=== PATIENT | female | born 1935 | race Caucasian/White ===

== ENCOUNTER 2019-05-24 12:54 | Inpatient (IN) ==
[2019-05-24] MEDS ORDERED: SODIUM CHLORIDE 0.9% 1000ML 1,000 ML IV SCH (13:15)
[2019-05-24 13:50] LABS: Basophils # (auto) 0.02 K/uL (0-0.2); Basophils % (auto) 0.2 %; Eosinophils # (auto) 0.18 K/uL (0-0.5); Eosinophils % (auto) 1.8 %; Hematocrit (blood only) 38.9 % (37-47); Hemoglobin 12.9 g/dL (12.0-16.0); Immature Granulocytes # (auto) 0.01 K/uL (0.00-0.02); Immature Granulocytes % (auto) 0.1 %; Lymphocytes # (auto) 2.97 K/uL (1.2-3.4); Lymphocytes % (auto) 29.6 %; Mean Corpuscular Hemoglobin 30.1 pg (25-34); Mean Corpuscular Hgb Conc 33.2 g/dL (32-36); Mean Corpuscular Volume 90.9 fL (80-100); Mean Platelet Volume 9.7 fL (7.4-10.4); Monocytes # (auto) 1.04 K/uL (0.11-0.59); Monocytes % (auto) 10.4 %; Neutrophils % (auto) 57.9 %; Platelet Count 182 K/uL (130-400); RDW Coefficient of Variation 15.5 % (11.5-14.5); RDW Standard Deviation 51.6 fL (36.4-46.3); Red Blood Count 4.28 M/uL (4.2-5.4); White Blood Count 10.02 K/uL (4.8-10.8)
[2019-05-24 14:07] LABS: Albumin Level 3.4 gm/dl (3.4-5.0); BUN Creatinine Ratio 13.9 (10-20); Calcium 9.9 mg/dl (8.5-10.1); Creatinine Clr Calc Pharmacy 21.5 ml/min; Est GFR (African American) 34.9; Est GFR (Non-African American) 30.2; Magnesium 1.9 mg/dl (1.8-2.4); Potassium 3.9 mmol/L (3.5-5.1)
[2019-05-24] MEDS ORDERED: DEXTROSE 50% 50 ML SYRINGE IV ONE ×2 (14:09→15:48)
[2019-05-24 14:13] LABS: Prothrombin Time 10.4 Seconds (9.0-12.0)
[2019-05-24 14:18] LABS: Albumin Globulin Ratio 0.7 (0.9-2); Bilirubin,Total 0.6 mg/dl (0.2-1); Globulin 4.8 gm/dl (2.5-4.0); Thyroid Stimulating Hormone 1.95 uIu/ml (0.300-4.500); Total Protein 8.2 gm/dl (6.4-8.2)
--- NOTE | 2019-05-24 14:41 | XRay Report ---
XR chest 1V portable HISTORY: weakness COMPARISON: None. FINDINGS: The lungs are clear. Cardiac silhouette is normal in size. No pleural effusions. No pneumot horax. IMPRESSION: No acute process. Electronically signed by: Vasu Carrasco M.D. 05/24/2019 2:39 PM
[2019-05-24 14:47] LABS: Lyme Ab IgG w/WB Rflx Negative (Negative)
[2019-05-24 14:50] LABS: Lyme Ab IgM w/WB Rflx Negative (Negative)
[2019-05-24] MEDS ORDERED: OPTIRAY 320 125ml IV PRN (14:56)
--- NOTE | 2019-05-24 15:25 | CT Scan Report ---
HEAD & NECK CTA HISTORY: LE weakness, ambulatory dysfunction, feels off TECHNIQUE: Multiaxial CT images of the head were performed both before and after the intravenous admi nistration of contrast to evaluate the major cerebral vessels. Multiaxial CT images of the neck were also performed following the intravenous administration of contrast to evaluate the major cervical ve ssels. Maximum intensity projection images were also obtained. A dose lowering technique was utilized adhering to the principles of ALARA. COMPARISON: None. FINDINGS: There is no mass, hematoma, midline shift, or acute infarct. Mild atrophy and microvascular ischemic changes are noted. Punctate calcification within the right frontal periventricular white matter. This is likely chronic. Visualized intracranial internal carotid arteries, distal vertebral arteries, and basilar artery are widely patent. There is no significant stenosis, occlusion, or aneurysm seen with in the bilateral ACAs, MCAs, or household chores. Persistent posterior circulation on the right. This is co nsidered to be a normal variant. Mild calcified plaque within the bilateral carotid siphons. Severely hypoplastic right A1 segment. This is also developmental. The major dural venous sinuses are widely patent. The aortic arch and proximal great vessels are widely patent. There is no significant stenosis, occ lusion, or dissection identified within the bilateral common carotid or vertebral arteries. Moderate calcified plaque within the bilateral carotid bifurcations. This results in 30% stenosis within the l eft carotid bulb and 20% stenosis within the right carotid bulb. IMPRESSION: 1. No significant stenosis, occlusion, or aneurysm within the [place]. 2. No significant stenosis, occlusion, or dissection identified within the common carotid or vertebra l arteries. 3. Mild bilateral carotid bulb stenosis due to the calcified plaque measuring approximately 30% on th e left and 20% on the right. Electronically signed by: Vasu Carrasco M.D. 05/24/2019 3:24 PM
--- NOTE | 2019-05-24 15:25 | CT Scan Report ---
HEAD & NECK CTA HISTORY: LE weakness, ambulatory dysfunction, feels off TECHNIQUE: Multiaxial CT images of the head were performed both before and after the intravenous admi nistration of contrast to evaluate the major cerebral vessels. Multiaxial CT images of the neck were also performed following the intravenous administration of contrast to evaluate the major cervical ve ssels. Maximum intensity projection images were also obtained. A dose lowering technique was utilized adhering to the principles of ALARA. COMPARISON: None. FINDINGS: There is no mass, hematoma, midline shift, or acute infarct. Mild atrophy and microvascular ischemic changes are noted. Punctate calcification within the right frontal periventricular white matter. This is likely chronic. Visualized intracranial internal carotid arteries, distal vertebral arteries, and basilar artery are widely patent. There is no significant stenosis, occlusion, or aneurysm seen with in the bilateral ACAs, MCAs, or property claims manager. Persistent posterior circulation on the right. This is co nsidered to be a normal variant. Mild calcified plaque within the bilateral carotid siphons. Severely hypoplastic right A1 segment. This is also developmental. The major dural venous sinuses are widely patent. The aortic arch and proximal great vessels are widely patent. There is no significant stenosis, occ lusion, or dissection identified within the bilateral common carotid or vertebral arteries. Moderate calcified plaque within the bilateral carotid bifurcations. This results in 30% stenosis within the l eft carotid bulb and 20% stenosis within the right carotid bulb. IMPRESSION: 1. No significant stenosis, occlusion, or aneurysm within the [place]. 2. No significant stenosis, occlusion, or dissection identified within the common carotid or vertebra l arteries. 3. Mild bilateral carotid bulb stenosis due to the calcified plaque measuring approximately 30% on th e left and 20% on the right. Electronically signed by: Vasu Carrasco M.D. 05/24/2019 3:24 PM
--- NOTE | 2019-05-24 15:25 | CT Scan Report ---
HEAD & NECK CTA HISTORY: LE weakness, ambulatory dysfunction, feels off TECHNIQUE: Multiaxial CT images of the head were performed both before and after the intravenous admi nistration of contrast to evaluate the major cerebral vessels. Multiaxial CT images of the neck were also performed following the intravenous administration of contrast to evaluate the major cervical ve ssels. Maximum intensity projection images were also obtained. A dose lowering technique was utilized adhering to the principles of ALARA. COMPARISON: None. FINDINGS: There is no mass, hematoma, midline shift, or acute infarct. Mild atrophy and microvascular ischemic changes are noted. Punctate calcification within the right frontal periventricular white matter. This is likely chronic. Visualized intracranial internal carotid arteries, distal vertebral arteries, and basilar artery are widely patent. There is no significant stenosis, occlusion, or aneurysm seen with in the bilateral ACAs, MCAs, or cathode builder. Persistent posterior circulation on the right. This is co nsidered to be a normal variant. Mild calcified plaque within the bilateral carotid siphons. Severely hypoplastic right A1 segment. This is also developmental. The major dural venous sinuses are widely patent. The aortic arch and proximal great vessels are widely patent. There is no significant stenosis, occ lusion, or dissection identified within the bilateral common carotid or vertebral arteries. Moderate calcified plaque within the bilateral carotid bifurcations. This results in 30% stenosis within the l eft carotid bulb and 20% stenosis within the right carotid bulb. IMPRESSION: 1. No significant stenosis, occlusion, or aneurysm within the [place]. 2. No significant stenosis, occlusion, or dissection identified within the common carotid or vertebra l arteries. 3. Mild bilateral carotid bulb stenosis due to the calcified plaque measuring approximately 30% on th e left and 20% on the right. Electronically signed by: Vasu Carracso M.D. 05/24/2019 3:24 PM
[2019-05-24 15:37] LABS: Appearance Urine Turbid (Clear); Bacteria Urine Automated Negative (Negative); Bilirubin Urine Negative (Negative); Blood Urine 1+ (Negative); Color Urine Yellow; Epithelial Cell Urine Auto >30 /lpf (0-5); Glucose Urine UA 2+ (Negative); Ketones Urine Negative (Negative); Leukocyte Esterase Urine 3+ (Negative); Nitrite Urine Negative (Negative); Protein Urine Negative (Negative); Specific Gravity Urine 1.019 (1.000-1.030); Urobilinogen Urine Negative (Negative); WBC Urine Automated >30 /hpf (0-5)
[2019-05-24] MEDS ORDERED: ASPIRIN CHEW 324 MG PO STA (17:36)
--- NOTE | 2019-05-24 18:22 | History & Physical Report ---
Date of Service May 24, 2019 Assessment & Plan (1) Generalized weakness: (2) Third nerve palsy: This is an 84-year-old female who has significant past medical history of T2DM, HTN, HLD, GERD, chronic low back pain, history of left breast CA, diabetic neuropathy who presents to [facility] ED secondary to increased weakness, confusion x5 days; right lazy eye x1 day. In ED patient was noted to have right eye ptosis, dilated and minimally reactive pupil. She underwent CT scan of head along with CTA of head and neck which revealed no significant stenosis, occlusion or aneurysm within the [place], common carotid artery or vertebral arteries. Mild bilateral carotid bulb stenosis due to calcified plaque measuring 30% on left and 1% on right. CBC was relatively unremarkable, BMP significant for elevated BUN 22, creatinine 1.58, glucose 67, TSH WNL, Lyme screen negative. Initial urinalysis 2+ glucose, +1 blood, +3 leukoesterase, many epithelial cells, greater than 30 WBC. Chest x-ray no significant abnormality. ED provider did speak with neurology who recommended ASA 325 along with MRI of head with and without contrast. Ddx: ischemic CVA, TIA, Malignancy (hx breast ca), infectious, inflammatory Admit to PCU consult neurology MRI Head w and w/o contrast neuro checks obtain visual acuity fasting lipid panel, a1c in a.m. PT/OT/ST obtain echo tx with IV antibiotic Rocephin (3) ASHLYN (acute kidney injury): Baseline creatinine 0.9 BUN/creatinine 22 and 1.58 today Hold metformin, benazepril/HCTZ, naproxen (she takes daily) She did receive CT with contrast Avoid further nephrotoxic agents Placed on gentle IV hydration 60 cc/h Repeat BMP in a.m. obtain urine, NA studies (4) Abnormal urinalysis: Urinalysis concerning for UTI, but could also be contaminant She is afebrile, WBC 10 K Approximately 1 month ago she had Klebsiella greater than 100 K UTI She currently is symptomatic with dysuria Placed on empiric ceftriaxone, dosed per pharmacy until culture returns (5) Diabetes mellitus type 2 in nonobese: Last A1c 10.4 on 06/06/2018 Obtain A1c in a.m. Patient on multidrug regimen and outpatient Hold metformin, glipizide, Tradjenta, Jardiance Lantus/NovoLog per protocol -likely will need to adjust regimen, patient significantly hypoglycemic while in ED with BSG [address] place on a liberal control initially, but likely will have to tighten NovoLog and Lantus scales in a.m. (6) Hypertension: Blood pressure on lower side Hold amlodipine, benazepril/HCTZ Continue atenolol but with strict parameters Monitor BP (7) Hypercholesterolemia: Continue statin Fasting lipid panel in a.m. (8) Neuropathy: Continue gabapentin Neuropathy precautions (9) DVT prophylaxis: Heparin SQ Disposition: Admit to PCU Follow: PCP Dr. Castano upon discharge Patient was seen and examined in collaboration with Dr. Baez, please see addendum History of Present Illness Chief Complaint: Weakness, increased confusion x5 days; lazy right eye x1 day. Primary Care Provider: Maged Castano MD This is an 84-year-old female who has significant past medical history of T2DM, HTN, HLD, GERD, chronic low back pain, history of left breast CA, diabetic neuropathy who presents to [facility] ED secondary to increased weakness, confusion x5 days; right lazy eye x1 day. Daughter and [id number] are at bedside. They have noted over the past 5 days she has been increasingly becoming more weak, difficulty walking and has been having intermittent increased confusion. She woke up today and was having difficulty opening her right eye. Because of symptoms they opted to seek ED treatment. She denies any recent illness, fever, chills, sweats, lightheadedness, dizziness, syncope, visual change, hearing change, fall, chest pain, shortness of breath, cough, hemoptysis, nausea, vomiting, abdominal pain. She does admit to having burning with urination and increased frequency with urination. She denies any cee hematuria, increased urgency with urination, diarrhea, melena, hematochezia. Per dewgyyii-fr-tqf she has been having intermittent constipation requiring srxk-qze-zhqkkxw MiraLAX. She does live alone at home and is mostly independent at baseline. She does ambulate with a cane. Approximately 1 month ago she was treated with a UTI and symptoms felt similar. "We thought maybe she was having a urinary tract infection which is why she was more confused." In ED patient was noted to have right eye ptosis, dilated and minimally reactive pupil. She underwent CT scan of head along with CTA of head and neck which revealed no significant stenosis, occlusion or aneurysm within the [place], common carotid artery or vertebral arteries. Mild bilateral carotid bulb stenosis due to calcified plaque measuring 30% on left and 1% on right. CBC was relatively unremarkable, BMP significant for elevated BUN 22, creatinine 1.58, glucose 67, TSH WNL, Lyme screen negative. Initial urinalysis 2+ glucose, +1 blood, +3 leukoesterase, many epithelial cells, greater than 30 WBC. Chest x-ray no significant abnormality. ED provider did speak with neurology who recommended ASA 325 along with MRI of head with and without contrast. Allergies Allergy/AdvReac Type Severity Reaction Status Date / Time No Known Allergies Allergy Unverified 05/24/19 14:19 Home Medications Home Medications Medication Instructions Recorded Confirmed Type Ca carb-D3-mag vd-zue-yrfs-Zn 1 tab PO QAM 05/24/19 05/24/19 History [Caltrate + D3 Plus Minerals] amlodipine 10 mg PO QAM 05/24/19 05/24/19 History aspirin 81 mg PO QAM 05/24/19 05/24/19 History atenolol 50 mg PO HS 05/24/19 05/24/19 History atorvastatin 40 mg PO HS 05/24/19 05/24/19 History benazepril-hydrochlorothiazide 1 tab PO QAM 05/24/19 05/24/19 History cholecalciferol (vitamin D3) 1,000 unit PO DAILY@1200 05/24/19 05/24/19 History [Vitamin D3] empagliflozin [Jardiance] 25 mg PO QAM 05/24/19 05/24/19 History gabapentin 100 mg PO HS 05/24/19 05/24/19 History glipizide 10 mg PO BID 05/24/19 05/24/19 History linagliptin [Tradjenta] 5 mg PO QAM 05/24/19 05/24/19 History lorazepam 0.5 mg PO BID 05/24/19 05/24/19 History metformin 1,000 mg PO BIDM 05/24/19 05/24/19 History multivitamin 1 tab PO DAILY@1200 05/24/19 05/24/19 History naproxen sodium [Aleve] 220 mg PO HS 05/24/19 05/24/19 History omega-3 fatty acids-fish oil [Fish 1 cap PO DAILY@1200 05/24/19 05/24/19 History Oil] omeprazole 20 mg PO QAM 05/24/19 05/24/19 History Past Med/Surg History Medical History (Updated 05/24/19 @ 18:28 by Trish Nino PA-C) Breast cancer, stage 2 (Acute 11/14/13) Diabetes mellitus type 2 in nonobese (Acute) Hx: UTI (urinary tract infection) Hypercholesterolemia (Acute) Hypertension (Acute) Neuropathy Surgical History (Updated 05/24/19 @ 18:20 by Trish Nino PA-C) History of History of carpal tunnel surgery History of colonoscopy S/P lumpectomy, left breast (Acute 12/26/13) Family History Father , 83 Myocardial infarction, Onset Age: 46 Hypertension Heart disease Diabetes Mother Diabetes Hypertension Social History (Updated 05/24/19 @ 18:22 by Trish Nino PA-C) Preferred Language: Polish Communication Ability: Effective marital status: Current Living Situation: Alone current occupational status: retired Feels Safe at Home: Yes Smoking Status: Never smoker Hx Alcohol Use: No Hx Substance Use: No Review of Systems Review of Systems: All systems reviewed & are unremarkable except as noted in HPI & below Physical Exam Physical Exam: Constitutional: WD/WN, elderly, female, vitals as above, NAD, sitting up in bed, pleasant, conversing easily Head: Normocephalic, Atraumatic Eyes: Right eye ptosis, right pupil dilated, fixed, minimally reactive, no conjunctival injection, third eye palsy noted as right eye does not follow medially, left eye pupil reactive to light and accommodation with normal conjunctiva, anicteric sclerae ENMT: external ear and nose normal, oropharynx normal Neck: trachea midline, no thyromegaly normal visual inspection Respiratory: normal respiratory effort, lungs clear to auscultation, no wheeze, rales, rhonchi. Normal insp/exp effort, no accessory muscle use Cardiovascular: RRR, no murmur, no edema Vessels: no JVD or carotid bruit Chest: normal inspection of chest Abdomen: normal bowel sounds, soft, nontender, no hepatosplenomegaly Musculoskeletal: no cyanosis or clubbing, extremities motor strength 5/5 Skin: no rashes, warm and dry normal turgor Neurologic: Eye exam as above, no face palsy, no dysarthria CN's II-XI intact, except III, bilaterally and moves all extremities Psychiatric: A+Ox3, euthymic affect Lymphatic: no cervical or axillary lymphadenopathy : deferred Results & Data Vital Signs (Past 12 Hours) Vital Signs Temp Pulse Pulse Resp BP BP Pulse Ox 05/24/19 17:17 78 18 117/58 L 95 05/24/19 16:07 76 18 105/63 95 05/24/19 15:40 81 18 130/53 L 91 05/24/19 14:30 72 20 107/47 L 97 05/24/19 14:00 67 17 118/43 L 05/24/19 13:39 70 19 126/56 L 05/24/19 13:30 70 19 05/24/19 13:23 70 17 05/24/19 12:57 36.4 C L 73 20 101/64 98 Laboratory Results Short CBC 05/24/19 05/24/19 05/24/19 Range/Units 13:40 13:40 15:27 WBC 10.02 (4.8-10.8) K/uL Hgb 12.9 (12.0-16.0) g/dL Hct 38.9 (37-47) % Plt Count 182 (130-400) K/uL Creatinine 1.58 H (0.6-1.2) mg/dl Glucose 67 L (70-99) mg/dl POC Glucose 57 L* (70-99) 05/24/19 05/24/19 Range/Units 15:28 16:06 WBC (4.8-10.8) K/uL Hgb (12.0-16.0) g/dL Hct (37-47) % Plt Count (130-400) K/uL Creatinine (0.6-1.2) mg/dl Glucose (70-99) mg/dl POC Glucose 52 L* 140 H (70-99) BMP 05/24/19 13:40 Sodium 132 L Potassium 3.9 Chloride 99 Carbon Dioxide 23 BUN 22 H Creatinine 1.58 H Glucose 67 L Calcium 9.9 Liver Function 05/24/19 Range/Units 13:40 Total Bilirubin 0.6 (0.2-1) mg/dl AST 23 (15-37) U/L ALT 33 (12-78) U/L Alkaline Phosphatase 104 (45-117) U/L Albumin 3.4 (3.4-5.0) gm/dl Urine 05/24/19 Range/Units 15:15 Urine Color Yellow Urine Appearance Turbid A (Clear) Urine pH 5.0 (4.5-7.5) Ur Specific [place] 1.019 (1.000-1.030) Urine Protein Negative (Negative) Urine Glucose (UA) 2+ H (Negative) Diagnostic Findings CXR: IMPRESSION: No acute process. Head CT, CTA of head/neck: IMPRESSION: 1. No significant stenosis, occlusion, or aneurysm within the [place]. 2. No significant stenosis, occlusion, or dissection identified within the common carotid or vertebral arteries. 3. Mild bilateral carotid bulb stenosis due to the calcified plaque measuring a pproximately 30% on the left and 20% on the right. Medications Administered Discontinued Medications Aspirin (Aspirin) 324 mg PO NOW STA Stop: 05/24/19 17:37 Last Admin: 05/24/19 18:00 Dose: 324 mg Documented by: [id number] Dextrose (Dextrose 50%) 25 ml IV NOW ONE Stop: 05/24/19 14:10 Last Admin: 05/24/19 14:13 Dose: 25 ml Documented by: [id number] Dextrose (Dextrose 50%) 50 ml IV NOW ONE Stop: 05/24/19 15:49 Last Admin: 05/24/19 15:45 Dose: 50 ml Documented by: [id number] Sodium Chloride (Nss 1000ml) 1,000 mls @ 999 mls/hr IV .Q1H1M MIGDALIA Stop: 05/24/19 14:15 Last Infusion: 05/24/19 14:45 Dose: 0 mls/hr Documented by: [id number] Admin: 05/24/19 13:55 Dose: 999 mls/hr Documented by: [id number] ECG Rate (beats per minute): 69 Rhythm: normal sinus Findings: + RBBB Code Status & VTE Plan Code Status Full Code VTE Prophylaxis Plan VTE Prophylaxis will be ordered: Yes Supervising Physician Co-Signing Physician Notes Attending addendum: The patient was seen and examined in emergency room in presence of the daughters She has significant past medical history including diabetes and history of breast cancer stage II Has been complaining of increasing weakness and tiredness and noted to have closed and lazy eye on the right side Surprisingly she denies any double vision She has noted to have right 3rd nerve palsy on examination Denies any other symptoms except weakness On examination No apparent distress at rest Noted to have partially open right eye which is fully dilated Afebrile and hemodynamically stable Chest-clear Heart-S1-S2, regular Abdomen-benign, nontender, no organomegaly, bowel some present Extremities-trace edema bilaterally 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
[2019-05-24] MEDS ORDERED: CONSULT PHARMACY PRN (18:25)
--- NOTE | 2019-05-24 18:39 | Emergency Department Note ---
Entered by Romina Carroll acting as a scribe for History of Present Illness General Chief complaint: TIA Symptoms Stated complaint: LATHARGIC, POSSIBLE STROKE Time Seen by Provider: 05/24/19 13:00 Source: patient History of Present Illness Onset (ago): day(s) (yesterday) Location: head Pain Consistency: + other (persistent) Maximum Pain Intensity: 5 Quality: + other (TIA symptoms) Associated symptoms: + denies other symptoms (abdominal pain, difficulty moving her bowels, difficulty urinating, increased urinary frequency), + confusion, + weakness and + other (foggy, lethargic, feeling slow, difficulty walking, inability to open right eye, burning with urination); no fever/chills, no loss of appetite and no shortness of breath The patient is an 84 year old female w/ PMHx neuropathy, UTI, diabete s, hypercholesterolemia, HTN, and breast cancer who presents to the ED w/ CC of persistent TIA symptoms starting yesterday. The patient states that she just is not feeling herself. She states that her head feels off. She notes that it is hard to describe. The patients daughter states that she has been confused, slow, lethargic, and foggy. She states that she seemed off like this all weekend and they really noticed it Wednesday, 2 days ago. She reports that she slept most of the day yesterday. She states that yesterday they started to notice she was weak as well. She reports that she has not been able to get up and walk on her own without assistance. She notes that she got like this in the past when she had a UTI. The patient states that she is concerned she may have a UTI because she had some burning with urination this morning. The patient complains of difficulty opening her right eye. The patients daughter notes that the patients mother had the same issues when she had a stroke. The patient denies fever, chills, chest pain, shortness of breath, abdominal pain, difficulty moving her bowels, difficulty urinating, loss of appetite, increased urinary frequency, use of alcohol, and use of tobacco. Home Medications Home Medications Medication Instructions Recorded Confirmed Type Ca carb-D3-mag [id number] 1 tab PO QAM 05/24/19 05/24/19 History [Caltrate + D3 Plus Minerals] amlodipine 10 mg PO QAM 05/24/19 05/24/19 History aspirin 81 mg PO QAM 05/24/19 05/24/19 History atenolol 50 mg PO HS 05/24/19 05/24/19 History atorvastatin 40 mg PO HS 05/24/19 05/24/19 History benazepril-hydrochlorothiazide 1 tab PO QAM 05/24/19 05/24/19 History cholecalciferol (vitamin D3) 1,000 unit PO DAILY@1200 05/24/19 05/24/19 History [Vitamin D3] empagliflozin [Jardiance] 25 mg PO QAM 05/24/19 05/24/19 History gabapentin 100 mg PO HS 05/24/19 05/24/19 History glipizide 10 mg PO BID 05/24/19 05/24/19 History linagliptin [Tradjenta] 5 mg PO QAM 05/24/19 05/24/19 History lorazepam 0.5 mg PO BID 05/24/19 05/24/19 History metformin 1,000 mg PO BIDM 05/24/19 05/24/19 History multivitamin 1 tab PO DAILY@1200 05/24/19 05/24/19 History naproxen sodium [Aleve] 220 mg PO HS 05/24/19 05/24/19 History omega-3 fatty acids-fish oil [Fish 1 cap PO DAILY@1200 05/24/19 05/24/19 History Oil] omeprazole 20 mg PO QAM 05/24/19 05/24/19 History Allergies Allergy/AdvReac Type Severity Reaction Status Date / Time No Known Allergies Allergy Unverified 05/24/19 14:19 Past Med/Surg History Medical History (Updated 05/24/19 @ 18:28 by Trish Nino PA-C) Breast cancer, stage 2 (Acute 11/14/13) Diabetes mellitus type 2 in nonobese (Acute) Hx: UTI (urinary tract infection) Hypercholesterolemia (Acute) Hypertension (Acute) Neuropathy Surgical History (Updated 05/24/19 @ 18:20 by Trish Nino PA-C) History of History of carpal tunnel surgery History of colonoscopy S/P lumpectomy, left breast (Acute 12/26/13) Family History Father , 83 Myocardial infarction, Onset Age: 46 Hypertension Heart disease Diabetes Mother Diabetes Hypertension Social History (Updated 05/24/19 @ 18:22 by Trish Nino PA-C) Preferred Language: [place] Communication Ability: Effective marital status: Current Living Situation: Alone current occupational status: retired Feels Safe at Home: Yes Smoking Status: Never smoker Hx Alcohol Use: No Hx Substance Use: No Review of Systems See HPI for pertinent positives & negatives. and A total of 10 systems reviewed and were otherwise negative Physical Exam Vital Signs Vital Signs - 24 hr 05/24/19 12:57 05/24/19 13:23 05/24/19 13:30 Temperature 36.4 C L Temperature Source Oral Pulse Rate 73 70 70 Pulse Rate [Apical] Pulse Rate from SpO2 Sensor Respiratory Rate 20 17 19 Respiratory Effort / Characteristics Non-Labored Spontaneous Respiratory Depth Normal Blood Pressure 101/64 Blood Pressure [Left Arm] Blood Pressure Mean 76 Blood Pressure Mean [Left Arm] Pulse Oximetry 98 Oxygen Delivery Method Room Air Sepsis Recent Fever Within 48 Hours No Sepsis New/Unexplained Change in Mental Status No Sepsis Action Taken by Nursing No Action Required 05/24/19 13:39 05/24/19 14:00 05/24/19 14:30 Temperature Temperature Source Pulse Rate 70 67 72 Pulse Rate [Apical] Pulse Rate from SpO2 Sensor 73 Respiratory Rate 19 17 20 Respiratory Effort / Characteristics Respiratory Depth Blood Pressure 126/56 L 118/43 L 107/47 L Blood Pressure [Left Arm] Blood Pressure Mean 88 74 81 Blood Pressure Mean [Left Arm] Pulse Oximetry 97 Oxygen Delivery Method Sepsis Recent Fever Within 48 Hours Sepsis New/Unexplained Change in Mental Status Sepsis Action Taken by Nursing 05/24/19 15:40 05/24/19 16:07 05/24/19 17:17 Temperature Temperature Source Pulse Rate Pulse Rate [Apical] 81 76 78 Pulse Rate from SpO2 Sensor Respiratory Rate 18 18 18 Respiratory Effort / Characteristics Non-Labored Non-Labored Respiratory Depth Normal Normal Blood Pressure Blood Pressure [Left Arm] 130/53 L 105/63 117/58 L Blood Pressure Mean Blood Pressure Mean [Left Arm] 78 77 77 Pulse Oximetry 91 95 95 Oxygen Delivery Method Room Air Room Air Room Air Sepsis Recent Fever Within 48 Hours Sepsis New/Unexplained Change in Mental Status Sepsis Action Taken by Nursing 05/24/19 18:19 Temperature Temperature Source Pulse Rate Pulse Rate [Apical] 79 Pulse Rate from SpO2 Sensor Respiratory Rate 18 Respiratory Effort / Characteristics Respiratory Depth Blood Pressure Blood Pressure [Left Arm] 127/77 Blood Pressure Mean Blood Pressure Mean [Left Arm] 93 Pulse Oximetry 97 Oxygen Delivery Method Room Air Sepsis Recent Fever Within 48 Hours Sepsis New/Unexplained Change in Mental Status Sepsis Action Taken by Nursing GENERAL: Well appearing, well nourished, NAD, non-toxic. EYE EXAM: Normal conjunctiva. PERRL, no anisocoria. Inability to move right eye to the left. Pupil is dilated. Sluggish to react. OROPHARYNX: Moist mucous membranes. Grossly normal dentition. NECK: Supple, no nuchal rigidity, no adenopathy, non-tender. No signs of meningismus. LUNGS: Clear to auscultation. Normal chest wall mechanics. HEART: NSR, no MRG. ABDOMEN: Abdomen soft, non-tender, normo-active bowel sounds, no masses, no rebound or guarding. BACK: No CVA TTP. SKIN: No rashes and no bruising. UPPER EXTREMITIES: Upper extremities are grossly normal. LOWER EXTREMITIES: No pitting edema. No calf pain. NEURO EXAM: A&O x3, cranial nerves II-XII grossly intact with the exception of inability to move right eye to the left. Pupil is dilated. Sluggish to react. Normal speech, 5/5 strength throughout, no sensory deficits,good finger to nose, no pronator drift, moves all 4 extremities on command w/o issue. Course Course 1303: The patient was evaluated in room C9. A complete history and physical exam was performed. 1305: Orders were placed and the patient was placed on the secured entrance monitor. 1617: I reevaluated the patient at this time and updated her on her test results thus far. I discussed that we are going to talk to neurology. 1625: I discussed the patient's case with Dr. Beck- Neurology. He recommends bringing the patient in. 1701: I reevaluated the patient and updated her and her family on her test results. I discussed the treatment plan with them. They verbally agree and understand. 1735: I discussed the patient's case with Trish Nino PA-C -[facility] Hospitalist. She will evaluate the patient for further management under Dr. Baez's service. Administered Medications Discontinued Medications Aspirin (Aspirin) 324 mg PO NOW STA Stop: 05/24/19 17:37 Last Admin: 05/24/19 18:00 Dose: 324 mg Documented by: [id number] Dextrose (Dextrose 50%) 25 ml IV NOW ONE Stop: 05/24/19 14:10 Last Admin: 05/24/19 14:13 Dose: 25 ml Documented by: [id number] Dextrose (Dextrose 50%) 50 ml IV NOW ONE Stop: 05/24/19 15:49 Last Admin: 05/24/19 15:45 Dose: 50 ml Documented by: [id number] Sodium Chloride (Nss 1000ml) 1,000 mls @ 999 mls/hr IV .Q1H1M MIGDALIA Stop: 05/24/19 14:15 Last Infusion: 05/24/19 14:45 Dose: 0 mls/hr Documented by: [id number] Admin: 05/24/19 13:55 Dose: 999 mls/hr Documented by: [id number] Critical Care Time Critical Care Time: Yes Total Critical Care Time: 37 I have personally spent 37 minutes of critical care time in direct management of this patient. This includes bedside care, interpretation of diagnostic studies, and testing, discussion with consultants, patient, and family members, and other require inpatient management activities. This 37 minutes is in excess of all separately billable procedures. Medical Decision Making Differential Diagnosis Differential Diagnosis includes but is not limited to dehydration, stroke, anemia, hypoglycemia, hyponatremia, hypernatremia, urinary tract infection, pneumonia, bronchitis, sepsis, gastroenteritis, additional abdominal pathology, metabolic abnormalities and infections. Medical Records Attestation: I reviewed the patient's medical records. Home Medications Current Medication List: was personally reviewed by nc Laboratory Data Attestation: I reviewed the patient's lab results. Result diagrams: 05/24/19 13:40 05/24/19 13:40 Lab Results 05/24/19 05/24/19 05/24/19 Range/Units 13:40 13:40 13:40 WBC 10.02 (4.8-10.8) K/uL RBC 4.28 (4.2-5.4) M/uL Hgb 12.9 (12.0-16.0) g/dL Hct 38.9 (37-47) % MCV 90.9 (80-100) fL MCH 30.1 (25-34) pg MCHC 33.2 (32-36) g/dL RDW Std Deviation 51.6 H (36.4-46.3) fL RDW Coeff of Judy 15.5 H (11.5-14.5) % Plt Count 182 (130-400) K/uL MPV 9.7 (7.4-10.4) fL Immature Gran % (Auto) 0.1 % Neut % (Auto) 57.9 % Lymph % (Auto) 29.6 % [place] % (Auto) 10.4 % Eos % (Auto) 1.8 % Baso % (Auto) 0.2 % Immature Gran # (Auto) 0.01 (0.00-0.02) K/uL Neut # (Auto) 5.80 (1.4-6.5) K/uL Lymph # (Auto) 2.97 (1.2-3.4) K/uL [place] # (Auto) 1.04 H (0.11-0.59) K/uL Eos # (Auto) 0.18 (0-0.5) K/uL Baso # (Auto) 0.02 (0-0.2) K/uL PT 10.4 (9.0-12.0) Seconds INR 1.0 (0.9-1.1) Sodium 132 L (136-145) mmol/L Potassium 3.9 (3.5-5.1) mmol/L Chloride 99 (98-107) mmol/L Carbon Dioxide 23 (21-32) mmol/L Anion Gap 10.0 (3-11) BUN 22 H (7-18) mg/dl Creatinine 1.58 H (0.6-1.2) mg/dl Est Cr Clr Drug Dosing 21.5 ml/min Est GFR ( Amer) 34.9 Est GFR (Non-Af Amer) 30.2 BUN/Creatinine Ratio 13.9 (10-20) Glucose 67 L (70-99) mg/dl POC Glucose (70-99) Calcium 9.9 (8.5-10.1) mg/dl Magnesium 1.9 (1.8-2.4) mg/dl Total Bilirubin 0.6 (0.2-1) mg/dl AST 23 (15-37) U/L ALT 33 (12-78) U/L Alkaline Phosphatase 104 (45-117) U/L Total Protein 8.2 (6.4-8.2) gm/dl Albumin 3.4 (3.4-5.0) gm/dl Globulin 4.8 H (2.5-4.0) gm/dl Albumin/Globulin Ratio 0.7 L (0.9-2) TSH 1.950 (0.300-4.500) uIu/ml Urine Color Urine Appearance (Clear) Urine pH (4.5-7.5) Ur Specific [place] (1.000-1.030) Urine Protein (Negative) Urine Glucose (UA) (Negative) Urine Ketones (Negative) Urine Blood (Negative) Urine Nitrite (Negative) Urine Bilirubin (Negative) Urine Urobilinogen (Negative) Ur Leukocyte Esterase (Negative) Urine WBC (Auto) (0-5) /hpf Urine RBC (Auto) (0-4) /hpf U Hyaline Cast (Auto) (0-5) /lpf U Epithel Cells (Auto) (0-5) /lpf Urine Bacteria (Auto) (Negative) Urine Yeast (None Prsent) Lyme Disease IgG Ab (Negative) Lyme Disease IgM Ab (Negative) 05/24/19 05/24/19 05/24/19 Range/Units 13:40 15:15 15:27 WBC (4.8-10.8) K/uL RBC (4.2-5.4) M/uL Hgb (12.0-16.0) g/dL Hct (37-47) % MCV (80-100) fL MCH (25-34) pg MCHC (32-36) g/dL RDW Std Deviation (36.4-46.3) fL RDW Coeff of Judy (11.5-14.5) % Plt Count (130-400) K/uL MPV (7.4-10.4) fL Immature Gran % (Auto) % Neut % (Auto) % Lymph % (Auto) % [place] % (Auto) % Eos % (Auto) % Baso % (Auto) % Immature Gran # (Auto) (0.00-0.02) K/uL Neut # (Auto) (1.4-6.5) K/uL Lymph # (Auto) (1.2-3.4) K/uL [place] # (Auto) (0.11-0.59) K/uL Eos # (Auto) (0-0.5) K/uL Baso # (Auto) (0-0.2) K/uL PT (9.0-12.0) Seconds INR (0.9-1.1) Sodium (136-145) mmol/L Potassium (3.5-5.1) mmol/L Chloride (98-107) mmol/L Carbon Dioxide (21-32) mmol/L Anion Gap (3-11) BUN (7-18) mg/dl Creatinine (0.6-1.2) mg/dl Est Cr Clr Drug Dosing ml/min Est GFR ( Amer) Est GFR (Non-Af Amer) BUN/Creatinine Ratio (10-20) Glucose (70-99) mg/dl POC Glucose 57 L* (70-99) Calcium (8.5-10.1) mg/dl Magnesium (1.8-2.4) mg/dl Total Bilirubin (0.2-1) mg/dl AST (15-37) U/L ALT (12-78) U/L Alkaline Phosphatase (45-117) U/L Total Protein (6.4-8.2) gm/dl Albumin (3.4-5.0) gm/dl Globulin (2.5-4.0) gm/dl Albumin/Globulin Ratio (0.9-2) TSH (0.300-4.500) uIu/ml Urine Color Yellow Urine Appearance Turbid A (Clear) Urine pH 5.0 (4.5-7.5) Ur Specific [place] 1.019 (1.000-1.030) Urine Protein Negative (Negative) Urine Glucose (UA) 2+ H (Negative) Urine Ketones Negative (Negative) Urine Blood 1+ H (Negative) Urine Nitrite Negative (Negative) Urine Bilirubin Negative (Negative) Urine Urobilinogen Negative (Negative) Ur Leukocyte Esterase 3+ H (Negative) Urine WBC (Auto) >30 H (0-5) /hpf Urine RBC (Auto) 5-10 H (0-4) /hpf U Hyaline Cast (Auto) 1-5 (0-5) /lpf U Epithel Cells (Auto) >30 H (0-5) /lpf Urine Bacteria (Auto) Negative (Negative) Urine Yeast Present A (None Prsent) Lyme Disease IgG Ab Negative (Negative) Lyme Disease IgM Ab Negative (Negative) 05/24/19 05/24/19 Range/Units 15:28 16:06 WBC (4.8-10.8) K/uL RBC (4.2-5.4) M/uL Hgb (12.0-16.0) g/dL Hct (37-47) % MCV (80-100) fL MCH (25-34) pg MCHC (32-36) g/dL RDW Std Deviation (36.4-46.3) fL RDW Coeff of Judy (11.5-14.5) % Plt Count (130-400) K/uL MPV (7.4-10.4) fL Immature Gran % (Auto) % Neut % (Auto) % Lymph % (Auto) % [place] % (Auto) % Eos % (Auto) % Baso % (Auto) % Immature Gran # (Auto) (0.00-0.02) K/uL Neut # (Auto) (1.4-6.5) K/uL Lymph # (Auto) (1.2-3.4) K/uL [place] # (Auto) (0.11-0.59) K/uL Eos # (Auto) (0-0.5) K/uL Baso # (Auto) (0-0.2) K/uL PT (9.0-12.0) Seconds INR (0.9-1.1) Sodium (136-145) mmol/L Potassium (3.5-5.1) mmol/L Chloride (98-107) mmol/L Carbon Dioxide (21-32) mmol/L Anion Gap (3-11) BUN (7-18) mg/dl Creatinine (0.6-1.2) mg/dl Est Cr Clr Drug Dosing ml/min Est GFR ( Amer) Est GFR (Non-Af Amer) BUN/Creatinine Ratio (10-20) Glucose (70-99) mg/dl POC Glucose 52 L* 140 H (70-99) Calcium (8.5-10.1) mg/dl Magnesium (1.8-2.4) mg/dl Total Bilirubin (0.2-1) mg/dl AST (15-37) U/L ALT (12-78) U/L Alkaline Phosphatase (45-117) U/L Total Protein (6.4-8.2) gm/dl Albumin (3.4-5.0) gm/dl Globulin (2.5-4.0) gm/dl Albumin/Globulin Ratio (0.9-2) TSH (0.300-4.500) uIu/ml Urine Color Urine Appearance (Clear) Urine pH (4.5-7.5) Ur Specific [place] (1.000-1.030) Urine Protein (Negative) Urine Glucose (UA) (Negative) Urine Ketones (Negative) Urine Blood (Negative) Urine Nitrite (Negative) Urine Bilirubin (Negative) Urine Urobilinogen (Negative) Ur Leukocyte Esterase (Negative) Urine WBC (Auto) (0-5) /hpf Urine RBC (Auto) (0-4) /hpf U Hyaline Cast (Auto) (0-5) /lpf U Epithel Cells (Auto) (0-5) /lpf Urine Bacteria (Auto) (Negative) Urine Yeast (None Prsent) Lyme Disease IgG Ab (Negative) Lyme Disease IgM Ab (Negative) Imaging Data Radiologist's Impression: Radiology results as stated below per my review and the radiologist's interpretation: XR chest 1V portable HISTORY: weakness COMPARISON: None. FINDINGS: The lungs are clear. Cardiac silhouette is normal in size. No pleural effusions. No pneumothorax. IMPRESSION: No acute process. Electronically signed by: Vasu Carrasco M.D. 05/24/2019 2:39 PM HEAD & NECK CTA HISTORY: LE weakness, ambulatory dysfunction, feels off TECHNIQUE: Multiaxial CT images of the head were performed both before and after the intravenous administration of contrast to evaluate the major cerebral vessels. Multiaxial CT images of the neck were also performed following the intravenous administration of contrast to evaluate the major cervical vessels. Maximum intensity projection images were also obtained. A dose lowering technique was utilized adhering to the principles of ALARA. COMPARISON: None. FINDINGS: There is no mass, hematoma, midline shift, or acute infarct. Mild atrophy and microvascular ischemic changes are noted. Punctate calcification within the right frontal periventricular white matter. This is likely chronic. Visualized intracranial internal carotid arteries, distal vertebral arteries, and basilar artery are widely patent. There is no significant stenosis, occlusion, or aneurysm seen within the bilateral ACAs, MCAs, or machine set up. Persistent posterior circulation on the right. This is considered to be a normal variant. Mild calcified plaque within the bilateral carotid siphons. Severely hypoplastic right A1 segment. This is also developmental. The major dural venous sinuses are widely patent. The aortic arch and proximal great vessels are widely patent. There is no significant stenosis, occlusion, or dissection identified within the bilateral common carotid or vertebral arteries. Moderate calcified plaque within the bilateral carotid bifurcations. This results in 30% stenosis within the left carotid bulb and 20% stenosis within the right carotid bulb. IMPRESSION: 1. No significant stenosis, occlusion, or aneurysm within the [place]. 2. No significant stenosis, occlusion, or dissection identified within the common carotid or vertebral arteries. 3. Mild bilateral carotid bulb stenosis due to the calcified plaque measuring ap proximately 30% on the left and 20% on the right. Electronically signed by: Vasu Carrasco M.D. 05/24/2019 3:24 PM ECG Data Attestation: I personally reviewed and interpreted this ECG as follows: Indication: + weakness Rate (beats per minute): 69 Rhythm: + normal sinus ECG Intervals/blocks: + Right Bundle branch block ECG ST segments: + T-wave inversions (Inferior) ECG Findings: + Other (Wide QRS complex) Blood Pressure Blood Pressure Findings: Normal blood pressure Blood Pressure Disposition: did not require urgent referral MDM Narrative The patient is an 84 year old female w/ PMHx neuropathy, UTI, diabetes, hypercholesterolemia, HTN, and breast cancer who presents to the ED w/ CC of persistent TIA symptoms starting yesterday. Patient was seen in eval at the bedside. The patient does admit to feeling off and symptoms began over the weekend. The patient does not have any headache but she is noticed some issues with the right eye. On exam the patient's right eye is dilated and sluggish to react. She has an obvious 3rd nerve palsy and cannot move medial to the midline. No issues with looking down and out or up and out. Patient's visual acuity is grossly intact. Patient did have blood work completed along with a CT had CT Ditpi of head and neck and blood work along with a Lyme's. Patient's blood work does show some hyperglycemia. The patient was repleted given IV fluids. The patient's CT and CT angios were negative. Given the concern for 3rd nerve palsy I did speak with the on-call neurologist who recommended MR brain with and without as well as admission. Patient was ordered a full dose aspirin. Patient was subsequently admitted to the medicine service. Impression & Plan Third nerve palsy, Hypoglycemia, CKD (chronic kidney disease), stage III Discharge Plan Visit Data Chief Complaint: TIA Symptoms Stated Complaint: LATHARGIC, POSSIBLE STROKE ED Provider: Hernandez Pulido Discharge Problem: Third nerve palsy, Hypoglycemia, CKD (chronic kidney disease), stage III Patient Disposition: Being Evaluated by Hospitalist Forms Stand Alone Forms: My [facility] Prescriptions Prescriptions: No Action multivitamin Tablet 1 tab PO DAILY@1200 RF: 0 atorvastatin 40 mg tablet 40 mg PO HS RF: 0 metformin 500 mg tablet 1,000 mg PO BIDM RF: 0 glipizide 10 mg tablet 10 mg PO BID RF: 0 benazepril-hydrochlorothiazide 20-25 mg tablet 1 tab PO QAM RF: 0 aspirin 81 mg Tablet,Delayed Release (Dr/Ec) 81 mg PO QAM RF: 0 lorazepam 0.5 mg tablet 0.5 mg PO BID RF: 0 amlodipine 10 mg tablet 10 mg PO QAM RF: 0 naproxen sodium [Aleve] 220 mg Tablet 220 mg PO HS RF: 0 omeprazole 20 mg capsule,delayed release(DR/EC) 20 mg PO QAM RF: 0 gabapentin 100 mg capsule 100 mg PO HS RF: 0 atenolol 50 mg tablet 50 mg PO HS RF: 0 cholecalciferol (vitamin D3) [Vitamin D3] 1,000 unit Capsule 1,000 unit PO DAILY@1200 RF: 0 omega-3 fatty acids-fish oil [Fish Oil] 360-1,200 mg Capsule 1 cap PO DAILY@1200 RF: 0 Tradjenta 5 mg tablet 5 mg PO QAM RF: 0 Jardiance 25 mg tablet 25 mg PO QAM RF: 0 Caltrate + D3 Plus Minerals 300 mg-800 unit -25 mg-0.5 mg Tablet 1 tab PO QAM RF: 0 Referrals Referrals: Maged Castano MD [Primary Care Provider] - Discharge Problem: Third nerve palsy Qualifiers: Laterality: unspecified laterality Qualified Code(s): H49.00 - Third [oculomotor] nerve palsy, unspecified eye The scribe's documentation has been prepared under my direction and personally reviewed by me in its entirety. I confirm that the note above accurately reflects all work, treatment, procedures, and medical decision making performed by me.
[2019-05-24] MEDS ORDERED: GADOBUTROL 65ML VIAL IV PRN (19:21)
--- NOTE | 2019-05-24 19:44 | Magnetic Resonance Report ---
MR brain wo/w con CLINICAL HISTORY: L 3rd nerve palsy mental status change COMPARISON STUDY: No previous studies for comparison. TECHNIQUE: Utilizing a 1.5 Gina magnet and dedicated coil, multiplanar, multiecho imaging of the br ain was performed pre and postcontrast administration. IV administration of 5.5 mL of Gadavist contr ast was uneventful. FINDINGS: Diffusion-weighted images show no evidence for an acute ischemic process. Findings of consi derable cerebral as well as cerebellar atrophy. Considerable chronic small vessel change. 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 Scattered areas of atrophy and/or encephalomalacia throughout both cerebral hemispheres. No abnormal postcontrast enhancement. IMPRESSION: Considerable atrophy and chronic small vessel change. No acute process. No abnormal post contrast enhancement. The above report was generated using voice recognition software. It may contain grammatical, syntax or spelling errors. Electronically signed by: Maged Chavez M.D. 05/24/2019 7:43 PM
[2019-05-24] MEDS ORDERED: PHARMACIST DISCHARGE MED REC CONSULT PRN (21:38)
[2019-05-24] MEDS ORDERED: CARBOHYDRATES FOR HYPOGLYCEMIA PO PRN (21:38)
[2019-05-24] MEDS ORDERED: ACETAMINOPHEN 325 MG TAB PO PRN (21:38)
[2019-05-24] MEDS ORDERED: DEXTROSE 50% 50 ML SYRINGE IV PRN (21:38)
[2019-05-24] MEDS ORDERED: GLUCOSE 10 TABS/TUBE PO PRN (21:38)
[2019-05-24] MEDS ORDERED: GLUCOSE 40% GEL 15 GM TUBE PO PRN (21:38)
[2019-05-24] MEDS ORDERED: GLUCAGON FOR INJ 1 MG VIAL SQ PRN (21:38)
[2019-05-24] MEDS ORDERED: ONDANSETRON INJ 2 MG/ML 2 ML VIAL IV PRN (21:38)
[2019-05-24] MEDS: SODIUM CHLORIDE 0.9% 1000ML 1,000 ML IV SCH (22:05)
[2019-05-24] MEDS: cefTRIAXone SODIUM 1,000 MG in DEXTROSE 5% 50 ML IV SCH (22:05)
[2019-05-24] MEDS: INSULIN GLARGINE SOLOSTAR 100 UNITS/ML 3 ML PEN SC SCH (23:40)
[2019-05-24] MEDS: INSULIN ASPART 100 UNITS/ML 3 ML PEN SC SCH (23:40)
[2019-05-24] MEDS: HEPARIN SOD 5,000 UNIT/0.5 ML VIAL SQ SCH (23:41)
[2019-05-24] MEDS: GABAPENTIN 100 MG CAP PO SCH (23:42)
[2019-05-24] MEDS: ATORVASTATIN 40 MG TAB PO SCH (23:42)
[2019-05-24] MEDS: ATENOLOL 50 MG TABLET PO SCH (23:48)
[2019-05-24] MEDS: LORazepam 0.5 MG TAB PO SCH (23:49)
[2019-05-25 00:22] LABS: Creatinine Urine Random 23.8 mg/dl
[2019-05-25] MEDS: HEPARIN SOD 5,000 UNIT/0.5 ML VIAL SQ SCH ×3 (06:16→20:28)
[2019-05-25 06:41] LABS: Basophils # (auto) 0.02 K/uL (0-0.2); Basophils % (auto) 0.3 %; Eosinophils # (auto) 0.19 K/uL (0-0.5); Eosinophils % (auto) 2.7 %; Hematocrit (blood only) 36.6 % (37-47); Hemoglobin 12.5 g/dL (12.0-16.0); Immature Granulocytes # (auto) 0.01 K/uL (0.00-0.02); Immature Granulocytes % (auto) 0.1 %; Lymphocytes # (auto) 1.65 K/uL (1.2-3.4); Lymphocytes % (auto) 23.4 %; Mean Corpuscular Hemoglobin 30.5 pg (25-34); Mean Corpuscular Hgb Conc 34.2 g/dL (32-36); Mean Corpuscular Volume 89.3 fL (80-100); Mean Platelet Volume 9.5 fL (7.4-10.4); Monocytes # (auto) 0.68 K/uL (0.11-0.59); Monocytes % (auto) 9.6 %; Neutrophils % (auto) 63.9 %; Platelet Count 178 K/uL (130-400); RDW Coefficient of Variation 15.1 % (11.5-14.5); RDW Standard Deviation 49.2 fL (36.4-46.3); White Blood Count 7.05 K/uL (4.8-10.8)
[2019-05-25 07:15] LABS: BUN Creatinine Ratio 15.3 (10-20); Calcium 9.6 mg/dl (8.5-10.1); Creatinine Clr Calc Pharmacy 31.9 ml/min; Est GFR (African American) 56.6; Est GFR (Non-African American) 48.9; Potassium 3.7 mmol/L (3.5-5.1)
[2019-05-25 08:23] LABS: Estimated Average Glucose 148 mg/dl; Hemoglobin A1C 6.8 % (4.5-5.6)
[2019-05-25] MEDS: PANTOprazole 40 MG TAB PO SCH (08:57)
[2019-05-25] MEDS: ASPIRIN 81 MG ECTAB PO SCH (08:58)
[2019-05-25] MEDS: INSULIN ASPART 100 UNITS/ML 3 ML PEN SC SCH ×4 (08:58→20:26)
[2019-05-25] MEDS: INSULIN GLARGINE SOLOSTAR 100 UNITS/ML 3 ML PEN SC SCH ×2 (08:58→20:27)
[2019-05-25] MEDS: LORazepam 0.5 MG TAB PO SCH ×2 (09:00→20:15)
[2019-05-25] MEDS: OMEGA-3 (PURIFIED FISH OIL) 1 GM CAP PO SCH (12:03)
[2019-05-25] MEDS: MULTIVITAMIN TAB PO SCH (12:03)
--- NOTE | 2019-05-25 15:22 | Neurology Consultation ---
Date of Consultation May 25, 2019 Assessment & Plan (1) Third nerve palsy: 1. MRI brain -no compression of 3rd nerve 2. CTA head and neck - no vascular stenosis 3. third nerve palsy -diabetic mediated vasculitis- will be time for resolve 4. optimize DM control but consider patients age 5. PT/OT for discharge needs 6. home assessment prior to return home ok to discharge when medically stable Supervising Physician Co-Signing Physician Notes I have seen and discussed above patient with Dr King Beck, neurology I have seen Mrs. Salmon today in the company of her daughter, reviewed the above history, her imaging studies and discussed her case last evening with the emergency room physicians recommended admission for evaluation of her confusional state and for assessment of the 3rd nerve palsy specifically to be certain there was not a brainstem infarction or other process that might have caused signs of diabetes Currently she is awake alert oriented 3 spheres no other clear-cut fairly complete 3rd nerve palsy with some sparing of the pupil a little bit is dilated relative to its counterpart on the left and has a sluggish to poorly reactive state indicating the pupillary motor fibers have been involved in some degree. This is a little atypical for diabetes but has been reported and we certainly eliminated any type of compression of the nerve with appropriate angiographic studies and an MRI of the brain which actually at her age is not that abnormal She does have a urinary tract infection, medications have been not managed well and she is going to need perhaps treating of urinary tract infection, rehabilitation stay and will be happy to take a look at her third going to begin to resolve as it should then about 3 months but woman her age with underlying diabetes is caused it may be delayed and have an incomplete We will sign off the case at this point will be happy to look at her as needed King Beck MD History of Present Illness Reason for Consultation: 3rd nerve palsy Requesting Physician: Kunal Humphreys MD Attending Physician: Kunal Humphreys MD History of Present Illness Ruthann is an 84 year old female with PMH-DM 2, HTN, HLD, GERD, chronic LBP, history of left breast CA, diabetic neuropathy who presents to [facility] secondary to increased weakness, confusion x5 days and right eye ptosis. According to her daughter she lives alone and they found her in feces and urine. she state the eye droop has been present for a while. Her daughter thinks she had not taken her medications for about 2 weeks. Her blood sugar was low when she came to the hospital. denies CP, SOB, abdominal pain, one sided weakness, numbness tingling, N, V, swallowing issues, chewing issues, new bowel or bladder issues. Allergies Allergy/AdvReac Type Severity Reaction Status Date / Time No Known Allergies Allergy Unverified 05/24/19 14:19 Home Medications Home Medications Medication Instructions Recorded Confirmed Type Ca carb-D3-mag [id number] 1 tab PO QAM 05/24/19 05/24/19 History [Caltrate + D3 Plus Minerals] amlodipine 10 mg PO QAM 05/24/19 05/24/19 History aspirin 81 mg PO QAM 05/24/19 05/24/19 History atenolol 50 mg PO HS 05/24/19 05/24/19 History atorvastatin 40 mg PO HS 05/24/19 05/24/19 History benazepril-hydrochlorothiazide 1 tab PO QAM 05/24/19 05/24/19 History cholecalciferol (vitamin D3) 1,000 unit PO DAILY@1200 05/24/19 05/24/19 History [Vitamin D3] empagliflozin [Jardiance] 25 mg PO QAM 05/24/19 05/24/19 History gabapentin 100 mg PO HS 05/24/19 05/24/19 History glipizide 10 mg PO BID 05/24/19 05/24/19 History linagliptin [Tradjenta] 5 mg PO QAM 05/24/19 05/24/19 History lorazepam 0.5 mg PO BID 05/24/19 05/24/19 History metformin 1,000 mg PO BIDM 05/24/19 05/24/19 History multivitamin 1 tab PO DAILY@1200 05/24/19 05/24/19 History naproxen sodium [Aleve] 220 mg PO HS 05/24/19 05/24/19 History omega-3 fatty acids-fish oil [Fish 1 cap PO DAILY@1200 05/24/19 05/24/19 History Oil] omeprazole 20 mg PO QAM 05/24/19 05/24/19 History Patient History Medical History (Updated 05/24/19 @ 18:28 by Trish Nino PA-C) Breast cancer, stage 2 (Acute 11/14/13) Diabetes mellitus type 2 in nonobese (Acute) Hx: UTI (urinary tract infection) Hypercholesterolemia (Acute) Hypertension (Acute) Neuropathy Surgical History (Updated 05/24/19 @ 18:20 by Trish Nino PA-C) History of History of carpal tunnel surgery History of colonoscopy S/P lumpectomy, left breast (Acute 12/26/13) Family History Father , 83 Myocardial infarction, Onset Age: 46 Hypertension Heart disease Diabetes Mother Diabetes Hypertension Social History (Updated 05/24/19 @ 18:22 by Trish Nino PA-C) Preferred Language: Libyan Communication Ability: Effective Crew Person Required: No Beliefs That Will Affect Care: None marital status: / Current Living Situation: Alone current occupational status: retired Other Information That Helps Us Care for You: No Feels Safe at Home: Yes Safety Concerns: Feels Safe At This Time Smoking Status: Never smoker Hx Alcohol Use: No Hx Substance Use: No Physical Exam Physical Exam: Physical Exam: Constitutional: appearance nourished, thin frail Ears, Nose, Mouth and Throat: mucous membranes moist, no injection and skin normal Cardiovascular: RRR Respiratory: clear to auscultation (CTA) and no rales Musculoskeletal: no peripheral edema and good distal pulse Skin: no stigmata of neurocutaneous disease noted and normal and intact Eyes: right ptosis, right pupil slightly R>L NEUROLOGIC EXAMINATION: Mental status: Alert and interactive Oriented to person Speech fluent with no evidence of aphasia, knows she lives alone but not certain which hospital Cranial Nerves smile and eye brows symmetric Reflexes: Deep tendon reflexes were symmetrical and graded 2/5. 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 5/5 bilaterally, hip flex plantar flex ext 5/5 bilaterally Results & Data Vital Signs (Past 12 Hours) Vital Signs Temp Pulse Pulse Resp BP Pulse Ox 05/25/19 11:23 36.6 C 74 19 114/67 95 05/25/19 08:55 36.8 C 74 18 101/65 94 05/25/19 08:00 72 Laboratory Results Abnormal lab results 05/24/19 05/24/19 05/24/19 Range/Units 15:15 16:06 23:12 RBC (4.2-5.4) M/uL Hct (37-47) % RDW Std Deviation (36.4-46.3) fL RDW Coeff of [place] (11.5-14.5) % [place] # (Auto) (0.11-0.59) K/uL Glucose (70-99) mg/dl POC Glucose 140 H 62 L* (70-99) Hemoglobin A1c (4.5-5.6) % Triglycerides (0-150) mg/dl Urine WBC (Auto) >30 H (0-5) /hpf Urine RBC (Auto) 5-10 H (0-4) /hpf U Epithel Cells (Auto) >30 H (0-5) /lpf Urine Yeast Present A (None Prsent) Urine Osmolality (500-800) mOsm/kg 05/24/19 05/24/19 05/25/19 Range/Units 23:14 23:53 06:10 RBC 4.10 L (4.2-5.4) M/uL Hct 36.6 L (37-47) % RDW Std Deviation 49.2 H (36.4-46.3) fL RDW Coeff of [place] 15.1 H (11.5-14.5) % [place] # (Auto) 0.68 H (0.11-0.59) K/uL Glucose (70-99) mg/dl POC Glucose 65 L* (70-99) Hemoglobin A1c (4.5-5.6) % Triglycerides (0-150) mg/dl Urine WBC (Auto) (0-5) /hpf Urine RBC (Auto) (0-4) /hpf U Epithel Cells (Auto) (0-5) /lpf Urine Yeast (None Prsent) Urine Osmolality 397 L (500-800) mOsm/kg 05/25/19 05/25/19 05/25/19 Range/Units 06:10 06:10 07:38 RBC (4.2-5.4) M/uL Hct (37-47) % RDW Std Deviation (36.4-46.3) fL RDW Coeff of [place] (11.5-14.5) % [place] # (Auto) (0.11-0.59) K/uL Glucose 100 H (70-99) mg/dl POC Glucose 134 H (70-99) Hemoglobin A1c 6.8 H (4.5-5.6) % Triglycerides 211 H (0-150) mg/dl Urine WBC (Auto) (0-5) /hpf Urine RBC (Auto) (0-4) /hpf U Epithel Cells (Auto) (0-5) /lpf Urine Yeast (None Prsent) Urine Osmolality (500-800) mOsm/kg 05/25/19 Range/Units 11:17 RBC (4.2-5.4) M/uL Hct (37-47) % RDW Std Deviation (36.4-46.3) fL RDW Coeff of Judy (11.5-14.5) % [place] # (Auto) (0.11-0.59) K/uL Glucose (70-99) mg/dl POC Glucose 156 H (70-99) Hemoglobin A1c (4.5-5.6) % Triglycerides (0-150) mg/dl Urine WBC (Auto) (0-5) /hpf Urine RBC (Auto) (0-4) /hpf U Epithel Cells (Auto) (0-5) /lpf Urine Yeast (None Prsent) Urine Osmolality (500-800) mOsm/kg Diagnostic Findings MRI brain -Considerable atrophy and chronic small vessel change. No acute process. No abnormal postcontrast enhancement. CTA head/ neck-No significant stenosis, occlusion, or aneurysm within the [place]. No significant stenosis, occlusion, or dissection identified within the common carotid or vertebral arteries. Mild bilateral carotid bulb stenosis due to the calcified plaque measuring approximately 30% on the left and 20% on the right. (1) Third nerve palsy Laterality: unspecified laterality Qualified Code(s): H49.00 - Third [oculomotor] nerve palsy, unspecified eye
[2019-05-25] MEDS: SODIUM CHLORIDE 0.9% 1000ML 1,000 ML IV SCH (15:36)
--- NOTE | 2019-05-25 17:00 | Hospitalist Progress Note ---
Date of Service May 25, 2019 Assessment & Plan (1) Generalized weakness: (2) Third nerve palsy: Patient is an 84 yr female with H/O DM II, HTN, HLD, GERD, chronic low back pain, history of left breast CA, diabetic neuropathy who presents to [facility] ED secondary to increased weakness, confusion x5 days; right lazy eye x1 day. Right Third Nerve Palsy --MRI Brain:Considerable atrophy and chronic small vessel change. No acute process. No abnormal postcontrast enhancement. --Head CTA:No significant stenosis, occlusion, or aneurysm within the [place]. No significant stenosis, occlusion, or dissection identified within the common carotid or vertebral arteries. Mild bilateral carotid bulb stenosis due to the calcified plaque measuring approximately 30% on the left and 20% on the right. 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 Optimize risk factors Appreciate neurology input Needs follow-up with neurology upon discharge PT/OT prior to discharge (3) ASHLYN (acute kidney injury): Baseline creatinine 0.9 Cr:1.58>>1.06 Hold metformin, benazepril/HCTZ, naproxen for now Avoid nephrotoxic agents as able Received gentle IV fluids Monitor renal function (4) Abnormal urinalysis: R/O UTI Urine culture: Pending On IV Rocephin empirically (5) Diabetes mellitus type 2 in nonobese: Last A1C:6.8 Hold Metformin, glipizide, Tradjenta, Jardiance while hospitalized Continue Lantus/NovoLog per protocol (6) Hypertension: Blood pressure relatively low Hold amlodipine, benazepril/HCTZ for now Continue atenolol Monitor BP May need to decrease antihypertensive med doses upon discharge if BP continues to be low (7) Hypercholesterolemia: Continue statin (8) Neuropathy: Continue gabapentin Neuropathy precautions (9) DVT prophylaxis: Heparin SQ Disposition: PT/OT prior to discharge Follow: PCP Dr. Castano upon discharge Subjective Patient is seen and examined at bedside Complaints of right eye ptosis Denies any other focal weakness Also denies any blurry vision, double vision, photosensitivity, excess tearing Admits to having intermittent dysuria Denies any chest pain, shortness of breath, dizziness, headache neck, nausea, abdominal pain Office no other complaints Review of Systems Review of Systems: All systems reviewed & are unremarkable except as noted in HPI & below Physical Exam Physical Exam: Physical Exam: Vitals signs as noted above General Appearance:Moderately built and nourished, no apparent distress Head: normocephalic, Atraumatic Eyes: normal inspection, R eye Ptosis, dilated pupil, Sluggishly reactive to light Neck: supple, Trachea midline Respiratory/Chest: Normal breath sounds, CTA Cardiovascular: S1, S2, No murmur Abdomen/GI:Soft, Non tender, Bowel sounds present Extremities/Musculoskelatal:normal inspection, no edema Neurologic/Psych:AAOX3, grossly no focal neurological deficits Skin: normal color, warm Results & Data Vital Signs (Past 12 Hours) Vital Signs Temp Pulse Pulse Resp BP Pulse Ox 05/25/19 15:36 36.8 C 68 18 99/63 L 97 05/25/19 11:23 36.6 C 74 19 114/67 95 05/25/19 08:55 36.8 C 74 18 101/65 94 05/25/19 08:00 72 Laboratory Results Short CBC 05/25/19 Range/Units 06:10 WBC 7.05 (4.8-10.8) K/uL Hgb 12.5 (12.0-16.0) g/dL Hct 36.6 L (37-47) % Plt Count 178 (130-400) K/uL BMP 05/25/19 06:10 Sodium 136 Potassium 3.7 Chloride 101 Carbon Dioxide 25 BUN 16 Creatinine 1.06 Glucose 100 H Calcium 9.6 (1) Third nerve palsy Laterality: unspecified laterality Qualified Code(s): H49.00 - Third [oculomotor] nerve palsy, unspecified eye
[2019-05-25] MEDS: POLYETHYLENE (MIRALAX) 17 GM PACK PO PRN (17:33)
[2019-05-25] MEDS: cefTRIAXone SODIUM 1,000 MG in DEXTROSE 5% 50 ML IV SCH (20:14)
[2019-05-25] MEDS: ATORVASTATIN 40 MG TAB PO SCH (20:15)
[2019-05-25] MEDS: GABAPENTIN 100 MG CAP PO SCH (20:15)
[2019-05-25] MEDS: ATENOLOL 50 MG TABLET PO SCH (20:16)
[2019-05-26] MEDS: HEPARIN SOD 5,000 UNIT/0.5 ML VIAL SQ SCH ×3 (06:32→20:23)
[2019-05-26 07:25] LABS: Basophils # (auto) 0.03 K/uL (0-0.2); Basophils % (auto) 0.5 %; Eosinophils # (auto) 0.21 K/uL (0-0.5); Eosinophils % (auto) 3.5 %; Hematocrit (blood only) 34.5 % (37-47); Hemoglobin 11.6 g/dL (12.0-16.0); Immature Granulocytes # (auto) 0.01 K/uL (0.00-0.02); Immature Granulocytes % (auto) 0.2 %; Lymphocytes # (auto) 2.49 K/uL (1.2-3.4); Lymphocytes % (auto) 41.2 %; Mean Corpuscular Hemoglobin 29.9 pg (25-34); Mean Corpuscular Hgb Conc 33.6 g/dL (32-36); Mean Corpuscular Volume 88.9 fL (80-100); Mean Platelet Volume 9.2 fL (7.4-10.4); Monocytes # (auto) 0.51 K/uL (0.11-0.59); Monocytes % (auto) 8.4 %; Neutrophils # (auto) 2.79 K/uL (1.4-6.5); Neutrophils % (auto) 46.2 %; Platelet Count 188 K/uL (130-400); RDW Standard Deviation 48.3 fL (36.4-46.3); Red Blood Count 3.88 M/uL (4.2-5.4); White Blood Count 6.04 K/uL (4.8-10.8)
[2019-05-26 07:54] LABS: Calcium 9.4 mg/dl (8.5-10.1); Creatinine Clr Calc Pharmacy 36.8 ml/min; Est GFR (African American) 67.2; Potassium 3.7 mmol/L (3.5-5.1)
[2019-05-26] MEDS: INSULIN GLARGINE SOLOSTAR 100 UNITS/ML 3 ML PEN SC SCH ×2 (08:14→20:23)
[2019-05-26] MEDS: PANTOprazole 40 MG TAB PO SCH (08:15)
[2019-05-26] MEDS: INSULIN ASPART 100 UNITS/ML 3 ML PEN SC SCH ×4 (08:15→20:23)
[2019-05-26] MEDS: LORazepam 0.5 MG TAB PO SCH ×2 (08:15→20:22)
[2019-05-26] MEDS: ASPIRIN 81 MG ECTAB PO SCH (08:16)
[2019-05-26] MEDS: OMEGA-3 (PURIFIED FISH OIL) 1 GM CAP PO SCH (12:51)
[2019-05-26] MEDS: MULTIVITAMIN TAB PO SCH (12:51)
--- NOTE | 2019-05-26 14:21 | Hospitalist Progress Note ---
Date of Service May 26, 2019 Assessment & Plan (1) Generalized weakness: (2) Third nerve palsy: Patient is an 84 yr female with H/O DM II, HTN, HLD, GERD, chronic low back pain, history of left breast CA, diabetic neuropathy who presents to [facility] ED secondary to increased weakness, confusion x5 days; right lazy eye x1 day. Right Third Nerve Palsy --MRI Brain:Considerable atrophy and chronic small vessel change. No acute process. No abnormal postcontrast enhancement. --Head CTA:No significant stenosis, occlusion, or aneurysm within the [place]. No significant stenosis, occlusion, or dissection identified within the common carotid or vertebral arteries. Mild bilateral carotid bulb stenosis due to the calcified plaque measuring approximately 30% on the left and 20% on the right. 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 Optimize risk factors Appreciate neurology input Needs follow-up with neurology upon discharge Needs Rehab Placement (3) ASHLYN (acute kidney injury): Baseline creatinine 0.9 Cr:1.58>>1.06>>0.92 Hold metformin, benazepril/HCTZ for now Plan to discontinue Aleve upon discharge Avoid nephrotoxic agents as able Received gentle IV fluids Monitor renal function (4) Abnormal urinalysis: UTI ruled Out Urine culture: Negative IV Rocephin discontinued (5) Diabetes mellitus type 2 in nonobese: Last A1C:6.8 Hold Metformin, glipizide, Tradjenta, Jardiance while hospitalized Continue Lantus/NovoLog per protocol (6) Hypertension: Blood pressure relatively low on presentation Plan to resume amlodipine, benazepril/HCTZ as able Continue atenolol Monitor BP (7) Hypercholesterolemia: Continue statin (8) Neuropathy: Continue gabapentin Neuropathy precautions (9) DVT prophylaxis: Heparin SQ Disposition: Needs Rehab Placement Follow: PCP Dr. Castano upon discharge Subjective Patient is seen and examined at bedside States feeling better today Subjectively feels right eye ptosis is better No new complaints Denies any blurry vision, double vision, photosensitivity, excess tearing Offers no other complaints Had a fall earlier today but denies any pain. No head trauma as per RN Needs Rehab placement Waiting for Insurance Auth Review of Systems Review of Systems: All systems reviewed & are unremarkable except as noted in HPI & below Physical Exam Physical Exam: Physical Exam: Vitals signs as noted above General Appearance:Moderately built and nourished, no apparent distress Head: normocephalic, Atraumatic Eyes: normal inspection, R eye Ptosis, dilated pupil, Sluggishly reactive to light Neck: supple, Trachea midline Respiratory/Chest: Normal breath sounds, CTA Cardiovascular: S1, S2, No murmur Abdomen/GI:Soft, Non tender, Bowel sounds present Extremities/Musculoskelatal:normal inspection, no edema Neurologic/Psych:AAOX3, grossly no focal neurological deficits Skin: normal color, warm Results & Data Vital Signs (Past 12 Hours) Vital Signs Temp Pulse Resp BP Pulse Ox 05/26/19 11:29 36.9 C 67 20 148/84 H 96 05/26/19 07:37 36.7 C 64 18 133/77 96 05/26/19 04:49 36.6 C 80 20 174/67 H 96 Laboratory Results Short CBC 05/26/19 Range/Units 06:59 WBC 6.04 (4.8-10.8) K/uL Hgb 11.6 L (12.0-16.0) g/dL Hct 34.5 L (37-47) % Plt Count 188 (130-400) K/uL BMP 05/26/19 06:59 Sodium 135 L Potassium 3.7 Chloride 104 Carbon Dioxide 25 BUN 17 Creatinine 0.92 Glucose 121 H Calcium 9.4 (1) Third nerve palsy Laterality: unspecified laterality Qualified Code(s): H49.00 - Third [oculomotor] nerve palsy, unspecified eye
[2019-05-26] MEDS: ATENOLOL 50 MG TABLET PO SCH (20:22)
[2019-05-26] MEDS: ATORVASTATIN 40 MG TAB PO SCH (20:23)
[2019-05-26] MEDS: GABAPENTIN 100 MG CAP PO SCH (20:23)
[2019-05-27] MEDS: HEPARIN SOD 5,000 UNIT/0.5 ML VIAL SQ SCH ×3 (05:04→21:01)
[2019-05-27 06:25] LABS: Basophils # (auto) 0.03 K/uL (0-0.2); Basophils % (auto) 0.5 %; Eosinophils # (auto) 0.21 K/uL (0-0.5); Eosinophils % (auto) 3.3 %; Hemoglobin 12.8 g/dL (12.0-16.0); Immature Granulocytes # (auto) 0.01 K/uL (0.00-0.02); Immature Granulocytes % (auto) 0.2 %; Lymphocytes # (auto) 2.87 K/uL (1.2-3.4); Lymphocytes % (auto) 44.6 %; Mean Corpuscular Hemoglobin 30.4 pg (25-34); Mean Corpuscular Hgb Conc 34.6 g/dL (32-36); Mean Corpuscular Volume 87.9 fL (80-100); Mean Platelet Volume 9.4 fL (7.4-10.4); Monocytes % (auto) 7.8 %; Neutrophils # (auto) 2.81 K/uL (1.4-6.5); Neutrophils % (auto) 43.6 %; Platelet Count 213 K/uL (130-400); RDW Coefficient of Variation 14.9 % (11.5-14.5); Red Blood Count 4.21 M/uL (4.2-5.4); White Blood Count 6.43 K/uL (4.8-10.8)
[2019-05-27 07:00] LABS: BUN Creatinine Ratio 21.4 (10-20); Calcium 9.5 mg/dl (8.5-10.1); Creatinine Clr Calc Pharmacy 33.8 ml/min; Est GFR (African American) 60.8; Est GFR (Non-African American) 52.4; Potassium 3.7 mmol/L (3.5-5.1)
[2019-05-27] MEDS: PANTOprazole 40 MG TAB PO SCH (08:07)
[2019-05-27] MEDS: ASPIRIN 81 MG ECTAB PO SCH (08:07)
[2019-05-27] MEDS: INSULIN GLARGINE SOLOSTAR 100 UNITS/ML 3 ML PEN SC SCH ×2 (08:09→20:55)
[2019-05-27] MEDS: INSULIN ASPART 100 UNITS/ML 3 ML PEN SC SCH ×4 (08:11→20:54)
[2019-05-27] MEDS: POLYETHYLENE (MIRALAX) 17 GM PACK PO PRN (08:14)
[2019-05-27] MEDS: LORazepam 0.5 MG TAB PO SCH ×2 (08:14→20:57)
[2019-05-27] MEDS: MULTIVITAMIN TAB PO SCH (11:40)
[2019-05-27] MEDS: OMEGA-3 (PURIFIED FISH OIL) 1 GM CAP PO SCH (11:40)
--- NOTE | 2019-05-27 16:14 | Hospitalist Progress Note ---
Date of Service May 27, 2019 Assessment & Plan (1) Generalized weakness: (2) Third nerve palsy: Patient is an 84 yr female with H/O DM II, HTN, HLD, GERD, chronic low back pain, history of left breast CA, diabetic neuropathy who presents to [facility] ED secondary to increased weakness, confusion x5 days; right lazy eye x1 day. Right Third Nerve Palsy --MRI Brain:Considerable atrophy and chronic small vessel change. No acute process. No abnormal postcontrast enhancement. --Head CTA:No significant stenosis, occlusion, or aneurysm within the [place] of [place]. No significant stenosis, occlusion, or dissection identified within the common carotid or vertebral arteries. Mild bilateral carotid bulb stenosis due to the calcified plaque measuring approximately 30% on the left and 20% on the right. 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 Optimize risk factors Appreciate neurology input Needs follow-up with neurology upon discharge Plan to discharge to SNF when accepted (3) ASHLYN (acute kidney injury): Baseline creatinine 0.9 Cr:1.58>>1.06>>0.92 Hold metformin, benazepril/HCTZ for now Plan to discontinue Aleve upon discharge Avoid nephrotoxic agents as able Received gentle IV fluids Monitor renal function (4) Abnormal urinalysis: UTI ruled Out Urine culture: Negative IV Rocephin discontinued (5) Diabetes mellitus type 2 in nonobese: Last A1C:6.8 Hold Metformin, glipizide, Tradjenta, Jardiance while hospitalized Continue Lantus/NovoLog per protocol (6) Hypertension: Blood pressure relatively low on presentation Plan to resume benazepril/HCTZ as able Continue atenolol, amlodipine (decreased to 5 mg ) with holding parameters Monitor BP (7) Hypercholesterolemia: Continue statin (8) Neuropathy: Continue gabapentin Neuropathy precautions (9) DVT prophylaxis: Heparin SQ Disposition: Needs SNF Placement Follow: PCP Dr. Castano upon discharge Subjective Patient is seen and examined at bedside Elderly no significant change from yesterday Patient feels right eye ptosis is gradually improving Denies any pain, weakness, headache from fall yesterday Needs SNF placement Review of Systems Review of Systems: All systems reviewed & are unremarkable except as noted in HPI & below Physical Exam Physical Exam: Physical Exam: Vitals signs as noted above General Appearance:Moderately built and nourished, no apparent distress Head: normocephalic, Atraumatic Eyes: normal inspection, R eye Ptosis, dilated pupil, Sluggishly reactive to light Neck: supple, Trachea midline Respiratory/Chest: Normal breath sounds, CTA Cardiovascular: S1, S2, No murmur Abdomen/GI:Soft, Non tender, Bowel sounds present Extremities/Musculoskelatal:normal inspection, no edema Neurologic/Psych:AAOX3, grossly no focal neurological deficits Skin: normal color, warm Results & Data Vital Signs (Past 12 Hours) Vital Signs Temp Pulse Pulse Resp BP Pulse Ox 05/27/19 11:40 36.5 C 83 18 126/69 96 05/27/19 10:40 63 05/27/19 08:00 36.5 C 74 16 139/65 97 Laboratory Results Short CBC 05/27/19 Range/Units 05:46 WBC 6.43 (4.8-10.8) K/uL Hgb 12.8 (12.0-16.0) g/dL Hct 37.0 (37-47) % Plt Count 213 (130-400) K/uL BMP 05/27/19 05:46 Sodium 136 Potassium 3.7 Chloride 101 Carbon Dioxide 26 BUN 21 H Creatinine 1.00 Glucose 112 H Calcium 9.5 (1) Third nerve palsy Laterality: unspecified laterality Qualified Code(s): H49.00 - Third [oculomotor] nerve palsy, unspecified eye
[2019-05-27] MEDS: GABAPENTIN 100 MG CAP PO SCH (20:57)
[2019-05-27] MEDS: ATORVASTATIN 40 MG TAB PO SCH (20:57)
[2019-05-27] MEDS: ATENOLOL 50 MG TABLET PO SCH (20:58)
[2019-05-27] MEDS ORDERED: DOCUSATE SODIUM/SENNA 50/8.6MG TAB PO SCH (21:00)
[2019-05-28] MEDS: HEPARIN SOD 5,000 UNIT/0.5 ML VIAL SQ SCH ×3 (05:21→20:27)
[2019-05-28] MEDS: LORazepam 0.5 MG TAB PO SCH ×2 (08:46→20:22)
[2019-05-28] MEDS: ASPIRIN 81 MG ECTAB PO SCH (08:46)
[2019-05-28] MEDS: PANTOprazole 40 MG TAB PO SCH (08:47)
[2019-05-28] MEDS: INSULIN GLARGINE SOLOSTAR 100 UNITS/ML 3 ML PEN SC SCH ×2 (08:51→20:40)
[2019-05-28] MEDS: INSULIN ASPART 100 UNITS/ML 3 ML PEN SC SCH ×4 (08:51→20:41)
[2019-05-28] MEDS: AMLODIPINE BESYLATE 5 MG TAB PO SCH (10:23)
[2019-05-28] MEDS: MULTIVITAMIN TAB PO SCH (12:57)
[2019-05-28] MEDS: OMEGA-3 (PURIFIED FISH OIL) 1 GM CAP PO SCH (12:57)
--- NOTE | 2019-05-28 18:25 | Hospitalist Progress Note ---
Date of Service May 28, 2019 Assessment & Plan (1) Generalized weakness: (2) Third nerve palsy: Patient is an 84 yr female with H/O DM II, HTN, HLD, GERD, chronic low back pain, history of left breast CA, diabetic neuropathy who presents to [facility] ED secondary to increased weakness, confusion x5 days; right lazy eye x1 day. Right Third Nerve Palsy --MRI Brain:Considerable atrophy and chronic small vessel change. No acute process. No abnormal postcontrast enhancement. --Head CTA:No significant stenosis, occlusion, or aneurysm within the [place]. No significant stenosis, occlusion, or dissection identified within the common carotid or vertebral arteries. Mild bilateral carotid bulb stenosis due to the calcified plaque measuring approximately 30% on the left and 20% on the right. 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 Optimize risk factors Appreciate neurology input Needs follow-up with neurology upon discharge Plan to discharge to SNF when accepted Clinically no significant change from yesterday (3) ASHLNY (acute kidney injury): Baseline creatinine 0.9 Cr:1.58>>1.06>>0.92 Hold metformin, benazepril/HCTZ for now Plan to discontinue Aleve upon discharge Avoid nephrotoxic agents as able Received gentle IV fluids Monitor renal function Constipation Resolved Continue bowel regimen PRN (4) Abnormal urinalysis: UTI ruled Out Urine culture: Negative IV Rocephin discontinued (5) Diabetes mellitus type 2 in nonobese: Last A1C:6.8 Hold Metformin, glipizide, Tradjenta, Jardiance while hospitalized Continue Lantus/NovoLog per protocol (6) Hypertension: Blood pressure relatively low on presentation Plan to resume benazepril/HCTZ as able Continue atenolol, amlodipine (decreased to 5 mg ) with holding parameters Monitor BP (7) Hypercholesterolemia: Continue statin (8) Neuropathy: Continue gabapentin Neuropathy precautions (9) DVT prophylaxis: Heparin SQ Disposition: Waiting for SNF Placement Follow: PCP Dr. Castano upon discharge Subjective Patient is seen and examined at bedside Doing well today Constipation resolved No new complaints Right eye ptosis is about the same as yesterday Denies any pain, weakness, headache, focal weakness Waiting for SNF placement Review of Systems Review of Systems: All systems reviewed & are unremarkable except as noted in HPI & below Physical Exam Physical Exam: Physical Exam: Vitals signs as noted above General Appearance:Moderately built and nourished, no apparent distress Head: normocephalic, Atraumatic Eyes: normal inspection, R eye Ptosis, dilated pupil, Sluggishly reactive to light Neck: supple, Trachea midline Respiratory/Chest: Normal breath sounds, CTA Cardiovascular: S1, S2, No murmur Abdomen/GI:Soft, Non tender, Bowel sounds present Extremities/Musculoskelatal:normal inspection, no edema Neurologic/Psych:AAOX3, grossly no focal neurological deficits Skin: normal color, warm Results & Data Vital Signs (Past 12 Hours) Vital Signs Temp Pulse Resp BP Pulse Ox 05/28/19 15:29 36.8 C 73 17 131/75 97 05/28/19 07:43 36.9 C 59 L 18 136/76 96 (1) Third nerve palsy Laterality: unspecified laterality Qualified Code(s): H49.00 - Third [oculomotor] nerve palsy, unspecified eye
[2019-05-28] MEDS: GABAPENTIN 100 MG CAP PO SCH (20:22)
[2019-05-28] MEDS: ATORVASTATIN 40 MG TAB PO SCH (20:22)
[2019-05-28] MEDS: ATENOLOL 50 MG TABLET PO SCH (20:24)
[2019-05-29] MEDS: HEPARIN SOD 5,000 UNIT/0.5 ML VIAL SQ SCH (05:02)
[2019-05-29 07:06] VITALS: TEMP 98.4; O2SAT 98
[2019-05-29] MEDS: ASPIRIN 81 MG ECTAB PO SCH (08:44)
[2019-05-29] MEDS: AMLODIPINE BESYLATE 5 MG TAB PO SCH (08:44)
[2019-05-29] MEDS: LORazepam 0.5 MG TAB PO SCH (08:44)
[2019-05-29] MEDS: PANTOprazole 40 MG TAB PO SCH (08:45)
[2019-05-29] MEDS: INSULIN ASPART 100 UNITS/ML 3 ML PEN SC SCH ×2 (08:49→12:47)
[2019-05-29] MEDS: INSULIN GLARGINE SOLOSTAR 100 UNITS/ML 3 ML PEN SC SCH (08:50)
[2019-05-29] MEDS ORDERED: DOCUSATE SODIUM/SENNA 50/8.6MG TAB PO SCH (09:00)
--- NOTE | 2019-05-29 12:26 | Hospitalist Progress Note ---
Date of Service May 29, 2019 Assessment & Plan (1) Generalized weakness: (2) Third nerve palsy: Patient is an 84 yr female with H/O DM II, HTN, HLD, GERD, chronic low back pain, history of left breast CA, diabetic neuropathy who presents to [facility] ED secondary to increased weakness, confusion x5 days; right lazy eye x1 day. Right Third Nerve Palsy --MRI Brain:Considerable atrophy and chronic small vessel change. No acute process. No abnormal postcontrast enhancement. --Head CTA:No significant stenosis, occlusion, or aneurysm within the [place]. No significant stenosis, occlusion, or dissection identified within the common carotid or vertebral arteries. Mild bilateral carotid bulb stenosis due to the calcified plaque measuring approximately 30% on the left and 20% on the right. 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 Optimize risk factors Appreciate neurology input Ptosis slightly better Needs follow-up with neurology upon discharge Plan to discharge to SNF today (3) ASHLYN (acute kidney injury): Baseline creatinine 0.9 Cr:1.58>>1.06>>0.92 Hold metformin, benazepril/HCTZ for now Plan to discontinue Aleve upon discharge Avoid nephrotoxic agents as able Received gentle IV fluids Monitor renal function Constipation Resolved Continue bowel regimen PRN (4) Abnormal urinalysis: UTI ruled Out Urine culture: Negative IV Rocephin discontinued (5) Diabetes mellitus type 2 in nonobese: Last A1C:6.8 Hold Metformin, glipizide, Tradjenta, Jardiance while hospitalized Continue Lantus/NovoLog per protocol (6) Hypertension: Blood pressure relatively low on presentation Plan to resume benazepril/HCTZ as able Continue atenolol, amlodipine (decreased to 5 mg ) with holding parameters Monitor BP (7) Hypercholesterolemia: Continue statin (8) Neuropathy: Continue gabapentin Neuropathy precautions (9) DVT prophylaxis: Heparin SQ Disposition: Discharge to SNF today Follow: PCP Dr. Castano upon discharge Subjective Patient is seen and examined at bedside No significant change from yesterday Feels well. Offers no complaints Has right eye ptosis slightly better Denies any pain, weakness, headache, focal weakness Planned to be discharged to SNF today Review of Systems Review of Systems: All systems reviewed & are unremarkable except as noted in HPI & below Physical Exam Physical Exam: Physical Exam: Vitals signs as noted above General Appearance:Moderately built and nourished, no apparent distress Head: normocephalic, Atraumatic Eyes: normal inspection, R eye Ptosis, dilated pupil, Sluggishly reactive to light Neck: supple, Trachea midline Respiratory/Chest: Normal breath sounds, CTA Cardiovascular: S1, S2, No murmur Abdomen/GI:Soft, Non tender, Bowel sounds present Extremities/Musculoskelatal:normal inspection, no edema Neurologic/Psych:AAOX3, grossly no focal neurological deficits Skin: normal color, warm Results & Data Vital Signs (Past 12 Hours) Vital Signs Temp Pulse Resp BP Pulse Ox 05/29/19 07:04 36.9 C 62 16 129/82 98 (1) Third nerve palsy Laterality: unspecified laterality Qualified Code(s): H49.00 - Third [oculomotor] nerve palsy, unspecified eye
[2019-05-29 12:31] VITALS: BP 137/77; PULSE 70
--- NOTE | 2019-05-29 12:42 | Discharge Summary ---
Date of Service May 29, 2019 Admission HPI Per Admitting Provider This is an 84-year-old female who has significant past medical history of T2DM, HTN, HLD, GERD, chronic low back pain, history of left breast CA, diabetic neuropathy who presents to [facility] ED secondary to increased weakness, confusion x5 days; right lazy eye x1 day. Daughter and [id number] are at bedside. They have noted over the past 5 days she has been increasingly becoming more weak, difficulty walking and has been having intermittent increased confusion. She woke up today and was having difficulty opening her right eye. Because of symptoms they opted to seek ED treatment. S he denies any recent illness, fever, chills, sweats, lightheadedness, dizziness, syncope, visual change, hearing change, fall, chest pain, shortness of breath, cough, hemoptysis, nausea, vomiting, abdominal pain. She does admit to having burning with urination and increased frequency with urination. She denies any cee hematuria, increased urgency with urination, diarrhea, melena, hematochezia. Per [id number] she has been having intermittent constipation requiring [id number] MiraLAX. She does live alone at home and is mostly independent at baseline. She does ambulate with a cane. Approximately 1 month ago she was treated with a UTI and symptoms felt similar. "We thought maybe she was having a urinary tract infection which is why she was more confused." In ED patient was noted to have right eye ptosis, dilated and minimally reactive pupil. She underwent CT scan of head along with CTA of head and neck which revealed no significant stenosis, occlusion or aneurysm within the [place], common carotid artery or vertebral arteries. Mild bilateral carotid bulb stenosis due to calcified plaque measuring 30% on left and 1% on right. CBC was relatively unremarkable, BMP significant for elevated BUN 22, creatinine 1.58, glucose 67, TSH WNL, Lyme screen negative. Initial urinalysis 2+ glucose, +1 blood, +3 leukoesterase, many epithelial cells, greater than 30 WBC. Chest x-ray no significant abnormality. ED provider did speak with neurology who recommended ASA 325 along with MRI of head with and without contrast. Admission Exam Per Admitting Provider Constitutional: WD/WN, elderly, female, vitals as above, NAD, sitting up in bed, pleasant, conversing easily Head: Normocephalic, Atraumatic Eyes: Right eye ptosis, right pupil dilated, fixed, minimally reactive, no conjunctival injection, third eye palsy noted as right eye does not follow medially, left eye pupil reactive to light and accommodation with normal conjunctiva, anicteric sclerae ENMT: external ear and nose normal, oropharynx normal Neck: trachea midline, no thyromegaly normal visual inspection Respiratory: normal respiratory effort, lungs clear to auscultation, no wheeze, rales, rhonchi. Normal insp/exp effort, no accessory muscle use Cardiovascular: RRR, no murmur, no edema Vessels: no JVD or carotid bruit Chest: normal inspection of chest Abdomen: normal bowel sounds, soft, nontender, no hepatosplenomegaly Musculoskeletal: no cyanosis or clubbing, extremities motor strength 5/5 Skin: no rashes, warm and dry normal turgor Neurologic: Eye exam as above, no face palsy, no dysarthria CN's II-XI intact, except III, bilaterally and moves all extremities Psychiatric: A+Ox3, euthymic affect Lymphatic: no cervical or axillary lymphadenopathy : deferred Principal Diagnosis Third cranial nerve palsy, right eye Acute kidney injury Discharge Data Allergies Allergy/AdvReac Type Severity Reaction Status Date / Time No Known Allergies Allergy Unverified 05/24/19 14:19 Consultations 05/24/19 18:07 Consult Neurology Routine 05/24/19 18:11 ED Decision to Admit Stat 05/24/19 21:38 Consult Case Management - Discharge Planning Routine Consult Case Management - Discharge Planning Routine Procedures Performed --MRI Brain:Considerable atrophy and chronic small vessel change. No acute process. No abnormal postcontrast enhancement. --Head CTA:No significant stenosis, occlusion, or aneurysm within the [place]. No significant stenosis, occlusion, or dissection identified within the common carotid or vertebral arteries. Mild bilateral carotid bulb stenosis due to the calcified plaque measuring approximately 30% on the left and 20% on the right. --Neck CTA: 1. No significant stenosis, occlusion, or aneurysm within the [place]. 2. No significant stenosis, occlusion, or dissection identified within the common carotid or vertebral arteries. 3. Mild bilateral carotid bulb stenosis due to the calcified plaque measuring approximately 30% on the left and 20% on the right. Ordered Studies 05/24/19 13:02 CT head/brain wo con Stat 05/24/19 13:11 CT angio head w con Stat CT angio neck with con Stat 05/24/19 16:28 MR brain wo/w con Stat Hospital Course (1) Generalized weakness: (2) Third nerve palsy: Patient is an 84 yr female with H/O DM II, HTN, HLD, GERD, chronic low back pain, history of left breast CA, diabetic neuropathy who presents to [facility] ED secondary to increased weakness, confusion x5 days; right lazy eye x1 day. Right Third Nerve Palsy --MRI Brain:Considerable atrophy and chronic small vessel change. No acute process. No abnormal postcontrast enhancement. --Head CTA:No significant stenosis, occlusion, or aneurysm within the [place]. No significant stenosis, occlusion, or dissection identified within the common carotid or vertebral arteries. Mild bilateral carotid bulb stenosis due to the calcified plaque measuring approximately 30% on the left and 20% on the right. 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 Optimize risk factors Appreciate neurology input Ptosis slightly better Needs follow-up with neurology upon discharge Plan to discharge to SNF today (3) ASHLYN (acute kidney injury): Baseline creatinine 0.9 Cr:1.58>>1.06>>0.92 Hold metformin, benazepril/HCTZ for now Plan to discontinue Aleve upon discharge Avoid nephrotoxic agents as able Received gentle IV fluids Monitor renal function Constipation Resolved Continue bowel regimen PRN (4) Abnormal urinalysis: UTI ruled Out Urine culture: Negative IV Rocephin discontinued (5) Diabetes mellitus type 2 in nonobese: Last A1C:6.8 Hold Metformin, glipizide, Tradjenta, Jardiance while hospitalized Continue Lantus/NovoLog per protocol (6) Hypertension: Blood pressure relatively low on presentation Plan to resume benazepril/HCTZ as able Continue atenolol, amlodipine (decreased to 5 mg ) with holding parameters Monitor BP (7) Hypercholesterolemia: Continue statin (8) Neuropathy: Continue gabapentin Neuropathy precautions (9) DVT prophylaxis: Heparin SQ Disposition: Discharge to SNF today Follow: PCP Dr. Castano upon discharge Total Time Total Time Spent Total Time Spent (In Minutes): 38 minutes Total Time Includes: Examination of the Patient, Discharge Planning, Medication Reconciliation, Communication With Other Providers and Other Discharge Plan Discharge Items Patient Disposition: Transfer Longterm Fac Reason For Visit: 3RD NERVE PALSY Discharge Diagnosis: Third cranial nerve palsy, right eye Acute kidney injury Activity: Resume your previous activity Exercise/Sports: Gradually increase as tolerated Non-emergency contact: Primary Care Provider and Neurologist Call non-emergency contact if: you have any medication questions, your symptoms worsen, your pain is not controlled, your pain is worsening, your pain is unusual for you, your pain is concerning for you and you have a fever Follow-up/Referrals: Maged Castano MD [Primary Care Provider] - Diet: Carb Consistent or DM2 and Heart Healthy Addtl Attending Provider Instructions: Follow-up with your primary care physician Dr. Castano in 1 week upon discharge from rehab facility Follow-up with your neurologist Dr. King Beck in 6 to 8 weeks Seek immediate medical attention if your symptoms reoccur or worsen Your blood pressure medications may need to be adjusted based on your blood pressure. Check your blood pressure regularly as advised. Follow-up with your physician for further adjustment of your medications. Avoid using NSAIDs Eg:Aleve as it can affect your kidney Monitor your Blood glucose levels regularly. If you have low blood sugar levels, then your diabetic medications may need to be adjusted. Follow up with your Physician for recommendations. Pending Studies at Discharge: No Stand-Alone Forms: My [facility] Skilled Items Patient informed of condition?: Yes DNR: No Discharge Level of Care: Skilled Communicable Disease: No Discharge Prognosis: Improving Lines: None Urinary Catheter: No Medications and DC Order Prescriptions: New polyethylene glycol 3350 [Miralax] 17 gram Powder In Packet 17 g PO DAILY PRN (Reason: constipation) Qty: 30 RF: 0 Continued multivitamin Tablet 1 tab PO DAILY@1200 RF: 0 atorvastatin 40 mg tablet 40 mg PO HS RF: 0 metformin 500 mg tablet 1,000 mg PO BIDM RF: 0 glipizide 10 mg tablet 10 mg PO BID RF: 0 benazepril-hydrochlorothiazide 20-25 mg tablet 1 tab PO QAM RF: 0 aspirin 81 mg Tablet,Delayed Release (Dr/Ec) 81 mg PO QAM RF: 0 omeprazole 20 mg capsule,delayed release(DR/EC) 20 mg PO QAM RF: 0 gabapentin 100 mg capsule 100 mg PO HS RF: 0 atenolol 50 mg tablet 50 mg PO HS RF: 0 cholecalciferol (vitamin D3) [Vitamin D3] 1,000 unit Capsule 1,000 unit PO DAILY@1200 RF: 0 omega-3 fatty acids-fish oil [Fish Oil] 360-1,200 mg Capsule 1 cap PO DAILY@1200 RF: 0 Tradjenta 5 mg tablet 5 mg PO QAM RF: 0 Jardiance 25 mg tablet 25 mg PO QAM RF: 0 Caltrate + D3 Plus Minerals 300 mg-800 unit -25 mg-0.5 mg Tablet 1 tab PO QAM RF: 0 lorazepam 0.5 mg tablet 0.5 mg PO BID Qty: 6 RF: 0 Changed amlodipine 10 mg tablet 5 mg PO QAM Qty: 0 RF: 0 Discontinued naproxen sodium [Aleve] 220 mg Tablet 220 mg PO HS RF: 0 Discharge Orders: Discharge Order (Routine); Ordered 05/29/19 Ordered By: Kunal Humphreys Admission Data Admit Date/Time: 05/25/19 12:46 Attending Provider: Kunal Humphreys Admit Provider: Sarah Baez Primary Care Provider: Maged Castano Other Providers: [facility] ; Debbie Crook at [place] ; King Beck Manabendra Other Interventions: Discharge Summary Assessment (RN) Last Done: 05/29/19 12:29 DC Date/Time DO NOT enter until pt leaves facility: 05/29/19 13:38
[2019-05-29] MEDS ORDERED: INSULIN ASPART 100 UNITS/ML 3 ML PEN SC ONE (12:45)
[2019-05-29] MEDS: MULTIVITAMIN TAB PO SCH (12:48)
[2019-05-29] MEDS: OMEGA-3 (PURIFIED FISH OIL) 1 GM CAP PO SCH (12:49)
[2019-05-29] MEDS ORDERED: INSULIN GLARGINE SOLOSTAR 100 UNITS/ML 3 ML PEN SC SCH (13:00)
== END 2019-05-29 13:38 | DRG 123 ==
LOC: 2S 12:54 → ED 12:54 → SUATTDRO 18:07 → 2S 20:21 → 2N 05-27 13:05 → 3E 05-28 01:49

== ENCOUNTER 2021-04-10 14:51 | Inpatient (IN) ==
[2021-04-10] MEDS ORDERED: SODIUM CHLORIDE 0.9% 1000ML 1,000 ML IV ONE (16:19)
[2021-04-10] MEDS ORDERED: cefTRIAXone SODIUM 1,000 MG/50 ML BAG IV STA ×2 (16:19→18:08)
--- NOTE | 2021-04-10 16:22 | Emergency Department Note ---
Impression & Plan AMS (altered mental status), Acute UTI, Hyponatremia ED Provider Note NAME: SANTOS LOCK AGE: 86 SEX: F : 1935 ARRIVES VIA: Walk-In INFORMANT: Patient ED PROVIDER(S): Antione Masters DO CHIEF COMPLAINT: Weakness HPI: Patient is an 86-year-old female who presents the ER for weakness. She notes that she has been having urinary symptoms associated with this. Her urinary symptoms started about 2 to 3 days ago with dysuria and frequency. She denies any recorded fevers. No headache or change in vision. No chest pain or shortness of breath. No nausea or vomiting. No belly pain. She notes she feels very weak and she cannot stay awake. [id number] notes that she is slightly confused and is having trouble staying awake. ROS: See above HPI for pertinent positives & negatives. A total of 10 systems reviewed and were otherwise negative. PAST MEDICAL HISTORY:See Below PAST SURGICAL HISTORY:See Below FAMILY HISTORY:See Below SOCIAL HISTORY:See Below HOME MEDICATIONS:See Below ALLERGIES:See Below VITALS:See Below PHYSICAL EXAMINATION: GENERAL: Sitting up in bed, alert, falls asleep, awakens to voice EYE EXAM: normal conjunctiva. PERRL and EOM's grossly intact. OROPHARYNX: no exudate, no erythema, lips, buccal mucosa, and tongue normal and mucous membranes are moist NECK: supple, no nuchal rigidity, no adenopathy, non-tender LUNGS: Clear to auscultation. Normal chest wall mechanics HEART: no murmurs, S1 normal and S2 normal ABDOMEN: abdomen soft, non-tender, normo-active bowel sounds, no masses, no rebound or guarding. UPPER EXTREMITIES: upper extremities are grossly normal. LOWER EXTREMITIES: No pitting edema. NEURO EXAM: Normal sensorium, cranial nerves II-XII grossly intact, normal speech, no gross weakness of arms, no gross weakness of legs. MEDICAL DECISION MAKING: Patient is an 86-year-old female who presents the ER for the above-stated complaint. On exam she is very sleepy and tired but does awaken. IV was established blood work was obtained. Labs show mild leukocytosis of 1.7 thou sand. No significant anemia. BMP with a hyponatremia 125. Creatinine was slightly elevated at 1.6. LFTs were and bilirubin was unremarkable. Lipase was normal. UA does show a clear UTI with nitrates leuks +4 bacteria. She was given IV Rocephin. She given IV fluids. She was updated bedside. Covid was negative. Discussed with hospitalist admitted for further work-up. Triage Nursing notes reviewed. Limited review of prior medical records performed Vital Signs: reviewed and remarkable for hypertension Differential diagnosis: Infection, dehydration, metabolic abnormality, hypo/hyperglycemia, electrolyte disturbance, anemia, hypoxia, cardiac sources, intracerebral event, toxicologic, neurologic, as well as other pathologies. ER treatment provided: See below Diagnostics interpreted by me: Cardiac Monitoring: An order was placed for continuous cardiac monitoring. The monitor shows a rate of 80 with sinus rhythm. Laboratory studies: As stated above and show below. Imaging studies: Portable AP upright one view of the chest shows no focal infiltrate or pneumothorax Consultation(s): none Critical Care: None Past Med/Surg History Medical History Breast cancer, stage 2 (11/14/13) Diabetes mellitus type 2 in nonobese Hx: UTI (urinary tract infection) Hypercholesterolemia Hypertension Neuropathy Surgical History History of History of carpal tunnel surgery History of colonoscopy S/P lumpectomy, left breast (12/26/13) Family History Father , 83 Myocardial infarction, Onset Age: 46 Hypertension Heart disease Diabetes Mother Diabetes Hypertension Social History Smoking Status: Never smoker Hx Alcohol Use: No Hx Substance Use: No Preferred Language: American Communication Ability: Effective Visual Impairment: Diminished Cma Or Lpn Required: No Beliefs That Will Affect Care: None marital status: / Current Living Situation: Alone current occupational status: retired Feels Safe at Home: Yes Assistive Devices: Wheelchair Allergies Allergies Allergy/AdvReac Type Severity Reaction Status Date / Time No Known Allergies Allergy Unverified 04/10/21 18:30 Home Meds Home Medications Medication Instructions Recorded Confirmed aspirin 81 mg tablet,delayed 81 mg PO QAM 05/24/19 04/10/21 release atenolol 50 mg tablet 50 mg PO HS 05/24/19 04/10/21 atorvastatin 40 mg tablet 40 mg PO HS 05/24/19 04/10/21 benazepril 20 1 tab PO QAM 05/24/19 04/10/21 mg-hydrochlorothiazide 25 mg tablet cholecalciferol (vitamin D3) 25 1,000 unit PO DAILY@1200 05/24/19 04/10/21 mcg (1,000 unit) capsule (Vitamin D3) empagliflozin 25 mg tablet 25 mg PO QAM 05/24/19 04/10/21 (Jardiance) gabapentin 100 mg capsule 200 mg PO BID 05/24/19 04/10/21 glipizide 10 mg tablet 10 mg PO BID 05/24/19 04/10/21 metformin 500 mg tablet 500 mg PO BIDM 05/24/19 04/10/21 omeprazole 20 mg capsule,delayed 20 mg PO QA 05/24/19 04/10/21 release amlodipine 5 mg tablet 5 mg PO DAILY 04/10/21 04/10/21 calcium carbonate 600 mg (1,500 1 tab PO BID 04/10/21 04/10/21 mg)-vitamin D3 200 unit tablet (Calcium 600 + D(3)) cyanocobalamin (vitamin B-12) 1,000 mcg PO DAILY 04/10/21 04/10/21 1,000 mcg tablet lorazepam 0.5 mg tablet 0.5 mg PO HS 04/10/21 04/10/21 zczhqoicimyd-qckwffcy-pprkgg tablet 1 tab PO DAILY 04/10/21 04/10/21 polyethylene glycol 3350 17 gram 17 g PO DAILY 04/10/21 04/10/21 oral powder packet (Miralax) sulfamethoxazole 800 1 tab PO BID 04/10/21 04/10/21 mg-trimethoprim 160 mg tablet Results & Data (ED) Vital Signs Vital Signs - 24 hr 04/10/21 15:27 04/10/21 15:50 04/10/21 16:56 Temperature 37.7 C H Temperature Source Oral Oral Pulse Rate 81 80 Pulse Rate [Apical] 76 Pulse Rhythm [Apical] Regular Pulse Strength [Apical] Normal Respiratory Rate 20 16 16 Respiratory Effort / Characteristics Non-Labored Spontaneous Non-Labored Respiratory Depth Normal Normal Respiratory Pattern Regular Blood Pressure 93/55 L Blood Pressure [Left Arm] 119/63 Blood Pressure Mean 67 Blood Pressure Mean [Left Arm] 81 Blood Pressure Position Sitting Blood Pressure Position [Left Arm] Lying Pulse Oximetry 84 L 95 95 Oxygen Delivery Method Room Air Room Air Room Air Oxygen Flow Rate Sepsis Recent Fever Within 48 Hours No Sepsis New/Unexplained Change in Mental Status N/A Sepsis Action Taken by Nursing No Action Required 04/10/21 17:34 04/10/21 19:37 Temperature Temperature Source Pulse Rate Pulse Rate [Apical] 77 99 H Pulse Rhythm [Apical] Regular Pulse Strength [Apical] Normal Respiratory Rate 17 18 Respiratory Effort / Characteristics Non-Labored Respiratory Depth Normal Respiratory Pattern Regular Blood Pressure Blood Pressure [Left Arm] 119/63 119/63 Blood Pressure Mean Blood Pressure Mean [Left Arm] 81 81 Blood Pressure Position Blood Pressure Position [Left Arm] Pulse Oximetry 98 97 Oxygen Delivery Method Nasal Cannula Oxygen Flow Rate 2 Sepsis Recent Fever Within 48 Hours Sepsis New/Unexplained Change in Mental Status Sepsis Action Taken by Nursing Laboratory Data Result diagrams: 04/10/21 16:41 04/10/21 19:58 Lab Results 04/10/21 04/10/21 04/10/21 Range/Units 16:41 16:41 16:55 WBC 11.74 H (4.8-10.8) K/uL RBC 3.71 L (4.2-5.4) M/uL Hgb 11.4 L (12.0-16.0) g/dL Hct 32.9 L (37-47) % MCV 88.7 (80-100) fL MCH 30.7 (25-34) pg MCHC 34.7 (32-36) g/dL RDW Std Deviation 49.7 H (36.4-46.3) fL RDW Coeff of Judy 15.5 H (11.5-14.5) % Plt Count 190 (130-400) K/uL MPV 9.1 (7.4-10.4) fL Immature Gran % (Auto) 0.4 % Neut % (Auto) 70.7 % Lymph % (Auto) 17.0 % Blount % (Auto) 11.6 % Eos % (Auto) 0.2 % Baso % (Auto) 0.1 % Neut # (Auto) 8.30 H (1.4-6.5) K/uL Lymph # (Auto) 2.00 (1.2-3.4) K/uL Blount # (Auto) 1.36 H (0.11-0.59) K/uL Eos # (Auto) 0.02 (0-0.5) K/uL Baso # (Auto) 0.01 (0-0.2) K/uL Immature Gran # (Auto) 0.05 H (0.00-0.02) K/uL Sodium 125 L (136-145) mmol/L Potassium 3.7 (3.5-5.1) mmol/L Chloride 92 L (98-107) mmol/L Carbon Dioxide 23 (21-32) mmol/L Anion Gap 10.0 (3-11) BUN 30 H (7-18) mg/dl Creatinine 1.61 H (0.6-1.2) mg/dl Est Cr Clr Drug Dosing 21.8 ml/min Est GFR ( Amer) 33.7 ml/min Est GFR (Non-Af Amer) 29.1 ml/min BUN/Creatinine Ratio 18.5 (10-20) Glucose 137 H (70-99) mg/dl Osmolality (280-300) mOsm/kg Calcium 9.2 (8.5-10.1) mg/dl Total Bilirubin 0.6 (0.2-1) mg/dl AST 30 (15-37) U/L ALT 29 (12-78) U/L Alkaline Phosphatase 81 (45-117) U/L Total Protein 7.6 (6.4-8.2) gm/dl Albumin 2.9 L (3.4-5.0) gm/dl Globulin 4.7 H (2.5-4.0) gm/dl Albumin/Globulin Ratio 0.6 L (0.9-2) Lipase 142 (73-393) U/L Specimen Hemolysis Urine Color Yellow Urine Appearance Turbid A (Clear) Urine pH 5.5 (4.5-7.5) Ur Specific [place] 1.021 (1.000-1.030) Urine Protein 2+ H (Negative) Urine Glucose (UA) 3+ H (Negative) Urine Ketones Negative (Negative) Urine Blood 2+ H (Negative) Urine Nitrite Positive A (Negative) Urine Bilirubin Negative (Negative) Urine Urobilinogen Negative (Negative) Ur Leukocyte Esterase 2+ H (Negative) Urine WBC (Auto) >30 H (0-5) /hpf Urine RBC (Auto) 10-30 H (0-4) /hpf U Hyaline Cast (Auto) 1-5 (0-5) /lpf U Epithel Cells (Auto) 0-5 (0-5) /lpf Urine Bacteria (Auto) 4+ H (Negative) Urine Osmolality (500-800) mOsm/kg Ur Random Sodium mmol/L COVID-19 Eval Order SARS-CoV-2 (PCR) (Negative) 04/10/21 04/10/21 04/10/21 Range/Units 16:55 16:55 17:00 WBC (4.8-10.8) K/uL RBC (4.2-5.4) M/uL Hgb (12.0-16.0) g/dL Hct (37-47) % MCV (80-100) fL MCH (25-34) pg MCHC (32-36) g/dL RDW Std Deviation (36.4-46.3) fL RDW Coeff of Judy (11.5-14.5) % Plt Count (130-400) K/uL MPV (7.4-10.4) fL Immature Gran % (Auto) % Neut % (Auto) % Lymph % (Auto) % Blount % (Auto) % Eos % (Auto) % Baso % (Auto) % Neut # (Auto) (1.4-6.5) K/uL Lymph # (Auto) (1.2-3.4) K/uL Blount # (Auto) (0.11-0.59) K/uL Eos # (Auto) (0-0.5) K/uL Baso # (Auto) (0-0.2) K/uL Immature Gran # (Auto) (0.00-0.02) K/uL Sodium (136-145) mmol/L Potassium (3.5-5.1) mmol/L Chloride (98-107) mmol/L Carbon Dioxide (21-32) mmol/L Anion Gap (3-11) BUN (7-18) mg/dl Creatinine (0.6-1.2) mg/dl Est Cr Clr Drug Dosing ml/min Est GFR ( Amer) ml/min Est GFR (Non-Af Amer) ml/min BUN/Creatinine Ratio (10-20) Glucose (70-99) mg/dl Osmolality (280-300) mOsm/kg Calcium (8.5-10.1) mg/dl Total Bilirubin (0.2-1) mg/dl AST (15-37) U/L ALT (12-78) U/L Alkaline Phosphatase (45-117) U/L Total Protein (6.4-8.2) gm/dl Albumin (3.4-5.0) gm/dl Globulin (2.5-4.0) gm/dl Albumin/Globulin Ratio (0.9-2) Lipase (73-393) U/L Specimen Hemolysis Urine Color Urine Appearance (Clear) Urine pH (4.5-7.5) Ur Specific [place] (1.000-1.030) Urine Protein (Negative) Urine Glucose (UA) (Negative) Urine Ketones (Negative) Urine Blood (Negative) Urine Nitrite (Negative) Urine Bilirubin (Negative) Urine Urobilinogen (Negative) Ur Leukocyte Esterase (Negative) Urine WBC (Auto) (0-5) /hpf Urine RBC (Auto) (0-4) /hpf U Hyaline Cast (Auto) (0-5) /lpf U Epithel Cells (Auto) (0-5) /lpf Urine Bacteria (Auto) (Negative) Urine Osmolality 452 L (500-800) mOsm/kg Ur Random Sodium 36 mmol/L COVID-19 Eval Order Covid19 at [facility] SARS-CoV-2 (PCR) (Negative) 04/10/21 04/10/21 04/10/21 Range/Units 17:00 19:58 Unknown WBC (4.8-10.8) K/uL RBC (4.2-5.4) M/uL Hgb (12.0-16.0) g/dL Hct (37-47) % MCV (80-100) fL MCH (25-34) pg MCHC (32-36) g/dL RDW Std Deviation (36.4-46.3) fL RDW Coeff of Judy (11.5-14.5) % Plt Count (130-400) K/uL MPV (7.4-10.4) fL Immature Gran % (Auto) % Neut % (Auto) % Lymph % (Auto) % Blount % (Auto) % Eos % (Auto) % Baso % (Auto) % Neut # (Auto) (1.4-6.5) K/uL Lymph # (Auto) (1.2-3.4) K/uL Blount # (Auto) (0.11-0.59) K/uL Eos # (Auto) (0-0.5) K/uL Baso # (Auto) (0-0.2) K/uL Immature Gran # (Auto) (0.00-0.02) K/uL Sodium 127 L (136-145) mmol/L Potassium 3.5 (3.5-5.1) mmol/L Chloride 97 L (98-107) mmol/L Carbon Dioxide 21 (21-32) mmol/L Anion Gap 9.0 (3-11) BUN 27 H (7-18) mg/dl Creatinine 1.35 H (0.6-1.2) mg/dl Est Cr Clr Drug Dosing 26.0 ml/min Est GFR ( Amer) 41.7 ml/min Est GFR (Non-Af Amer) 36.0 ml/min BUN/Creatinine Ratio 20.1 H (10-20) Glucose 163 H (70-99) mg/dl Osmolality 268 L (280-300) mOsm/kg Calcium 8.5 (8.5-10.1) mg/dl Total Bilirubin (0.2-1) mg/dl AST (15-37) U/L ALT (12-78) U/L Alkaline Phosphatase (45-117) U/L Total Protein (6.4-8.2) gm/dl Albumin (3.4-5.0) gm/dl Globulin (2.5-4.0) gm/dl Albumin/Globulin Ratio (0.9-2) Lipase (73-393) U/L Specimen Hemolysis Urine Color Urine Appearance (Clear) Urine pH (4.5-7.5) Ur Specific [place] (1.000-1.030) Urine Protein (Negative) Urine Glucose (UA) (Negative) Urine Ketones (Negative) Urine Blood (Negative) Urine Nitrite (Negative) Urine Bilirubin (Negative) Urine Urobilinogen (Negative) Ur Leukocyte Esterase (Negative) Urine WBC (Auto) (0-5) /hpf Urine RBC (Auto) (0-4) /hpf U Hyaline Cast (Auto) (0-5) /lpf U Epithel Cells (Auto) (0-5) /lpf Urine Bacteria (Auto) (Negative) Urine Osmolality (500-800) mOsm/kg Ur Random Sodium mmol/L COVID-19 Eval Order SARS-CoV-2 (PCR) NEGATIVE (Negative) Administered Medications Discontinued Medications Sodium Chloride (Nss 1000ml) 1,000 mls @ 999 mls/hr IV .[id number] ONE Stop: 04/10/21 17:19 Last Infusion: 04/10/21 19:24 Dose: 0 mls/hr Documented by: [id number] Admin: 04/10/21 17:45 Dose: 999 mls/hr Documented by: [id number] Ceftriaxone Sodium (Rocephin) 1,000 mg in 50 mls @ 100 mls/hr IV NOW STA Stop: 04/10/21 16:48 Last Infusion: 04/10/21 17:36 Dose: 0 mls/hr Documented by: [id number] Admin: 04/10/21 17:04 Dose: 100 mls/hr Documented by: [id number] Ceftriaxone Sodium (Rocephin) 1,000 mg in 50 mls @ 100 mls/hr IV NOW STA Stop: 04/10/21 18:37 Last Infusion: 04/10/21 20:20 Dose: 0 mls/hr Documented by: [id number] Admin: 04/10/21 19:39 Dose: 100 mls/hr Documented by: [id number] Imaging Data Radiologist's Impression: Chest X-Ray 04/10/21 16:35 XR chest 1V portable HISTORY: 86 years-old Female ams . Acutely altered mental status COMPARISON: Chest radiograph 05/24/2019 TECHNIQUE: Portable AP view of the chest FINDINGS: Cardiac silhouette is mildly enlarged, unchanged. Calcified plaque of the thoracic aorta. No pneumothorax, pleural effusion, airspace consolidation or ov ert pulmonary edema. Degenerative changes of the shoulders and spine. IMPRESSION: No acute process. ACT 112: Negative or not required by law. The above report was generated using voice recognition software. It may contain grammatical, syntax or spelling errors. Electronically signed by: Moises Thompson M.D. 04/10/2021 6:01 PM Discharge Plan Visit Data Chief Complaint: Urinary Symptoms Stated Complaint: URINARY SYMPTOMS,WEAKNESS ED Provider: Antione Masters Discharge Problem: AMS (altered mental status), Acute UTI, Hyponatremia Forms Stand Alone Forms: My [facility] Prescriptions Prescriptions: No Action atorvastatin 40 mg tablet 40 mg PO HS RF: 0 metformin 500 mg tablet 500 mg PO BIDM RF: 0 glipizide 10 mg tablet 10 mg PO BID RF: 0 benazepril-hydrochlorothiazide 20-25 mg tablet 1 tab PO QAM RF: 0 aspirin 81 mg Tablet,Delayed Release (Dr/Ec) 81 mg PO QAM RF: 0 omeprazole 20 mg capsule,delayed release(DR/EC) 20 mg PO QAM RF: 0 gabapentin 100 mg capsule 200 mg PO BID RF: 0 atenolol 50 mg tablet 50 mg PO HS RF: 0 cholecalciferol (vitamin D3) [Vitamin D3] 1,000 unit Capsule 1,000 unit PO DAILY@1200 RF: 0 Jardiance 25 mg tablet 25 mg PO QAM RF: 0 cyanocobalamin (vitamin B-12) 1,000 mcg tablet 1,000 mcg PO DAILY RF: 0 amlodipine 5 mg tablet 5 mg PO DAILY RF: 0 sulfamethoxazole-trimethoprim 800-160 mg tablet 1 tab PO BID RF: 0 lorazepam 0.5 mg tablet 0.5 mg PO HS RF: 0 calcium carbonate-vitamin D3 [Calcium 600 + D(3)] 600 mg(1,500mg) -200 unit Tablet 1 tab PO BID RF: 0 Centrum Silver Tablet 1 tab PO DAILY RF: 0 polyethylene glycol 3350 [Miralax] 17 gram powder in packet 17 g PO DAILY RF: 0 Referrals Referrals: Maged Castano MD [Primary Care Provider] -
[2021-04-10 17:01] LABS: Basophils # (auto) 0.01 K/uL (0-0.2); Basophils % (auto) 0.1 %; Eosinophils # (auto) 0.02 K/uL (0-0.5); Eosinophils % (auto) 0.2 %; Hematocrit (blood only) 32.9 % (37-47); Hemoglobin 11.4 g/dL (12.0-16.0); Immature Granulocytes # (auto) 0.05 K/uL (0.00-0.02); Immature Granulocytes % (auto) 0.4 %; Mean Corpuscular Hemoglobin 30.7 pg (25-34); Mean Corpuscular Hgb Conc 34.7 g/dL (32-36); Mean Corpuscular Volume 88.7 fL (80-100); Mean Platelet Volume 9.1 fL (7.4-10.4); Monocytes # (auto) 1.36 K/uL (0.11-0.59); Monocytes % (auto) 11.6 %; Neutrophils % (auto) 70.7 %; Platelet Count 190 K/uL (130-400); RDW Coefficient of Variation 15.5 % (11.5-14.5); RDW Standard Deviation 49.7 fL (36.4-46.3); Red Blood Count 3.71 M/uL (4.2-5.4); White Blood Count 11.74 K/uL (4.8-10.8)
[2021-04-10 17:17] LABS: Appearance Urine Turbid (Clear); Bacteria Urine Automated 4+ (Negative); Bilirubin Urine Negative (Negative); Blood Urine 2+ (Negative); Color Urine Yellow; Epithelial Cell Urine Auto 0-5 /lpf (0-5); Glucose Urine UA 3+ (Negative); Ketones Urine Negative (Negative); Leukocyte Esterase Urine 2+ (Negative); Nitrite Urine Positive (Negative); Protein Urine 2+ (Negative); Specific Gravity Urine 1.021 (1.000-1.030); Urobilinogen Urine Negative (Negative); WBC Urine Automated >30 /hpf (0-5); pH Urine 5.5 (4.5-7.5)
[2021-04-10 17:22] LABS: Albumin Level 2.9 gm/dl (3.4-5.0); BUN Creatinine Ratio 18.5 (10-20); Calcium 9.2 mg/dl (8.5-10.1); Creatinine Clr Calc Pharmacy 21.8 ml/min; Est GFR (African American) 33.7 ml/min; Est GFR (Non-African American) 29.1 ml/min; Potassium 3.7 mmol/L (3.5-5.1)
[2021-04-10 17:25] LABS: Albumin Globulin Ratio 0.6 (0.9-2); Bilirubin,Total 0.6 mg/dl (0.2-1); Globulin 4.7 gm/dl (2.5-4.0); Total Protein 7.6 gm/dl (6.4-8.2)
--- NOTE | 2021-04-10 18:03 | XRay Report ---
XR chest 1V portable HISTORY: 86 years-old Female ams . Acutely altered mental status COMPARISON: Chest radiograph 05/24/2019 TECHNIQUE: Portable AP view of the chest FINDINGS: Cardiac silhouette is mildly enlarged, unchanged. Calcified plaque of the thoracic aorta. No pneumoth orax, pleural effusion, airspace consolidation or overt pulmonary edema. Degenerative changes of the shoulders and spine. IMPRESSION: No acute process. ACT 112: Negative or not required by law. The above report was generated using voice recognition software. It may contain grammatical, syntax o r spelling errors. Electronically signed by: Moises Thompson M.D. 04/10/2021 6:01 PM
[2021-04-10 20:24] LABS: BUN Creatinine Ratio 20.1 (10-20); Calcium 8.5 mg/dl (8.5-10.1); Est GFR (African American) 41.7 ml/min; Potassium 3.5 mmol/L (3.5-5.1)
--- NOTE | 2021-04-10 20:49 | History & Physical Report ---
Date of Service April 10, 2021 Assessment & Plan (1) Toxic metabolic encephalopathy: (2) Acute UTI: Plan: This is an 86-year-old female who has significant past medical history of T2DM, HTN, HLD, CKD stage III, diabetic polyneuropathy, GERD, osteoarthrosis, chronic low back pain, anxiety, history of breast CA who presents ED secondary to UTI symptoms x2 days. Pt does not meet SIRS/SEPSIS criteria on admission; however criteria is borderline and not ruled out, HR 99, WBC 11.74k, one time episode of BP 93/55 Urine and blood cultures obtained Received 2g IV rocephin in ED Initial UA concerning for infection Acute toxic metabolic encephalopathy - likely 2/2 to UTI and hyponatremia Possible UTI await urine and blood cultures (blood cultures obtained after 1g rocephin administered in ED), no other urine culture to compare Continue 2g IV rocephin daily IVF 75cc/hr + 20meq kcl prn bladder scans (3) Hyponatremia: Plan: Acute, Likely hypovolemic hyponatremia Serum osm 268, urine osm 452, urine sodium 36 gentle IVF NS + 20meq KCL 75cc/hr x 2 L repeat bmp in a.m. (4) ASHLYN (acute kidney injury): Plan: baseline cr 0.9-1.0 bun/cr 30/1.6 on arrival repeat after 1L of IVF 27 and 1.35 likely in setting of dehydration and possible 2/2 to bactrim use (although one used for 1 day) (5) Generalized weakness: Plan: will need PT/OT evals when more stable (6) Diabetes mellitus type 2 in nonobese: Plan: Last A1c 7.8 on 10/23/2020 Hold Metformin, Jardiance and glipizide Lantus/NovoLog per protocol consider discontinuation of Jardiance if pt experiencing freq UTI 2/2 to ADR (7) Hypertension: Plan: BP in 90s systolic on arrival, now 119/63 hold amlodipine, benazpril/hctz combo for now continue atenolol monitor closely (8) Hypercholesterolemia: Plan: continue statin (9) Neuropathy: Plan: continue gabapentin (10) DVT prophylaxis: Plan: SQ Heparin Dispo: PCU PCP: Dr. Castano Full Code Pt was seen and examined in collaboration with Dr. Mccauley, please see addendum History of Present Illness Chief Complaint: UTI symptoms x2 days. Primary Care Provider: Maged Castano MD This is an 86-year-old female who has significant past medical history of T2DM, HTN, HLD, CKD stage III, diabetic polyneuropathy, GERD, osteoarthrosis, chronic low back pain, anxiety, history of breast CA who presents ED secondary to UTI symptoms x2 days. Patient had a urinalysis collected as outpatient and was started on oral Bactrim x1 day. She presented to ED due to concerns for patient becoming increasingly more weak, confused and decreased appetite in setting of concerning UTI. Patient's history is slightly unreliable given to underlying cognition. She does complain of suprapubic discomfort and dysuria but denies hematuria, increased urgency or frequency with urination, fever, chills, sweats, lightheadedness, dizziness, chest pain, shortness breath, cough, URI symptoms, nausea or vomiting. She states she does have history of UTI in the past. In ED patient remained hemodynamically stable. There was concern for possible underlying sepsis. Urine and blood cultures were obtained. She received 2 g of IV Rocephin. Lab work notable for WBC 11.74k H&H 11.4 and 32.9, sodium 125, BUN and creatinine 30 and 1.61 and urinalysis consistent with UTI. Allergies Allergy/AdvReac Type Severity Reaction Status Date / Time No Known Allergies Allergy Unverified 04/10/21 18:30 Home Medications Medication Instructions Recorded Confirmed Type aspirin 81 mg tablet,delayed 81 mg PO QAM 05/24/19 04/10/21 History release atenolol 50 mg tablet 50 mg PO HS 05/24/19 04/10/21 History atorvastatin 40 mg tablet 40 mg PO HS 05/24/19 04/10/21 History cholecalciferol (vitamin D3) 25 1,000 unit PO DAILY@1200 05/24/19 04/10/21 History mcg (1,000 unit) capsule (Vitamin D3) empagliflozin 25 mg tablet 25 mg PO QAM 05/24/19 04/10/21 History (Jardiance) gabapentin 100 mg capsule 200 mg PO BID 05/24/19 04/10/21 History glipizide 10 mg tablet 10 mg PO BID 05/24/19 04/10/21 History metformin 500 mg tablet 500 mg PO BIDM 05/24/19 04/10/21 History omeprazole 20 mg capsule,delayed 20 mg PO QAM 05/24/19 04/10/21 History release amlodipine 5 mg tablet 5 mg PO DAILY 04/10/21 04/10/21 History calcium carbonate 600 mg (1,500 1 tab PO BID 04/10/21 04/10/21 History mg)-vitamin D3 200 unit tablet (Calcium 600 + D(3)) cyanocobalamin (vitamin B-12) 1,000 mcg PO DAILY 04/10/21 04/10/21 History 1,000 mcg tablet lorazepam 0.5 mg tablet 0.5 mg PO HS 04/10/21 04/10/21 History oefsvuambazv-yqznwtas-uvxupo tablet 1 tab PO DAILY 04/10/21 04/10/21 History polyethylene glycol 3350 17 gram 17 g PO DAILY 04/10/21 04/10/21 History oral powder packet (Miralax) Past Med/Surg History Medical History Breast cancer, stage 2 (11/14/13) Diabetes mellitus type 2 in nonobese Hx: UTI (urinary tract infection) Hypercholesterolemia Hypertension Neuropathy Surgical History History of History of carpal tunnel surgery History of colonoscopy S/P lumpectomy, left breast (12/26/13) Family History Father , 83 Myocardial infarction, Onset Age: 46 Hypertension Heart disease Diabetes Mother Diabetes Hypertension Social History Smoking Status: Never smoker Hx Alcohol Use: No Hx Substance Use: No Preferred Language: Thai Communication Ability: Effective Visual Impairment: Diminished Automobile Designer Required: No Beliefs That Will Affect Care: None marital status: / Current Living Situation: Alone current occupational status: retired Other Information That Helps Us Care for You: No Feels Safe at Home: Yes Safety Concerns: Feels Safe At This Time Assistive Devices: Walker Review of Systems Review of Systems: All systems reviewed & are unremarkable except as noted in HPI & below Physical Exam Physical Exam: Constitutional: WD/WN, elderly, petite, female vitals as above, NAD, sitting up in bed, pleasant, conversing easily Head: Normocephalic, Atraumatic Eyes: PERRL, conjunctivae normal, anicteric sclerae ENMT: external ear and nose normal, oropharynx normal Neck: trachea midline, no thyromegaly normal visual inspection Respiratory: normal respiratory effort, lungs clear to auscultation, no wheeze, rales, rhonchi. Normal insp/exp effort, no accessory muscle use Cardiovascular: Tachycardic rate, regular rhythm, no murmur, no edema Vessels: no JVD or carotid bruit Chest: normal inspection of chest Abdomen: normal bowel sounds, soft, mildly tender to palpation suprapubic region, no rebound, no guarding, no rigidity, no hepatosplenomegaly Musculoskeletal: no cyanosis or clubbing, extremities motor strength 5/5 Skin: no rashes, warm and dry normal turgor Neurologic: PERRL, EOMI, accommodation nl, no face palsy, no dysarthria CN's II-XI intact bilaterally and moves all extremities Psychiatric: A+O to self and location only, euthymic affect Lymphatic: no cervical or axillary lymphadenopathy : deferred Results & Data Results & Data ([facility]) Vital Signs (Past 12 Hours) Vital Signs Temp Pulse Pulse Resp BP BP Pulse Ox 04/10/21 19:37 99 H 18 119/63 97 04/10/21 17:34 77 17 119/63 98 04/10/21 16:56 80 16 95 04/10/21 15:50 76 16 119/63 95 04/10/21 15:27 37.7 C H 81 20 93/55 L 84 L Diagnostic Findings Chest X-Ray 04/10/21 16:35 XR chest 1V portable HISTORY: 86 years-old Female ams . Acutely altered mental status COMPARISON: Chest radiograph 05/24/2019 TECHNIQUE: Portable AP view of the chest FINDINGS: Cardiac silhouette is mildly enlarged, unchanged. Calcified plaque of the thoracic aorta. No pneumothorax, pleural effusion, airspace consolidation or overt pulmonary edema. Degenerative changes of the shoulders and spine. IMPRESSION: No acute process. ACT 112: Negative or not required by law. The above report was generated using voice recognition software. It may contain grammatical, syntax or spelling errors. Electronically signed by: Moises Thompson M.D. 04/10/2021 6:01 PM Medications Administered Medication List Discontinued Medications Sodium Chloride (Nss 1000ml) 1,000 mls @ 999 mls/hr IV .Q1H1M ONE Stop: 04/10/21 17:19 Last Infusion: 04/10/21 19:24 Dose: 0 mls/hr Documented by: [id number] Admin: 04/10/21 17:45 Dose: 999 mls/hr Documented by: [id number] Ceftriaxone Sodium (Rocephin) 1,000 mg in 50 mls @ 100 mls/hr IV NOW STA Stop: 04/10/21 16:48 Last Infusion: 04/10/21 17:36 Dose: 0 mls/hr Documented by: [id number] Admin: 04/10/21 17:04 Dose: 100 mls/hr Documented by: [id number] Ceftriaxone Sodium (Rocephin) 1,000 mg in 50 mls @ 100 mls/hr IV NOW STA Stop: 04/10/21 18:37 Last Infusion: 04/10/21 20:20 Dose: 0 mls/hr Documented by: [id number] Admin: 04/10/21 19:39 Dose: 100 mls/hr Documented by: [id number] COVID-19 Results Results COVID-19 Adm Lab Results: RBC 3.59 M/uL (4.2-5.4) L 04/14/21 WBC 8.86 K/uL (4.8-10.8) 04/14/21 Hgb 11.0 g/dL (12.0-16.0) L 04/14/21 Hct 31.2 % (37-47) L 04/14/21 Plt Count 241 K/uL (130-400) 04/14/21 Neutrophils (%) (Auto) 53.5 % 04/14/21 Lymphocytes (%) (Auto) 33.7 % 04/14/21 Monocytes # (Auto) 0.90 K/uL (0.11-0.59) H 04/14/21 Eosinophils # (Auto) 0.19 K/uL (0-0.5) 04/14/21 Immature Granulocyte % (Auto) 0.3 % 04/14/21 Neutrophils # (Auto) 4.73 K/uL (1.4-6.5) 04/14/21 Lymphocytes # (Auto) 2.99 K/uL (1.2-3.4) 04/14/21 Monocytes # (Auto) 0.90 K/uL (0.11-0.59) H 04/14/21 Eosinophils # (Auto) 0.19 K/uL (0-0.5) 04/14/21 Basophils # (Auto) 0.02 K/uL (0-0.2) 04/14/21 Immature Granulocyte # (Auto) 0.03 K/uL (0.00-0.02) H 04/14/21 Na 133 mmol/L (136-145) L 04/14/21 K 3.9 mmol/L (3.5-5.1) 04/14/21 Cl 101 mmol/L (98-107) 04/14/21 CO2 25 mmol/L (21-32) 04/14/21 Anion Gap 7.0 (3-11) 04/14/21 BUN 13 mg/dl (7-18) 04/14/21 Creatinine 0.89 mg/dl (0.6-1.2) 04/14/21 BUN/Creatinine Ratio 14.6 (10-20) 04/14/21 Glucose Level 185 mg/dl (70-99) H 04/14/21 Ca 8.9 mg/dl (8.5-10.1) 04/14/21 Phosphorus Level 1.7 mg/dl (2.5-4.9) L 04/12/21 Total Bilirubin 0.6 mg/dl (0.2-1) 04/10/21 AST/SGOT 30 U/L (15-37) 04/10/21 ALT/SGPT 29 U/L (12-78) 04/10/21 Alkaline Phosphatase 81 U/L (45-117) 04/10/21 Total Protein 7.6 gm/dl (6.4-8.2) 04/10/21 Albumin 2.9 gm/dl (3.4-5.0) L 04/10/21 Globulin 4.7 gm/dl (2.5-4.0) H 04/10/21 Albumin/Globulin Ratio 0.6 (0.9-2) L 04/10/21 COVID-19 PCR NEGATIVE (Negative) 04/10/21 Chest X-Ray 04/10/21 Code Status & VTE Plan Code Status Full Code VTE Prophylaxis Plan VTE Prophylaxis will be ordered: Yes Supervising Physician Co-Signing Physician Notes Pt was seen and examined. Agreed with Trish GANDHI exam, assessment and plan. 86-year-old female who has significant past medical history of T2DM, HTN, HLD, CKD stage III, diabetic polyneuropathy, GERD, osteoarthrosis, chronic low back pain, anxiety, history of breast CA who presents ED secondary to UTI symptoms such as dysuria. She said that she has been feeling weak and poor appetite. She was starting on Bactrim DS after UA was collected. Lab done in the ER showed notable for WBC 11.74k H&H 11.4 and 32.9, sodium 125, BUN and creatinine 30 and 1.61 and urinalysis consistent with UTI. Urine and blood cultures collected in the ER. Received IV rocephin in the ER, Will continue Rocephin. Fall precaution. Continue monitor closely. MD Garrick
[2021-04-11] MEDS ORDERED: MAGNESIUM HYDROXIDE SUSP 30 ML UDC PO PRN (00:37)
[2021-04-11] MEDS ORDERED: ONDANSETRON INJ 2 MG/ML 2 ML VIAL IV PRN (00:37)
[2021-04-11] MEDS ORDERED: GLUCOSE 40% GEL 15 GM TUBE PO PRN (00:37)
[2021-04-11] MEDS ORDERED: LORazepam 0.5 MG TAB PO SCH (00:37)
[2021-04-11] MEDS ORDERED: GABAPENTIN 100 MG CAP PO SCH (00:37)
[2021-04-11] MEDS ORDERED: ALUMINUM/MAGNESIUM SUSP 30 ML UDC PO PRN (00:37)
[2021-04-11] MEDS ORDERED: DEXTROSE 50% 50 ML SYRINGE IV PRN (00:37)
[2021-04-11] MEDS ORDERED: POLYETHYLENE (MIRALAX) 17 GM PACK PO PRN (00:37)
[2021-04-11] MEDS ORDERED: GLUCAGON FOR INJ 1 MG VIAL SQ PRN (00:37)
[2021-04-11] MEDS ORDERED: CARBOHYDRATES FOR HYPOGLYCEMIA PO PRN (00:37)
[2021-04-11] MEDS ORDERED: ATENOLOL 50 MG TABLET PO SCH (00:37)
[2021-04-11] MEDS ORDERED: GLUCOSE 10 TABS/TUBE PO PRN (00:37)
[2021-04-11] MEDS ORDERED: ACETAMINOPHEN 325 MG TAB PO PRN (00:37)
[2021-04-11] MEDS ORDERED: ATORVASTATIN 40 MG TAB PO SCH (00:37)
[2021-04-11] MEDS: INSULIN ASPART 100 UNITS/ML 3 ML PEN SC SCH ×5 (01:23→20:10)
[2021-04-11] MEDS: HEPARIN SOD 5,000 UNIT/0.5 ML VIAL SQ SCH ×4 (01:23→20:09)
[2021-04-11] MEDS: INSULIN GLARGINE SOLOSTAR 100 UNITS/ML 3 ML PEN SC SCH ×3 (01:24→20:10)
[2021-04-11] MEDS: NSS + 20MEQ KCL 20 MEQ/1,000 ML BAG IV SCH ×2 (01:24→16:20)
[2021-04-11] MEDS ORDERED: SODIUM CHLORIDE 0.9% 500 ML IV ONE (02:05)
[2021-04-11] MEDS ORDERED: CEFEPIME CONSULT ACTIVE PRN (02:08)
[2021-04-11] MEDS ORDERED: CEFEPIME 2,000 MG/20 ML VIAL IV STA (02:08)
[2021-04-11 02:49] LABS: Basophils # (auto) 0.01 K/uL (0-0.2); Basophils % (auto) 0.1 %; Eosinophils # (auto) 0.05 K/uL (0-0.5); Eosinophils % (auto) 0.5 %; Hematocrit (blood only) 32.1 % (37-47); Immature Granulocytes # (auto) 0.04 K/uL (0.00-0.02); Immature Granulocytes % (auto) 0.4 %; Lymphocytes # (auto) 2.12 K/uL (1.2-3.4); Lymphocytes % (auto) 19.6 %; Mean Corpuscular Hemoglobin 30.6 pg (25-34); Mean Corpuscular Hgb Conc 34.3 g/dL (32-36); Mean Corpuscular Volume 89.4 fL (80-100); Mean Platelet Volume 8.8 fL (7.4-10.4); Neutrophils # (auto) 7.28 K/uL (1.4-6.5); Neutrophils % (auto) 67.4 %; Platelet Count 175 K/uL (130-400); RDW Coefficient of Variation 15.1 % (11.5-14.5); RDW Standard Deviation 49.5 fL (36.4-46.3); Red Blood Count 3.59 M/uL (4.2-5.4)
[2021-04-11] MEDS: ALBUMIN 25% 12.5 GM/50 ML VIAL IV SCH ×4 (02:50→05:42)
[2021-04-11 03:08] LABS: BUN Creatinine Ratio 16.8 (10-20); Calcium 8.3 mg/dl (8.5-10.1); Creatinine Clr Calc Pharmacy 23.6 ml/min; Est GFR (African American) 42.1 ml/min; Est GFR (Non-African American) 36.3 ml/min; Magnesium 1.8 mg/dl (1.8-2.4); Potassium 3.7 mmol/L (3.5-5.1)
[2021-04-11] MEDS ORDERED: DEXAMETHASONE SOD INJ 4 MG/ML VIAL IV ONE ×2 (03:18→05:00)
[2021-04-11 03:19] LABS: Thyroid Stimulating Hormone 1.27 uIu/ml (0.300-4.500)
--- NOTE | 2021-04-11 03:22 | Communication Note ---
Date of Service: April 11, 2021 2 AM Notified by RN of hypotension, SBP 60s to 70s. Patient lethargic as per RN. AP Hypotension ? Septic shock secondary to complicated UTI NSS 500 cc bolus now (careful correction given hyponatremia) Change Ceftriaxone to Cefepime for broader gram-negative coverage Check lactic acid Appropriate to hold patient gabapentin and Ativan given lethargy. Hold patient home beta-kris Lactic acid noted to be 1.4 SBP initially 80s later 60s after NSS bolus. IV albumin Decadron for possible adrenal insufficiency. TTE in a.m. Re: Hypotension rule out obstructive cardiac pathology Add Daptomycin to antibiotic regimen if BP still unimproved after above intervention. ICU consult if with persistent hypotension. Will relay to AM provider.
[2021-04-11] MEDS ORDERED: dexAMETHasone 4 MG in SYRINGE 0 ML IV ONE (04:25)
[2021-04-11] MEDS ORDERED: DAPTOmycin 250 MG in SYRINGE 0 ML IV SCH (06:00)
[2021-04-11 07:20] LABS: Estimated Average Glucose 177 mg/dl; Hemoglobin A1C 7.8 % (4.5-5.6)
[2021-04-11] MEDS ORDERED: Influenza Vaccine-High Dose (Fluzone-HD) PF 65+ 0.7 ML SYR IM ONE (08:00)
[2021-04-11] MEDS ORDERED: SODIUM CHLORIDE 0.9% 1000ML 500 ML IV ONE (09:25)
[2021-04-11] MEDS: PANTOprazole 40 MG TAB PO SCH (09:36)
[2021-04-11] MEDS: CEROVITE ADV FORMULA TAB PO SCH (09:36)
[2021-04-11] MEDS: POLYETHYLENE (MIRALAX) 17 GM PACK PO SCH (09:37)
[2021-04-11] MEDS: ASPIRIN 81 MG ECTAB PO SCH (09:37)
[2021-04-11] MEDS: CYANOCOBALAMIN 500 MCG TABLET (VITAMIN B-12) PO SCH (09:38)
[2021-04-11] MEDS: CHOLECALCIFEROL 1,000 UNITS 25 MCG TAB PO SCH (12:52)
--- NOTE | 2021-04-11 17:12 | Hospitalist Progress Note ---
Date of Service April 11, 2021 Assessment & Plan (1) Toxic metabolic encephalopathy: Plan: Acute toxic metabolic encephalopathy - likely 2/2 to UTI and hyponatremia (2) Acute UTI: Plan: This is an 86-year-old female who has significant past medical history of T2DM, HTN, HLD, CKD stage III, diabetic polyneuropathy, GERD, osteoarthrosis, chronic low back pain, anxiety, history of breast CA who presents ED secondary to UTI symptoms x2 days. Pt does not meet SIRS/SEPSIS criteria on admission; however criteria is borderline and not ruled out, HR 99, WBC 11.74k, one time episode of BP 93/55 Urine and blood cultures obtained Received 2g IV rocephin in ED Initial UA concerning for infection Continue 2g IV rocephin daily Hypotension Started with IVF 75cc/hr + 20meq kcl and increased to 125 cc an hour for 3 L Blood pressure has been upper 90s (3) Hyponatremia: Plan: Acute, Likely hypovolemic hyponatremia Serum osm 268, urine osm 452, urine sodium 36 gentle IVF NS + 20meq KCL 75cc/hr x 2 L repeat bmp in a.m. (4) ASHLYN (acute kidney injury): Plan: Baseline cr 0.9-1.0 Bun/cr 30/1.6 on arrival repeat after 1L of IVF 27 and 1.35 likely in setting of dehydration and possible 2/2 to bactrim use (although one used for 1 day) We will monitor PRP (5) Generalized weakness: Plan: will need PT/OT evals when more stable (6) Diabetes mellitus type 2 in nonobese: Plan: Last A1c 7.8 on 10/23/2020 Hold Metformin, Jardiance and glipizide Lantus/NovoLog per protocol consider discontinuation of Jardiance if pt experiencing freq UTI 2/2 to ADR (7) Hypertension: Plan: BP in 90s systolic on arrival, now 119/63 hold amlodipine, benazpril/hctz combo for now continue atenolol we will hold parameters monitor closely (8) Hypercholesterolemia: Plan: continue statin (9) Neuropathy: Plan: continue gabapentin (10) DVT prophylaxis: Plan: SQ Heparin Dispo: PCU PCP: Dr. Castano Full Code Admission and Anticipated Discharge Date Admission Date: April 10, 2021 Subjective 04/11/2021 The patient was seen and examined in telemetry unit She has been feeling much better since admission She does not exactly know what happened to her Denies any symptoms during my examination Review of Systems Review of Systems: All systems reviewed and are unremarkable except as noted below Physical Exam Physical Exam: Lying in bed comfortably. Looking pale Constitutional: + ill appearing and average body habitus Eyes: PERRL, conjunctivae normal, anicteric sclerae ENMT: external ear and nose normal, oropharynx normal Neck: trachea midline, no thyromegaly Respiratory: no respiratory distress and no cough Auscultation: lungs clear to auscultation bilaterally Cardiovascular: Rate/Rhythm: regular rate and regular rhythm; not tachycardic Heart Sounds: normal S1 and normal S2; no murmur Extremities: no edema Gastrointestinal (Abdomen): Inspection/Auscultation: abdomen not distended Percussion/Palpation: abdomen soft; abdomen nontender Musculoskeletal: No acute arthritis in any joint Neurologic: Alert, awake and oriented x3 Results & Data Results & Data ([facility]) Vital Signs (Past 12 Hours) Vital Signs Temp Pulse Pulse Resp BP BP Pulse Ox 04/11/21 15:56 36.6 C 72 14 97/54 L 99 04/11/21 14:00 74 17 97 04/11/21 13:30 69 14 102/50 L 98 04/11/21 13:00 74 16 97/54 L 98 04/11/21 12:30 67 14 98/46 L 95 04/11/21 12:00 66 17 101/44 L 89 L 04/11/21 10:30 66 18 96/48 L 98 04/11/21 10:00 75 21 90/63 L 98 04/11/21 09:30 70 19 96/49 L 98 04/11/21 09:00 68 16 87/43 L 94 04/11/21 08:30 71 23 82/44 L 97 04/11/21 08:00 71 19 107/51 L 98 04/11/21 07:30 73 17 95 04/11/21 07:00 71 23 94 04/11/21 06:57 89/51 L 04/11/21 06:31 80/44 L 04/11/21 06:30 77 17 95 04/11/21 06:15 90/48 L 04/11/21 06:05 71/35 L 04/11/21 06:00 69 17 71/35 L 93 04/11/21 05:45 73/33 L 04/11/21 05:30 70 19 72/35 L 91 04/11/21 05:14 69/37 L Laboratory Results Short CBC 04/11/21 Range/Units 02:36 WBC 10.80 (4.8-10.8) K/uL Hgb 11.0 L (12.0-16.0) g/dL Hct 32.1 L (37-47) % Plt Count 175 (130-400) K/uL BMP 04/10/21 04/10/21 04/11/21 16:41 19:58 02:36 Sodium 125 L 127 L 130 L Potassium 3.7 3.5 3.7 Chloride 92 L 97 L 98 Carbon Dioxide 23 21 24 BUN 30 H 27 H 22 H Creatinine 1.61 H 1.35 H 1.34 H Glucose 137 H 163 H 151 H Calcium 9.2 8.5 8.3 L 04/11/21 04/11/21 07:59 14:10 Sodium 131 L 132 L Potassium Chloride Carbon Dioxide BUN Creatinine Glucose Calcium Liver Function 04/10/21 Range/Units 16:41 Total Bilirubin 0.6 (0.2-1) mg/dl AST 30 (15-37) U/L ALT 29 (12-78) U/L Alkaline Phosphatase 81 (45-117) U/L Albumin 2.9 L (3.4-5.0) gm/dl Urine 04/10/21 Range/Units 16:55 Urine Color Yellow Urine Appearance Turbid A (Clear) Urine pH 5.5 (4.5-7.5) Ur Specific [place] 1.021 (1.000-1.030) Urine Protein 2+ H (Negative) Urine Glucose (UA) 3+ H (Negative) Medications Administered Current Inpatient Medications Acetaminophen (Acetaminophen 325 Mg Tab) 650 mg PO Q4H PRN PRN Reason: Pain or Fever Stop: 05/11/21 00:36 Al Hydrox/Mg Hydrox/Simethicone (Aluminum/Magnesium Susp 30 Ml Udc) 15 ml PO Q4H PRN PRN Reason: Dyspepsia Stop: 05/11/21 00:36 Aspirin (Aspirin 81 Mg Ectab) [facility] Stop: 05/11/21 08:59 Last Admin: 04/11/21 09:37 Dose: 81 mg Documented by: Atenolol (Atenolol 50 Mg Tablet) 50 mg PO HS MIGDALIA Stop: 05/11/21 00:36 Last Admin: 04/11/21 01:07 Dose: Not Given Documented by: Atorvastatin Calcium (Atorvastatin 40 Mg Tab) 40 mg PO HS MIGDALIA Stop: 05/11/21 00:36 Last Admin: 04/11/21 01:23 Dose: 40 mg Documented by: Cyanocobalamin (Cyanocobalamin 500 Mcg Tablet (Vitamin B-12)) 1,000 mcg PO DAILY MIGDALIA Stop: 05/11/21 08:59 Last Admin: 04/11/21 09:38 Dose: 1,000 mcg Documented by: Dextrose (Dextrose 50% 50 Ml Syringe) 25 - 50 ml IV UD PRN; Protocol PRN Reason: Hypoglycemia Protocol Stop: 05/11/21 00:36 Gabapentin (Gabapentin 100 Mg Cap) 200 mg PO BID MIGDALIA Stop: 05/11/21 00:36 Last Admin: 04/11/21 01:23 Dose: 200 mg Documented by: Glucagon (Glucagon For Inj 1 Mg Vial) 1 mg SQ UD PRN; Protocol PRN Reason: Hypoglycemia Protocol Stop: 05/11/21 00:36 Glucose (Glucose 10 Tabs/Tube) 4 - 8 tabs PO UD PRN; Protocol PRN Reason: Hypoglycemia Protocol Stop: 05/11/21 00:36 Glucose (Glucose 40% Gel 15 Gm Tube) 15 - 30 gm PO UD PRN; Protocol PRN Reason: Hypoglycemia Protocol Stop: 05/11/21 00:36 Heparin Sodium (Porcine) (Heparin Sod 5,000 Unit/0.5 Ml Vial) 5,000 units SQ Q8 MIGDALIA Stop: 05/11/21 00:36 Last Admin: 04/11/21 14:25 Dose: 5,000 units Documented by: Potassium Chloride/Sodium Chloride (Normal Saline W/20 Meq Kcl) 20 meq in 1,000 mls @ 125 mls/hr IV .Q8H MIGDALIA Stop: 04/12/21 04:13 Last Admin: 04/11/21 16:20 Dose: 75 mls/hr Documented by: Daptomycin 250 mg/ Syringe 5 mls @ 2.5 mls/min IV Q48H MIGDALIA; Protocol Stop: 04/21/21 05:59 Last Admin: 04/11/21 06:05 Dose: 2.5 mls/min Documented by: Cefepime HCl 1,000 mg/ Syringe 11.3 mls @ 5.5 mls/min IV Q24H [facility]; Protocol Stop: 04/22/21 01:59 Insulin Aspart (Insulin Aspart 100 Units/Ml 3 Ml Pen) 0 units SC ACHS MIGDALIA Stop: 05/11/21 00:36 Last Admin: 04/11/21 13:24 Dose: 6 units Documented by: Insulin Glargine (Insulin Glargine Solostar 100 Units/Ml 3 Ml Pen) 0 units SC BID MIGDALIA Stop: 05/11/21 00:36 Last Admin: 04/11/21 09:33 Dose: 5 units Documented by: Lorazepam (Lorazepam 0.5 Mg Tab) 0.5 mg PO HS [facility] Stop: 05/11/21 00:36 Last Admin: 04/11/21 01:30 Dose: 0.5 mg Documented by: Magnesium Hydroxide (Magnesium Hydroxide Susp 30 Ml Udc) 30 ml PO Q12H PRN PRN Reason: Constipation Stop: 05/11/21 00:36 Miscellaneous (Carbohydrates For Hypoglycemia ) 15 - 30 gm PO UD PRN PRN Reason: Hypoglycemia Protocol Stop: 05/11/21 00:36 Miscellaneous Information (Cefepime Consult Active) 0 ea N/A UD PRN PRN Reason: Consult Stop: 05/11/21 02:07 Miscellaneous Information (Daptomycin Consult Active) 1 ea N/A UD PRN PRN Reason: Consult Stop: 05/11/21 04:29 Multivitamins/Minerals (Cerovite Adv Formula Tab) 1 tab PO DAILY MIGDALIA Stop: 05/11/21 08:59 Last Admin: 04/11/21 09:36 Dose: 1 tab Documented by: Ondansetron HCl (Ondansetron Inj 2 Mg/Ml 2 Ml Vial) 4 mg IV Q6H PRN PRN Reason: Nausea Stop: 05/11/21 00:36 Pantoprazole Sodium (Pantoprazole 40 Mg Tab) 40 mg PO QAM [facility] Stop: 05/11/21 08:59 Last Admin: 04/11/21 09:36 Dose: 40 mg Documented by: Polyethylene Glycol (Polyethylene (Miralax) 17 Gm Pack) 17 gm PO DAILY PRN PRN Reason: Constipation Stop: 05/11/21 00:36 Polyethylene Glycol (Polyethylene (Miralax) 17 Gm Pack) 17 gm PO DAILY MIGDALIA Stop: 05/11/21 08:59 Last Admin: 04/11/21 09:37 Dose: 17 gm Documented by: Vitamin D (Cholecalciferol 1,000 Units 25 Mcg Tab) 1,000 units PO DAILY@1200 MIGDALIA Stop: 05/11/21 11:59 Last Admin: 04/11/21 12:52 Dose: 1,000 units Documented by:
[2021-04-11] MEDS ORDERED: cefTRIAXone SODIUM 2,000 MG in DEXTROSE 5% 50 ML IV SCH (20:00)
[2021-04-12] MEDS ORDERED: CEFEPIME 2,000 MG in SYRINGE 0 ML IV SCH (02:00)
[2021-04-12] MEDS ORDERED: CEFEPIME 1,000 MG in SYRINGE 0 ML IV SCH (02:00)
[2021-04-12] MEDS: NSS + 20MEQ KCL 20 MEQ/1,000 ML BAG IV SCH (02:35)
[2021-04-12] MEDS: HEPARIN SOD 5,000 UNIT/0.5 ML VIAL SQ SCH ×3 (06:05→21:29)
[2021-04-12 06:46] LABS: Basophils # (auto) 0.01 K/uL (0-0.2); Basophils % (auto) 0.1 %; Immature Granulocytes # (auto) 0.04 K/uL (0.00-0.02); Immature Granulocytes % (auto) 0.4 %; Lymphocytes # (auto) 1.72 K/uL (1.2-3.4); Lymphocytes % (auto) 16.1 %; Mean Corpuscular Hemoglobin 30.5 pg (25-34); Mean Corpuscular Hgb Conc 34.5 g/dL (32-36); Mean Corpuscular Volume 88.4 fL (80-100); Mean Platelet Volume 9.3 fL (7.4-10.4); Monocytes # (auto) 0.92 K/uL (0.11-0.59); Monocytes % (auto) 8.6 %; Neutrophils % (auto) 74.8 %; Nucleated RBC # (auto) 0.03 K/uL (0-0); Nucleated RBC % (auto) 0.3 %; Platelet Count 192 K/uL (130-400); RDW Coefficient of Variation 14.9 % (11.5-14.5); RDW Standard Deviation 48.3 fL (36.4-46.3); Red Blood Count 3.28 M/uL (4.2-5.4); White Blood Count 10.69 K/uL (4.8-10.8)
[2021-04-12 07:16] LABS: BUN Creatinine Ratio 27.4 (10-20); Calcium 8.8 mg/dl (8.5-10.1); Est GFR (Non-African American) 46.6 ml/min; Phosphorus 1.7 mg/dl (2.5-4.9)
[2021-04-12 07:27] LABS: Potassium 4.4 mmol/L (3.5-5.1)
[2021-04-12] MEDS: ASPIRIN 81 MG ECTAB PO SCH (08:33)
[2021-04-12] MEDS: CEROVITE ADV FORMULA TAB PO SCH (08:34)
[2021-04-12] MEDS: PANTOprazole 40 MG TAB PO SCH (08:34)
[2021-04-12] MEDS: CYANOCOBALAMIN 500 MCG TABLET (VITAMIN B-12) PO SCH (08:34)
[2021-04-12] MEDS: POLYETHYLENE (MIRALAX) 17 GM PACK PO SCH (08:35)
[2021-04-12] MEDS: INSULIN ASPART 100 UNITS/ML 3 ML PEN SC SCH ×4 (08:44→21:27)
[2021-04-12] MEDS: INSULIN GLARGINE SOLOSTAR 100 UNITS/ML 3 ML PEN SC SCH ×2 (08:46→21:28)
[2021-04-12] MEDS ORDERED: haloperidoL 5 MG TAB PO STA (11:01)
[2021-04-12] MEDS ORDERED: HALOPERIDOL 2 MG/1 ML UDP PO STA (11:03)
[2021-04-12] MEDS ORDERED: PROMETHAZINE HCL 6.25 MG in SODIUM CHLORIDE 0.9% 50 ML IV PRN (11:03)
[2021-04-12] MEDS: CHOLECALCIFEROL 1,000 UNITS 25 MCG TAB PO SCH (12:18)
[2021-04-12] MEDS ORDERED: HALOPERIDOL LACTATE 5 MG/ML 1 ML VIAL IM STA (13:45)
--- NOTE | 2021-04-12 16:56 | Hospitalist Progress Note ---
Date of Service April 12, 2021 Assessment & Plan (1) Toxic metabolic encephalopathy: Plan: Acute toxic metabolic encephalopathy - likely 2/2 to UTI and hyponatremia Has had episode of agitation and difficult to control situation this afternoon She required to oral dose of Haldol followed by IM dose of Haldol Likely secondary to infection and expected to improve (2) Acute UTI: Plan: This is an 86-year-old female who has significant past medical history of T2DM, HTN, HLD, CKD stage III, diabetic polyneuropathy, GERD, osteoarthrosis, chronic low back pain, anxiety, history of breast CA who presents ED secondary to UTI symptoms x2 days. Pt does not meet SIRS/SEPSIS criteria on admission; however criteria is borderline and not ruled out, HR 99, WBC 11.74k, one time episode of BP 93/55 Urine and blood cultures obtained-urine culture is growing Klebsiella pneumoniae and is pansensitive Received 2g IV rocephin in ED Initial UA concerning for infection Continue 2g IV rocephin daily Hypotension Started with IVF 75cc/hr + 20meq kcl and increased to 125 cc an hour for 3 L Blood pressure has been upper 90s Blood pressure has been better on 04/12/2021 (3) Hyponatremia: Plan: Acute, Likely hypovolemic hyponatremia Serum osm 268, urine osm 452, urine sodium 36 gentle IVF NS + 20meq KCL 75cc/hr x 2 L repeat bmp in a.m.-133 as of 04/12/2021 (4) ASHLYN (acute kidney injury): Plan: Baseline cr 0.9-1.0 Bun/cr 30/1.6 on arrival repeat after 1L of IVF 27 and 1.35 likely in setting of dehydration and possible 2/2 to bactrim use (although one used for 1 day) We will monitor PRP-creatinine normalized at 1.09 Advised to drink more fluid (5) Generalized weakness: Plan: will need PT/OT evals when more stable (6) Diabetes mellitus type 2 in nonobese: Plan: Last A1c 7.8 on 10/23/2020 Hold Metformin, Jardiance and glipizide Lantus/NovoLog per protocol consider discontinuation of Jardiance if pt experiencing freq UTI 2/2 to ADR (7) Hypertension: Plan: BP in 90s systolic on arrival, now 119/63 hold amlodipine, benazpril/hctz combo for now continue atenolol we will hold parameters monitor closely (8) Hypercholesterolemia: Plan: continue statin (9) Neuropathy: Plan: continue gabapentin (10) DVT prophylaxis: Plan: SQ Heparin Dispo: PCU PCP: Dr. Castano Full Code Admission and Anticipated Discharge Date Admission Date: April 10, 2021 Subjective 04/11/2021 The patient was seen and examined in telemetry unit She has been feeling much better since admission She does not exactly know what happened to her Denies any symptoms during my examination 04/12/2021 The patient was seen and examined in telemetry unit She was fine during examination but later on got agitated and required Haldol oral and later on IM Denies any chest pain and/or palpitation No fever and no chills Review of Systems Review of Systems: All systems reviewed and are unremarkable except as noted below Physical Exam Physical Exam: Lying in bed comfortably. Looking pale Constitutional: + ill appearing and average body habitus Eyes: PERRL, conjunctivae normal, anicteric sclerae ENMT: external ear and nose normal, oropharynx normal Neck: trachea midline, no thyromegaly Respiratory: no respiratory distress and no cough Auscultation: lungs clear to auscultation bilaterally Cardiovascular: Rate/Rhythm: regular rate and regular rhythm; not tachycardic Heart Sounds: normal S1 and normal S2; no murmur Extremities: no edema Gastrointestinal (Abdomen): Inspection/Auscultation: abdomen not distended Percussion/Palpation: abdomen soft; abdomen nontender Musculoskeletal: No acute arthritis in any joint Neurologic: She was alert and awake but pleasantly confused during exa mination. Moving all limbs equally Lymphatic: no cervical or axillary lymphadenopathy Results & Data Results & Data ([facility]) Vital Signs (Past 12 Hours) Vital Signs Temp Pulse Pulse Resp BP Pulse Ox 04/12/21 15:28 36.7 C 90 18 137/67 95 04/12/21 14:59 81 04/12/21 11:26 36.5 C 85 19 129/70 98 04/12/21 09:12 61 04/12/21 07:23 36.6 C 74 18 112/53 L 98 Laboratory Results Short CBC 04/12/21 Range/Units 06:22 WBC 10.69 (4.8-10.8) K/uL Hgb 10.0 L (12.0-16.0) g/dL Hct 29.0 L (37-47) % Plt Count 192 (130-400) K/uL BMP 04/12/21 06:22 Sodium 133 L Potassium 4.4 D Chloride 107 Carbon Dioxide 20 L BUN 30 H Creatinine 1.09 Glucose 179 H Calcium 8.8 Medications Administered Current Inpatient Medications Acetaminophen (Acetaminophen 325 Mg Tab) 650 mg PO Q4H PRN PRN Reason: Pain or Fever Stop: 05/11/21 00:36 Al Hydrox/Mg Hydrox/Simethicone (Aluminum/Magnesium Susp 30 Ml Udc) 15 ml PO Q4H PRN PRN Reason: Dyspepsia Stop: 05/11/21 00:36 Aspirin (Aspirin 81 Mg Ectab) 81 mg PO [facility] Stop: 05/11/21 08:59 Last Admin: 04/12/21 08:33 Dose: 81 mg Documented by: Atenolol (Atenolol 50 Mg Tablet) 50 mg PO [facility] Stop: 05/11/21 00:36 Last Admin: 04/11/21 01:07 Dose: Not Given Documented by: Atorvastatin Calcium (Atorvastatin 40 Mg Tab) 40 mg PO [facility] Stop: 05/11/21 00:36 Last Admin: 04/11/21 01:23 Dose: 40 mg Documented by: Cyanocobalamin (Cyanocobalamin 500 Mcg Tablet (Vitamin B-12)) 1,000 mcg PO DAILY [facility] Stop: 05/11/21 08:59 Last Admin: 04/12/21 08:34 Dose: 1,000 mcg Documented by: Dextrose (Dextrose 50% 50 Ml Syringe) 25 - 50 ml IV UD PRN; Protocol PRN Reason: Hypoglycemia Protocol Stop: 05/11/21 00:36 Gabapentin (Gabapentin 100 Mg Cap) 200 mg PO BID [facility] Stop: 05/11/21 00:36 Last Admin: 04/11/21 01:23 Dose: 200 mg Documented by: Glucagon (Glucagon For Inj 1 Mg Vial) 1 mg SQ UD PRN; Protocol PRN Reason: Hypoglycemia Protocol Stop: 05/11/21 00:36 Glucose (Glucose 10 Tabs/Tube) 4 - 8 tabs PO UD PRN; Protocol PRN Reason: Hypoglycemia Protocol Stop: 05/11/21 00:36 Glucose (Glucose 40% Gel 15 Gm Tube) 15 - 30 gm PO UD PRN; Protocol PRN Reason: Hypoglycemia Protocol Stop: 05/11/21 00:36 Heparin Sodium (Porcine) (Heparin Sod 5,000 Unit/0.5 Ml Vial) 5,000 units SQ Q8 [facility] Stop: 05/11/21 00:36 Last Admin: 04/12/21 14:17 Dose: 5,000 units Documented by: Promethazine HCl 6.25 mg/ (Sodium Chloride) 50.25 mls @ 201 mls/hr IV Q6H PRN PRN Reason: Nausea And Vomiting Stop: 05/12/21 11:02 Ceftriaxone Sodium 1,000 mg/ (Dextrose) 50 mls @ 100 mls/hr IV Q24H [facility]; Protocol Stop: 04/21/21 01:59 Insulin Aspart (Insulin Aspart 100 Units/Ml 3 Ml Pen) 0 units SC ACHS [facility] Stop: 05/11/21 00:36 Last Admin: 04/12/21 12:18 Dose: 3 units Documented by: Insulin Glargine (Insulin Glargine Solostar 100 Units/Ml 3 Ml Pen) 0 units SC BID [facility] Stop: 05/11/21 00:36 Last Admin: 04/12/21 08:46 Dose: 5 units Documented by: Lorazepam (Lorazepam 0.5 Mg Tab) 0.5 mg PO HS [facility] Stop: 05/11/21 00:36 Last Admin: 04/11/21 01:30 Dose: 0.5 mg Documented by: Magnesium Hydroxide (Magnesium Hydroxide Susp 30 Ml Udc) 30 ml PO Q12H PRN PRN Reason: Constipation Stop: 05/11/21 00:36 Miscellaneous (Carbohydrates For Hypoglycemia ) 15 - 30 gm PO UD PRN PRN Reason: Hypoglycemia Protocol Stop: 05/11/21 00:36 Multivitamins/Minerals (Cerovite Adv Formula Tab) 1 tab PO DAILY [facility] Stop: 05/11/21 08:59 Last Admin: 04/12/21 08:34 Dose: 1 tab Documented by: Pantoprazole Sodium (Pantoprazole 40 Mg Tab) 40 mg PO QAM [facility] Stop: 05/11/21 08:59 Last Admin: 04/12/21 08:34 Dose: 40 mg Documented by: Polyethylene Glycol (Polyethylene (Miralax) 17 Gm Pack) 17 gm PO DAILY PRN PRN Reason: Constipation Stop: 05/11/21 00:36 Polyethylene Glycol (Polyethylene (Miralax) 17 Gm Pack) 17 gm PO DAILY [facility] Stop: 05/11/21 08:59 Last Admin: 04/12/21 08:35 Dose: 17 gm Documented by: Vitamin D (Cholecalciferol 1,000 Units 25 Mcg Tab) 1,000 units PO DAILY@1200 [facility] Stop: 05/11/21 11:59 Last Admin: 04/12/21 12:18 Dose: 1,000 units Documented by:
[2021-04-13] MEDS: cefTRIAXone SODIUM 1,000 MG in DEXTROSE 5% 50 ML IV SCH (02:54)
[2021-04-13] MEDS: HEPARIN SOD 5,000 UNIT/0.5 ML VIAL SQ SCH ×3 (06:18→20:10)
[2021-04-13] MEDS: CEROVITE ADV FORMULA TAB PO SCH (08:29)
[2021-04-13] MEDS: CYANOCOBALAMIN 500 MCG TABLET (VITAMIN B-12) PO SCH (08:29)
[2021-04-13] MEDS: PANTOprazole 40 MG TAB PO SCH (08:30)
[2021-04-13] MEDS: ASPIRIN 81 MG ECTAB PO SCH (08:30)
[2021-04-13] MEDS: INSULIN ASPART 100 UNITS/ML 3 ML PEN SC SCH ×4 (08:32→20:11)
[2021-04-13] MEDS: INSULIN GLARGINE SOLOSTAR 100 UNITS/ML 3 ML PEN SC SCH ×2 (08:33→20:11)
[2021-04-13] MEDS: POLYETHYLENE (MIRALAX) 17 GM PACK PO SCH (08:41)
[2021-04-13] MEDS ORDERED: SODIUM PHOSPHATE 3 MMOL/1 ML 5 ML VIAL IV ONE (08:52)
[2021-04-13] MEDS ORDERED: SODIUM PHOSPHATE 24 MMOL in SODIUM CHLORIDE 0.9% 500 ML IV ONE (09:15)
[2021-04-13] MEDS: CHOLECALCIFEROL 1,000 UNITS 25 MCG TAB PO SCH (12:54)
--- NOTE | 2021-04-13 17:21 | Hospitalist Progress Note ---
Date of Service April 13, 2021 Assessment & Plan (1) Toxic metabolic encephalopathy: Plan: Acute toxic metabolic encephalopathy - likely 2/2 to UTI and hyponatremia Has had episode of agitation and difficult to control situation this afternoon She required to oral dose of Haldol followed by IM dose of Haldol Likely secondary to infection and expected to improve Clinically much better today (2) Acute UTI: Plan: This is an 86-year-old female who has significant past medical history of T2DM, HTN, HLD, CKD stage III, diabetic polyneuropathy, GERD, osteoarthrosis, chronic low back pain, anxiety, history of breast CA who presents ED secondary to UTI symptoms x2 days. Pt does not meet SIRS/SEPSIS criteria on admission; however criteria is borderline and not ruled out, HR 99, WBC 11.74k, one time episode of BP 93/55 Urine and blood cultures obtained-urine culture is growing Klebsiella pneumoniae and is pansensitive Received 2g IV rocephin in ED Initial UA concerning for infection Continue 2g IV rocephin daily We will give oral Keflex on discharge to finish the course of antibiotic Hypotension Started with IVF 75cc/hr + 20meq kcl and increased to 125 cc an hour for 3 L Blood pressure has been upper 90s Blood pressure has been better on 04/12/2021 (3) Hyponatremia: Plan: Acute, Likely hypovolemic hyponatremia Serum osm 268, urine osm 452, urine sodium 36 gentle IVF NS + 20meq KCL 75cc/hr x 2 L repeat bmp in a.m.-133 as of 04/12/2021 We will check PRP again tomorrow (4) ASHLYN (acute kidney injury): Plan: Baseline cr 0.9-1.0 Bun/cr 30/1.6 on arrival repeat after 1L of IVF 27 and 1.35 likely in setting of dehydration and possible 2/2 to bactrim use (although one used for 1 day) We will monitor PRP-creatinine normalized at 1.09 Advised to drink more fluid (5) Generalized weakness: Plan: will need PT/OT evals when more stable (6) Diabetes mellitus type 2 in nonobese: Plan: Last A1c 7.8 on 10/23/2020 Hold Metformin, Jardiance and glipizide Lantus/NovoLog per protocol consider discontinuation of Jardiance if pt experiencing freq UTI 2/2 to ADR (7) Hypertension: Plan: BP in 90s systolic on arrival, now 119/63 hold amlodipine, benazpril/hctz combo for now continue atenolol we will hold parameters monitor closely Blood pressure remains stable (8) Hypercholesterolemia: Plan: continue statin (9) Neuropathy: Plan: continue gabapentin (10) DVT prophylaxis: Plan: SQ Heparin Dispo: PCU PCP: Dr. Castano Full Code Admission and Anticipated Discharge Date Admission Date: April 10, 2021 Subjective 04/11/2021 The patient was seen and examined in telemetry unit She has been feeling much better since admission She does not exactly know what happened to her Denies any symptoms during my examination 04/12/2021 The patient was seen and examined in telemetry unit She was fine during examination but later on got agitated and required Haldol oral and later on IM Denies any chest pain and/or palpitation No fever and no chills 04/13/2021 The patient was seen and examined in telemetry unit She was noted to be pleasantly confused this morning but did not have any issues during my examination Remains generally weak Review of Systems Review of Systems: All systems reviewed and are unremarkable except as noted below Physical Exam Physical Exam: Lying in bed comfortably. Looking pale Constitutional: + ill appearing and average body habitus Eyes: PERRL, conjunctivae normal, anicteric sclerae ENMT: external ear and nose normal, oropharynx normal Neck: trachea midline, no thyromegaly Respiratory: no respiratory distress and no cough Auscultation: lungs clear to auscultation bilaterally Cardiovascular: Rate/Rhythm: regular rate and regular rhythm; not tachycardic Heart Sounds: normal S1 and normal S2; no murmur Extremities: no edema Gastrointestinal (Abdomen): Inspection/Auscultation: abdomen not distended Percussion/Palpation: abdomen soft; abdomen nontender Musculoskeletal: No acute arthritis involving any joint Neurologic: Alert, awake and oriented x3, generally weak Lymphatic: no cervical or axillary lymphadenopathy Results & Data Results & Data ([facility]) Vital Signs (Past 12 Hours) Vital Signs Temp Pulse Pulse Resp BP Pulse Ox 04/13/21 14:58 36.9 C 89 17 127/64 96 04/13/21 10:24 36.7 C 88 17 138/68 98 04/13/21 08:00 77 04/13/21 07:22 36.7 C 82 17 159/76 H 98 Medications Administered Current Inpatient Medications Acetaminophen (Acetaminophen 325 Mg Tab) 650 mg PO Q4H PRN PRN Reason: Pain or Fever Stop: 05/11/21 00:36 Al Hydrox/Mg Hydrox/Simethicone (Aluminum/Magnesium Susp 30 Ml Udc) 15 ml PO Q4H PRN PRN Reason: Dyspepsia Stop: 05/11/21 00:36 Aspirin (Aspirin 81 Mg Ectab) 81 mg PO QAM [facility] Stop: 05/11/21 08:59 Last Admin: 04/13/21 08:30 Dose: 81 mg Documented by: Atenolol (Atenolol 50 Mg Tablet) 50 mg PO HS [facility] Stop: 05/11/21 00:36 Last Admin: 04/11/21 01:07 Dose: Not Given Documented by: Atorvastatin Calcium (Atorvastatin 40 Mg Tab) 40 mg PO HS [facility] Stop: 05/11/21 00:36 Last Admin: 04/11/21 01:23 Dose: 40 mg Documented by: Cyanocobalamin (Cyanocobalamin 500 Mcg Tablet (Vitamin B-12)) 1,000 mcg PO DAILY [facility] Stop: 05/11/21 08:59 Last Admin: 04/13/21 08:29 Dose: 1,000 mcg Documented by: Dextrose (Dextrose 50% 50 Ml Syringe) 25 - 50 ml IV UD PRN; Protocol PRN Reason: Hypoglycemia Protocol Stop: 05/11/21 00:36 Gabapentin (Gabapentin 100 Mg Cap) 200 mg PO BID [facility] Stop: 05/11/21 00:36 Last Admin: 04/11/21 01:23 Dose: 200 mg Documented by: Glucagon (Glucagon For Inj 1 Mg Vial) 1 mg SQ UD PRN; Protocol PRN Reason: Hypoglycemia Protocol Stop: 05/11/21 00:36 Glucose (Glucose 10 Tabs/Tube) 4 - 8 tabs PO UD PRN; Protocol PRN Reason: Hypoglycemia Protocol Stop: 05/11/21 00:36 Glucose (Glucose 40% Gel 15 Gm Tube) 15 - 30 gm PO UD PRN; Protocol PRN Reason: Hypoglycemia Protocol Stop: 05/11/21 00:36 Heparin Sodium (Porcine) (Heparin Sod 5,000 Unit/0.5 Ml Vial) 5,000 units SQ Q8 [facility] Stop: 05/11/21 00:36 Last Admin: 04/13/21 16:22 Dose: 5,000 units Documented by: Promethazine HCl 6.25 mg/ (Sodium Chloride) 50.25 mls @ 201 mls/hr IV Q6H PRN PRN Reason: Nausea And Vomiting Stop: 05/12/21 11:02 Ceftriaxone Sodium 1,000 mg/ (Dextrose) 50 mls @ 100 mls/hr IV Q24H [facility]; Protocol Stop: 04/21/21 01:59 Last Infusion: 04/13/21 03:24 Dose: Infused Documented by: Insulin Aspart (Insulin Aspart 100 Units/Ml 3 Ml Pen) 0 units SC ACHS [facility] Stop: 05/11/21 00:36 Last Admin: 04/13/21 12:54 Dose: 7 units Documented by: Insulin Glargine (Insulin Glargine Solostar 100 Units/Ml 3 Ml Pen) 0 units SC BID [facility] Stop: 05/11/21 00:36 Last Admin: 04/13/21 08:33 Dose: 5 units Documented by: Lorazepam (Lorazepam 0.5 Mg Tab) 0.5 mg PO HS [facility] Stop: 05/11/21 00:36 Last Admin: 04/11/21 01:30 Dose: 0.5 mg Documented by: Magnesium Hydroxide (Magnesium Hydroxide Susp 30 Ml Udc) 30 ml PO Q12H PRN PRN Reason: Constipation Stop: 05/11/21 00:36 Miscellaneous (Carbohydrates For Hypoglycemia ) 15 - 30 gm PO UD PRN PRN Reason: Hypoglycemia Protocol Stop: 05/11/21 00:36 Multivitamins/Minerals (Cerovite Adv Formula Tab) 1 tab PO DAILY [facility] Stop: 05/11/21 08:59 Last Admin: 04/13/21 08:29 Dose: 1 tab Documented by: Pantoprazole Sodium (Pantoprazole 40 Mg Tab) 40 mg PO QAM [facility] Stop: 05/11/21 08:59 Last Admin: 04/13/21 08:30 Dose: 40 mg Documented by: Polyethylene Glycol (Polyethylene (Miralax) 17 Gm Pack) 17 gm PO DAILY PRN PRN Reason: Constipation Stop: 05/11/21 00:36 Polyethylene Glycol (Polyethylene (Miralax) 17 Gm Pack) 17 gm PO DAILY [facility] Stop: 05/11/21 08:59 Last Admin: 04/13/21 08:41 Dose: 17 gm Documented by: Vitamin D (Cholecalciferol 1,000 Units 25 Mcg Tab) 1,000 units PO DAILY@1200 [facility] Stop: 05/11/21 11:59 Last Admin: 04/13/21 12:54 Dose: 1,000 units Documented by:
[2021-04-14] MEDS: cefTRIAXone SODIUM 1,000 MG in DEXTROSE 5% 50 ML IV SCH (03:10)
[2021-04-14] MEDS: HEPARIN SOD 5,000 UNIT/0.5 ML VIAL SQ SCH ×3 (05:48→20:40)
[2021-04-14 06:01] LABS: Basophils # (auto) 0.02 K/uL (0-0.2); Basophils % (auto) 0.2 %; Eosinophils # (auto) 0.19 K/uL (0-0.5); Eosinophils % (auto) 2.1 %; Hematocrit (blood only) 31.2 % (37-47); Immature Granulocytes # (auto) 0.03 K/uL (0.00-0.02); Immature Granulocytes % (auto) 0.3 %; Lymphocytes # (auto) 2.99 K/uL (1.2-3.4); Lymphocytes % (auto) 33.7 %; Mean Corpuscular Hemoglobin 30.6 pg (25-34); Mean Corpuscular Hgb Conc 35.3 g/dL (32-36); Mean Corpuscular Volume 86.9 fL (80-100); Mean Platelet Volume 8.5 fL (7.4-10.4); Monocytes % (auto) 10.2 %; Neutrophils # (auto) 4.73 K/uL (1.4-6.5); Neutrophils % (auto) 53.5 %; Platelet Count 241 K/uL (130-400); RDW Standard Deviation 48.3 fL (36.4-46.3); Red Blood Count 3.59 M/uL (4.2-5.4); White Blood Count 8.86 K/uL (4.8-10.8)
[2021-04-14 06:22] LABS: BUN Creatinine Ratio 14.6 (10-20); Calcium 8.9 mg/dl (8.5-10.1); Creatinine Clr Calc Pharmacy 35.5 ml/min; Est GFR (Non-African American) 59.5 ml/min; Magnesium 1.8 mg/dl (1.8-2.4); Potassium 3.9 mmol/L (3.5-5.1)
[2021-04-14] MEDS: ASPIRIN 81 MG ECTAB PO SCH (07:40)
[2021-04-14] MEDS: CYANOCOBALAMIN 500 MCG TABLET (VITAMIN B-12) PO SCH (07:40)
[2021-04-14] MEDS: PANTOprazole 40 MG TAB PO SCH (07:41)
[2021-04-14] MEDS: CHOLECALCIFEROL 1,000 UNITS 25 MCG TAB PO SCH (07:41)
[2021-04-14] MEDS: CEROVITE ADV FORMULA TAB PO SCH (07:42)
[2021-04-14] MEDS: INSULIN GLARGINE SOLOSTAR 100 UNITS/ML 3 ML PEN SC SCH ×2 (07:42→20:39)
[2021-04-14] MEDS: POLYETHYLENE (MIRALAX) 17 GM PACK PO SCH (07:55)
[2021-04-14] MEDS: INSULIN ASPART 100 UNITS/ML 3 ML PEN SC SCH ×4 (07:57→20:39)
--- NOTE | 2021-04-14 16:13 | Hospitalist Progress Note ---
Date of Service April 14, 2021 Assessment & Plan (1) Toxic metabolic encephalopathy: Plan: Acute toxic metabolic encephalopathy - likely 2/2 to UTI and hyponatremia Has had episode of agitation and difficult to control situation on 04/13 She required to oral dose of Haldol followed by IM dose of Haldol Likely secondary to infection This morning she was awake, alert and oriented x3. Continue to work with PT/OT. (2) Acute UTI: Plan: This is an 86-year-old female who has significant past medical history of T2DM, HTN, HLD, CKD stage III, diabetic polyneuropathy, GERD, osteoarthrosis, chronic low back pain, anxiety, history of breast CA who presents ED secondary to UTI symptoms x2 days. Pt does not meet SIRS/SEPSIS criteria on admission; however criteria is borderline and not ruled out, HR 99, WBC 11.74k, one time episode of BP 93/55 Urine and blood cultures obtained-urine culture is growing Klebsiella pneumoniae and is pansensitive Received 2g IV rocephin in ED Initial UA concerning for infection Continue 2g IV rocephin daily Will transition to oral at discharge. Hypotension -resolved (3) Hyponatremia: Plan: Acute, Likely hypovolemic hyponatremia Serum osm 268, urine osm 452, urine sodium 36 Improving. Sodium at 133. Monitor daily BMP. (4) ASHLYN (acute kidney injury): Plan: Resolved (5) Generalized weakness: Plan: Work with PT/OT (6) Diabetes mellitus type 2 in nonobese: Plan: Last A1c 7.8 on 10/23/2020 Hold Metformin, Jardiance and glipizide Lantus/NovoLog per protocol consider discontinuation of Jardiance if pt experiencing freq UTI 2/2 to ADR (7) Hypertension: Plan: BP in 90s systolic on arrival, now 119/63 hold amlodipine, benazpril/hctz combo for now continue atenolol we will hold parameters monitor closely Blood pressure remains stable (8) Hypercholesterolemia: Plan: continue statin (9) Neuropathy: Plan: continue gabapentin (10) DVT prophylaxis: Plan: SQ Heparin Dispo: PCU PCP: Dr. Castano Full Code Admission and Anticipated Discharge Date Admission Date: April 10, 2021 Subjective Doing okay this morning. Awake, alert and oriented. Denies any complaints at the moment. Review of system is negative. Awaiting to be seen by PT/OT. Review of Systems Review of Systems: All systems reviewed & are unremarkable except as noted in HPI & below Physical Exam Physical Exam: General: A&Ox3 HENT: NCAT, MMM, EOMI Eyes: PERRLA Neck: Supple, normal range of motion CVS: normal rate and rhythm Resp: b/l good breath sounds Abdomen: Soft, ND/NT Extremities: Absence of any edema Neuro: face symmetric, sno focal deficit Skin: warm and dry MSK: no joint swelling/erythema Results & Data Results & Data ([facility]) Vital Signs (Past 12 Hours) Vital Signs Temp Pulse Pulse Resp BP Pulse Ox Pulse Ox 04/14/21 15:16 36.8 C 87 20 149/82 H 96 04/14/21 10:18 37.0 C 83 17 130/76 95 04/14/21 08:00 75 95 04/14/21 07:15 36.8 C 90 17 139/73 96 04/14/21 07:00 95
[2021-04-15] MEDS: cefTRIAXone SODIUM 1,000 MG in DEXTROSE 5% 50 ML IV SCH (02:53)
[2021-04-15] MEDS: HEPARIN SOD 5,000 UNIT/0.5 ML VIAL SQ SCH ×3 (05:55→21:12)
[2021-04-15] MEDS: POLYETHYLENE (MIRALAX) 17 GM PACK PO SCH (08:11)
[2021-04-15] MEDS: ASPIRIN 81 MG ECTAB PO SCH (08:11)
[2021-04-15] MEDS: CYANOCOBALAMIN 500 MCG TABLET (VITAMIN B-12) PO SCH (08:12)
[2021-04-15] MEDS: CEROVITE ADV FORMULA TAB PO SCH (08:12)
[2021-04-15] MEDS: INSULIN GLARGINE SOLOSTAR 100 UNITS/ML 3 ML PEN SC SCH ×2 (08:12→21:12)
[2021-04-15] MEDS: INSULIN ASPART 100 UNITS/ML 3 ML PEN SC SCH ×4 (08:12→21:12)
[2021-04-15] MEDS: PANTOprazole 40 MG TAB PO SCH (08:13)
[2021-04-15] MEDS: CHOLECALCIFEROL 1,000 UNITS 25 MCG TAB PO SCH (12:06)
--- NOTE | 2021-04-15 15:53 | Hospitalist Progress Note ---
Date of Service April 15, 2021 Assessment & Plan (1) Toxic metabolic encephalopathy: Plan: Acute toxic metabolic encephalopathy - likely 2/2 to UTI and hyponatremia Has had episode of agitation and difficult to control situation on 04/13 She required to oral dose of Haldol followed by IM dose of Haldol Likely secondary to infection This morning she was awake, alert and oriented x3. Continue to work with PT/OT. Her insurance did not qualify her for half-way facility for home health agencies. Patient is medically ready for discharge. However, daughter cannot take her today. She is trying to arrange for private pay caregivers. Care management will be providing the list. (2) Acute UTI: Plan: This is an 86-year-old female who has significant past medical history of T2DM, HTN, HLD, CKD stage III, diabetic polyneuropathy, GERD, osteoarthrosis, chronic low back pain, anxiety, history of breast CA who presents ED secondary to UTI symptoms x2 days. Pt does not meet SIRS/SEPSIS criteria on admission; however criteria is borderline and not ruled out, HR 99, WBC 11.74k, one time episode of BP 93/55 Urine and blood cultures obtained-urine culture is growing Klebsiella pneumoniae and is pansensitive Received 2g IV rocephin in ED Initial UA concerning for infection. Urine cultures positive for Klebsiella however less than 40,000. Not sure if cultures were obtained after starting antibiotics. Continue 2g IV rocephin daily Will transition to oral at discharge. Hypotension -resolved (3) Hyponatremia: Plan: Acute, Likely hypovolemic hyponatremia Serum osm 268, urine osm 452, urine sodium 36 Improving. Sodium at 133. Monitor daily BMP. (4) ASHLYN (acute kidney injury): Plan: Resolved (5) Generalized weakness: Plan: Work with PT/OT (6) Diabetes mellitus type 2 in nonobese: Plan: Last A1c 7.8 on 10/23/2020 Hold Metformin, Jardiance and glipizide Lantus/NovoLog per protocol consider discontinuation of Jardiance if pt experiencing freq UTI 2/2 to ADR (7) Hypertension: Plan: BP in 90s systolic on arrival, now 119/63 hold amlodipine, benazpril/hctz combo for now continue atenolol we will hold parameters monitor closely Blood pressure remains stable (8) Hypercholesterolemia: Plan: continue statin (9) Neuropathy: Plan: continue gabapentin (10) DVT prophylaxis: Plan: SQ Heparin Dispo: PCU PCP: Dr. Castano Full Code Admission and Anticipated Discharge Date Admission Date: April 10, 2021 Subjective This morning patient is awake, alert and oriented x3. Denies any complaints. Patient did work with PT/OT today. Dynamically she is doing fine. Denies any chest pain, shortness of breath, abdominal pain or dysuria. Review of Systems Review of Systems: All systems reviewed & are unremarkable except as noted in HPI & below Physical Exam Physical Exam: General: A&Ox3 HENT: NCAT, MMM, EOMI Eyes: PERRLA Neck: Supple, normal range of motion CVS: normal rate and rhythm Resp: b/l good breath sounds Abdomen: Soft, ND/NT Extremities: Absence of any edema Neuro: face symmetric, sno focal deficit Skin: warm and dry MSK: no joint swelling/erythema Results & Data Results & Data ([place]) Vital Signs (Past 12 Hours) Vital Signs Temp Pulse Resp BP Pulse Ox 04/15/21 11:42 36.9 C 79 16 129/77 97 04/15/21 07:09 36.7 C 88 16 153/77 H 95
[2021-04-16] MEDS: cefTRIAXone SODIUM 1,000 MG in DEXTROSE 5% 50 ML IV SCH (02:50)
[2021-04-16] MEDS: HEPARIN SOD 5,000 UNIT/0.5 ML VIAL SQ SCH ×2 (05:18→12:18)
[2021-04-16] MEDS: INSULIN ASPART 100 UNITS/ML 3 ML PEN SC SCH ×3 (08:27→16:47)
[2021-04-16] MEDS: INSULIN GLARGINE SOLOSTAR 100 UNITS/ML 3 ML PEN SC SCH (08:29)
[2021-04-16] MEDS: ASPIRIN 81 MG ECTAB PO SCH (08:29)
[2021-04-16] MEDS: PANTOprazole 40 MG TAB PO SCH (08:29)
[2021-04-16] MEDS: CYANOCOBALAMIN 500 MCG TABLET (VITAMIN B-12) PO SCH (08:29)
[2021-04-16] MEDS: CEROVITE ADV FORMULA TAB PO SCH (08:30)
[2021-04-16] MEDS: POLYETHYLENE (MIRALAX) 17 GM PACK PO SCH (08:33)
[2021-04-16] MEDS: CHOLECALCIFEROL 1,000 UNITS 25 MCG TAB PO SCH (12:18)
--- NOTE | 2021-04-16 13:18 | Hospitalist Progress Note ---
Date of Service April 16, 2021 Assessment & Plan (1) Toxic metabolic encephalopathy: Plan: Acute toxic metabolic encephalopathy - likely 2/2 to UTI and hyponatremia Has had episode of agitation and difficult to control situation on 04/13 She required to oral dose of Haldol followed by IM dose of Haldol Likely secondary to infection This morning she was awake, alert and oriented x3. Continue to work with PT/OT. Her [facility] did [facility] agencies. Patient is medically ready for discharge. However, daughter cannot take her today. She is trying to arrange for private pay caregivers. Care management will be providing the list. Remains stable and discussed with the daughter who will be taking her home this afternoon (2) Acute UTI: Plan: This is an 86-year-old female who has significant past medical history of T2DM, HTN, HLD, CKD stage III, diabetic polyneuropathy, GERD, osteoarthrosis, chronic low back pain, anxiety, history of breast CA who presents ED secondary to UTI symptoms x2 days. Pt does not meet SIRS/SEPSIS criteria on admission; however criteria is borderline and not ruled out, HR 99, WBC 11.74k, one time episode of BP 93/55 Urine and blood cultures obtained-urine culture is growing Klebsiella pneumoniae and is pansensitive Received 2g IV rocephin in ED Initial UA concerning for infection. Urine cultures positive for Klebsiella however less than 40,000. Not sure if cultures were obtained after starting antibiotics. Continue 2g IV rocephin daily Will transition to oral at discharge. Will not give any more antibiotic on discharge. Has had 7 days of intravenous antibiotic which is quite adequate Hypotension -resolved (3) Hyponatremia: Plan: Acute, Likely hypovolemic hyponatremia Serum osm 268, urine osm 452, urine sodium 36 Improving. Sodium at 133. (4) ASHLYN (acute kidney injury): Plan: Resolved (5) Generalized weakness: Plan: Work with PT/OT Continue PT and OT as an outpatient (6) Diabetes mellitus type 2 in nonobese: Plan: Last A1c 7.8 on 10/23/2020 Hold Metformin, Jardiance and glipizide Lantus/NovoLog per protocol consider discontinuation of Jardiance if pt experiencing freq UTI 2/2 to ADR (7) Hypertension: Plan: BP in 90s systolic on arrival, now 119/63 hold amlodipine, benazpril/hctz combo for now continue atenolol we will hold parameters monitor closely Blood pressure remains stable (8) Hypercholesterolemia: Plan: continue statin (9) Neuropathy: Plan: continue gabapentin (10) DVT prophylaxis: Plan: SQ Heparin Dispo: PCU PCP: Dr. Castano Full Code Plan: Discussed with the daughter in detail She will be discharged home this afternoon Admission and Anticipated Discharge Date Admission Date: April 10, 2021 Subjective 04/11/2021 The patient was seen and examined in telemetry unit She has been feeling much better since admission She does not exactly know what happened to her Denies any symptoms during my examination 04/12/2021 The patient was seen and examined in telemetry unit She was fine during examination but later on got agitated and required Haldol oral and later on IM Denies any chest pain and/or palpitation No fever and no chills 04/13/2021 The patient was seen and examined in telemetry unit She was noted to be pleasantly confused this morning but did not have any issues during my examination Remains generally weak 04/16/2021 The patient was seen and examined in telemetry unit She remains weak but denies any other symptoms She is excited to go home this afternoon Review of Systems Review of Systems: All systems reviewed and are unremarkable except as noted below Physical Exam Physical Exam: Lying in bed comfortably. Constitutional: + ill appearing and average body habitus Eyes: PERRL, conjunctivae normal, anicteric sclerae ENMT: external ear and nose normal, oropharynx normal Neck: trachea midline, no thyromegaly Respiratory: no respiratory distress and no cough Auscultation: lungs clear to auscultation bilaterally Cardiovascular: Rate/Rhythm: regular rate and regular rhythm; not tachycardic Heart Sounds: normal S1 and normal S2; no murmur Extremities: no edema Gastrointestinal (Abdomen): Inspection/Auscultation: abdomen not distended Percussion/Palpation: abdomen soft; abdomen nontender Musculoskeletal: No acute arthritis involving any joint Skin: She has stage I sacral decubiti, please look at the picture to get detailed information Neurologic: Alert, awake and oriented x3. Generally weak but no focal sensory or motor deficit appreciated Lymphatic: no cervical or axillary lymphadenopathy Results & Data Results & Data ([facility]) Vital Signs (Past 12 Hours) Vital Signs Temp Pulse Resp BP BP Pulse Ox 04/16/21 11:58 37.0 C 89 20 131/53 L 94 04/16/21 07:23 36.9 C 79 18 149/77 H 98 04/16/21 04:42 36.5 C 83 18 138/72 97 Medications Administered Current Inpatient Medications Acetaminophen (Acetaminophen 325 Mg Tab) 650 mg PO Q4H PRN PRN Reason: Pain or Fever Stop: 05/11/21 00:36 Al Hydrox/Mg Hydrox/Simethicone (Aluminum/Magnesium Susp 30 Ml Udc) 15 ml PO Q4H PRN PRN Reason: Dyspepsia Stop: 05/11/21 00:36 Aspirin (Aspirin 81 Mg Ectab) [facility] [place]: 05/11/21 08:59 Last Admin: 04/16/21 08:29 Dose: 81 mg Documented by: Atenolol (Atenolol 50 Mg Tablet) 50 mg PO [facility] Stop: 05/11/21 00:36 Last Admin: 04/11/21 01:07 Dose: Not Given Documented by: Atorvastatin Calcium (Atorvastatin 40 Mg Tab) 40 mg PO [facility] Stop: 05/11/21 00:36 Last Admin: 04/11/21 01:23 Dose: 40 mg Documented by: Cyanocobalamin (Cyanocobalamin 500 Mcg Tablet (Vitamin B-12)) 1,000 mcg PO DAILY [facility] Stop: 05/11/21 08:59 Last Admin: 04/16/21 08:29 Dose: 1,000 mcg Documented by: Dextrose (Dextrose 50% 50 Ml Syringe) 25 - 50 ml IV UD PRN; Protocol PRN Reason: Hypoglycemia Protocol Stop: 05/11/21 00:36 Gabapentin (Gabapentin 100 Mg Cap) 200 mg PO BID [facility] Stop: 05/11/21 00:36 Last Admin: 04/11/21 01:23 Dose: 200 mg Documented by: Glucagon (Glucagon For Inj 1 Mg Vial) 1 mg SQ UD PRN; Protocol PRN Reason: Hypoglycemia Protocol Stop: 05/11/21 00:36 Glucose (Glucose 10 Tabs/Tube) 4 - 8 tabs PO UD PRN; Protocol PRN Reason: Hypoglycemia Protocol Stop: 05/11/21 00:36 Glucose (Glucose 40% Gel 15 Gm Tube) 15 - 30 gm PO UD PRN; Protocol PRN Reason: Hypoglycemia Protocol Stop: 05/11/21 00:36 Heparin Sodium (Porcine) (Heparin Sod 5,000 Unit/0.5 Ml Vial) 5,000 units SQ Q8 [facility] Stop: 05/11/21 00:36 Last Admin: 04/16/21 12:18 Dose: 5,000 units Documented by: Promethazine HCl 6.25 mg/ (Sodium Chloride) 50.25 mls @ 201 mls/hr IV Q6H PRN PRN Reason: Nausea And Vomiting Stop: 05/12/21 11:02 Ceftriaxone Sodium 1,000 mg/ (Dextrose) 50 mls @ 100 mls/hr IV Q24H [facility]; Protocol Stop: 04/21/21 01:59 Last Infusion: 04/16/21 03:52 Dose: Infused Documented by: Insulin Aspart (Insulin Aspart 100 Units/Ml 3 Ml Pen) 0 units SC ACHS [facility] Stop: 05/11/21 00:36 Last Admin: 04/16/21 12:19 Dose: 5 units Documented by: Insulin Glargine (Insulin Glargine Solostar 100 Units/Ml 3 Ml Pen) 0 units SC BID [facility] Stop: 05/11/21 00:36 Last Admin: 04/16/21 08:29 Dose: 5 units Documented by: Lorazepam (Lorazepam 0.5 Mg Tab) 0.5 mg PO HS [facility] Stop: 05/11/21 00:36 Last Admin: 04/11/21 01:30 Dose: 0.5 mg Documented by: Magnesium Hydroxide (Magnesium Hydroxide Susp 30 Ml Udc) 30 ml PO Q12H PRN PRN Reason: Constipation Stop: 05/11/21 00:36 Last Admin: 04/14/21 13:53 Dose: 30 ml Documented by: Miscellaneous (Carbohydrates For Hypoglycemia ) 15 - 30 gm PO UD PRN PRN Reason: Hypoglycemia Protocol Stop: 05/11/21 00:36 Multivitamins/Minerals (Cerovite Adv Formula Tab) 1 tab PO DAILY [facility] Stop: 05/11/21 08:59 Last Admin: 04/16/21 08:30 Dose: 1 tab Documented by: Pantoprazole Sodium (Pantoprazole 40 Mg Tab) 40 mg PO QAM [facility] Stop: 05/11/21 08:59 Last Admin: 04/16/21 08:29 Dose: 40 mg Documented by: Polyethylene Glycol (Polyethylene (Miralax) 17 Gm Pack) 17 gm PO DAILY PRN PRN Reason: Constipation Stop: 05/11/21 00:36 Polyethylene Glycol (Polyethylene (Miralax) 17 Gm Pack) 17 gm PO DAILY [facility] Stop: 05/11/21 08:59 Last Admin: 04/16/21 08:33 Dose: 17 gm Documented by: Vitamin D (Cholecalciferol 1,000 Units 25 Mcg Tab) 1,000 units PO DAILY@1200 [facility] Stop: 05/11/21 11:59 Last Admin: 04/16/21 12:18 Dose: 1,000 units Documented by:
--- NOTE | 2021-04-17 07:21 | Discharge Summary ---
Date of Service April 17, 2021 Admission HPI Per Admitting Provider This is an 86-year-old female who has significant past medical history of T2DM, HTN, HLD, CKD stage III, diabetic polyneuropathy, GERD, osteoarthrosis, chronic low back pain, anxiety, history of breast CA who presents ED secondary to UTI symptoms x2 days. Patient had a urinalysis collected as outpatient and was started on oral Bactrim x1 day. She presented to ED due to concerns for patient becoming increasingly more weak, confused and decreased appetite in setting of concerning UTI. Patient's history is slightly unreliable given to underlying cognition. She does complain of suprapubic discomfort and dysuria but denies hematuria, increased urgency or frequency with urination, fever, chills, sweats, lightheadedness, dizziness, chest pain, shortness breath, cough, URI symptoms, nausea or vomiting. She states she does have history of UTI in the past. In ED patient remained hemodynamically stable. There was concern for possible underlying sepsis. Urine and blood cultures were obtained. She received 2 g of IV Rocephin. Lab work notable for WBC 11.74k H&H 11.4 and 32.9, sodium 125, BUN and creatinine 30 and 1.61 and urinalysis consistent with UTI. Admission Exam Per Admitting Provider Physical Exam: Constitutional: WD/WN, elderly, petite, female vitals as above, NAD, sitting up in bed, pleasant, conversing easily Head: Normocephalic, Atraumatic Eyes: PERRL, conjunctivae normal, anicteric sclerae ENMT: external ear and nose normal, oropharynx normal Neck: trachea midline, no thyromegaly normal visual inspection Respiratory: normal respiratory effort, lungs clear to auscultation, no wheeze, rales, rhonchi. Normal insp/exp effort, no accessory muscle use Cardiovascular: Tachycardic rate, regular rhythm, no murmur, no edema Vessels: no JVD or carotid bruit Chest: normal inspection of chest Abdomen: normal bowel sounds, soft, mildly tender to palpation suprapubic region, no rebound, no guarding, no rigidity, no hepatosplenomegaly Musculoskeletal: no cyanosis or clubbing, extremities motor strength 5/5 Skin: no rashes, warm and dry normal turgor Neurologic: PERRL, EOMI, accommodation nl, no face palsy, no dysarthria CN's II-XI intact bilaterally and moves all extremities Psychiatric: A+O to self and location only, euthymic affect Lymphatic: no cervical or axillary lymphadenopathy : deferred Principal Diagnosis UTI,toxic metabolic encephalopathy,hypertension,Diabetes type 2 Discharge Exam Constitutional + ill appearing and average body habitus Eyes PERRL, conjunctivae normal, anicteric sclerae ENMT external ear and nose normal, oropharynx normal Neck trachea midline, no thyromegaly Respiratory no respiratory distress and no cough Auscultation: lungs clear to auscultation bilaterally Cardiovascular Rate/Rhythm: regular rate and regular rhythm; not tachycardic Heart Sounds: normal S1 and normal S2; no murmur Extremities: no edema Gastrointestinal (Abdomen) Inspection/Auscultation: abdomen not distended Percussion/Palpation: abdomen soft; abdomen nontender Lymphatic no cervical or axillary lymphadenopathy Discharge Data Allergies Allergy/AdvReac Type Severity Reaction Status Date / Time No Known Allergies Allergy Unverified 04/10/21 18:30 Consultations 04/10/21 18:00 ED Decision to Admit Stat Hospital Course (1) Toxic metabolic encephalopathy: Acute toxic metabolic encephalopathy - likely 2/2 to UTI and hyponatremia Has had episode of agitation and difficult to control situation on 04/13 She required to oral dose of Haldol followed by IM dose of Haldol Likely secondary to infection This morning she was awake, alert and oriented x3. Continue to work with PT/OT. Her insurance did not qualify her for longterm facility for home health agencies. Patient is medically ready for discharge. However, daughter cannot take her today. She is trying to arrange for private pay caregivers. Care management will be providing the list. Remains stable and discussed with the daughter who will be taking her home this afternoon (2) Acute UTI: This is an 86-year-old female who has significant past medical history of T2DM, HTN, HLD, CKD stage III, diabetic polyneuropathy, GERD, osteoarthrosis, chronic low back pain, anxiety, history of breast CA who presents ED secondary to UTI symptoms x2 days. Pt does not meet SIRS/SEPSIS criteria on admission; however criteria is borderline and not ruled out, HR 99, WBC 11.74k, one time episode of BP 93/55 Urine and blood cultures obtained-urine culture is growing Klebsiella pneumoniae and is pansensitive Received 2g IV rocephin in ED Initial UA concerning for infection. Urine cultures positive for Klebsiella however less than 40,000. Not sure if cultures were obtained after starting antibiotics. Continue 2g IV rocephin daily Will transition to oral at discharge. Will not give any more antibiotic on discharge. Has had 7 days of intravenous antibiotic which is quite adequate Hypotension -resolved (3) Hyponatremia: Acute, Likely hypovolemic hyponatremia Serum osm 268, urine osm 452, urine sodium 36 Improving. Sodium at 133. (4) ASHLYN (acute kidney injury): Resolved (5) Generalized weakness: Work with PT/OT Continue PT and OT as an outpatient (6) Diabetes mellitus type 2 in nonobese: Last A1c 7.8 on 10/23/2020 Hold Metformin, Jardiance and glipizide Lantus/NovoLog per protocol consider discontinuation of Jardiance if pt experiencing freq UTI 2/2 to ADR (7) Hypertension: BP in 90s systolic on arrival, now 119/63 hold amlodipine, benazpril/hctz combo for now continue atenolol we will hold parameters monitor closely Blood pressure remains stable (8) Hypercholesterolemia: continue statin (9) Neuropathy: continue gabapentin (10) DVT prophylaxis: SQ Heparin Dispo: PCU PCP: Dr. Castano Full Code Discussed with the daughter in detail She will be discharged home this afternoon Total Time Total Time Spent Total Time Spent (In Minutes): 35 minutes Discharge Plan Discharge Items Patient Disposition: Home - Self-Care Reason For Visit: TOXIC AND METABOLIC ENCEPHALOPATHY, UTI, HYPONATRE Discharge Diagnosis: UTI Activity: Resume your previous activity Non-emergency contact: Primary Care Provider Call non-emergency contact if: your symptoms worsen Follow-up/Referrals: Maged Castano MD [Primary Care Provider] - (Date & Time 04/23/2021 11:00 AM Provider Maged Castano MD [facility] ) Diet: Heart Healthy Addtl Attending Provider Instructions: Please take extra precautions to avoid fall Please Use walking devices whenever ambulant as advised to avoid fall Please keep appointments with your providers Continue to have physical therapy as recommended Pending Studies at Discharge: No Stand-Alone Forms: My [employer], Smoking Cessation Medications and DC Order Prescriptions: Continued atorvastatin 40 mg tablet 40 mg PO HS RF: 0 metformin 500 mg tablet 500 mg PO BIDM RF: 0 glipizide 10 mg tablet 10 mg PO BID RF: 0 aspirin 81 mg Tablet,Delayed Release (Dr/Ec) 81 mg PO QAM RF: 0 omeprazole 20 mg capsule,delayed release(DR/EC) 20 mg PO QAM RF: 0 gabapentin 100 mg capsule 200 mg PO BID RF: 0 atenolol 50 mg tablet 50 mg PO HS RF: 0 cholecalciferol (vitamin D3) [Vitamin D3] 1,000 unit Capsule 1,000 unit PO DAILY@1200 RF: 0 Jardiance 25 mg tablet 25 mg PO QAM RF: 0 cyanocobalamin (vitamin B-12) 1,000 mcg tablet 1,000 mcg PO DAILY RF: 0 amlodipine 5 mg tablet 5 mg PO DAILY RF: 0 lorazepam 0.5 mg tablet 0.5 mg PO HS RF: 0 calcium carbonate-vitamin D3 [Calcium 600 + D(3)] 600 mg(1,500mg) -200 unit Tablet 1 tab PO BID RF: 0 [id number] Tablet 1 tab PO DAILY RF: 0 polyethylene glycol 3350 [Miralax] 17 gram powder in packet 17 g PO DAILY RF: 0 Discontinued benazepril-hydrochlorothiazide 20-25 mg tablet 1 tab PO QAM RF: 0 sulfamethoxazole-trimethoprim 800-160 mg tablet 1 tab PO BID RF: 0 Discharge Orders: Discharge Order (Routine); Ordered 04/16/21 Ordered By: Sarah Gar/Other Patient Handouts: A1C, High Blood Sugar (Hyperglycemia), Hypoglycemia (Low Blood Sugar), Managing Type 2 Diabetes Admission Data Admit Date/Time: 04/10/21 18:06 Attending Provider: Sarah Baez Admit Provider: Karolyn Mccauley Primary Care Provider: Maged Castano Other Providers: Karolyn Mccauley ; Tre Fountain Other Interventions: Discharge Summary Assessment (RN) Last Done: 04/16/21 14:34
== END 2021-04-16 17:14 | disposition home or self-care (01) | DRG 689 ==
LOC: ED 14:51 → EDINP 18:06 → SUATTDRO 18:06 → EDINP 22:14 → 2S 04-11 17:08

== ENCOUNTER 2022-03-27 16:52 | Observation (INO) ==
--- NOTE | 2022-03-27 17:40 | Emergency Department Note ---
Impression & Plan Weakness, Hypomagnesemia, COVID-19, Acute UTI ED Provider Note NAME: SANTOS WAGGONER AGE: 87 SEX: F : 1935 ARRIVES VIA: Ambulance INFORMANT: [Patient] ED PROVIDER(S): [Kb Mao MD] CHIEF COMPLAINT: Weakness HISTORY OF PRESENT ILLNESS: The patient is an 87-year-old female whose had a few days of increasing weakness. She states that she is at the point now where she cannot walk. The weakness is diffuse and mostly in her legs. Weakness is not one-sided. She states fell once yesterday but did not injure herself. The patient denies fever, headache, chest pain or cough. No urinary complaints, no diarrhea, no nausea or vomiting. REVIEW OF SYSTEMS: See HPI for pertinent positives and negatives. A total of ten systems were reviewed and were otherwise negative. PMHx/PSHx: See Below SOCIAL HISTORY: See Below. PHYSICAL EXAM: GENERAL: Patient is in no acute distress. HEENT: No acute trauma, normocephalic atraumatic, mucous membranes moist, no nasal congestion, no scleral icterus. NECK: No stridor, no adenopathy, no meningismus, trachea is midline. LUNGS: Crackles on the left, no wheezing, no respiratory distress. HEART: Regular rhythm with an occasional extra beat, subtle systolic murmur, normal rate. ABDOMEN: Soft, nontender, bowel sounds positive, no peritonitis. EXTREMITIES: No cyanosis or edema, full range of motion of all the joints without pain or difficulty, no signs for acute trauma. NEUROLOGIC: Oriented x 3, no acute motor or sensory deficits, no focal weakness. SKIN: No rash, no jaundice, no diaphoresis. Pale. DIFFERENTIAL DIAGNOSIS: Infection, dehydration, UTI, COVID-19, metabolic abnormality, hypo/hyperglycemia, electrolyte disturbance, anemia, hypoxia, cardiac sources, intracerebral event, toxicologic issues, stroke, TIA, as well as other pathologies. EMERGENCY DEPARTMENT COURSE/PROCEDURES: ECG: Indication was weakness. The ECG shows a normal sinus rhythm with a rate of 69. There is some ST depression and T wave inversion seen primarily in the anterior lateral leads. There is no ST elevation. The QTc is 441. No old ECGs available for comparison. Continuous Cardiac Monitoring: An order was placed for continuous cardiac monitoring. The monitor shows a rate of 74 with normal sinus rhythm. MEDICAL DECISION MAKING: There is no leukocytosis or worrisome anemia. There is a normal platelet count. No coagulopathy. No renal failure. Magnesium was low at 1.5. Lactic acid level was not elevated making sepsis less likely. No concerning liver enzyme elevation. Ammonia level was not elevated. The patient appeared to be in a euthyroid state. ECG showed a normal sinus rhythm, no acute ST elevation. Cardiac enzyme testing x1 is not consistent with acute cardiac injury. Urinalysis does suggest infection. COVID test was positive. Influenza and RSV test were negative. Chest x-ray did not show pneumonia or CHF. Brain CT showed no acute bleed or mass-effect. On exam, the patient was diffusely weak, there was no one-sided weakness to suggest acute CVA. The patient received IV saline, 1 L, she was given IV magnesium and IV ceftriaxone. Patient is too weak to walk. She is elderly with COVID-19 and a UTI. I do think the weakness is from both diagnoses. The patient is in need of a hospital stay, I did speak with case management, I spoke with the patient and her family, the on-call hospitalist was consulted. Past Med/Surg History Medical History UTI (urinary tract infection) Social History Smoking Status: Never smoker Feels Safe at Home: Yes Results & Data (ED) Vital Signs Vital Signs - 24 hr 03/27/22 17:02 03/27/22 17:36 03/27/22 17:40 Temperature 37 C Temperature Source Oral Pulse Rate 74 72 68 Pulse Rate [Finger] Pulse Rate from SpO2 Sensor 67 68 Pulse Rhythm [Finger] Pulse Strength [Finger] Respiratory Rate 20 11 L 13 Respiratory Effort / Characteristics Respiratory Depth Respiratory Pattern Blood Pressure 165/68 H Blood Pressure [Left Arm] Blood Pressure Mean 100 Blood Pressure Mean [Left Arm] Pulse Oximetry 93 94 93 Oxygen Delivery Method Nasal Cannula Room Air Room Air Sepsis Recent Fever Within 48 Hours No Sepsis New/Unexplained Change in Mental Status No Sepsis Action Taken by Nursing No Action Required 03/27/22 17:50 03/27/22 18:00 03/27/22 18:00 Temperature Temperature Source Pulse Rate 71 68 Pulse Rate [Finger] Pulse Rate from SpO2 Sensor 61 71 Pulse Rhythm [Finger] Pulse Strength [Finger] Respiratory Rate 14 24 Respiratory Effort / Characteristics Respiratory Depth Respiratory Pattern Blood Pressure 125/57 L Blood Pressure [Left Arm] Blood Pressure Mean 79 Blood Pressure Mean [Left Arm] Pulse Oximetry 94 92 Oxygen Delivery Method Room Air Room Air Room Air Sepsis Recent Fever Within 48 Hours Sepsis New/Unexplained Change in Mental Status Sepsis Action Taken by Nursing 03/27/22 18:10 03/27/22 18:20 03/27/22 18:30 Temperature Temperature Source Pulse Rate 70 72 Pulse Rate [Finger] Pulse Rate from SpO2 Sensor 66 64 Pulse Rhythm [Finger] Pulse Strength [Finger] Respiratory Rate 15 17 Respiratory Effort / Characteristics Respiratory Depth Respiratory Pattern Blood Pressure 126/51 L Blood Pressure [Left Arm] Blood Pressure Mean 76 Blood Pressure Mean [Left Arm] Pulse Oximetry 94 96 Oxygen Delivery Method Room Air Room Air Room Air Sepsis Recent Fever Within 48 Hours Sepsis New/Unexplained Change in Mental Status Sepsis Action Taken by Nursing 03/27/22 18:30 03/27/22 19:26 Temperature Temperature Source Pulse Rate 74 Pulse Rate [Finger] 74 Pulse Rate from SpO2 Sensor 70 Pulse Rhythm [Finger] Regular Pulse Strength [Finger] Normal Respiratory Rate 13 17 Respiratory Effort / Characteristics Non-Labored Spontaneous Respiratory Depth Normal Respiratory Pattern Regular Blood Pressure Blood Pressure [Left Arm] 141/54 H Blood Pressure Mean Blood Pressure Mean [Left Arm] 83 Pulse Oximetry 99 93 Oxygen Delivery Method Room Air Room Air Sepsis Recent Fever Within 48 Hours Sepsis New/Unexplained Change in Mental Status Sepsis Action Taken by [facility] Medications Current Medication List: was personally reviewed by me Laboratory Data Attestation: I reviewed the patient's lab results. Result diagrams: 03/27/22 19:05 03/27/22 19:05 Lab Results 03/27/22 03/27/22 03/27/22 Range/Units 18:42 19:05 19:05 WBC 6.59 (4.8-10.8) K/ul RBC 3.95 (3.93-5.22) M/uL Hgb 11.9 L (12.0-16.0) g/dl Hct 34.7 (34.1-44.9) % MCV 87.8 (80.0-100.0) fL MCH 30.1 (25.0-34.0) pg MCHC 34.3 (32.0-36.0) g/dL RDW Std Deviation 48.2 H (36.4-46.3) fL RDW Coeff of Judy 15.1 H (11.5-14.5) % Plt Count 184 (130-400) K/uL MPV 9.7 (9.4-12.3) fL Immature Gran % (Auto) 0.2 % Neut % (Auto) 59.5 % Lymph % (Auto) 26.7 % [place] % (Auto) 12.1 % Eos % (Auto) 0.9 % Baso % (Auto) 0.6 % Neut # (Auto) 3.92 (1.4-6.5) K/uL Lymph # (Auto) 1.76 (1.2-3.4) K/uL [place] # (Auto) 0.80 (0.24-0.82) K/uL Eos # (Auto) 0.06 (0-0.50) K/uL Baso # (Auto) 0.04 (0-0.2) K/uL Immature Gran # (Auto) 0.01 (0.00-0.02) K/uL PT 11.2 (9.0-12.0) Seconds INR 1.1 (0.9-1.1) APTT 27.5 (21.0-31.0) Seconds PTT Ratio 1.0 Sodium (136-145) mmol/L Potassium (3.5-5.1) mmol/L Chloride (98-107) mmol/L Carbon Dioxide (21-32) mmol/L Anion Gap (3-11) BUN (6-23) mg/dl Creatinine (0.6-1.2) mg/dl Est Cr Clr Drug Dosing ml/min Est GFR ( Amer) ml/min Est GFR (Non-Af Amer) ml/min BUN/Creatinine Ratio (10-20) Glucose (70-99(Fasting)) mg/dl Lactate (0.4-2.0) mmol/L Calcium (8.5-10.1) mg/dl Magnesium (1.7-2.4) mg/dl Total Bilirubin (0.2-1.0) mg/dl AST (13-39) U/L ALT (7-52) U/L Alkaline Phosphatase (34-104) U/L Ammonia (18-72) umol/L Total Creatine Kinase (26-192) U/L Troponin I High Sens (0-14) pg/ml Total Protein (6.0-8.3) gm/dl Albumin (3.4-5.0) gm/dl Globulin (2.5-4.0) gm/dl Albumin/Globulin Ratio (0.9-2) TSH (0.300-4.500) uIu/ml Urine Color Urine Appearance (Clear) Urine pH (4.5-7.5) Ur Specific Leslie (1.000-1.030) Urine Protein (Negative) Urine Glucose (UA) (Negative) Urine Ketones (Negative) Urine Blood (Negative) Urine Nitrite (Negative) Urine Bilirubin (Negative) Urine Urobilinogen (Negative) Ur Leukocyte Esterase (Negative) Urine WBC (Auto) (0-5) /hpf Urine RBC (Auto) (0-4) /hpf U Hyaline Cast (Auto) (0-5) /lpf U Epithel Cells (Auto) (0-5) /lpf Urine Bacteria (Auto) (Negative) SARS-CoV-2 (PCR) POSITIVE A* (Negative) Influenza Type A (PCR) Negative (Neg) Influenza Type B (PCR) Negative (Neg) RSV (RT-PCR) Negative (Neg) 03/27/22 03/27/22 03/27/22 Range/Units 19:05 19:05 19:05 WBC (4.8-10.8) K/ul RBC (3.93-5.22) M/uL Hgb (12.0-16.0) g/dl Hct (34.1-44.9) % MCV (80.0-100.0) fL MCH (25.0-34.0) pg MCHC (32.0-36.0) g/dL RDW Std Deviation (36.4-46.3) fL RDW Coeff of Judy (11.5-14.5) % Plt Count (130-400) K/uL MPV (9.4-12.3) fL Immature Gran % (Auto) % Neut % (Auto) % Lymph % (Auto) % [place] % (Auto) % Eos % (Auto) % Baso % (Auto) % Neut # (Auto) (1.4-6.5) K/uL Lymph # (Auto) (1.2-3.4) K/uL [place] # (Auto) (0.24-0.82) K/uL Eos # (Auto) (0-0.50) K/uL Baso # (Auto) (0-0.2) K/uL Immature Gran # (Auto) (0.00-0.02) K/uL PT (9.0-12.0) Seconds INR (0.9-1.1) APTT (21.0-31.0) Seconds PTT Ratio Sodium 135 L (136-145) mmol/L Potassium 3.6 (3.5-5.1) mmol/L Chloride 100 (98-107) mmol/L Carbon Dioxide 22 (21-32) mmol/L Anion Gap 13 H (3-11) BUN 11 (6-23) mg/dl Creatinine 0.78 (0.6-1.2) mg/dl Est Cr Clr Drug Dosing 43.7 ml/min Est GFR ( Amer) 80.3 ml/min Est GFR (Non-Af Amer) 69.3 ml/min BUN/Creatinine Ratio 14.1 (10-20) Glucose 93 (70-99(Fasting)) mg/dl Lactate 1.5 (0.4-2.0) mmol/L Calcium 9.1 (8.5-10.1) mg/dl Magnesium 1.5 L (1.7-2.4) mg/dl Total Bilirubin 0.4 (0.2-1.0) mg/dl AST 60 H (13-39) U/L ALT 32 (7-52) U/L Alkaline Phosphatase 67 (34-104) U/L Ammonia 22.0 (18-72) umol/L Total Creatine Kinase 38 (26-192) U/L Troponin I High Sens 6.0 (0-14) pg/ml Total Protein 7.5 (6.0-8.3) gm/dl Albumin 3.9 (3.4-5.0) gm/dl Globulin 3.6 (2.5-4.0) gm/dl Albumin/Globulin Ratio 1.1 (0.9-2) TSH (0.300-4.500) uIu/ml Urine Color Urine Appearance (Clear) Urine pH (4.5-7.5) Ur Specific Leslie (1.000-1.030) Urine Protein (Negative) Urine Glucose (UA) (Negative) Urine Ketones (Negative) Urine Blood (Negative) Urine Nitrite (Negative) Urine Bilirubin (Negative) Urine Urobilinogen (Negative) Ur Leukocyte Esterase (Negative) Urine WBC (Auto) (0-5) /hpf Urine RBC (Auto) (0-4) /hpf U Hyaline Cast (Auto) (0-5) /lpf U Epithel Cells (Auto) (0-5) /lpf Urine Bacteria (Auto) (Negative) SARS-CoV-2 (PCR) (Negative) Influenza Type A (PCR) (Neg) Influenza Type B (PCR) (Neg) RSV (RT-PCR) (Neg) 03/27/22 03/27/22 Range/Units 19:05 19:43 WBC (4.8-10.8) K/ul RBC (3.93-5.22) M/uL Hgb (12.0-16.0) g/dl Hct (34.1-44.9) % MCV (80.0-100.0) fL MCH (25.0-34.0) pg MCHC (32.0-36.0) g/dL RDW Std Deviation (36.4-46.3) fL RDW Coeff of Judy (11.5-14.5) % Plt Count (130-400) K/uL MPV (9.4-12.3) fL Immature Gran % (Auto) % Neut % (Auto) % Lymph % (Auto) % [place] % (Auto) % Eos % (Auto) % Baso % (Auto) % Neut # (Auto) (1.4-6.5) K/uL Lymph # (Auto) (1.2-3.4) K/uL [place] # (Auto) (0.24-0.82) K/uL Eos # (Auto) (0-0.50) K/uL Baso # (Auto) (0-0.2) K/uL Immature Gran # (Auto) (0.00-0.02) K/uL PT (9.0-12.0) Seconds INR (0.9-1.1) APTT (21.0-31.0) Seconds PTT Ratio Sodium (136-145) mmol/L Potassium (3.5-5.1) mmol/L Chloride (98-107) mmol/L Carbon Dioxide (21-32) mmol/L Anion Gap (3-11) BUN (6-23) mg/dl Creatinine (0.6-1.2) mg/dl Est Cr Clr Drug Dosing ml/min Est GFR ( Amer) ml/min Est GFR (Non-Af Amer) ml/min BUN/Creatinine Ratio (10-20) Glucose (70-99(Fasting)) mg/dl Lactate (0.4-2.0) mmol/L Calcium (8.5-10.1) mg/dl Magnesium (1.7-2.4) mg/dl Total Bilirubin (0.2-1.0) mg/dl AST (13-39) U/L ALT (7-52) U/L Alkaline Phosphatase (34-104) U/L Ammonia (18-72) umol/L Total Creatine Kinase (26-192) U/L Troponin I High Sens (0-14) pg/ml Total Protein (6.0-8.3) gm/dl Albumin (3.4-5.0) gm/dl Globulin (2.5-4.0) gm/dl Albumin/Globulin Ratio (0.9-2) TSH 1.019 (0.300-4.500) uIu/ml Urine Color Yellow Urine Appearance Cloudy A (Clear) Urine pH 5.5 (4.5-7.5) Ur Specific Leslie 1.014 (1.000-1.030) Urine Protein Trace H (Negative) Urine Glucose (UA) Trace H (Negative) Urine Ketones Negative (Negative) Urine Blood Trace H (Negative) Urine Nitrite Positive A (Negative) Urine Bilirubin Negative (Negative) Urine Urobilinogen Negative (Negative) Ur Leukocyte Esterase 3+ H (Negative) Urine WBC (Auto) >30 H (0-5) /hpf Urine RBC (Auto) 0-4 (0-4) /hpf U Hyaline Cast (Auto) 1-5 (0-5) /lpf U Epithel Cells (Auto) 5-10 H (0-5) /lpf Urine Bacteria (Auto) 4+ H (Negative) SARS-CoV-2 (PCR) (Negative) Influenza Type A (PCR) (Neg) Influenza Type B (PCR) (Neg) RSV (RT-PCR) (Neg) Administered Medications Discontinued Medications Sodium Chloride (Nss) 500 mls @ 999 mls/hr IV .Q31M MIGDALIA Stop: 03/27/22 18:15 Last Admin: 03/27/22 18:56 Dose: 999 mls/hr Documented By: AFTAB Ceftriaxone Sodium (Rocephin) 2,000 mg in 70 mls @ 140 mls/hr IV NOW STA Stop: 03/27/22 20:38 Last Admin: 03/27/22 20:28 Dose: 140 mls/hr Documented By: ELIZA Imaging Data Radiologist's Impression: Chest X-Ray 03/27/22 17:33 SINGLE VIEW CHEST CLINICAL HISTORY: Generalized weakness. Change in mental status. FINDINGS: 2 AP, portable, upright chest radiographs are obtained. No prior studies are available for comparison at the time of dictation. The cardiomediastinal silhouette is top normal for projection noting atherosclerotic calcification of the thoracic aorta. Nonspecific interstitial thickening is likely chronic. There is bibasilar scarring/atelectasis. The lungs and pleural spaces are otherwise clear. No pneumothorax is seen. The skeletal structures are osteopenic. The bony thorax is grossly intact. IMPRESSION: No active disease in the chest. ACT 112: Negative or not required by law. Electronically signed by: Kb Harper M.D. 03/27/2022 5:[address] 03/27/22 17:33 CT SCAN OF THE BRAIN WITHOUT IV CONTRAST CLINICAL HISTORY: Generalized weakness. Change in mental status. COMPARISON STUDY: No priors. TECHNIQUE: Unenhanced axial CT scan of the brain is performed from the vertex to the skull base. A dose lowering technique was utilized adhering to the principles of ALARA. 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 There is no hemorrhage, mass effect, or evidence of acute territorial ischemia by CT criteria. Boyd-white matter differentiation is preserved. No extra-axial fluid collection is seen. Calcification is noted in the anterior limb of the right internal capsule. Ventricles, sulci, cisterns: Prominent secondary to involutional change. Intracranial vasculature: There is atherosclerotic calcification of the cavernous carotid and vertebral arteries. Calvarium: Unremarkable. Sinuses and mastoids: The visualized paranasal sinuses are clear. The mastoid air cells are well pneumatized. Orbits: The bony orbits are grossly intact. IMPRESSION: There is no hemorrhage, mass effect, or evidence of acute territorial ischemia by CT criteria. ACT 112: Negative or not required by law. Electronically signed by: Kb Harper M.D. 03/27/2022 7:26 PM Discharge Plan Visit Data Chief Complaint: Leg Weakness, Bilateral Stated Complaint: LEG WEAKNESS, ED Provider: Kb Mao Discharge Problem: Weakness, Hypomagnesemia, COVID-19, Acute UTI Patient Disposition: Admitted As Inpatient Condition: Fair Forms Stand Alone Forms: [facility] Referrals Referrals: PCP,NO [Primary Care Provider] -
[2022-03-27] MEDS ORDERED: SODIUM CHLORIDE 0.9% 500 ML IV SCH (17:45)
--- NOTE | 2022-03-27 17:51 | XRay Report ---
SINGLE VIEW CHEST CLINICAL HISTORY: Generalized weakness. Change in mental status. FINDINGS: 2 AP, portable, upright chest radiographs are obtained. No prior studies are available for comparison at the time of dictation. The cardiomediastinal silhouette is top normal for projection no ting atherosclerotic calcification of the thoracic aorta. Nonspecific interstitial thickening is like ly chronic. There is bibasilar scarring/atelectasis. The lungs and pleural spaces are otherwise clear . No pneumothorax is seen. The skeletal structures are osteopenic. The bony thorax is grossly intact. IMPRESSION: No active disease in the chest. ACT 112: Negative or not required by law. Electronically signed by: Kb Harper M.D. 03/27/2022 5:50 PM
[2022-03-27 19:26] LABS: Basophils # (auto) 0.04 K/uL (0-0.2); Basophils % (auto) 0.6 %; Eosinophils # (auto) 0.06 K/uL (0-0.50); Eosinophils % (auto) 0.9 %; Hematocrit (blood only) 34.7 % (34.1-44.9); Hemoglobin 11.9 g/dl (12.0-16.0); Immature Granulocytes # (auto) 0.01 K/uL (0.00-0.02); Immature Granulocytes % (auto) 0.2 %; Lymphocytes # (auto) 1.76 K/uL (1.2-3.4); Lymphocytes % (auto) 26.7 %; Mean Corpuscular Hemoglobin 30.1 pg (25.0-34.0); Mean Corpuscular Hgb Conc 34.3 g/dL (32.0-36.0); Mean Corpuscular Volume 87.8 fL (80.0-100.0); Mean Platelet Volume 9.7 fL (9.4-12.3); Monocytes % (auto) 12.1 %; Neutrophils # (auto) 3.92 K/uL (1.4-6.5); Neutrophils % (auto) 59.5 %; Platelet Count 184 K/uL (130-400); RDW Coefficient of Variation 15.1 % (11.5-14.5); RDW Standard Deviation 48.2 fL (36.4-46.3); Red Blood Count 3.95 M/uL (3.93-5.22); White Blood Count 6.59 K/ul (4.8-10.8)
--- NOTE | 2022-03-27 19:28 | CT Scan Report ---
CT SCAN OF THE BRAIN WITHOUT IV CONTRAST CLINICAL HISTORY: Generalized weakness. Change in mental status. COMPARISON STUDY: No priors. TECHNIQUE: Unenhanced axial CT scan of the brain is performed from the vertex to the skull base. A do se lowering technique was utilized adhering to the principles of ALARA. CT DOSE: 537.48 mGy.cm FINDINGS: Brain parenchyma: There is age-related involutional change noting moderate to advanced subcortical an d periventricular microangiopathic disease. There is no hemorrhage, mass effect, or evidence of acute territorial ischemia by CT criteria. Boyd-white matter differentiation is preserved. No extra-axial fluid collection is seen. Calcification is noted in the anterior limb of the right internal capsule. Ventricles, sulci, cisterns: Prominent secondary to involutional change. Intracranial vasculature: There is atherosclerotic calcification of the cavernous carotid and vertebr al arteries. Calvarium: Unremarkable. Sinuses and mastoids: The visualized paranasal sinuses are clear. The mastoid air cells are well pneu matized. Orbits: The bony orbits are grossly intact. IMPRESSION: There is no hemorrhage, mass effect, or evidence of acute territorial ischemia by CT biju almanzar. ACT 112: Negative or not required by law. Electronically signed by: Kb Harper M.D. 03/27/2022 7:26 PM
[2022-03-27 19:38] LABS: INR 1.1 (0.9-1.1); Partial Thromboplastin Time 27.5 Seconds (21.0-31.0); Prothrombin Time 11.2 Seconds (9.0-12.0)
[2022-03-27 19:48] LABS: Influenza A virus by PCR Negative (Neg); Influenza B virus by PCR Negative (Neg); RSV by PCR Negative (Neg)
[2022-03-27 19:51] LABS: SARS CoV2 RNA(COVID-19)Cepheid POSITIVE (Negative)
[2022-03-27 20:03] LABS: Appearance Urine Cloudy (Clear); Bacteria Urine Automated 4+ (Negative); Bilirubin Urine Negative (Negative); Blood Urine Trace (Negative); Color Urine Yellow; Glucose Urine UA Trace (Negative); Ketones Urine Negative (Negative); Leukocyte Esterase Urine 3+ (Negative); Nitrite Urine Positive (Negative); Protein Urine Trace (Negative); RBC Urine Automated 0-4 /hpf (0-4); Specific Gravity Urine 1.014 (1.000-1.030); Urobilinogen Urine Negative (Negative); WBC Urine Automated >30 /hpf (0-5); pH Urine 5.5 (4.5-7.5)
[2022-03-27 20:06] LABS: Albumin Globulin Ratio 1.1 (0.9-2); Albumin Level 3.9 gm/dl (3.4-5.0); BUN Creatinine Ratio 14.1 (10-20); Bilirubin,Total 0.4 mg/dl (0.2-1.0); Calcium 9.1 mg/dl (8.5-10.1); Creatinine Clr Calc Pharmacy 43.7 ml/min; Est GFR (African American) 80.3 ml/min; Est GFR (Non-African American) 69.3 ml/min; Globulin 3.6 gm/dl (2.5-4.0); Magnesium 1.5 mg/dl (1.7-2.4); Potassium 3.6 mmol/L (3.5-5.1); Total Protein 7.5 gm/dl (6.0-8.3)
[2022-03-27] MEDS ORDERED: SODIUM CHLORIDE 0.9% 1000ML 500 ML IV ONE (20:06)
[2022-03-27] MEDS ORDERED: MAGNESIUM SULFATE / D5W 1 GM/100 ML BAG IV STA (20:06)
[2022-03-27] MEDS ORDERED: cefTRIAXone SODIUM 2,000 MG/70 ML BAG IV STA (20:09)
--- NOTE | 2022-03-27 22:09 | History & Physical Report ---
Date of Service March 27, 2022 Assessment & Plan (1) Weakness: Plan: Multifactorial : Complicated UTI, no sepsis for now COVID-19 illness without respiratory symptoms New onset anemia, FOBT done at the ER was positive hypertension, stable hyperlipidemia, on statin Rx left breast cancer status post surgery status post tamoxifen Rx, patient refused chemo, currently in remission DM2 on oral medications, suboptimal control as of recent hemoglobin A1c of 9.3 l ast January 2022 dementia GMF Urine CS, Ceftriaxone Supportive management for patient's COVID-19 illness Anemia work-up, transfuse PRBC if hemoglobin less than 7 and or for symptomatic anemia Hold aspirin for now Patient daughter would like to hold off on GI evaluation until patient is seen on follow-up by her PCP, Dr. Castano. Basal bolus insulin, ISS BG goal 1 10-1 40, carb count coverage PT OT eval DVT prophylaxis. SCDs Re: GI bleed Full code as per daughter/POA, Ms. Jayna Lane. She requests updates from providers through [phone]. Text document was generated using [employer] voice recognition software. It may contain grammatical or spelling errors. Kindly contact undersigned for clarification of any documentation item in question. History of Present Illness Chief Complaint: Weakness as per records Primary Care Provider: Dr. Castano Patient has prior MR#:[id number]. History obtained from patient, family, and records. History somewhat limited from patient secondary to dementia. Medical history significant for hypertension, hyperlipidemia, left breast cancer status post surgery status post tamoxifen Rx, DM2 on oral medications, GERD, recurrent UTIs, dementia. Last confinement April 2021 for UTI. Patient seen at the ER last month for falls and UTI symptoms. Patient prescribed cefdinir for E. coli UTI. Few days history of increasing weakness, poor appetite. Generalized weakness. Patient claims she fell down which is disputed by her caregiver. No cough symptoms. Sick COVID-19 contacts at home. Patient completed COVID-19 vaccination No chest pain, no SOB, no headache, no abdominal pain, no dysuria complaints. No black or bloody stools. Patient not any more confused than usual as per caregiver. Patient brought to the ER for evaluation. IV ceftriaxone administered at the ER for UTI. 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 Allergies Allergy/AdvReac Type Severity Reaction Status Date / Time No Known Allergies Allergy Unverified 03/27/22 21:30 Home Medications Medication Instructions Recorded Confirmed Type amlodipine 5 mg tablet 5 mg PO DAILY 03/27/22 03/27/22 History aspirin 81 mg tablet,delayed 81 mg PO DAILY 03/27/22 03/27/22 History release atenolol 50 mg tablet 50 mg PO HS 03/27/22 03/27/22 History atorvastatin 40 mg tablet 40 mg PO HS 03/27/22 03/27/22 History calcium carbonate 600 mg-vitamin 1 tab PO BID 03/27/22 03/27/22 History D3 5 mcg (200 unit) tablet cefdinir 300 mg capsule 300 mg PO AMHS 03/27/22 03/27/22 History cholecalciferol (vitamin D3) 25 25 mcg PO DAILY 03/27/22 03/27/22 History mcg (1,000 unit) tablet (Vitamin D3) cyanocobalamin (vitamin B-12) 1,000 mcg PO QPM 03/27/22 03/27/22 History 1,000 mcg tablet (Vitamin B-12) diphenhydramine 25 1 tab PO HS PRN Sleep 03/27/22 03/27/22 History mg-acetaminophen 500 mg tablet (Tylenol PM Extra Strength) docusate sodium 100 mg capsule 100 mg PO AMHS 03/27/22 03/27/22 History gabapentin 100 mg capsule 200 mg PO BID 03/27/22 03/27/22 History glipizide 10 mg tablet 20 mg PO BID 03/27/22 03/27/22 History insulin glargine 100 unit/mL (3 8 unit subcut .DAILY OR UD 03/27/22 03/27/22 History mL) subcutaneous pen (Lantus Solostar U-100 Insulin) lorazepam 0.5 mg tablet (Ativan) 0.5 mg PO HS 03/27/22 03/27/22 History metformin 500 mg tablet 500 mg PO BID 03/27/22 03/27/22 History hgkmdrmqcqux-wntzucou-tlqafm tablet 1 tab PO DAILY 03/27/22 03/27/22 History omeprazole 20 mg tablet,delayed 20 mg PO DAILY 03/27/22 03/27/22 History release polyethylene glycol 3350 17 gram 17 g PO DAILY 03/27/22 03/27/22 History oral powder packet (Miralax) Past Med/Surg History Medical History UTI (urinary tract infection) Social History Smoking Status: Never smoker Feels Safe at Home: Yes Review of Systems Review of Systems: Could not be reliably obtained secondary to dementia Physical Exam Physical Exam: GENERAL: Comfortable, pleasantly demented, no respiratory distress SKIN: Normal color, warm HEENT: [place] palpebral conjunctivae, no ptosis, dry buccal mucosa NECK : Supple, no tenderness CHEST : CTA, no tenderness HEART : RRR, no obvious murmurs ABDOMEN: Some distention, nontender RECTAL : Intact sphincter, brown stool (FOBT positive) EXTREMITIES : Minimal LE swelling, no LE tenderness, no other conspicuous deformities noted NEUROLOGIC : Demented, no facial asymmetry, gait and stance not assessed Results & Data Results & Data ([facility]) Vital Signs (Past 12 Hours) Vital Signs Temp Pulse Pulse Resp BP BP Pulse Ox 03/27/22 19:26 74 17 141/54 H 93 03/27/22 18:30 74 13 99 03/27/22 18:30 126/51 L 03/27/22 18:20 72 17 96 03/27/22 18:10 70 15 94 03/27/22 18:00 68 24 92 03/27/22 18:00 125/57 L 03/27/22 17:50 71 14 94 03/27/22 17:40 68 13 93 03/27/22 17:36 72 11 L 94 03/27/22 17:02 37 C 74 20 165/68 H 93 O2 Del Method 03/27/22 19:26 Room Air 03/27/22 18:30 Room Air 03/27/22 18:30 Room Air 03/27/22 18:20 Room Air 03/27/22 18:10 Room Air 03/27/22 18:00 Room Air 03/27/22 18:00 Room Air 03/27/22 17:50 Room Air 03/27/22 17:40 Room Air 03/27/22 17:36 Room Air 03/27/22 17:02 Nasal Cannula Laboratory Results Laboratory Results WBC 6.59 K/ul (4.8-10.8) 03/27/22 19:05 RBC 3.95 M/uL (3.93-5.22) 03/27/22 19:05 Hgb 11.9 g/dl (12.0-16.0) L 03/27/22 19:05 Hct 34.7 % (34.1-44.9) 03/27/22 19:05 MCV 87.8 fL (80.0-100.0) 03/27/22 19:05 MCH 30.1 pg (25.0-34.0) 03/27/22 19:05 MCHC 34.3 g/dL (32.0-36.0) 03/27/22 19:05 RDW Std Deviation 48.2 fL (36.4-46.3) H 03/27/22 19:05 RDW Coeff of Judy 15.1 % (11.5-14.5) H 03/27/22 19:05 Plt Count 184 K/uL (130-400) 03/27/22 19:05 MPV 9.7 fL (9.4-12.3) 03/27/22 19:05 Immature Gran % (Auto) 0.2 % 03/27/22 19:05 Neut % (Auto) 59.5 % 03/27/22 19:05 Lymph % (Auto) 26.7 % 03/27/22 19:05 [place] % (Auto) 12.1 % 03/27/22 19:05 Eos % (Auto) 0.9 % 03/27/22 19:05 Baso % (Auto) 0.6 % 03/27/22 19:05 Neut # (Auto) 3.92 K/uL (1.4-6.5) 03/27/22 19:05 Lymph # (Auto) 1.76 K/uL (1.2-3.4) 03/27/22 19:05 [place] # (Auto) 0.80 K/uL (0.24-0.82) 03/27/22 19:05 Eos # (Auto) 0.06 K/uL (0-0.50) 03/27/22 19:05 Baso # (Auto) 0.04 K/uL (0-0.2) 03/27/22 19:05 Immature Gran # (Auto) 0.01 K/uL (0.00-0.02) 03/27/22 19:05 PT 11.2 Seconds (9.0-12.0) 03/27/22 19:05 INR 1.1 (0.9-1.1) 03/27/22 19:05 APTT 27.5 Seconds (21.0-31.0) 03/27/22 19:05 PTT Ratio 1.0 03/27/22 19:05 Sodium 135 mmol/L (136-145) L 03/27/22 19:05 Potassium 3.6 mmol/L (3.5-5.1) 03/27/22 19:05 Chloride 100 mmol/L (98-107) 03/27/22 19:05 Carbon Dioxide 22 mmol/L (21-32) 03/27/22 19:05 Anion Gap 13 (3-11) H 03/27/22 19:05 BUN 11 mg/dl (6-23) 03/27/22 19:05 Creatinine 0.78 mg/dl (0.6-1.2) 03/27/22 19:05 Est Cr Clr Drug Dosing 43.7 ml/min 03/27/22 19:05 Est GFR ( Amer) 80.3 ml/min 03/27/22 19:05 Est GFR (Non-Af Amer) 69.3 ml/min 03/27/22 19:05 BUN/Creatinine Ratio 14.1 (10-20) 03/27/22 19:05 Glucose 93 mg/dl (70-99(Fasting)) 03/27/22 19:05 Lactate 1.5 mmol/L (0.4-2.0) 03/27/22 19:05 Calcium 9.1 mg/dl (8.5-10.1) 03/27/22 19:05 Magnesium 1.5 mg/dl (1.7-2.4) L 03/27/22 19:05 Total Bilirubin 0.4 mg/dl (0.2-1.0) 03/27/22 19:05 AST 60 U/L (13-39) H 03/27/22 19:05 ALT 32 U/L (7-52) 03/27/22 19:05 Alkaline Phosphatase 67 U/L (34-104) 03/27/22 19:05 Ammonia 22.0 umol/L (18-72) 03/27/22 19:05 Total Creatine Kinase 38 U/L (26-192) 03/27/22 19:05 Troponin I High Sens 6.0 pg/ml (0-14) 03/27/22 19:05 Total Protein 7.5 gm/dl (6.0-8.3) 03/27/22 19:05 Albumin 3.9 gm/dl (3.4-5.0) 03/27/22 19:05 Globulin 3.6 gm/dl (2.5-4.0) 03/27/22 19:05 Albumin/Globulin Ratio 1.1 (0.9-2) 03/27/22 19:05 TSH 1.019 uIu/ml (0.300-4.500) 03/27/22 19:05 Urine Color Yellow 03/27/22 19:43 Urine Appearance Cloudy (Clear) A 03/27/22 19:43 Urine pH 5.5 (4.5-7.5) 03/27/22 19:43 Ur Specific [place] 1.014 (1.000-1.030) 03/27/22 19:43 Urine Protein Trace (Negative) H 03/27/22 19:43 Urine Glucose (UA) Trace (Negative) H 03/27/22 19:43 Urine Ketones Negative (Negative) 03/27/22 19:43 Urine Blood Trace (Negative) H 03/27/22 19:43 Urine Nitrite Positive (Negative) A 03/27/22 19:43 Urine Bilirubin Negative (Negative) 03/27/22 19:43 Urine Urobilinogen Negative (Negative) 03/27/22 19:43 Ur Leukocyte Esterase 3+ (Negative) H 03/27/22 19:43 Urine WBC (Auto) >30 /hpf (0-5) H 03/27/22 19:43 Urine RBC (Auto) 0-4 /hpf (0-4) 03/27/22 19:43 U Hyaline Cast (Auto) 1-5 /lpf (0-5) 03/27/22 19:43 U Epithel Cells (Auto) 5-10 /lpf (0-5) H 03/27/22 19:43 Urine Bacteria (Auto) 4+ (Negative) H 03/27/22 19:43 SARS-CoV-2 (PCR) POSITIVE (Negative) A* 03/27/22 18:42 Influenza Type A (PCR) Negative (Neg) 03/27/22 18:42 Influenza Type B (PCR) Negative (Neg) 03/27/22 18:42 RSV (RT-PCR) Negative (Neg) 03/27/22 18:42 Impressions Chest X-Ray 03/27/22 17:33 SINGLE VIEW CHEST CLINICAL HISTORY: Generalized weakness. Change in mental status. FINDINGS: 2 AP, portable, upright chest radiographs are obtained. No prior studies are available for comparison at the time of dictation. The cardiomediastinal silhouette is top normal for projection noting atherosclerotic calcification of the thoracic aorta. Nonspecific interstitial thickening is likely chronic. There is bibasilar scarring/atelectasis. The lungs and pleural spaces are otherwise clear. No pneumothorax is seen. The skeletal structures are osteopenic. The bony thorax is grossly intact. IMPRESSION: No active disease in the chest. ACT 112: Negative or not required by law. Electronically signed by: Kb Harper M.D. 03/27/2022 5:[address] 03/27/22 17:33 CT SCAN OF THE BRAIN WITHOUT IV CONTRAST CLINICAL HISTORY: Generalized weakness. Change in mental status. COMPARISON STUDY: No priors. TECHNIQUE: Unenhanced axial CT scan of the brain is performed from the vertex to the skull base. A dose lowering technique was utilized adhering to the principles of ALARA. 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 There is no hemorrhage, mass effect, or evidence of acute territorial ischemia by CT criteria. Boyd-white matter differentiation is preserved. No extra-axial fluid collection is seen. Calcification is noted in the anterior limb of the right internal capsule. Ventricles, sulci, cisterns: Prominent secondary to involutional change. Intracranial vasculature: There is atherosclerotic calcification of the cavernous carotid and vertebral arteries. Calvarium: Unremarkable. Sinuses and mastoids: The visualized paranasal sinuses are clear. The mastoid air cells are well pneumatized. Orbits: The bony orbits are grossly intact. IMPRESSION: There is no hemorrhage, mass effect, or evidence of acute territorial ischemia by CT criteria. ACT 112: Negative or not required by law. Electronically signed by: Kb Harper M.D. 03/27/2022 7:26 PM Diagnostic Findings EKG as per my interpretation : Rate 70, NSR, RAD, RVH, incomplete RBBB, T wave abnormalities inferior leads
[2022-03-27] MEDS ORDERED: PROMETHAZINE HCL 12.5 MG in SODIUM CHLORIDE 0.9% 50 ML IV PRN (22:22)
[2022-03-27] MEDS ORDERED: SODIUM CHLORIDE 0.9% 1000ML 1,000 ML IV STA (22:31)
[2022-03-28] MEDS ORDERED: GLUCOSE 10 TAB/TUBE PO PRN (01:14)
[2022-03-28] MEDS ORDERED: GLUCOSE 40% GEL 15 GM TUBE PO PRN (01:14)
[2022-03-28] MEDS ORDERED: MAGNESIUM SULFATE / D5W 1 GM/100 ML BAG IV ONE (01:14)
[2022-03-28] MEDS ORDERED: DEXTROSE 50% 50 ML SYRINGE IV PRN (01:14)
[2022-03-28] MEDS ORDERED: GLUCAGON FOR INJ 1 MG VIAL SQ PRN (01:14)
[2022-03-28] MEDS ORDERED: CARBOHYDRATES FOR HYPOGLYCEMIA PO PRN (01:14)
[2022-03-28] MEDS: INSULIN ASPART PER UNIT SC SCH ×5 (01:24→21:56)
[2022-03-28 06:59] LABS: Basophils # (auto) 0.03 K/uL (0-0.2); Basophils % (auto) 0.4 %; Eosinophils # (auto) 0.03 K/uL (0-0.50); Eosinophils % (auto) 0.4 %; Hematocrit (blood only) 38.9 % (34.1-44.9); Hemoglobin 13.6 g/dl (12.0-16.0); Immature Granulocytes # (auto) 0.03 K/uL (0.00-0.02); Immature Granulocytes % (auto) 0.4 %; Lymphocytes # (auto) 1.48 K/uL (1.2-3.4); Lymphocytes % (auto) 19.9 %; Mean Corpuscular Hemoglobin 30.4 pg (25.0-34.0); Mean Platelet Volume 11.2 fL (9.4-12.3); Monocytes # (auto) 0.89 K/uL (0.24-0.82); Monocytes % (auto) 11.9 %; Neutrophils # (auto) 4.99 K/uL (1.4-6.5); Platelet Count 148 K/uL (130-400); RDW Standard Deviation 47.6 fL (36.4-46.3); Red Blood Count 4.47 M/uL (3.93-5.22); Reticulocyte % 1.6 % (0.5-2.0); Reticulocytes # 0.07 10^6/uL (0.02-0.10); White Blood Count 7.45 K/ul (4.8-10.8)
[2022-03-28 08:36] LABS: Calcium 8.6 mg/dl (8.5-10.1); Est GFR (Non-African American) 77.7 ml/min; Magnesium 1.9 mg/dl (1.7-2.4); Potassium 3.4 mmol/L (3.5-5.1)
[2022-03-28 08:58] LABS: Vitamin B12 1033 pg/ml (180-914)
[2022-03-28] MEDS: LANTUS PER UNIT CHARGE SQ SCH (08:58)
[2022-03-28] MEDS: POLYETHYLENE (MIRALAX) 17 GM PACK PO SCH (09:08)
[2022-03-28] MEDS: PANTOprazole 40 MG TAB PO SCH (09:08)
[2022-03-28] MEDS: DOCUSATE SODIUM 100 MG CAP PO SCH ×2 (09:08→20:25)
[2022-03-28] MEDS: CEROVITE ADV FORMULA TAB PO SCH (09:08)
[2022-03-28] MEDS: GABAPENTIN 100 MG CAP PO SCH ×2 (09:08→20:25)
[2022-03-28] MEDS: amLODIPine BESYLATE 5 MG TAB PO SCH (09:08)
[2022-03-28 09:32] LABS: Ferritin 110.7 ng/ml (8-388)
[2022-03-28] MEDS ORDERED: POTASSIUM CHLORIDE CRTAB 20 MEQ TABCR PO ONE (11:44)
--- NOTE | 2022-03-28 17:19 | Hospitalist Progress Note ---
Date of Service March 28, 2022 Assessment & Plan (1) Acute UTI: Plan: Urinary tract infection Generalized weakness Urine culture growing gram-negative bacilli Blood cultures pending Continue ceftriaxone COVID-19 Infection CXR:No active disease in the chest. Check CRP Saturating well on room air Conservative management Positive FOBT Hemoglobin at baseline No obvious bleeding issues Aspirin on hold Follow-up as outpatient Monitor for any bleeding issues Hypertension On amlodipine, atenolol Hyperlipidemia on statin H/O left breast cancer S/P surgery, Tamoxifen Rx Patient refused chemo currently in remission DM II Hold oral medications HbA1C; 9.04 January 2022 Dementia No agitation Monitor DVT Px: SCDs Re: + FOBT Code Status Full code Admission and Anticipated Discharge Date Admission Date: March 27, 2022 Subjective Patient is seen and examined at bedside Poor historian secondary to dementia Denies any chest pain, shortness of breath, dizziness, nausea, abdominal pain No agitation during my encounter Saturating well on room air Review of Systems Review of Systems: All systems reviewed & are unremarkable except as noted in Subjective Physical Exam Physical Exam: Physical Exam: Vitals signs as noted above General Appearance:Moderately built and nourished, no apparent distress, Elderly, Head: normocephalic, Atraumatic Eyes: normal inspection, EOMI Neck: supple, Trachea midline Respiratory/Chest: Normal breath sounds, CTA, No accessory muscle use Cardiovascular: S1, S2, No murmur Abdomen/GI:Soft, Non tender, Bowel sounds present Extremities/Musculoskeletal:normal inspection, Trace edema Neurologic/Psych:AAO X1, grossly no focal neurological deficits, +Dementia Skin: normal color, warm Results & Data Results & Data ([facility]) Vital Signs (Past 12 Hours) Vital Signs Temp Pulse Resp BP Pulse Ox O2 Del Method 03/28/22 15:04 36.6 C 74 15 121/68 94 Room Air 03/28/22 08:20 37.5 C 82 16 136/67 94 Room Air 03/28/22 06:12 37.6 C H 73 18 155/78 H 93 Room Air Laboratory Results Short CBC 03/27/22 03/28/22 03/28/22 Range/Units 19:05 05:24 06:03 WBC 6.59 Cancelled 7.45 (4.8-10.8) K/ul Hgb 11.9 L Cancelled 13.6 (12.0-16.0) g/dl Hct 34.7 Cancelled 38.9 (34.1-44.9) % Plt Count 184 Cancelled 148 (130-400) K/uL BMP 03/27/22 03/28/22 03/28/22 19:05 05:24 07:47 Sodium 135 L Cancelled 128 L Potassium 3.6 Cancelled 3.4 L Chloride 100 Cancelled 94 L Carbon Dioxide 22 Cancelled 23 BUN 11 Cancelled 8 Creatinine 0.78 Cancelled 0.71 Glucose 93 Cancelled Calcium 9.1 Cancelled 8.6 Cardiac Enzymes 03/27/22 Range/Units 19:05 Total Creatine Kinase 38 (26-192) U/L Liver Function 03/27/22 Range/Units 19:05 Total Bilirubin 0.4 (0.2-1.0) mg/dl AST 60 H (13-39) U/L ALT 32 (7-52) U/L Alkaline Phosphatase 67 (34-104) U/L Albumin 3.9 (3.4-5.0) gm/dl Urine 03/27/22 Range/Units 19:43 Urine Color Yellow Urine Appearance Cloudy A (Clear) Urine pH 5.5 (4.5-7.5) Ur Specific [place] 1.014 (1.000-1.030) Urine Protein Trace H (Negative) Urine Glucose (UA) Trace H (Negative)
[2022-03-28] MEDS ORDERED: cefTRIAXone SODIUM 2,000 MG in DEXTROSE 5% 50 ML IV SCH (20:00)
[2022-03-28] MEDS: CYANOCOBALAMIN (B-12) 500 MCG TABLET PO SCH (20:25)
[2022-03-28] MEDS: LORazepam 0.5 MG TAB PO PRN (20:25)
[2022-03-28] MEDS: ATORVASTATIN 40 MG TAB PO SCH (20:25)
[2022-03-28] MEDS: ATENOLOL 50 MG TABLET PO SCH (20:25)
--- NOTE | 2022-03-28 22:26 | Electrocardiogram Report ---
Test Reason : Blood Pressure : / mmHG Vent. Rate : 069 BPM Atrial Rate : 069 BPM P-R Int : 150 ms QRS Dur : 140 ms QT Int : 412 ms P-R-T Axes : -12 106 030 degrees QTc Int : 441 ms Normal sinus rhythm Right bundle branch block When compared with ECG of 09-FEB-2022 18:20, Premature supraventricular complexes are no longer Present T wave inversion less evident in Inferior leads Confirmed by Miguel Rivera ([id number]) on 03/28/2022 10:26:05 PM Referred By: REFERRED SELF Confirmed By:Miguel Rivera
[2022-03-29 07:10] LABS: BUN Creatinine Ratio 13.3 (10-20); C Reactive Protein 2.04 mg/dl (0-0.5); Calcium 8.6 mg/dl (8.5-10.1); Creatinine Clr Calc Pharmacy 37.9 ml/min; Est GFR (African American) 67.6 ml/min; Est GFR (Non-African American) 58.3 ml/min; Potassium 3.9 mmol/L (3.5-5.1)
[2022-03-29] MEDS: CEROVITE ADV FORMULA TAB PO SCH (08:45)
[2022-03-29] MEDS: DOCUSATE SODIUM 100 MG CAP PO SCH ×2 (08:45→20:22)
[2022-03-29] MEDS: PANTOprazole 40 MG TAB PO SCH (08:45)
[2022-03-29] MEDS: amLODIPine BESYLATE 5 MG TAB PO SCH (08:46)
[2022-03-29] MEDS: POLYETHYLENE (MIRALAX) 17 GM PACK PO SCH (08:46)
[2022-03-29] MEDS: GABAPENTIN 100 MG CAP PO SCH ×2 (08:46→20:22)
[2022-03-29] MEDS: INSULIN ASPART PER UNIT SC SCH ×4 (08:55→21:39)
[2022-03-29] MEDS: LANTUS PER UNIT CHARGE SQ SCH ×2 (08:56→21:39)
[2022-03-29] MEDS: cefTRIAXone SODIUM 2,000 MG in DEXTROSE 5% 50 ML IV SCH (11:35)
--- NOTE | 2022-03-29 12:28 | Communication Note ---
Date of Service: March 29, 2022 Family Contact Info: from [facility] Contact Information [phone](Home Phone) Alternate Senior [employer] Jayna Lane(Child) [phone](Home Phone)
--- NOTE | 2022-03-29 16:29 | Hospitalist Progress Note ---
Date of Service March 29, 2022 Assessment & Plan (1) Acute UTI: Plan: Urinary tract infection Generalized weakness Urine culture growing E coli Blood cultures: Negative to date Continue ceftriaxone COVID-19 Infection CXR:No active disease in the chest. CRP: 2.04 Saturating well on room air Conservative management Positive FOBT Hemoglobin at baseline No obvious bleeding issues Follow-up as outpatient Monitor for any bleeding issues Resume aspirin Hypertension On amlodipine, atenolol Hyperlipidemia on statin H/O left breast cancer S/P surgery, Tamoxifen Rx Patient refused chemo currently in remission DM II Hold oral medications HbA1C; 9.04 January 2022 Dementia No agitation Monitor DVT Px: SCDs Re: + FOBT Code Status Full code Disposition PT OT recommends rehab Admission and Anticipated Discharge Date Admission Date: March 27, 2022 Subjective Patient is seen and examined at bedside States feeling better today Denies any chest pain, shortness of breath, dizziness, nausea, abdominal pain Offers no complaints Saturating well on room air Review of Systems Review of Systems: All systems reviewed & are unremarkable except as noted in Subjective Physical Exam Physical Exam: Physical Exam: Vitals signs as noted above General Appearance:Moderately built and nourished, no apparent distress, Elde rly, Head: normocephalic, Atraumatic Eyes: normal inspection, EOMI Neck: supple, Trachea midline Respiratory/Chest: Normal breath sounds, CTA, No accessory muscle use Cardiovascular: S1, S2, No murmur Abdomen/GI:Soft, Non tender, Bowel sounds present Extremities/Musculoskeletal:normal inspection, Trace edema Neurologic/Psych:AAO X1, grossly no focal neurological deficits, +Dementia Skin: normal color, warm Results & Data Results & Data ([facility]) Vital Signs (Past 12 Hours) Vital Signs Temp Pulse Resp BP Pulse Ox O2 Del Method 03/29/22 14:46 36.6 C 69 18 111/58 L 95 Room Air 03/29/22 06:43 37.0 C 72 16 140/66 94 Room Air Laboratory Results [facility] 03/29/22 05:18 Sodium 130 L Potassium 3.9 Chloride 95 L Carbon Dioxide 26 BUN 12 Creatinine 0.90 Glucose 151 H Calcium 8.6
[2022-03-29] MEDS: ATENOLOL 50 MG TABLET PO SCH (20:22)
[2022-03-29] MEDS: LORazepam 0.5 MG TAB PO PRN (20:22)
[2022-03-29] MEDS: ATORVASTATIN 40 MG TAB PO SCH (20:22)
[2022-03-29] MEDS: CYANOCOBALAMIN (B-12) 500 MCG TABLET PO SCH (20:23)
[2022-03-30 06:25] LABS: Hematocrit (blood only) 34.8 % (34.1-44.9); Hemoglobin 11.9 g/dl (12.0-16.0); Mean Corpuscular Hemoglobin 29.8 pg (25.0-34.0); Mean Corpuscular Hgb Conc 34.2 g/dL (32.0-36.0); Mean Corpuscular Volume 87.2 fL (80.0-100.0); Mean Platelet Volume 9.8 fL (9.4-12.3); Platelet Count 174 K/uL (130-400); RDW Coefficient of Variation 15.1 % (11.5-14.5); RDW Standard Deviation 48.8 fL (36.4-46.3); Red Blood Count 3.99 M/uL (3.93-5.22); White Blood Count 5.24 K/ul (4.8-10.8)
[2022-03-30 07:43] LABS: BUN Creatinine Ratio 16.8 (10-20); Calcium 8.6 mg/dl (8.5-10.1); Creatinine Clr Calc Pharmacy 33.8 ml/min; Est GFR (African American) 58.8 ml/min; Est GFR (Non-African American) 50.7 ml/min; Potassium 3.8 mmol/L (3.5-5.1)
[2022-03-30] MEDS: amLODIPine BESYLATE 5 MG TAB PO SCH (09:07)
[2022-03-30] MEDS: POLYETHYLENE (MIRALAX) 17 GM PACK PO SCH (09:07)
[2022-03-30] MEDS: DOCUSATE SODIUM 100 MG CAP PO SCH ×2 (09:07→20:26)
[2022-03-30] MEDS: GABAPENTIN 100 MG CAP PO SCH ×2 (09:07→20:26)
[2022-03-30] MEDS: PANTOprazole 40 MG TAB PO SCH (09:07)
[2022-03-30] MEDS: ASPIRIN 81 MG ECTAB PO SCH (09:08)
[2022-03-30] MEDS: CEROVITE ADV FORMULA TAB PO SCH (09:08)
[2022-03-30] MEDS: INSULIN ASPART PER UNIT SC SCH ×4 (09:16→21:40)
[2022-03-30] MEDS: LANTUS PER UNIT CHARGE SQ SCH ×2 (09:16→21:41)
[2022-03-30] MEDS: cefTRIAXone SODIUM 2,000 MG in DEXTROSE 5% 50 ML IV SCH (11:29)
--- NOTE | 2022-03-30 16:30 | Hospitalist Progress Note ---
Date of Service March 30, 2022 Assessment & Plan (1) Acute UTI: Plan: Urinary tract infection Generalized weakness Urine culture growing E coli Blood cultures: Negative to date Continue ceftriaxone Continue current management COVID-19 Infection CXR:No active disease in the chest. CRP: 2.04 Saturating well on room air Conservative management Antitussives as needed Positive FOBT Hemoglobin at baseline No obvious bleeding issues Follow-up as outpatient Monitor for any bleeding issues Monitor CBC Hypertension On amlodipine, atenolol Hyperlipidemia on statin H/O left breast cancer S/P surgery, Tamoxifen Rx Patient refused chemo currently in remission DM II Hold oral medications HbA1C; 9.04 January 2022 Dementia No agitation Monitor DVT Px: SCDs Re: + FOBT Code Status Full code Disposition Plan to discharge to Rehab facility when accepted Admission and Anticipated Discharge Date Admission Date: March 27, 2022 Subjective Patient is seen and examined at bedside Reports cough Mental status seem to be back to baseline Denies any chest pain, shortness of breath, dizziness, nausea, abdominal pain Saturating well on room air No other complaints Review of Systems Review of Systems: All systems reviewed & are unremarkable except as noted in Subjective Physical Exam Physical Exam: Physical Exam: Vitals signs as noted above General Appearance:Moderately built and nourished, no apparent distress, Elderly, Head: normocephalic, Atraumatic Eyes: normal inspection, EOMI Neck: supple, Trachea midline Respiratory/Chest: Normal breath sounds, CTA, No accessory muscle use Cardiovascular: S1, S2, No murmur Abdomen/GI:Soft, Non tender, Bowel sounds present Extremities/Musculoskeletal:normal inspection, Trace edema Neurologic/Psych:AAO X1, grossly no focal neurological deficits, +Dementia Skin: normal color, warm Results & Data Results & Data ([facility]) Vital Signs (Past 12 Hours) Vital Signs Temp Pulse Resp BP Pulse Ox O2 Del Method 03/30/22 14:59 36.7 C 63 16 104/62 94 Room Air 03/30/22 08:30 Room Air 03/30/22 07:28 36.6 C 60 16 117/70 94 Room Air Laboratory Results Short CBC 03/30/22 Range/Units 05:25 WBC 5.24 (4.8-10.8) K/ul Hgb 11.9 L (12.0-16.0) g/dl Hct 34.8 (34.1-44.9) % Plt Count 174 (130-400) K/uL BMP 03/30/22 05:25 Sodium 132 L Potassium 3.8 Chloride 98 Carbon Dioxide 24 BUN 17 Creatinine 1.01 Glucose 185 H Calcium 8.6
[2022-03-30] MEDS: CYANOCOBALAMIN (B-12) 500 MCG TABLET PO SCH (20:26)
[2022-03-30] MEDS: ATENOLOL 50 MG TABLET PO SCH (20:27)
[2022-03-30] MEDS: ATORVASTATIN 40 MG TAB PO SCH (20:27)
[2022-03-30] MEDS: LORazepam 0.5 MG TAB PO PRN (20:30)
[2022-03-31] MEDS: POLYETHYLENE (MIRALAX) 17 GM PACK PO SCH (08:32)
[2022-03-31] MEDS: DOCUSATE SODIUM 100 MG CAP PO SCH ×2 (08:33→20:54)
[2022-03-31] MEDS: PANTOprazole 40 MG TAB PO SCH (08:33)
[2022-03-31] MEDS: amLODIPine BESYLATE 5 MG TAB PO SCH (08:33)
[2022-03-31] MEDS: ASPIRIN 81 MG ECTAB PO SCH (08:33)
[2022-03-31] MEDS: GABAPENTIN 100 MG CAP PO SCH ×2 (08:33→20:09)
[2022-03-31] MEDS: CEROVITE ADV FORMULA TAB PO SCH (08:33)
[2022-03-31] MEDS: INSULIN ASPART PER UNIT SC SCH ×4 (08:40→21:23)
[2022-03-31] MEDS: LANTUS PER UNIT CHARGE SQ SCH ×2 (08:41→21:23)
[2022-03-31] MEDS: cefTRIAXone SODIUM 2,000 MG in DEXTROSE 5% 50 ML IV SCH (09:58)
--- NOTE | 2022-03-31 17:49 | Hospitalist Progress Note ---
Date of Service March 31, 2022 Assessment & Plan (1) Acute UTI: Plan: Urinary tract infection Generalized weakness Urine culture growing E coli Blood cultures: Negative to date Continue ceftriaxone Changed to p.o. antibiotics as able COVID-19 Infection CXR:No active disease in the chest. CRP: 2.04 Saturating well on room air Conservative management Antitussives as needed Positive FOBT Hemoglobin at baseline No obvious bleeding issues Follow-up as outpatient Monitor for any bleeding issues Monitor CBC Hypertension On amlodipine, atenolol Hyperlipidemia on statin H/O left breast cancer S/P surgery, Tamoxifen Rx Patient refused chemo currently in remission DM II Hold oral medications HbA1C; 9.04 January 2022 Dementia No agitation Monitor DVT Px: SCDs Re: + FOBT Code Status Full code Disposition Plan to discharge to Rehab facility when accepted Admission and Anticipated Discharge Date Admission Date: March 27, 2022 Subjective Patient is seen and examined at bedside Has intermittent cough, otherwise no complaints Denies any chest pain, shortness of breath, dizziness, nausea, abdominal pain Saturating well on room air Review of Systems Review of Systems: All systems reviewed & are unremarkable except as noted in Subjective Physical Exam Physical Exam: Physical Exam: Vitals signs as noted above General Appearance:Moderately built and nourished, no apparent distress, Elderly, Head: normocephalic, Atraumatic Eyes: normal inspection, EOMI Neck: supple, Trachea midline Respiratory/Chest: Normal breath sounds, CTA, No accessory muscle use Cardiovascular: S1, S2, No murmur Abdomen/GI:Soft, Non tender, Bowel sounds present Extremities/Musculoskeletal:normal inspection, Trace edema Neurologic/Psych:AAO X1, grossly no focal neurological deficits, +Dementia Skin: normal color, warm Results & Data Results & Data ([facility]) Vital Signs (Past 12 Hours) Vital Signs Temp Pulse Resp BP Pulse Ox O2 Del Method 03/31/22 16:24 36.6 C 62 18 117/71 95 Room Air 03/31/22 08:31 36.5 C 56 L 18 125/70 95 Room Air
[2022-03-31] MEDS: ATENOLOL 50 MG TABLET PO SCH (20:09)
[2022-03-31] MEDS: ATORVASTATIN 40 MG TAB PO SCH (20:09)
[2022-03-31] MEDS: LORazepam 0.5 MG TAB PO PRN (20:09)
[2022-03-31] MEDS: CYANOCOBALAMIN (B-12) 500 MCG TABLET PO SCH (20:10)
[2022-03-31] MEDS ORDERED: LANTUS PER UNIT CHARGE SQ SCH (21:00)
[2022-04-01] MEDS: INSULIN ASPART PER UNIT SC SCH ×4 (08:55→21:12)
[2022-04-01] MEDS: LANTUS PER UNIT CHARGE SQ SCH ×2 (08:56→21:13)
[2022-04-01] MEDS: CEROVITE ADV FORMULA TAB PO SCH (09:06)
[2022-04-01] MEDS: ASPIRIN 81 MG ECTAB PO SCH (09:06)
[2022-04-01] MEDS: GABAPENTIN 100 MG CAP PO SCH ×2 (09:06→20:13)
[2022-04-01] MEDS: amLODIPine BESYLATE 5 MG TAB PO SCH (09:06)
[2022-04-01] MEDS: DOCUSATE SODIUM 100 MG CAP PO SCH ×2 (09:06→20:13)
[2022-04-01] MEDS: POLYETHYLENE (MIRALAX) 17 GM PACK PO SCH (09:07)
[2022-04-01] MEDS: PANTOprazole 40 MG TAB PO SCH (09:07)
--- NOTE | 2022-04-01 10:43 | Hospitalist Progress Note ---
Date of Service April 01, 2022 Assessment & Plan (1) Acute UTI: Plan: Acute metabolic encephalopathy-POA Urinary tract infection Generalized weakness Urine culture growing E coli Blood cultures: Negative to date On ceftriaxone Mental status seem to be back to baseline COVID-19 Infection CXR:No active disease in the chest. CRP: 2.04 Saturating well on room air Conservative management Antitussives as needed Positive FOBT Hemoglobin at baseline No obvious bleeding issues Follow-up as outpatient Monitor for any bleeding issues Monitor CBC Hypertension On amlodipine, atenolol Hyperlipidemia on statin H/O left breast cancer S/P surgery, Tamoxifen Rx Patient refused chemo currently in remission DM II Hold oral medications HbA1C; 9.04 January 2022 Dementia No agitation Monitor DVT Px: SCDs Re: + FOBT Code Status Full code Disposition Plan to discharge to Rehab facility when accepted Admission and Anticipated Discharge Date Admission Date: March 27, 2022 Subjective Patient is seen and examined at bedside No new complaints Less cough today Denies any chest pain, shortness of breath, dizziness, nausea, abdominal pain Saturating well on room air Waiting for placement Review of Systems Review of Systems: All systems reviewed & are unremarkable except as noted in Subjective Physical Exam Physical Exam: Physical Exam: Vitals signs as noted above General Appearance:Moderately built and nourished, no apparent distress, Elderly, Head: normocephalic, Atraumatic Eyes: normal inspection, EOMI Neck: supple, Trachea midline Respiratory/Chest: Normal breath sounds, CTA, No accessory muscle use Cardiovascular: S1, S2, No murmur Abdomen/GI:Soft, Non tender, Bowel sounds present Extremities/Musculoskeletal:normal inspection, Trace edema Neurologic/Psych:AAO X1, grossly no focal neurological deficits, +Dementia Skin: normal color, warm Results & Data Results & Data ([facility]) Vital Signs (Past 12 Hours) Vital Signs Temp Pulse Resp BP Pulse Ox 04/01/22 08:23 36.5 C 55 L 16 146/78 H 93
[2022-04-01] MEDS: cefTRIAXone SODIUM 2,000 MG in DEXTROSE 5% 50 ML IV SCH (10:48)
[2022-04-01] MEDS: CYANOCOBALAMIN (B-12) 500 MCG TABLET PO SCH (20:12)
[2022-04-01] MEDS: ATORVASTATIN 40 MG TAB PO SCH (20:13)
[2022-04-01] MEDS: ATENOLOL 50 MG TABLET PO SCH (20:13)
[2022-04-02] MEDS: INSULIN ASPART PER UNIT SC SCH ×4 (08:49→21:31)
[2022-04-02] MEDS: LANTUS PER UNIT CHARGE SQ SCH ×2 (08:50→21:31)
[2022-04-02] MEDS: ASPIRIN 81 MG ECTAB PO SCH (08:56)
[2022-04-02] MEDS: DOCUSATE SODIUM 100 MG CAP PO SCH ×2 (08:56→21:48)
[2022-04-02] MEDS: GABAPENTIN 100 MG CAP PO SCH ×2 (08:56→21:48)
[2022-04-02] MEDS: CEROVITE ADV FORMULA TAB PO SCH (08:57)
[2022-04-02] MEDS: POLYETHYLENE (MIRALAX) 17 GM PACK PO SCH (08:57)
[2022-04-02] MEDS: amLODIPine BESYLATE 5 MG TAB PO SCH (08:57)
[2022-04-02] MEDS: PANTOprazole 40 MG TAB PO SCH (08:57)
[2022-04-02] MEDS: cefTRIAXone SODIUM 2,000 MG in DEXTROSE 5% 50 ML IV SCH (08:57)
--- NOTE | 2022-04-02 16:51 | Hospitalist Progress Note ---
Date of Service April 02, 2022 Assessment & Plan (1) Acute UTI: Plan: Acute metabolic encephalopathy-POA Urinary tract infection Generalized weakness Urine culture growing E coli Blood cultures: Negative to date On ceftriaxone--will complete antibiotic course tomorrow Mental status seem to be back to baseline Waiting for rehab placement COVID-19 Infection CXR:No active disease in the chest. CRP: 2.04 Saturating well on room air Conservative management Antitussives as needed Positive FOBT Hemoglobin at baseline No obvious bleeding issues Follow-up as outpatient Monitor for any bleeding issues Monitor CBC Hypertension On amlodipine, atenolol Hyperlipidemia on statin H/O left breast cancer S/P surgery, Tamoxifen Rx Patient refused chemo currently in remission DM II Hold oral medications HbA1C; 9.04 January 2022 Dementia No agitation Monitor DVT Px: SCDs Re: + FOBT Code Status Full code Disposition Plan to discharge to Rehab facility when accepted Admission and Anticipated Discharge Date Admission Date: March 27, 2022 Subjective Patient is seen and examined at bedside States feeling well Minimal cough Feels tired Denies any chest pain, shortness of breath, dizziness, nausea, abdominal pain No other complaints Waiting for placement Review of Systems Review of Systems: All systems reviewed & are unremarkable except as noted in Subjective Physical Exam Physical Exam: Physical Exam: Vitals signs as noted above General Appearance:Moderately built and nourished, no apparent distress, Elderly, Head: normocephalic, Atraumatic Eyes: normal inspection, EOMI Neck: supple, Trachea midline Respiratory/Chest: Normal breath sounds, CTA, No accessory muscle use Cardiovascular: S1, S2, No murmur Abdomen/GI:Soft, Non tender, Bowel sounds present Extremities/Musculoskeletal:normal inspection, Trace edema Neurologic/Psych:AAO X1, grossly no focal neurological deficits, +Dementia Skin: normal color, warm Results & Data Results & Data ([facility]) Vital Signs (Past 12 Hours) Vital Signs Temp Pulse Resp BP Pulse Ox 04/02/22 08:48 36.9 C 73 16 144/72 H 95
[2022-04-02] MEDS: LORazepam 0.5 MG TAB PO PRN (21:47)
[2022-04-02] MEDS: CYANOCOBALAMIN (B-12) 500 MCG TABLET PO SCH (21:47)
[2022-04-02] MEDS: ATENOLOL 50 MG TABLET PO SCH (21:47)
[2022-04-02] MEDS: ATORVASTATIN 40 MG TAB PO SCH (21:48)
[2022-04-03 09:16] LABS: Anion Gap 7 (3-11); BUN Creatinine Ratio 17.6 (10-20); Blood Urea Nitrogen 12 mg/dl (6-23); Calcium 8.9 mg/dl (8.5-10.1); Carbon Dioxide 24 mmol/L (21-32); Chloride 103 mmol/L (98-107); Creatinine Clr Calc Pharmacy 50.1 ml/min; Est GFR (African American) 92.4 ml/min; Est GFR (Non-African American) 79.8 ml/min; Glucose 150 mg/dl (70-99(Fasting)); Sodium 134 mmol/L (136-145)
[2022-04-03] MEDS: INSULIN ASPART PER UNIT SC SCH ×4 (09:22→21:45)
[2022-04-03] MEDS: LANTUS PER UNIT CHARGE SQ SCH ×2 (09:22→21:45)
[2022-04-03] MEDS: POLYETHYLENE (MIRALAX) 17 GM PACK PO SCH (09:33)
[2022-04-03] MEDS: amLODIPine BESYLATE 5 MG TAB PO SCH (09:33)
[2022-04-03] MEDS: CEROVITE ADV FORMULA TAB PO SCH (09:33)
[2022-04-03] MEDS: DOCUSATE SODIUM 100 MG CAP PO SCH ×2 (09:33→21:28)
[2022-04-03] MEDS: GABAPENTIN 100 MG CAP PO SCH ×2 (09:33→21:27)
[2022-04-03] MEDS: ASPIRIN 81 MG ECTAB PO SCH (09:33)
[2022-04-03] MEDS: PANTOprazole 40 MG TAB PO SCH (09:33)
--- NOTE | 2022-04-03 17:09 | Hospitalist Progress Note ---
Date of Service April 03, 2022 Assessment & Plan (1) Acute UTI: (2) AMS (altered mental status): Plan: Acute metabolic encephalopathy-POA Urinary tract infection Generalized weakness Urine culture growing E coli Blood cultures: Negative to date On ceftriaxone--completed course 04/03/2022 Mental status seem to be back to baseline Waiting for rehab placement COVID-19 Infection CXR:No active disease in the chest. CRP: 2.04 Saturating well on room air Conservative management Antitussives as needed Positive FOBT Hemoglobin at baseline No obvious bleeding issues Follow-up as outpatient Monitor for any bleeding issues Monitor CBC Hypertension On amlodipine, atenolol Hyperlipidemia on statin H/O left breast cancer S/P surgery, Tamoxifen Rx Patient refused chemo currently in remission DM II Hold oral medications HbA1C; .04 January 2022 Dementia No agitation Monitor DVT Px: SCDs Re: + FOBT Code Status Full code Disposition Plan to discharge to Rehab facility when accepted Admission and Anticipated Discharge Date Admission Date: March 27, 2022 Subjective Patient is seen and examined at bedside States feeling well Minimal cough Feels tired Denies any chest pain, shortness of breath, dizziness, nausea, abdominal pain No other complaints AAOx1 to self only Waiting for placement Review of Systems Review of Systems: Unobtainable due to cognitive status Physical Exam Physical Exam: General Appearance: underweight, no apparent distress, Elderly, Head: normocephalic, Atraumatic Eyes: normal inspection, EOMI Neck: supple, Trachea midline Respiratory/Chest: Normal breath sounds, CTA, No accessory muscle use Cardiovascular: S1, S2, No murmur Abdomen/GI:Soft, Non tender, Bowel sounds present Extremities/Musculoskeletal:normal inspection, Trace edema Neurologic/Psych:AAO X1 only to self, grossly no focal neurological deficits, +Dementia Skin: normal color, warm Results & Data Results & Data ([facility]) Vital Signs (Past 12 Hours) Vital Signs Temp Pulse Resp BP Pulse Ox O2 Del Method 04/03/22 08:15 Room Air 04/03/22 15:08 36.4 C L 51 L 16 152/87 H 92 Room Air 04/03/22 07:09 36.4 C L 53 L 18 145/68 H 98 Room Air Diagnostic Findings Laboratory Results WBC 5.24 K/ul (4.8-10.8) 03/30/22 05:25 RBC 3.99 M/uL (3.93-5.22) 03/30/22 05:25 Hgb 11.9 g/dl (12.0-16.0) L 03/30/22 05:25 Hct 34.8 % (34.1-44.9) 03/30/22 05:25 MCV 87.2 fL (80.0-100.0) 03/30/22 05:25 MCH 29.8 pg (25.0-34.0) 03/30/22 05:25 MCHC 34.2 g/dL (32.0-36.0) 03/30/22 05:25 RDW Std Deviation 48.8 fL (36.4-46.3) H 03/30/22 05:25 RDW Coeff of Judy 15.1 % (11.5-14.5) H 03/30/22 05:25 Plt Count 174 K/uL (130-400) 03/30/22 05:25 MPV 9.8 fL (9.4-12.3) 03/30/22 05:25 Immature Gran % (Auto) 0.4 % 03/28/22 06:03 Neut % (Auto) 67.0 % 03/28/22 06:03 Lymph % (Auto) 19.9 % 03/28/22 06:03 [place] % (Auto) 11.9 % 03/28/22 06:03 Eos % (Auto) 0.4 % 03/28/22 06:03 Baso % (Auto) 0.4 % 03/28/22 06:03 Reticulocyte % (Auto) 1.6 % (0.5-2.0) 03/28/22 06:03 Neut # (Auto) 4.99 K/uL (1.4-6.5) 03/28/22 06:03 Lymph # (Auto) 1.48 K/uL (1.2-3.4) 03/28/22 06:03 [place] # (Auto) 0.89 K/uL (0.24-0.82) H 03/28/22 06:03 Eos # (Auto) 0.03 K/uL (0-0.50) 03/28/22 06:03 Baso # (Auto) 0.03 K/uL (0-0.2) 03/28/22 06:03 Reticulocyte # 0.07 10^6/uL (0.02-0.10) 03/28/22 06:03 Immature Gran # (Auto) 0.03 K/uL (0.00-0.02) H 03/28/22 06:03 Absolute Nucleated RBC Cancelled 03/28/22 05:24 Nucleated RBC % (auto) Cancelled 03/28/22 05:24 Neutrophils % (Manual) Cancelled 03/28/22 05:24 Band Neutrophils % Cancelled 03/28/22 05:24 Lymphocytes % (Manual) Cancelled 03/28/22 05:24 Prolymphocyte % Cancelled 03/28/22 05:24 Reactive Lymphs % (Man) Cancelled 03/28/22 05:24 Monocytes % (Manual) Cancelled 03/28/22 05:24 Eosinophils % (Manual) Cancelled 03/28/22 05:24 Basophils % (Manual) Cancelled 03/28/22 05:24 Metamyelocytes % (Man) Cancelled 03/28/22 05:24 Myelocytes % (Man) Cancelled 03/28/22 05:24 Promyelocytes % (Man) Cancelled 03/28/22 05:24 Blast Cells % (Manual) Cancelled 03/28/22 05:24 Plasma Cell % (Manual) Cancelled 03/28/22 05:24 Other Cells % Cancelled 03/28/22 05:24 Nucleated RBC % Cancelled 03/28/22 05:24 Neutrophils # (Manual) Cancelled 03/28/22 05:24 Band Neutrophils # Cancelled 03/28/22 05:24 Total Absolute Neuts Cancelled 03/28/22 05:24 Lymphocytes # (Manual) Cancelled 03/28/22 05:24 Prolymphocyte # Cancelled 03/28/22 05:24 Reactive Lymphs # Cancelled 03/28/22 05:24 Total Abs Lymphocytes Cancelled 03/28/22 05:24 Monocytes # (Manual) Cancelled 03/28/22 05:24 Eosinophils # (Manual) Cancelled 03/28/22 05:24 Basophils # (Manual) Cancelled 03/28/22 05:24 Metamyelocytes # (Man) Cancelled 03/28/22 05:24 Myelocytes # (Manual) Cancelled 03/28/22 05:24 Promyelocytes # (Man) Cancelled 03/28/22 05:24 Blast Cells # (Man) Cancelled 03/28/22 05:24 Plasma Cell # (Manual) Cancelled 03/28/22 05:24 Other Cells # Cancelled 03/28/22 05:24 Nucleated RBCs # (Man) Cancelled 03/28/22 05:24 Hypersegmented Neuts Cancelled 03/28/22 05:24 Hyposegmented Neuts Cancelled 03/28/22 05:24 Hypogranular Neuts Cancelled 03/28/22 05:24 Large Granular Lymphs Cancelled 03/28/22 05:24 # Lrg Granular Lymphs Cancelled 03/28/22 05:24 Hairy Cells Cancelled 03/28/22 05:24 Smudge Cells Cancelled 03/28/22 05:24 Toxic Granulation Cancelled 03/28/22 05:24 Toxic Vacuolation Cancelled 03/28/22 05:24 Dohle Bodies Cancelled 03/28/22 05:24 Guerrero Rods Cancelled 03/28/22 05:24 Platelet Estimate Cancelled 03/28/22 05:24 Hypogranular Platelets Cancelled 03/28/22 05:24 Clumped Platelets Cancelled 03/28/22 05:24 Giant Platelets Cancelled 03/28/22 05:24 Platelet Satelliting Cancelled 03/28/22 05:24 RBC Morphology Cancelled 03/28/22 05:24 Polychromasia Cancelled 03/28/22 05:24 Hypochromasia Cancelled 03/28/22 05:24 Poikilocytosis Cancelled 03/28/22 05:24 Basophilic Stippling Cancelled 03/28/22 05:24 Anisocytosis Cancelled 03/28/22 05:24 Microcytosis Cancelled 03/28/22 05:24 Macrocytosis Cancelled 03/28/22 05:24 Spherocytes Cancelled 03/28/22 05:24 Pappenheimer Bodies Cancelled 03/28/22 05:24 Sickle Cells Cancelled 03/28/22 05:24 Target Cells Cancelled 03/28/22 05:24 Tear Drop Cells Cancelled 03/28/22 05:24 Ovalocytes Cancelled 03/28/22 05:24 Stomatocytes Cancelled 03/28/22 05:24 [place] Bodies Cancelled 03/28/22 05:24 Echinocytes Cancelled 03/28/22 05:24 Acanthocytes (Spur) Cancelled 03/28/22 05:24 Rouleaux Cancelled 03/28/22 05:24 RBC Agglutinates Cancelled 03/28/22 05:24 Schistocytes Cancelled 03/28/22 05:24 Sezary Cell Cancelled 03/28/22 05:24 PT 11.2 Seconds (9.0-12.0) 03/27/22 19:05 INR 1.1 (0.9-1.1) 03/27/22 19:05 APTT 27.5 Seconds (21.0-31.0) 03/27/22 19:05 PTT Ratio 1.0 03/27/22 19:05 Sodium 134 mmol/L (136-145) L 04/03/22 08:14 Potassium 4.6 mmol/L (3.5-5.1) 04/03/22 09:25 Chloride 103 mmol/L (98-107) 04/03/22 08:14 Carbon Dioxide 24 mmol/L (21-32) 04/03/22 08:14 Anion Gap 7 (3-11) 04/03/22 08:14 BUN 12 mg/dl (6-23) 04/03/22 08:14 Creatinine 0.68 mg/dl (0.6-1.2) 04/03/22 08:14 Est Cr Clr Drug Dosing 50.1 ml/min 04/03/22 08:14 Est GFR ( Amer) 92.4 ml/min 04/03/22 08:14 Est GFR (Non-Af Amer) 79.8 ml/min 04/03/22 08:14 BUN/Creatinine Ratio 17.6 (10-20) 04/03/22 08:14 Glucose 150 mg/dl (70-99(Fasting)) H 04/03/22 08:14 POC Glucose 265 mg/dl (70-99) H 04/03/22 12:41 Fasting Glucose 228 mg/dl (70-99) H 03/28/22 07:47 Lactate 1.5 mmol/L (0.4-2.0) 03/27/22 19:05 Calcium 8.9 mg/dl (8.5-10.1) 04/03/22 08:14 Magnesium 2.0 mg/dl (1.7-2.4) 03/29/22 05:18 Iron 15 mcg/dl (35-150) L 03/28/22 07:47 Transferrin 176 mg/dl (200-360) L 03/28/22 07:47 Ferritin 110.7 ng/ml (8-388) 03/28/22 07:47 Total Bilirubin 0.4 mg/dl (0.2-1.0) 03/27/22 19:05 AST 60 U/L (13-39) H 03/27/22 19:05 ALT 32 U/L (7-52) 03/27/22 19:05 Alkaline Phosphatase 67 U/L (34-104) 03/27/22 19:05 Ammonia 22.0 umol/L (18-72) 03/27/22 19:05 Total Creatine Kinase 38 U/L (26-192) 03/27/22 19:05 Troponin I High Sens 6.0 pg/ml (0-14) 03/27/22 19:05 C-Reactive Protein 2.04 mg/dl (0-0.5) H 03/29/22 05:18 Total Protein 7.5 gm/dl (6.0-8.3) 03/27/22 19:05 Albumin 3.9 gm/dl (3.4-5.0) 03/27/22 19:05 Globulin 3.6 gm/dl (2.5-4.0) 03/27/22 19:05 Albumin/Globulin Ratio 1.1 (0.9-2) 03/27/22 19:05 Vitamin B12 1033 pg/ml (180-914) H 03/28/22 07:47 Folate > 22.30 ng/ml (>5.38) 03/28/22 07:47 Procalcitonin 0.06 ng/ml (0-0.5) 03/29/22 05:18 TSH 1.019 uIu/ml (0.300-4.500) 03/27/22 19:05 Urine Color Yellow 03/27/22 19:43 Urine Appearance Cloudy (Clear) A 03/27/22 19:43 Urine pH 5.5 (4.5-7.5) 03/27/22 19:43 Ur Specific [place] 1.014 (1.000-1.030) 03/27/22 19:43 Urine Protein Trace (Negative) H 03/27/22 19:43 Urine Glucose (UA) Trace (Negative) H 03/27/22 19:43 Urine Ketones Negative (Negative) 03/27/22 19:43 Urine Blood Trace (Negative) H 03/27/22 19:43 Urine Nitrite Positive (Negative) A 03/27/22 19:43 Urine Bilirubin Negative (Negative) 03/27/22 19:43 Urine Urobilinogen Negative (Negative) 03/27/22 19:43 Ur Leukocyte Esterase 3+ (Negative) H 03/27/22 19:43 Urine WBC (Auto) >30 /hpf (0-5) H 03/27/22 19:43 Urine RBC (Auto) 0-4 /hpf (0-4) 03/27/22 19:43 U Hyaline Cast (Auto) 1-5 /lpf (0-5) 03/27/22 19:43 U Epithel Cells (Auto) 5-10 /lpf (0-5) H 03/27/22 19:43 Urine Bacteria (Auto) 4+ (Negative) H 03/27/22 19:43 SARS-CoV-2 (PCR) POSITIVE (Negative) A* 03/27/22 18:42 Influenza Type A (PCR) Negative (Neg) 03/27/22 18:42 Influenza Type B (PCR) Negative (Neg) 03/27/22 18:42 RSV (RT-PCR) Negative (Neg) 03/27/22 18:42 Blood Parasites ID Cancelled 03/28/22 05:24 Blood Type A Positive 03/28/22 05:24 Antibody Screen NEGATIVE 03/28/22 05:24 Impressions Chest X-Ray 03/27/22 17:33 SINGLE VIEW CHEST CLINICAL HISTORY: Generalized weakness. Change in mental status. FINDINGS: 2 AP, portable, upright chest radiographs are obtained. No prior studies are available for comparison at the time of dictation. The cardiomediastinal silhouette is top normal for projection noting atherosclerotic calcification of the thoracic aorta. Nonspecific interstitial thickening is likely chronic. There is bibasilar scarring/atelectasis. The lungs and pleural spaces are otherwise clear. No pneumothorax is seen. The skeletal structures are osteopenic. The bony thorax is grossly intact. IMPRESSION: No active disease in the chest. ACT 112: Negative or not required by law. Electronically signed by: Kb Harper M.D. 03/27/2022 5:[address] 03/27/22 17:33 CT SCAN OF THE BRAIN WITHOUT IV CONTRAST CLINICAL HISTORY: Generalized weakness. Change in mental status. COMPARISON STUDY: No priors. TECHNIQUE: Unenhanced axial CT scan of the brain is performed from the vertex to the skull base. A dose lowering technique was utilized adhering to the principles of ALARA. 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 There is no hemorrhage, mass effect, or evidence of acute territorial ischemia by CT criteria. Boyd-white matter differentiation is preserved. No extra-axial fluid collection is seen. Calcification is noted in the anterior limb of the right internal capsule. Ventricles, sulci, cisterns: Prominent secondary to involutional change. Intracranial vasculature: There is atherosclerotic calcification of the cavernous carotid and vertebral arteries. Calvarium: Unremarkable. Sinuses and mastoids: The visualized paranasal sinuses are clear. The mastoid air cells are well pneumatized. Orbits: The bony orbits are grossly intact. IMPRESSION: There is no hemorrhage, mass effect, or evidence of acute territorial ischemia by CT criteria. ACT 112: Negative or not required by law. Electronically signed by: Kb Harper M.D. 03/27/2022 7:26 PM Medications Administered Current Inpatient Medications Acetaminophen (Acetaminophen 325 Mg Tab) 650 mg PO Q6H PRN PRN Reason: Fever/pain Stop: 04/27/22 01:13 Amlodipine Besylate (Amlodipine Besylate 5 Mg Tab) 5 mg PO DAILY MIGDALIA Stop: 04/27/22 08:59 Last Admin: 04/03/22 09:33 Dose: 5 mg Aspirin (Aspirin 81 Mg Ectab) 81 mg PO DAILY MIGDALIA Stop: 04/29/22 08:59 Last Admin: 04/03/22 09:33 Dose: 81 mg Atenolol (Atenolol 50 Mg Tablet) 50 mg PO HS MIGDALIA Stop: 04/27/22 20:59 Last Admin: 04/02/22 21:47 Dose: 50 mg Atorvastatin Calcium (Atorvastatin 40 Mg Tab) 40 mg PO HS MIGDALIA Stop: 04/27/22 20:59 Last Admin: 04/02/22 21:48 Dose: 40 mg Cyanocobalamin (Cyanocobalamin (B-12) 500 Mcg Tablet) 1,000 mcg PO QPM MIGDALIA Stop: 04/27/22 20:59 Last Admin: 04/02/22 21:47 Dose: 1,000 mcg Dextrose (Dextrose 50% 50 Ml Syringe) 25 - 50 ml IV UD PRN; Protocol PRN Reason: Hypoglycemia Protocol Stop: 04/27/22 01:13 Docusate Sodium (Docusate Sodium 100 Mg Cap) 100 mg PO AMHS MIGDALIA Stop: 04/27/22 08:59 Last Admin: 04/03/22 09:33 Dose: 100 mg Gabapentin (Gabapentin 100 Mg Cap) 200 mg PO BID MIGDALIA Stop: 04/27/22 08:59 Last Admin: 04/03/22 09:33 Dose: 200 mg Glucagon (Glucagon For Inj 1 Mg Vial) 1 mg SQ UD PRN; Protocol PRN Reason: Hypoglycemia Protocol Stop: 04/27/22 01:13 Glucose (Glucose 40% Gel 15 Gm Tube) 15 - 30 gm PO UD PRN; Protocol PRN Reason: Hypoglycemia Protocol Stop: 04/27/22 01:13 Glucose (Glucose 10 Tab/Tube) 4 - 8 tab PO UD PRN; Protocol PRN Reason: Hypoglycemia Treatment Stop: 04/27/22 01:13 Promethazine HCl 12.5 mg/ (Sodium Chloride) 50.5 mls @ 202 mls/hr IV Q6H PRN PRN Reason: Nausea And Vomiting Stop: 04/26/22 22:21 Insulin Aspart (Insulin Aspart Per Unit) 0 units SC ACHS [facility] Stop: 04/27/22 01:13 Last Admin: 04/03/22 13:13 Dose: 11 units Insulin Glargine (Lantus Per Unit Charge) 7 units SQ BID MIGDALIA Stop: 04/30/22 20:59 Last Admin: 04/03/22 09:22 Dose: 7 units Lorazepam (Lorazepam 0.5 Mg Tab) 0.5 mg PO HS PRN PRN Reason: insomnia Stop: 04/27/22 01:13 Last Admin: 04/02/22 21:47 Dose: 0.5 mg Miscellaneous (Carbohydrates For Hypoglycemia ) 15 - 30 gm PO UD PRN PRN Reason: Hypoglycemia Protocol Stop: 04/27/22 01:13 Multivitamins/Minerals (Cerovite Adv Formula Tab) 1 tab PO DAILY MIGDALIA Stop: 04/27/22 08:59 Last Admin: 04/03/22 09:33 Dose: 1 tab Pantoprazole Sodium (Pantoprazole 40 Mg Tab) 40 mg PO DAILY MIGDALIA Stop: 04/27/22 08:59 Last Admin: 04/03/22 09:33 Dose: 40 mg Polyethylene Glycol (Polyethylene (Miralax) 17 Gm Pack) 17 gm PO DAILY MIGDALIA Stop: 04/27/22 08:59 Last Admin: 04/03/22 09:33 Dose: 17 gm (1) AMS (altered mental status) Altered mental status type: unspecified Qualified Code(s): R41.82 - Altered mental status, unspecified
[2022-04-03] MEDS: ATORVASTATIN 40 MG TAB PO SCH (21:28)
[2022-04-03] MEDS: ATENOLOL 50 MG TABLET PO SCH (21:28)
[2022-04-03] MEDS: CYANOCOBALAMIN (B-12) 500 MCG TABLET PO SCH (21:29)
[2022-04-04] MEDS: INSULIN ASPART PER UNIT SC SCH ×4 (09:12→21:42)
[2022-04-04] MEDS: LANTUS PER UNIT CHARGE SQ SCH ×2 (09:12→21:38)
[2022-04-04] MEDS: PANTOprazole 40 MG TAB PO SCH (09:24)
[2022-04-04] MEDS: ASPIRIN 81 MG ECTAB PO SCH (09:24)
[2022-04-04] MEDS: GABAPENTIN 100 MG CAP PO SCH ×2 (09:25→21:38)
[2022-04-04] MEDS: DOCUSATE SODIUM 100 MG CAP PO SCH ×2 (09:25→21:38)
[2022-04-04] MEDS: CEROVITE ADV FORMULA TAB PO SCH (09:26)
[2022-04-04] MEDS: POLYETHYLENE (MIRALAX) 17 GM PACK PO SCH (09:26)
[2022-04-04] MEDS: amLODIPine BESYLATE 5 MG TAB PO SCH (09:26)
--- NOTE | 2022-04-04 12:45 | Hospitalist Progress Note ---
Date of Service April 04, 2022 Assessment & Plan (1) Acute UTI: (2) AMS (altered mental status): Plan: Acute metabolic encephalopathy-POA Urinary tract infection Generalized weakness Urine culture growing E coli Blood cultures: Negative to date On ceftriaxone--completed course 04/03/2022 Mental status seems to be back to baseline Waiting for rehab placement COVID-19 Infection CXR:No active disease in the chest. CRP: 2.04 Saturating well on room air Conservative management Antitussives as needed Positive FOBT Hemoglobin at baseline No obvious bleeding issues Follow-up as outpatient Monitor for any bleeding issues Monitor CBC Hypertension On amlodipine, atenolol Hyperlipidemia on statin H/O left breast cancer S/P surgery, Tamoxifen Rx Patient refused chemo currently in remission DM II Hold oral medications HbA1C; .04 January 2022 Dementia No agitation Monitor DVT Px: SCDs Re: + FOBT Code Status Full code Disposition Plan to discharge to Rehab facility when accepted Admission and Anticipated Discharge Date Admission Date: March 27, 2022 Subjective Patient is seen and examined at bedside States feeling well Minimal cough wants to leave the hospital, go home Denies any chest pain, shortness of breath, dizziness, nausea, abdominal pain No other complaints AAOx1 to self only Waiting for placement Review of Systems Review of Systems: All systems reviewed & are unremarkable except as noted in Subjective Physical Exam Physical Exam: General Appearance: underweight, no apparent distress, Elderly, Head: normocephalic, Atraumatic Eyes: normal inspection, EOMI Neck: supple, Trachea midline Respiratory/Chest: Normal breath sounds, CTA, No accessory muscle use Cardiovascular: S1, S2, No murmur Abdomen/GI:Soft, Non tender, Bowel sounds present Extremities/Musculoskeletal:normal inspection, Trace edema Neurologic/Psych:AAO X1 only to self, grossly no focal neurological deficits, +Dementia Skin: normal color, warm Results & Data Results & Data ([facility]) Vital Signs (Past 12 Hours) Vital Signs Temp Pulse Resp BP Pulse Ox O2 Del Method 04/04/22 09:27 Room Air 04/04/22 09:23 61 131/71 04/04/22 07:04 36.5 C 59 L 16 142/78 H 98 Room Air Diagnostic Findings Laboratory Results WBC 5.24 K/ul (4.8-10.8) 03/30/22 05:25 RBC 3.99 M/uL (3.93-5.22) 03/30/22 05:25 Hgb 11.9 g/dl (12.0-16.0) L 03/30/22 05:25 Hct 34.8 % (34.1-44.9) 03/30/22 05:25 MCV 87.2 fL (80.0-100.0) 03/30/22 05:25 MCH 29.8 pg (25.0-34.0) 03/30/22 05:25 MCHC 34.2 g/dL (32.0-36.0) 03/30/22 05:25 RDW Std Deviation 48.8 fL (36.4-46.3) H 03/30/22 05:25 RDW Coeff of Judy 15.1 % (11.5-14.5) H 03/30/22 05:25 Plt Count 174 K/uL (130-400) 03/30/22 05:25 MPV 9.8 fL (9.4-12.3) 03/30/22 05:25 Immature Gran % (Auto) 0.4 % 03/28/22 06:03 Neut % (Auto) 67.0 % 03/28/22 06:03 Lymph % (Auto) 19.9 % 03/28/22 06:03 [place] % (Auto) 11.9 % 03/28/22 06:03 Eos % (Auto) 0.4 % 03/28/22 06:03 Baso % (Auto) 0.4 % 03/28/22 06:03 Reticulocyte % (Auto) 1.6 % (0.5-2.0) 03/28/22 06:03 Neut # (Auto) 4.99 K/uL (1.4-6.5) 03/28/22 06:03 Lymph # (Auto) 1.48 K/uL (1.2-3.4) 03/28/22 06:03 [place] # (Auto) 0.89 K/uL (0.24-0.82) H 03/28/22 06:03 Eos # (Auto) 0.03 K/uL (0-0.50) 03/28/22 06:03 Baso # (Auto) 0.03 K/uL (0-0.2) 03/28/22 06:03 Reticulocyte # 0.07 10^6/uL (0.02-0.10) 03/28/22 06:03 Immature Gran # (Auto) 0.03 K/uL (0.00-0.02) H 03/28/22 06:03 Absolute Nucleated RBC Cancelled 03/28/22 05:24 Nucleated RBC % (auto) Cancelled 03/28/22 05:24 Neutrophils % (Manual) Cancelled 03/28/22 05:24 Band Neutrophils % Cancelled 03/28/22 05:24 Lymphocytes % (Manual) Cancelled 03/28/22 05:24 Prolymphocyte % Cancelled 03/28/22 05:24 Reactive Lymphs % (Man) Cancelled 03/28/22 05:24 Monocytes % (Manual) Cancelled 03/28/22 05:24 Eosinophils % (Manual) Cancelled 03/28/22 05:24 Basophils % (Manual) Cancelled 03/28/22 05:24 Metamyelocytes % (Man) Cancelled 03/28/22 05:24 Myelocytes % (Man) Cancelled 03/28/22 05:24 Promyelocytes % (Man) Cancelled 03/28/22 05:24 Blast Cells % (Manual) Cancelled 03/28/22 05:24 Plasma Cell % (Manual) Cancelled 03/28/22 05:24 Other Cells % Cancelled 03/28/22 05:24 Nucleated RBC % Cancelled 03/28/22 05:24 Neutrophils # (Manual) Cancelled 03/28/22 05:24 Band Neutrophils # Cancelled 03/28/22 05:24 Total Absolute Neuts Cancelled 03/28/22 05:24 Lymphocytes # (Manual) Cancelled 03/28/22 05:24 Prolymphocyte # Cancelled 03/28/22 05:24 Reactive Lymphs # Cancelled 03/28/22 05:24 Total Abs Lymphocytes Cancelled 03/28/22 05:24 Monocytes # (Manual) Cancelled 03/28/22 05:24 Eosinophils # (Manual) Cancelled 03/28/22 05:24 Basophils # (Manual) Cancelled 03/28/22 05:24 Metamyelocytes # (Man) Cancelled 03/28/22 05:24 Myelocytes # (Manual) Cancelled 03/28/22 05:24 Promyelocytes # (Man) Cancelled 03/28/22 05:24 Blast Cells # (Man) Cancelled 03/28/22 05:24 Plasma Cell # (Manual) Cancelled 03/28/22 05:24 Other Cells # Cancelled 03/28/22 05:24 Nucleated RBCs # (Man) Cancelled 03/28/22 05:24 Hypersegmented Neuts Cancelled 03/28/22 05:24 Hyposegmented Neuts Cancelled 03/28/22 05:24 Hypogranular Neuts Cancelled 03/28/22 05:24 Large Granular Lymphs Cancelled 03/28/22 05:24 # Lrg Granular Lymphs Cancelled 03/28/22 05:24 Hairy Cells Cancelled 03/28/22 05:24 Smudge Cells Cancelled 03/28/22 05:24 Toxic Granulation Cancelled 03/28/22 05:24 Toxic Vacuolation Cancelled 03/28/22 05:24 Dohle Bodies Cancelled 03/28/22 05:24 Guerrero Rods Cancelled 03/28/22 05:24 Platelet Estimate Cancelled 03/28/22 05:24 Hypogranular Platelets Cancelled 03/28/22 05:24 Clumped Platelets Cancelled 03/28/22 05:24 Giant Platelets Cancelled 03/28/22 05:24 Platelet Satelliting Cancelled 03/28/22 05:24 RBC Morphology Cancelled 03/28/22 05:24 Polychromasia Cancelled 03/28/22 05:24 Hypochromasia Cancelled 03/28/22 05:24 Poikilocytosis Cancelled 03/28/22 05:24 Basophilic Stippling Cancelled 03/28/22 05:24 Anisocytosis Cancelled 03/28/22 05:24 Microcytosis Cancelled 03/28/22 05:24 Macrocytosis Cancelled 03/28/22 05:24 Spherocytes Cancelled 03/28/22 05:24 Pappenheimer Bodies Cancelled 03/28/22 05:24 Sickle Cells Cancelled 03/28/22 05:24 Target Cells Cancelled 03/28/22 05:24 Tear Drop Cells Cancelled 03/28/22 05:24 Ovalocytes Cancelled 03/28/22 05:24 Stomatocytes Cancelled 03/28/22 05:24 Gutierrez-Eden Bodies Cancelled 03/28/22 05:24 Echinocytes Cancelled 03/28/22 05:24 Acanthocytes (Spur) Cancelled 03/28/22 05:24 Rouleaux Cancelled 03/28/22 05:24 RBC Agglutinates Cancelled 03/28/22 05:24 Schistocytes Cancelled 03/28/22 05:24 Sezary Cell Cancelled 03/28/22 05:24 PT 11.2 Seconds (9.0-12.0) 03/27/22 19:05 INR 1.1 (0.9-1.1) 03/27/22 19:05 APTT 27.5 Seconds (21.0-31.0) 03/27/22 19:05 PTT Ratio 1.0 03/27/22 19:05 Sodium 134 mmol/L (136-145) L 04/03/22 08:14 Potassium 4.6 mmol/L (3.5-5.1) 04/03/22 09:25 Chloride 103 mmol/L (98-107) 04/03/22 08:14 Carbon Dioxide 24 mmol/L (21-32) 04/03/22 08:14 Anion Gap 7 (3-11) 04/03/22 08:14 BUN 12 mg/dl (6-23) 04/03/22 08:14 Creatinine 0.68 mg/dl (0.6-1.2) 04/03/22 08:14 Est Cr Clr Drug Dosing 50.1 ml/min 04/03/22 08:14 Est GFR ( Amer) 92.4 ml/min 04/03/22 08:14 Est GFR (Non-Af Amer) 79.8 ml/min 04/03/22 08:14 BUN/Creatinine Ratio 17.6 (10-20) 04/03/22 08:14 Glucose 150 mg/dl (70-99(Fasting)) H 04/03/22 08:14 POC Glucose 238 mg/dl (70-99) H 04/04/22 12:35 Fasting Glucose 228 mg/dl (70-99) H 03/28/22 07:47 Lactate 1.5 mmol/L (0.4-2.0) 03/27/22 19:05 Calcium 8.9 mg/dl (8.5-10.1) 04/03/22 08:14 Magnesium 2.0 mg/dl (1.7-2.4) 03/29/22 05:18 Iron 15 mcg/dl (35-150) L 03/28/22 07:47 Transferrin 176 mg/dl (200-360) L 03/28/22 07:47 Ferritin 110.7 ng/ml (8-388) 03/28/22 07:47 Total Bilirubin 0.4 mg/dl (0.2-1.0) 03/27/22 19:05 AST 60 U/L (13-39) H 03/27/22 19:05 ALT 32 U/L (7-52) 03/27/22 19:05 Alkaline Phosphatase 67 U/L (34-104) 03/27/22 19:05 Ammonia 22.0 umol/L (18-72) 03/27/22 19:05 Total Creatine Kinase 38 U/L (26-192) 03/27/22 19:05 Troponin I High Sens 6.0 pg/ml (0-14) 03/27/22 19:05 C-Reactive Protein 2.04 mg/dl (0-0.5) H 03/29/22 05:18 Total Protein 7.5 gm/dl (6.0-8.3) 03/27/22 19:05 Albumin 3.9 gm/dl (3.4-5.0) 03/27/22 19:05 Globulin 3.6 gm/dl (2.5-4.0) 03/27/22 19:05 Albumin/Globulin Ratio 1.1 (0.9-2) 03/27/22 19:05 Vitamin B12 1033 pg/ml (180-914) H 03/28/22 07:47 Folate > 22.30 ng/ml (>5.38) 03/28/22 07:47 Procalcitonin 0.06 ng/ml (0-0.5) 03/29/22 05:18 TSH 1.019 uIu/ml (0.300-4.500) 03/27/22 19:05 Urine Color Yellow 03/27/22 19:43 Urine Appearance Cloudy (Clear) A 03/27/22 19:43 Urine pH 5.5 (4.5-7.5) 03/27/22 19:43 Ur Specific [place] 1.014 (1.000-1.030) 03/27/22 19:43 Urine Protein Trace (Negative) H 03/27/22 19:43 Urine Glucose (UA) Trace (Negative) H 03/27/22 19:43 Urine Ketones Negative (Negative) 03/27/22 19:43 Urine Blood Trace (Negative) H 03/27/22 19:43 Urine Nitrite Positive (Negative) A 03/27/22 19:43 Urine Bilirubin Negative (Negative) 03/27/22 19:43 Urine Urobilinogen Negative (Negative) 03/27/22 19:43 Ur Leukocyte Esterase 3+ (Negative) H 03/27/22 19:43 Urine WBC (Auto) >30 /hpf (0-5) H 03/27/22 19:43 Urine RBC (Auto) 0-4 /hpf (0-4) 03/27/22 19:43 U Hyaline Cast (Auto) 1-5 /lpf (0-5) 03/27/22 19:43 U Epithel Cells (Auto) 5-10 /lpf (0-5) H 03/27/22 19:43 Urine Bacteria (Auto) 4+ (Negative) H 03/27/22 19:43 SARS-CoV-2 (PCR) POSITIVE (Negative) A* 03/27/22 18:42 Influenza Type A (PCR) Negative (Neg) 03/27/22 18:42 Influenza Type B (PCR) Negative (Neg) 03/27/22 18:42 RSV (RT-PCR) Negative (Neg) 03/27/22 18:42 Blood Parasites ID Cancelled 03/28/22 05:24 Blood Type A Positive 03/28/22 05:24 Antibody Screen NEGATIVE 03/28/22 05:24 Impressions Chest X-Ray 03/27/22 17:33 SINGLE VIEW CHEST CLINICAL HISTORY: Generalized weakness. Change in mental status. FINDINGS: 2 AP, portable, upright chest radiographs are obtained. No prior studies are available for comparison at the time of dictation. The cardiome diastinal silhouette is top normal for projection noting atherosclerotic calcification of the thoracic aorta. Nonspecific interstitial thickening is likely chronic. There is bibasilar scarring/atelectasis. The lungs and pleural spaces are otherwise clear. No pneumothorax is seen. The skeletal structures are osteopenic. The bony thorax is grossly intact. IMPRESSION: No active disease in the chest. ACT 112: Negative or not required by law. Electronically signed by: Kb Harper M.D. 03/27/2022 5:[address] 03/27/22 17:33 CT SCAN OF THE BRAIN WITHOUT IV CONTRAST CLINICAL HISTORY: Generalized weakness. Change in mental status. COMPARISON STUDY: No priors. TECHNIQUE: Unenhanced axial CT scan of the brain is performed from the vertex to the skull base. A dose lowering technique was utilized adhering to the principles of ALARA. 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 There is no hemorrhage, mass effect, or evidence of acute territorial ischemia by CT criteria. Boyd-white matter differentiation is preserved. No extra-axial fluid collection is seen. Calcification is noted in the anterior limb of the right internal capsule. Ventricles, sulci, cisterns: Prominent secondary to involutional change. Intracranial vasculature: There is atherosclerotic calcification of the cavernous carotid and vertebral arteries. Calvarium: Unremarkable. Sinuses and mastoids: The visualized paranasal sinuses are clear. The mastoid air cells are well pneumatized. Orbits: The bony orbits are grossly intact. IMPRESSION: There is no hemorrhage, mass effect, or evidence of acute territorial ischemia by CT criteria. ACT 112: Negative or not required by law. Electronically signed by: Kb Harper M.D. 03/27/2022 7:26 PM Medications Administered Current Inpatient Medications Acetaminophen (Acetaminophen 325 Mg Tab) 650 mg PO Q6H PRN PRN Reason: Fever/pain Stop: 04/27/22 01:13 Amlodipine Besylate (Amlodipine Besylate 5 Mg Tab) 5 mg PO DAILY MIGDALIA Stop: 04/27/22 08:59 Last Admin: 04/04/22 09:26 Dose: 5 mg Aspirin (Aspirin 81 Mg Ectab) 81 mg PO DAILY MIGDALIA Stop: 04/29/22 08:59 Last Admin: 04/04/22 09:24 Dose: 81 mg Atenolol (Atenolol 50 Mg Tablet) 50 mg PO HS MIGDALIA Stop: 04/27/22 20:59 Last Admin: 04/03/22 21:28 Dose: Not Given Atorvastatin Calcium (Atorvastatin 40 Mg Tab) 40 mg PO HS MIGDALIA Stop: 04/27/22 20:59 Last Admin: 04/03/22 21:28 Dose: 40 mg Cyanocobalamin (Cyanocobalamin (B-12) 500 Mcg Tablet) 1,000 mcg PO QPM MIGDALIA Stop: 04/27/22 20:59 Last Admin: 04/03/22 21:29 Dose: 1,000 mcg Dextrose (Dextrose 50% 50 Ml Syringe) 25 - 50 ml IV UD PRN; Protocol PRN Reason: Hypoglycemia Protocol Stop: 04/27/22 01:13 Docusate Sodium (Docusate Sodium 100 Mg Cap) 100 mg PO AMHS MIGDALIA Stop: 04/27/22 08:59 Last Admin: 04/04/22 09:25 Dose: 100 mg Gabapentin (Gabapentin 100 Mg Cap) 200 mg PO BID MIGDALIA Stop: 04/27/22 08:59 Last Admin: 04/04/22 09:25 Dose: 200 mg Glucagon (Glucagon For Inj 1 Mg Vial) 1 mg SQ UD PRN; Protocol PRN Reason: Hypoglycemia Protocol Stop: 04/27/22 01:13 Glucose (Glucose 40% Gel 15 Gm Tube) 15 - 30 gm PO UD PRN; Protocol PRN Reason: Hypoglycemia Protocol Stop: 04/27/22 01:13 Glucose (Glucose 10 Tab/Tube) 4 - 8 tab PO UD PRN; Protocol PRN Reason: Hypoglycemia Treatment Stop: 04/27/22 01:13 Promethazine HCl 12.5 mg/ (Sodium Chloride) 50.5 mls @ 202 mls/hr IV Q6H PRN PRN Reason: Nausea And Vomiting Stop: 04/26/22 22:21 Insulin Aspart (Insulin Aspart Per Unit) 0 units SC ACHS [facility] Stop: 04/27/22 01:13 Last Admin: 04/04/22 09:12 Dose: 4 units Insulin Glargine (Lantus Per Unit Charge) 7 units SQ BID MIGDALIA Stop: 04/30/22 20:59 Last Admin: 04/04/22 09:12 Dose: 7 units Lorazepam (Lorazepam 0.5 Mg Tab) 0.5 mg PO HS PRN PRN Reason: insomnia Stop: 04/27/22 01:13 Last Admin: 04/02/22 21:47 Dose: 0.5 mg Miscellaneous (Carbohydrates For Hypoglycemia ) 15 - 30 gm PO UD PRN PRN Reason: Hypoglycemia Protocol Stop: 04/27/22 01:13 Multivitamins/Minerals (Cerovite Adv Formula Tab) 1 tab PO DAILY MIGDALIA Stop: 04/27/22 08:59 Last Admin: 04/04/22 09:26 Dose: 1 tab Pantoprazole Sodium (Pantoprazole 40 Mg Tab) 40 mg PO DAILY MIGDALIA Stop: 04/27/22 08:59 Last Admin: 04/04/22 09:24 Dose: 40 mg Polyethylene Glycol (Polyethylene (Miralax) 17 Gm Pack) 17 gm PO DAILY MIGDALIA Stop: 04/27/22 08:59 Last Admin: 04/04/22 09:26 Dose: 17 gm (1) AMS (altered mental status) Altered mental status type: unspecified Qualified Code(s): R41.82 - Altered mental status, unspecified
[2022-04-04] MEDS: ATORVASTATIN 40 MG TAB PO SCH (21:38)
[2022-04-04] MEDS: ATENOLOL 50 MG TABLET PO SCH ×2 (21:38→21:40)
[2022-04-04] MEDS: CYANOCOBALAMIN (B-12) 500 MCG TABLET PO SCH (21:38)
[2022-04-05 06:11] LABS: Calcium 9.1 mg/dl (8.5-10.1); Creatinine Clr Calc Pharmacy 49.4 ml/min; Est GFR (Non-African American) 79.4 ml/min; Phosphorus 3.9 mg/dl (2.5-4.9); Potassium 4.1 mmol/L (3.5-5.1)
[2022-04-05] MEDS: amLODIPine BESYLATE 5 MG TAB PO SCH (08:27)
[2022-04-05] MEDS: ASPIRIN 81 MG ECTAB PO SCH (08:28)
[2022-04-05] MEDS: GABAPENTIN 100 MG CAP PO SCH ×2 (08:28→20:05)
[2022-04-05] MEDS: DOCUSATE SODIUM 100 MG CAP PO SCH ×2 (08:28→20:04)
[2022-04-05] MEDS: CEROVITE ADV FORMULA TAB PO SCH (08:29)
[2022-04-05] MEDS: POLYETHYLENE (MIRALAX) 17 GM PACK PO SCH (08:29)
[2022-04-05] MEDS: PANTOprazole 40 MG TAB PO SCH (08:29)
[2022-04-05] MEDS: INSULIN ASPART PER UNIT SC SCH ×4 (08:40→20:23)
[2022-04-05] MEDS: LANTUS PER UNIT CHARGE SQ SCH ×2 (08:41→20:23)
--- NOTE | 2022-04-05 11:15 | Hospitalist Progress Note ---
Date of Service April 05, 2022 Assessment & Plan (1) Acute UTI: (2) AMS (altered mental status): Plan: Acute metabolic encephalopathy-POA Urinary tract infection Generalized weakness Urine culture growing E coli Blood cultures: Negative to date On ceftriaxone--completed course 04/03/2022 Mental status seems to be back to baseline Waiting for rehab placement COVID-19 Infection CXR:No active disease in the chest. CRP: 2.04 Saturating well on room air Conservative management Antitussives as needed Positive FOBT Hemoglobin at baseline No obvious bleeding issues Follow-up as outpatient Monitor for any bleeding issues Monitor CBC Hypertension On amlodipine, atenolol Hyperlipidemia on statin H/O left breast cancer S/P surgery, Tamoxifen Rx Patient refused chemo currently in remission DM II Hold oral medications HbA1C; .04 January 2022 Dementia No agitation Monitor DVT Px: SCDs Re: + FOBT Code Status Full code Disposition Plan to discharge to Rehab facility when accepted Admission and Anticipated Discharge Date Admission Date: March 27, 2022 Subjective Patient is seen and examined at bedside States feeling well Minimal cough wants to leave the hospital, go home Denies any chest pain, shortness of breath, dizziness, nausea, abdominal pain No other complaints AAOx1 to self only Waiting for placement Review of Systems Review of Systems: All systems reviewed & are unremarkable except as noted in Subjective Physical Exam Physical Exam: General Appearance: underweight, no apparent distress, Elderly, Head: normocephalic, Atraumatic Eyes: normal inspection, EOMI Neck: supple, Trachea midline Respiratory/Chest: Normal breath sounds, CTA, No accessory muscle use Cardiovascular: S1, S2, No murmur Abdomen/GI:Soft, Non tender, Bowel sounds present Extremities/Musculoskeletal:normal inspection, Trace edema Neurologic/Psych:AAO X1 only to self, grossly no focal neurological deficits, +Dementia Skin: normal color, warm Results & Data Results & Data ([facility]) Vital Signs (Past 12 Hours) Vital Signs Temp Pulse Resp BP Pulse Ox O2 Del Method 04/05/22 08:23 60 145/74 H 04/05/22 07:00 36.4 C L 57 L 16 131/78 96 Room Air Diagnostic Findings Laboratory Results WBC 5.24 K/ul (4.8-10.8) 03/30/22 05:25 RBC 3.99 M/uL (3.93-5.22) 03/30/22 05:25 Hgb 11.9 g/dl (12.0-16.0) L 03/30/22 05:25 Hct 34.8 % (34.1-44.9) 03/30/22 05:25 MCV 87.2 fL (80.0-100.0) 03/30/22 05:25 MCH 29.8 pg (25.0-34.0) 03/30/22 05:25 MCHC 34.2 g/dL (32.0-36.0) 03/30/22 05:25 RDW Std Deviation 48.8 fL (36.4-46.3) H 03/30/22 05:25 RDW Coeff of Judy 15.1 % (11.5-14.5) H 03/30/22 05:25 Plt Count 174 K/uL (130-400) 03/30/22 05:25 MPV 9.8 fL (9.4-12.3) 03/30/22 05:25 Immature Gran % (Auto) 0.4 % 03/28/22 06:03 Neut % (Auto) 67.0 % 03/28/22 06:03 Lymph % (Auto) 19.9 % 03/28/22 06:03 Williams % (Auto) 11.9 % 03/28/22 06:03 Eos % (Auto) 0.4 % 03/28/22 06:03 Baso % (Auto) 0.4 % 03/28/22 06:03 Reticulocyte % (Auto) 1.6 % (0.5-2.0) 03/28/22 06:03 Neut # (Auto) 4.99 K/uL (1.4-6.5) 03/28/22 06:03 Lymph # (Auto) 1.48 K/uL (1.2-3.4) 03/28/22 06:03 Williams # (Auto) 0.89 K/uL (0.24-0.82) H 03/28/22 06:03 Eos # (Auto) 0.03 K/uL (0-0.50) 03/28/22 06:03 Baso # (Auto) 0.03 K/uL (0-0.2) 03/28/22 06:03 Reticulocyte # 0.07 10^6/uL (0.02-0.10) 03/28/22 06:03 Immature Gran # (Auto) 0.03 K/uL (0.00-0.02) H 03/28/22 06:03 Absolute Nucleated RBC Cancelled 03/28/22 05:24 Nucleated RBC % (auto) Cancelled 03/28/22 05:24 Neutrophils % (Manual) Cancelled 03/28/22 05:24 Band Neutrophils % Cancelled 03/28/22 05:24 Lymphocytes % (Manual) Cancelled 03/28/22 05:24 Prolymphocyte % Cancelled 03/28/22 05:24 Reactive Lymphs % (Man) Cancelled 03/28/22 05:24 Monocytes % (Manual) Cancelled 03/28/22 05:24 Eosinophils % (Manual) Cancelled 03/28/22 05:24 Basophils % (Manual) Cancelled 03/28/22 05:24 Metamyelocytes % (Man) Cancelled 03/28/22 05:24 Myelocytes % (Man) Cancelled 03/28/22 05:24 Promyelocytes % (Man) Cancelled 03/28/22 05:24 Blast Cells % (Manual) Cancelled 03/28/22 05:24 Plasma Cell % (Manual) Cancelled 03/28/22 05:24 Other Cells % Cancelled 03/28/22 05:24 Nucleated RBC % Cancelled 03/28/22 05:24 Neutrophils # (Manual) Cancelled 03/28/22 05:24 Band Neutrophils # Cancelled 03/28/22 05:24 Total Absolute Neuts Cancelled 03/28/22 05:24 Lymphocytes # (Manual) Cancelled 03/28/22 05:24 Prolymphocyte # Cancelled 03/28/22 05:24 Reactive Lymphs # Cancelled 03/28/22 05:24 Total Abs Lymphocytes Cancelled 03/28/22 05:24 Monocytes # (Manual) Cancelled 03/28/22 05:24 Eosinophils # (Manual) Cancelled 03/28/22 05:24 Basophils # (Manual) Cancelled 03/28/22 05:24 Metamyelocytes # (Man) Cancelled 03/28/22 05:24 Myelocytes # (Manual) Cancelled 03/28/22 05:24 Promyelocytes # (Man) Cancelled 03/28/22 05:24 Blast Cells # (Man) Cancelled 03/28/22 05:24 Plasma Cell # (Manual) Cancelled 03/28/22 05:24 Other Cells # Cancelled 03/28/22 05:24 Nucleated RBCs # (Man) Cancelled 03/28/22 05:24 Hypersegmented Neuts Cancelled 03/28/22 05:24 Hyposegmented Neuts Cancelled 03/28/22 05:24 Hypogranular Neuts Cancelled 03/28/22 05:24 Large Granular Lymphs Cancelled 03/28/22 05:24 # Lrg Granular Lymphs Cancelled 03/28/22 05:24 Hairy Cells Cancelled 03/28/22 05:24 Smudge Cells Cancelled 03/28/22 05:24 Toxic Granulation Cancelled 03/28/22 05:24 Toxic Vacuolation Cancelled 03/28/22 05:24 Dohle Bodies Cancelled 03/28/22 05:24 Guerrero Rods Cancelled 03/28/22 05:24 Platelet Estimate Cancelled 03/28/22 05:24 Hypogranular Platelets Cancelled 03/28/22 05:24 Clumped Platelets Cancelled 03/28/22 05:24 Giant Platelets Cancelled 03/28/22 05:24 Platelet Satelliting Cancelled 03/28/22 05:24 RBC Morphology Cancelled 03/28/22 05:24 Polychromasia Cancelled 03/28/22 05:24 Hypochromasia Cancelled 03/28/22 05:24 Poikilocytosis Cancelled 03/28/22 05:24 Basophilic Stippling Cancelled 03/28/22 05:24 Anisocytosis Cancelled 03/28/22 05:24 Microcytosis Cancelled 03/28/22 05:24 Macrocytosis Cancelled 03/28/22 05:24 Spherocytes Cancelled 03/28/22 05:24 Pappenheimer Bodies Cancelled 03/28/22 05:24 Sickle Cells Cancelled 03/28/22 05:24 Target Cells Cancelled 03/28/22 05:24 Tear Drop Cells Cancelled 03/28/22 05:24 Ovalocytes Cancelled 03/28/22 05:24 Stomatocytes Cancelled 03/28/22 05:24 Gut[place] Bodies Cancelled 03/28/22 05:24 Echinocytes Cancelled 03/28/22 05:24 Acanthocytes (Spur) Cancelled 03/28/22 05:24 Rouleaux Cancelled 03/28/22 05:24 RBC Agglutinates Cancelled 03/28/22 05:24 Schistocytes Cancelled 03/28/22 05:24 Sezary Cell Cancelled 03/28/22 05:24 PT 11.2 Seconds (9.0-12.0) 03/27/22 19:05 INR 1.1 (0.9-1.1) 03/27/22 19:05 APTT 27.5 Seconds (21.0-31.0) 03/27/22 19:05 PTT Ratio 1.0 03/27/22 19:05 Sodium 134 mmol/L (136-145) L 04/05/22 05:26 Potassium 4.1 mmol/L (3.5-5.1) 04/05/22 05:26 Chloride 101 mmol/L (98-107) 04/05/22 05:26 Carbon Dioxide 23 mmol/L (21-32) 04/05/22 05:26 Anion Gap 10 (3-11) 04/05/22 05:26 BUN 9 mg/dl (6-23) 04/05/22 05:26 Creatinine 0.69 mg/dl (0.6-1.2) 04/05/22 05:26 Est Cr Clr Drug Dosing 49.4 ml/min 04/05/22 05:26 Est GFR ( Amer) 92.0 ml/min 04/05/22 05:26 Est GFR (Non-Af Amer) 79.4 ml/min 04/05/22 05:26 BUN/Creatinine Ratio 13.0 (10-20) 04/05/22 05:26 Glucose 151 mg/dl (70-99(Fasting)) H 04/05/22 05:26 POC Glucose 159 mg/dl (70-99) H 04/05/22 08:18 Fasting Glucose 228 mg/dl (70-99) H 03/28/22 07:47 Lactate 1.5 mmol/L (0.4-2.0) 03/27/22 19:05 Calcium 9.1 mg/dl (8.5-10.1) 04/05/22 05:26 Phosphorus 3.9 mg/dl (2.5-4.9) 04/05/22 05:26 Magnesium 2.0 mg/dl (1.7-2.4) 04/05/22 05:26 Iron 15 mcg/dl (35-150) L 03/28/22 07:47 Transferrin 176 mg/dl (200-360) L 03/28/22 07:47 Ferritin 110.7 ng/ml (8-388) 03/28/22 07:47 Total Bilirubin 0.4 mg/dl (0.2-1.0) 03/27/22 19:05 AST 60 U/L (13-39) H 03/27/22 19:05 ALT 32 U/L (7-52) 03/27/22 19:05 Alkaline Phosphatase 67 U/L (34-104) 03/27/22 19:05 Ammonia 22.0 umol/L (18-72) 03/27/22 19:05 Total Creatine Kinase 38 U/L (26-192) 03/27/22 19:05 Troponin I High Sens 6.0 pg/ml (0-14) 03/27/22 19:05 C-Reactive Protein 2.04 mg/dl (0-0.5) H 03/29/22 05:18 Total Protein 7.5 gm/dl (6.0-8.3) 03/27/22 19:05 Albumin 3.9 gm/dl (3.4-5.0) 03/27/22 19:05 Globulin 3.6 gm/dl (2.5-4.0) 03/27/22 19:05 Albumin/Globulin Ratio 1.1 (0.9-2) 03/27/22 19:05 Vitamin B12 1033 pg/ml (180-914) H 03/28/22 07:47 Folate > 22.30 ng/ml (>5.38) 03/28/22 07:47 Procalcitonin 0.06 ng/ml (0-0.5) 03/29/22 05:18 TSH 1.019 uIu/ml (0.300-4.500) 03/27/22 19:05 Urine Color Yellow 03/27/22 19:43 Urine Appearance Cloudy (Clear) A 03/27/22 19:43 Urine pH 5.5 (4.5-7.5) 03/27/22 19:43 Ur Specific [place] 1.014 (1.000-1.030) 03/27/22 19:43 Urine Protein Trace (Negative) H 03/27/22 19:43 Urine Glucose (UA) Trace (Negative) H 03/27/22 19:43 Urine Ketones Negative (Negative) 03/27/22 19:43 Urine Blood Trace (Negative) H 03/27/22 19:43 Urine Nitrite Positive (Negative) A 03/27/22 19:43 Urine Bilirubin Negative (Negative) 03/27/22 19:43 Urine Urobilinogen Negative (Negative) 03/27/22 19:43 Ur Leukocyte Esterase 3+ (Negative) H 03/27/22 19:43 Urine WBC (Auto) >30 /hpf (0-5) H 03/27/22 19:43 Urine RBC (Auto) 0-4 /hpf (0-4) 03/27/22 19:43 U Hyaline Cast (Auto) 1-5 /lpf (0-5) 03/27/22 19:43 U Epithel Cells (Auto) 5-10 /lpf (0-5) H 03/27/22 19:43 Urine Bacteria (Auto) 4+ (Negative) H 03/27/22 19:43 SARS-CoV-2 (PCR) POSITIVE (Negative) A* 03/27/22 18:42 Influenza Type A (PCR) Negative (Neg) 03/27/22 18:42 Influenza Type B (PCR) Negative (Neg) 03/27/22 18:42 RSV (RT-PCR) Negative (Neg) 03/27/22 18:42 Blood Parasites ID Cancelled 03/28/22 05:24 Blood Type A Positive 03/28/22 05:24 Antibody Screen NEGATIVE 03/28/22 05:24 Impressions Chest X-Ray 03/27/22 17:33 SINGLE VIEW CHEST CLINICAL HISTORY: Generalized weakness. Change in mental status. FINDINGS: 2 AP, portable, upright chest radiographs are obtained. No prior studies are available for comparison at the time of dictation. The cardiomediastinal silhouette is top normal for projection noting atherosclerotic calcification of the thoracic aorta. Nonspecific interstitial thickening is likely chronic. There is bibasilar scarring/atelectasis. The lungs and pleural spaces are otherwise clear. No pneumothorax is seen. The skeletal structures are osteopenic. The bony thorax is grossly intact. IMPRESSION: No active disease in the chest. ACT 112: Negative or not required by law. Electronically signed by: Kb Harper M.D. 03/27/2022 5:[address] 03/27/22 17:33 CT SCAN OF THE BRAIN WITHOUT IV CONTRAST CLINICAL HISTORY: Generalized weakness. Change in mental status. COMPARISON STUDY: No priors. TECHNIQUE: Unenhanced axial CT scan of the brain is performed from the vertex to the skull base. A dose lowering technique was utilized adhering to the principles of ALARA. 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 There is no hemorrhage, mass effect, or evidence of acute territorial ischemia by CT criteria. Boyd-white matter differentiation is preserved. No extra-axial fluid collection is seen. Calcification is noted in the anterior limb of the right internal capsule. Ventricles, sulci, cisterns: Prominent secondary to involutional change. Intracranial vasculature: There is atherosclerotic calcification of the cavernous carotid and vertebral arteries. Calvarium: Unremarkable. Sinuses and mastoids: The visualized paranasal sinuses are clear. The mastoid air cells are well pneumatized. Orbits: The bony orbits are grossly intact. IMPRESSION: There is no hemorrhage, mass effect, or evidence of acute territorial ischemia by CT criteria. ACT 112: Negative or not required by law. Electronically signed by: Kb Harper M.D. 03/27/2022 7:26 PM Medications Administered Current Inpatient Medications Acetaminophen (Acetaminophen 325 Mg Tab) 650 mg PO Q6H PRN PRN Reason: Fever/pain Stop: 04/27/22 01:13 Amlodipine Besylate (Amlodipine Besylate 5 Mg Tab) 5 mg PO DAILY MIGDALIA Stop: 04/27/22 08:59 Last Admin: 04/05/22 08:27 Dose: 5 mg Aspirin (Aspirin 81 Mg Ectab) 81 mg PO DAILY MIGDALIA Stop: 04/29/22 08:59 Last Admin: 04/05/22 08:28 Dose: 81 mg Atenolol (Atenolol 50 Mg Tablet) 50 mg PO HS MIGDALIA Stop: 04/27/22 20:59 Last Admin: 04/04/22 21:40 Dose: Not Given Atorvastatin Calcium (Atorvastatin 40 Mg Tab) 40 mg PO HS MIGDALIA Stop: 04/27/22 20:59 Last Admin: 04/04/22 21:38 Dose: 40 mg Cyanocobalamin (Cyanocobalamin (B-12) 500 Mcg Tablet) 1,000 mcg PO QPM MIGDALIA Stop: 04/27/22 20:59 Last Admin: 04/04/22 21:38 Dose: 1,000 mcg Dextrose (Dextrose 50% 50 Ml Syringe) 25 - 50 ml IV UD PRN; Protocol PRN Reason: Hypoglycemia Protocol Stop: 04/27/22 01:13 Docusate Sodium (Docusate Sodium 100 Mg Cap) 100 mg PO AMHS MIGDALIA Stop: 04/27/22 08:59 Last Admin: 04/05/22 08:28 Dose: 100 mg Gabapentin (Gabapentin 100 Mg Cap) 200 mg PO BID MIGDALIA Stop: 04/27/22 08:59 Last Admin: 04/05/22 08:28 Dose: 200 mg Glucagon (Glucagon For Inj 1 Mg Vial) 1 mg SQ UD PRN; Protocol PRN Reason: Hypoglycemia Protocol Stop: 04/27/22 01:13 Glucose (Glucose 40% Gel 15 Gm Tube) 15 - 30 gm PO UD PRN; Protocol PRN Reason: Hypoglycemia Protocol Stop: 04/27/22 01:13 Glucose (Glucose 10 Tab/Tube) 4 - 8 tab PO UD PRN; Protocol PRN Reason: Hypoglycemia Treatment Stop: 04/27/22 01:13 Promethazine HCl 12.5 mg/ (Sodium Chloride) 50.5 mls @ 202 mls/hr IV Q6H PRN PRN Reason: Nausea And Vomiting Stop: 04/26/22 22:21 Insulin Aspart (Insulin Aspart Per Unit) 0 units SC ACHS [facility] Stop: 04/27/22 01:13 Last Admin: 04/05/22 08:40 Dose: 4 units Insulin Glargine (Lantus Per Unit Charge) 7 units SQ BID MIGDALIA Stop: 04/30/22 20:59 Last Admin: 04/05/22 08:41 Dose: 7 units Lorazepam (Lorazepam 0.5 Mg Tab) 0.5 mg PO HS PRN PRN Reason: insomnia Stop: 04/27/22 01:13 Last Admin: 04/02/22 21:47 Dose: 0.5 mg Miscellaneous (Carbohydrates For Hypoglycemia ) 15 - 30 gm PO UD PRN PRN Reason: Hypoglycemia Protocol Stop: 04/27/22 01:13 Multivitamins/Minerals (Cerovite Adv Formula Tab) 1 tab PO DAILY MIGDALIA Stop: 04/27/22 08:59 Last Admin: 04/05/22 08:29 Dose: 1 tab Pantoprazole Sodium (Pantoprazole 40 Mg Tab) 40 mg PO DAILY MIGDALIA Stop: 04/27/22 08:59 Last Admin: 04/05/22 08:29 Dose: 40 mg Polyethylene Glycol (Polyethylene (Miralax) 17 Gm Pack) 17 gm PO DAILY MIGDALIA Stop: 04/27/22 08:59 Last Admin: 04/05/22 08:29 Dose: Not Given (1) AMS (altered mental status) Altered mental status type: unspecified Qualified Code(s): R41.82 - Altered mental status, unspecified
[2022-04-05] MEDS: CYANOCOBALAMIN (B-12) 500 MCG TABLET PO SCH (20:04)
[2022-04-05] MEDS: ATORVASTATIN 40 MG TAB PO SCH (20:05)
[2022-04-05] MEDS: ATENOLOL 50 MG TABLET PO SCH (20:05)
[2022-04-06] MEDS: GABAPENTIN 100 MG CAP PO SCH ×2 (08:45→20:10)
[2022-04-06] MEDS: ASPIRIN 81 MG ECTAB PO SCH (08:45)
[2022-04-06] MEDS: amLODIPine BESYLATE 5 MG TAB PO SCH (08:45)
[2022-04-06] MEDS: DOCUSATE SODIUM 100 MG CAP PO SCH ×2 (08:46→20:09)
[2022-04-06] MEDS: PANTOprazole 40 MG TAB PO SCH (08:46)
[2022-04-06] MEDS: CEROVITE ADV FORMULA TAB PO SCH (08:47)
[2022-04-06] MEDS: LANTUS PER UNIT CHARGE SQ SCH ×2 (08:58→20:43)
[2022-04-06] MEDS: INSULIN ASPART PER UNIT SC SCH ×4 (08:58→20:43)
[2022-04-06] MEDS: POLYETHYLENE (MIRALAX) 17 GM PACK PO SCH (09:00)
--- NOTE | 2022-04-06 10:31 | Hospitalist Progress Note ---
Date of Service April 06, 2022 Assessment & Plan (1) Acute UTI: (2) AMS (altered mental status): Plan: Acute metabolic encephalopathy-POA Urinary tract infection Generalized weakness Urine culture growing E coli Blood cultures: Negative to date s/p ceftriaxone--completed course 04/03/2022 Mental status seems to be back to baseline Waiting for rehab placement COVID-19 Infection CXR:No active disease in the chest. CRP: 2.04 Saturating well on room air Antitussives as needed - off isolation today 04/06/2022 as has been 10 days since positive test, patient asymptomatic for at least last 5 days Positive FOBT Hemoglobin at baseline No obvious bleeding issues Follow-up as outpatient Monitor for any bleeding issues Monitor CBC Hypertension On amlodipine, atenolol Hyperlipidemia on statin H/O left breast cancer S/P surgery, Tamoxifen Rx Patient refused chemo currently in remission DM II Hold oral medications HbA1C; .04 January 2022 Dementia No agitation Monitor DVT Px: SCDs Re: + FOBT Code Status Full code Disposition Plan to discharge to Rehab facility when accepted Admission and Anticipated Discharge Date Admission Date: March 27, 2022 Subjective Patient is seen and examined at bedside States feeling well Minimal cough wants to leave the hospital, go home Denies any chest pain, shortness of breath, dizziness, nausea, abdominal pain No other complaints AAOx1 to self only Waiting for placement - off isolation today 07/07/2021 as patient is 10 days out from COVID19 positive test and is asymptomatic for at least 5 days. Review of Systems Review of Systems: All systems reviewed & are unremarkable except as noted in Subjective Physical Exam Physical Exam: General Appearance: underweight, no apparent distress, Elderly, Head: normocephalic, Atraumatic Eyes: normal inspection, EOMI Neck: supple, Trachea midline Respiratory/Chest: Normal breath sounds, CTA, No accessory muscle use Cardiovascular: S1, S2, No murmur Abdomen/GI:Soft, Non tender, Bowel sounds present Extremities/Musculoskeletal:normal inspection, Trace edema Neurologic/Psych:AAO X1 only to self, grossly no focal neurological deficits, + Dementia Skin: normal color, warm Results & Data Results & Data ([facility]) Vital Signs (Past 12 Hours) Vital Signs Temp Pulse Resp BP Pulse Ox O2 Del Method 04/06/22 09:00 Room Air 04/06/22 06:57 36.7 C 59 L 16 138/78 91 Room Air Diagnostic Findings Laboratory Results WBC 5.24 K/ul (4.8-10.8) 03/30/22 05:25 RBC 3.99 M/uL (3.93-5.22) 03/30/22 05:25 Hgb 11.9 g/dl (12.0-16.0) L 03/30/22 05:25 Hct 34.8 % (34.1-44.9) 03/30/22 05:25 MCV 87.2 fL (80.0-100.0) 03/30/22 05:25 MCH 29.8 pg (25.0-34.0) 03/30/22 05:25 MCHC 34.2 g/dL (32.0-36.0) 03/30/22 05:25 RDW Std Deviation 48.8 fL (36.4-46.3) H 03/30/22 05:25 RDW Coeff of Judy 15.1 % (11.5-14.5) H 03/30/22 05:25 Plt Count 174 K/uL (130-400) 03/30/22 05:25 MPV 9.8 fL (9.4-12.3) 03/30/22 05:25 Immature Gran % (Auto) 0.4 % 03/28/22 06:03 Neut % (Auto) 67.0 % 03/28/22 06:03 Lymph % (Auto) 19.9 % 03/28/22 06:03 [place] % (Auto) 11.9 % 03/28/22 06:03 Eos % (Auto) 0.4 % 03/28/22 06:03 Baso % (Auto) 0.4 % 03/28/22 06:03 Reticulocyte % (Auto) 1.6 % (0.5-2.0) 03/28/22 06:03 Neut # (Auto) 4.99 K/uL (1.4-6.5) 03/28/22 06:03 Lymph # (Auto) 1.48 K/uL (1.2-3.4) 03/28/22 06:03 [place] # (Auto) 0.89 K/uL (0.24-0.82) H 03/28/22 06:03 Eos # (Auto) 0.03 K/uL (0-0.50) 03/28/22 06:03 Baso # (Auto) 0.03 K/uL (0-0.2) 03/28/22 06:03 Reticulocyte # 0.07 10^6/uL (0.02-0.10) 03/28/22 06:03 Immature Gran # (Auto) 0.03 K/uL (0.00-0.02) H 03/28/22 06:03 Absolute Nucleated RBC Cancelled 03/28/22 05:24 Nucleated RBC % (auto) Cancelled 03/28/22 05:24 Neutrophils % (Manual) Cancelled 03/28/22 05:24 Band Neutrophils % Cancelled 03/28/22 05:24 Lymphocytes % (Manual) Cancelled 03/28/22 05:24 Prolymphocyte % Cancelled 03/28/22 05:24 Reactive Lymphs % (Man) Cancelled 03/28/22 05:24 Monocytes % (Manual) Cancelled 03/28/22 05:24 Eosinophils % (Manual) Cancelled 03/28/22 05:24 Basophils % (Manual) Cancelled 03/28/22 05:24 Metamyelocytes % (Man) Cancelled 03/28/22 05:24 Myelocytes % (Man) Cancelled 03/28/22 05:24 Promyelocytes % (Man) Cancelled 03/28/22 05:24 Blast Cells % (Manual) Cancelled 03/28/22 05:24 Plasma Cell % (Manual) Cancelled 03/28/22 05:24 Other Cells % Cancelled 03/28/22 05:24 Nucleated RBC % Cancelled 03/28/22 05:24 Neutrophils # (Manual) Cancelled 03/28/22 05:24 Band Neutrophils # Cancelled 03/28/22 05:24 Total Absolute Neuts Cancelled 03/28/22 05:24 Lymphocytes # (Manual) Cancelled 03/28/22 05:24 Prolymphocyte # Cancelled 03/28/22 05:24 Reactive Lymphs # Cancelled 03/28/22 05:24 Total Abs Lymphocytes Cancelled 03/28/22 05:24 Monocytes # (Manual) Cancelled 03/28/22 05:24 Eosinophils # (Manual) Cancelled 03/28/22 05:24 Basophils # (Manual) Cancelled 03/28/22 05:24 Metamyelocytes # (Man) Cancelled 03/28/22 05:24 Myelocytes # (Manual) Cancelled 03/28/22 05:24 Promyelocytes # (Man) Cancelled 03/28/22 05:24 Blast Cells # (Man) Cancelled 03/28/22 05:24 Plasma Cell # (Manual) Cancelled 03/28/22 05:24 Other Cells # Cancelled 03/28/22 05:24 Nucleated RBCs # (Man) Cancelled 03/28/22 05:24 Hypersegmented Neuts Cancelled 03/28/22 05:24 Hyposegmented Neuts Cancelled 03/28/22 05:24 Hypogranular Neuts Cancelled 03/28/22 05:24 Large Granular Lymphs Cancelled 03/28/22 05:24 # Lrg Granular Lymphs Cancelled 03/28/22 05:24 Hairy Cells Cancelled 03/28/22 05:24 Smudge Cells Cancelled 03/28/22 05:24 Toxic Granulation Cancelled 03/28/22 05:24 Toxic Vacuolation Cancelled 03/28/22 05:24 Dohle Bodies Cancelled 03/28/22 05:24 Guerrero Rods Cancelled 03/28/22 05:24 Platelet Estimate Cancelled 03/28/22 05:24 Hypogranular Platelets Cancelled 03/28/22 05:24 Clumped Platelets Cancelled 03/28/22 05:24 Giant Platelets Cancelled 03/28/22 05:24 Platelet Satelliting Cancelled 03/28/22 05:24 RBC Morphology Cancelled 03/28/22 05:24 Polychromasia Cancelled 03/28/22 05:24 Hypochromasia Cancelled 03/28/22 05:24 Poikilocytosis Cancelled 03/28/22 05:24 Basophilic Stippling Cancelled 03/28/22 05:24 Anisocytosis Cancelled 03/28/22 05:24 Microcytosis Cancelled 03/28/22 05:24 Macrocytosis Cancelled 03/28/22 05:24 Spherocytes Cancelled 03/28/22 05:24 Pappenheimer Bodies Cancelled 03/28/22 05:24 Sickle Cells Cancelled 03/28/22 05:24 Target Cells Cancelled 03/28/22 05:24 Tear Drop Cells Cancelled 03/28/22 05:24 Ovalocytes Cancelled 03/28/22 05:24 Stomatocytes Cancelled 03/28/22 05:24 [place] Bodies Cancelled 03/28/22 05:24 Echinocytes Cancelled 03/28/22 05:24 Acanthocytes (Spur) Cancelled 03/28/22 05:24 Rouleaux Cancelled 03/28/22 05:24 RBC Agglutinates Cancelled 03/28/22 05:24 Schistocytes Cancelled 03/28/22 05:24 Sezary Cell Cancelled 03/28/22 05:24 PT 11.2 Seconds (9.0-12.0) 03/27/22 19:05 INR 1.1 (0.9-1.1) 03/27/22 19:05 APTT 27.5 Seconds (21.0-31.0) 03/27/22 19:05 PTT Ratio 1.0 03/27/22 19:05 Sodium 134 mmol/L (136-145) L 04/05/22 05:26 Potassium 4.1 mmol/L (3.5-5.1) 04/05/22 05:26 Chloride 101 mmol/L (98-107) 04/05/22 05:26 Carbon Dioxide 23 mmol/L (21-32) 04/05/22 05:26 Anion Gap 10 (3-11) 04/05/22 05:26 BUN 9 mg/dl (6-23) 04/05/22 05:26 Creatinine 0.69 mg/dl (0.6-1.2) 04/05/22 05:26 Est Cr Clr Drug Dosing 49.4 ml/min 04/05/22 05:26 Est GFR ( Amer) 92.0 ml/min 04/05/22 05:26 Est GFR (Non-Af Amer) 79.4 ml/min 04/05/22 05:26 BUN/Creatinine Ratio 13.0 (10-20) 04/05/22 05:26 Glucose 151 mg/dl (70-99(Fasting)) H 04/05/22 05:26 POC Glucose 157 mg/dl (70-99) H 04/06/22 08:17 Fasting Glucose 228 mg/dl (70-99) H 03/28/22 07:47 Lactate 1.5 mmol/L (0.4-2.0) 03/27/22 19:05 Calcium 9.1 mg/dl (8.5-10.1) 04/05/22 05:26 Phosphorus 3.9 mg/dl (2.5-4.9) 04/05/22 05:26 Magnesium 2.0 mg/dl (1.7-2.4) 04/05/22 05:26 Iron 15 mcg/dl (35-150) L 03/28/22 07:47 Transferrin 176 mg/dl (200-360) L 03/28/22 07:47 Ferritin 110.7 ng/ml (8-388) 03/28/22 07:47 Total Bilirubin 0.4 mg/dl (0.2-1.0) 03/27/22 19:05 AST 60 U/L (13-39) H 03/27/22 19:05 ALT 32 U/L (7-52) 03/27/22 19:05 Alkaline Phosphatase 67 U/L (34-104) 03/27/22 19:05 Ammonia 22.0 umol/L (18-72) 03/27/22 19:05 Total Creatine Kinase 38 U/L (26-192) 03/27/22 19:05 Troponin I High Sens 6.0 pg/ml (0-14) 03/27/22 19:05 C-Reactive Protein 2.04 mg/dl (0-0.5) H 03/29/22 05:18 Total Protein 7.5 gm/dl (6.0-8.3) 03/27/22 19:05 Albumin 3.9 gm/dl (3.4-5.0) 03/27/22 19:05 Globulin 3.6 gm/dl (2.5-4.0) 03/27/22 19:05 Albumin/Globulin Ratio 1.1 (0.9-2) 03/27/22 19:05 Vitamin B12 1033 pg/ml (180-914) H 03/28/22 07:47 Folate > 22.30 ng/ml (>5.38) 03/28/22 07:47 Procalcitonin 0.06 ng/ml (0-0.5) 03/29/22 05:18 TSH 1.019 uIu/ml (0.300-4.500) 03/27/22 19:05 Urine Color Yellow 03/27/22 19:43 Urine Appearance Cloudy (Clear) A 03/27/22 19:43 Urine pH 5.5 (4.5-7.5) 03/27/22 19:43 Ur Specific [place] 1.014 (1.000-1.030) 03/27/22 19:43 Urine Protein Trace (Negative) H 03/27/22 19:43 Urine Glucose (UA) Trace (Negative) H 03/27/22 19:43 Urine Ketones Negative (Negative) 03/27/22 19:43 Urine Blood Trace (Negative) H 03/27/22 19:43 Urine Nitrite Positive (Negative) A 03/27/22 19:43 Urine Bilirubin Negative (Negative) 03/27/22 19:43 Urine Urobilinogen Negative (Negative) 03/27/22 19:43 Ur Leukocyte Esterase 3+ (Negative) H 03/27/22 19:43 Urine WBC (Auto) >30 /hpf (0-5) H 03/27/22 19:43 Urine RBC (Auto) 0-4 /hpf (0-4) 03/27/22 19:43 U Hyaline Cast (Auto) 1-5 /lpf (0-5) 03/27/22 19:43 U Epithel Cells (Auto) 5-10 /lpf (0-5) H 03/27/22 19:43 Urine Bacteria (Auto) 4+ (Negative) H 03/27/22 19:43 SARS-CoV-2 (PCR) POSITIVE (Negative) A* 03/27/22 18:42 Influenza Type A (PCR) Negative (Neg) 03/27/22 18:42 Influenza Type B (PCR) Negative (Neg) 03/27/22 18:42 RSV (RT-PCR) Negative (Neg) 03/27/22 18:42 Blood Parasites ID Cancelled 03/28/22 05:24 Blood Type A Positive 03/28/22 05:24 Antibody Screen NEGATIVE 03/28/22 05:24 Impressions Chest X-Ray 03/27/22 17:33 SINGLE VIEW CHEST CLINICAL HISTORY: Generalized weakness. Change in mental status. FINDINGS: 2 AP, portable, upright chest radiographs are obtained. No prior studies are available for comparison at the time of dictation. The cardiomediastinal silhouette is top normal for projection noting atherosclerotic calcification of the thoracic aorta. Nonspecific interstitial thickening is likely chronic. There is bibasilar scarring/atelectasis. The lungs and pleural spaces are otherwise clear. No pneumothorax is seen. The skeletal structures are osteopenic. The bony thorax is grossly intact. IMPRESSION: No active disease in the chest. ACT 112: Negative or not required by law. Electronically signed by: Kb Harper M.D. 03/27/2022 5:[address] 03/27/22 17:33 CT SCAN OF THE BRAIN WITHOUT IV CONTRAST CLINICAL HISTORY: Generalized weakness. Change in mental status. COMPARISON STUDY: No priors. TECHNIQUE: Unenhanced axial CT scan of the brain is performed from the vertex to the skull base. A dose lowering technique was utilized adhering to the principles of ALARA. 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 There is no hemorrhage, mass effect, or evidence of acute territorial ischemia by CT cr iteria. Boyd-white matter differentiation is preserved. No extra-axial fluid collection is seen. Calcification is noted in the anterior limb of the right internal capsule. Ventricles, sulci, cisterns: Prominent secondary to involutional change. Intracranial vasculature: There is atherosclerotic calcification of the cavernous carotid and vertebral arteries. Calvarium: Unremarkable. Sinuses and mastoids: The visualized paranasal sinuses are clear. The mastoid air cells are well pneumatized. Orbits: The bony orbits are grossly intact. IMPRESSION: There is no hemorrhage, mass effect, or evidence of acute territorial ischemia by CT criteria. ACT 112: Negative or not required by law. Electronically signed by: Kb Harper M.D. 03/27/2022 7:26 PM Medications Administered Current Inpatient Medications Acetaminophen (Acetaminophen 325 Mg Tab) 650 mg PO Q6H PRN PRN Reason: Fever/pain Stop: 04/27/22 01:13 Amlodipine Besylate (Amlodipine Besylate 5 Mg Tab) 5 mg PO DAILY MIGDALIA Stop: 04/27/22 08:59 Last Admin: 04/06/22 08:45 Dose: 5 mg Aspirin (Aspirin 81 Mg Ectab) 81 mg PO DAILY MIGDALIA Stop: 04/29/22 08:59 Last Admin: 04/06/22 08:45 Dose: 81 mg Atenolol (Atenolol 50 Mg Tablet) 50 mg PO HS MIGDALIA Stop: 04/27/22 20:59 Last Admin: 04/05/22 20:05 Dose: 50 mg Atorvastatin Calcium (Atorvastatin 40 Mg Tab) 40 mg PO HS MIGDALIA Stop: 04/27/22 20:59 Last Admin: 04/05/22 20:05 Dose: 40 mg Cyanocobalamin (Cyanocobalamin (B-12) 500 Mcg Tablet) 1,000 mcg PO QPM MIGDALIA Stop: 04/27/22 20:59 Last Admin: 04/05/22 20:04 Dose: 1,000 mcg Dextrose (Dextrose 50% 50 Ml Syringe) 25 - 50 ml IV UD PRN; Protocol PRN Reason: Hypoglycemia Protocol Stop: 04/27/22 01:13 Docusate Sodium (Docusate Sodium 100 Mg Cap) 100 mg PO AMHS MIGDALIA Stop: 04/27/22 08:59 Last Admin: 04/06/22 08:46 Dose: 100 mg Gabapentin (Gabapentin 100 Mg Cap) 200 mg PO BID MIGDALIA Stop: 04/27/22 08:59 Last Admin: 04/06/22 08:45 Dose: 200 mg Glucagon (Glucagon For Inj 1 Mg Vial) 1 mg SQ UD PRN; Protocol PRN Reason: Hypoglycemia Protocol Stop: 04/27/22 01:13 Glucose (Glucose 40% Gel 15 Gm Tube) 15 - 30 gm PO UD PRN; Protocol PRN Reason: Hypoglycemia Protocol Stop: 04/27/22 01:13 Glucose (Glucose 10 Tab/Tube) 4 - 8 tab PO UD PRN; Protocol PRN Reason: Hypoglycemia Treatment Stop: 04/27/22 01:13 Promethazine HCl 12.5 mg/ (Sodium Chloride) 50.5 mls @ 202 mls/hr IV Q6H PRN PRN Reason: Nausea And Vomiting Stop: 04/26/22 22:21 Insulin Aspart (Insulin Aspart Per Unit) 0 units SC ACHS MIGDALIA Stop: 04/27/22 01:13 Last Admin: 04/06/22 08:58 Dose: 2 units Insulin Glargine (Lantus Per Unit Charge) 7 units SQ BID MIGDALIA Stop: 04/30/22 20:59 Last Admin: 04/06/22 08:58 Dose: 7 units Lorazepam (Lorazepam 0.5 Mg Tab) 0.5 mg PO HS PRN PRN Reason: insomnia Stop: 04/27/22 01:13 Last Admin: 04/02/22 21:47 Dose: 0.5 mg Miscellaneous (Carbohydrates For Hypoglycemia ) 15 - 30 gm PO UD PRN PRN Reason: Hypoglycemia Protocol Stop: 04/27/22 01:13 Multivitamins/Minerals (Cerovite Adv Formula Tab) 1 tab PO DAILY MIGDALIA Stop: 04/27/22 08:59 Last Admin: 04/06/22 08:47 Dose: 1 tab Pantoprazole Sodium (Pantoprazole 40 Mg Tab) 40 mg PO DAILY MIGDALIA Stop: 04/27/22 08:59 Last Admin: 04/06/22 08:46 Dose: 40 mg Polyethylene Glycol (Polyethylene (Miralax) 17 Gm Pack) 17 gm PO DAILY MIGDALIA Stop: 04/27/22 08:59 Last Admin: 04/06/22 09:00 Dose: 17 gm (1) AMS (altered mental status) Altered mental status type: unspecified Qualified Code(s): R41.82 - Altered mental status, unspecified
[2022-04-06] MEDS: ATORVASTATIN 40 MG TAB PO SCH (20:10)
[2022-04-06] MEDS: CYANOCOBALAMIN (B-12) 500 MCG TABLET PO SCH (20:11)
[2022-04-06] MEDS: ATENOLOL 50 MG TABLET PO SCH (20:11)
[2022-04-07 06:50] LABS: BUN Creatinine Ratio 16.9 (10-20); Calcium 9.3 mg/dl (8.5-10.1); Creatinine Clr Calc Pharmacy 41.1 ml/min; Est GFR (African American) 74.5 ml/min; Est GFR (Non-African American) 64.3 ml/min; Magnesium 1.9 mg/dl (1.7-2.4); Phosphorus 3.5 mg/dl (2.5-4.9); Potassium 3.7 mmol/L (3.5-5.1)
[2022-04-07] MEDS: INSULIN ASPART PER UNIT SC SCH ×4 (08:54→21:09)
[2022-04-07] MEDS: LANTUS PER UNIT CHARGE SQ SCH ×2 (08:54→21:10)
[2022-04-07] MEDS: ASPIRIN 81 MG ECTAB PO SCH (09:01)
[2022-04-07] MEDS: CEROVITE ADV FORMULA TAB PO SCH (09:01)
[2022-04-07] MEDS: POLYETHYLENE (MIRALAX) 17 GM PACK PO SCH (09:01)
[2022-04-07] MEDS: PANTOprazole 40 MG TAB PO SCH (09:01)
[2022-04-07] MEDS: GABAPENTIN 100 MG CAP PO SCH ×2 (09:01→21:17)
[2022-04-07] MEDS: amLODIPine BESYLATE 5 MG TAB PO SCH (09:07)
[2022-04-07] MEDS: DOCUSATE SODIUM 100 MG CAP PO SCH ×2 (09:07→21:16)
--- NOTE | 2022-04-07 12:06 | Hospitalist Progress Note ---
Date of Service April 07, 2022 Assessment & Plan (1) Dementia: Plan: - Acute metabolic encephalopathy with underlying dementia - POA - now resolved - likely from Urinary tract infection - Urine culture growing E coli - Blood cultures: Negative - s/p ceftriaxone--completed course 04/03/2022 - Mental status seems to be back to baseline - Waiting for rehab placement - likely to discharge to [facility] tomorrow 04/08/2022 (2) Acute UTI: Plan: - s/p treatment as above - resolved (3) COVID-19: Plan: CXR:No active disease in the chest. CRP: 2.04 Saturating well on room air Antitussives as needed - off isolation today 04/07/2022 as has been 10 days since positive test, patient asymptomatic for at least last 5 days (4) Hyponatremia: Plan: - mild and stable - no neurologic deficits - encourage po intake (5) Hypertension: Plan: - continue amlodipine and atenolol (6) Breast cancer, stage 2: Plan: S/P surgery, Tamoxifen Rx Patient refused chemo currently in remission (7) DM2 (diabetes mellitus, type 2): Plan: - Hold oral medications - HbA1C; 9.04 January 2022 - lantus 7 units - ISS while inpatient (8) Hypercholesterolemia: Plan: - continue statin Plan DVT ppx: lovenox Code Status: Full code Dispo: med/surg Matt Davis MD [facility] Medicine Admission and Anticipated Discharge Date Admission Date: March 27, 2022 Subjective Patient is seen and examined at bedside States feeling well Minimal cough wants to leave the hospital, go home Denies any chest pain, shortness of breath, dizziness, nausea, abdominal pain No other complaints AAOx1 to self only Waiting for placement - off isolation today 04/07/2022 as patient is 10 days out from COVID19 positive test and is asymptomatic for at least 5 days. Review of Systems Review of Systems: All systems reviewed & are unremarkable except as noted in Subjective Physical Exam Physical Exam: General Appearance: underweight, no apparent distress, Elderly, Head: normocephalic, Atraumatic Eyes: normal inspection, EOMI Neck: supple, Trachea midline Respiratory/Chest: Normal breath sounds, CTA, No accessory muscle use Cardiovascular: S1, S2, No murmur Abdomen/GI:Soft, Non tender, Bowel sounds present Extremities/Musculoskeletal:normal inspection, Trace edema Neurologic/Psych:AAO X1 only to self, grossly no focal neurological deficits, +Dementia Skin: normal color, warm Results & Data Results & Data ([facility]) Vital Signs (Past 12 Hours) Vital Signs Temp Pulse Resp BP BP Pulse Ox O2 Del Method 04/07/22 07:45 Room Air 04/07/22 09:03 130/72 04/07/22 08:04 36.4 C L 58 L 16 126/57 L 98 Room Air Diagnostic Findings Laboratory Results WBC 5.24 K/ul (4.8-10.8) 03/30/22 05:25 RBC 3.99 M/uL (3.93-5.22) 03/30/22 05:25 Hgb 11.9 g/dl (12.0-16.0) L 03/30/22 05:25 Hct 34.8 % (34.1-44.9) 03/30/22 05:25 MCV 87.2 fL (80.0-100.0) 03/30/22 05:25 MCH 29.8 pg (25.0-34.0) 03/30/22 05:25 MCHC 34.2 g/dL (32.0-36.0) 03/30/22 05:25 RDW Std Deviation 48.8 fL (36.4-46.3) H 03/30/22 05:25 RDW Coeff of Judy 15.1 % (11.5-14.5) H 03/30/22 05:25 Plt Count 174 K/uL (130-400) 03/30/22 05:25 MPV 9.8 fL (9.4-12.3) 03/30/22 05:25 Immature Gran % (Auto) 0.4 % 03/28/22 06:03 Neut % (Auto) 67.0 % 03/28/22 06:03 Lymph % (Auto) 19.9 % 03/28/22 06:03 Mccormick % (Auto) 11.9 % 03/28/22 06:03 Eos % (Auto) 0.4 % 03/28/22 06:03 Baso % (Auto) 0.4 % 03/28/22 06:03 Reticulocyte % (Auto) 1.6 % (0.5-2.0) 03/28/22 06:03 Neut # (Auto) 4.99 K/uL (1.4-6.5) 03/28/22 06:03 Lymph # (Auto) 1.48 K/uL (1.2-3.4) 03/28/22 06:03 Mccormick # (Auto) 0.89 K/uL (0.24-0.82) H 03/28/22 06:03 Eos # (Auto) 0.03 K/uL (0-0.50) 03/28/22 06:03 Baso # (Auto) 0.03 K/uL (0-0.2) 03/28/22 06:03 Reticulocyte # 0.07 10^6/uL (0.02-0.10) 03/28/22 06:03 Immature Gran # (Auto) 0.03 K/uL (0.00-0.02) H 03/28/22 06:03 Absolute Nucleated RBC Cancelled 03/28/22 05:24 Nucleated RBC % (auto) Cancelled 03/28/22 05:24 Neutrophils % (Manual) Cancelled 03/28/22 05:24 Band Neutrophils % Cancelled 03/28/22 05:24 Lymphocytes % (Manual) Cancelled 03/28/22 05:24 Prolymphocyte % Cancelled 03/28/22 05:24 Reactive Lymphs % (Man) Cancelled 03/28/22 05:24 Monocytes % (Manual) Cancelled 03/28/22 05:24 Eosinophils % (Manual) Cancelled 03/28/22 05:24 Basophils % (Manual) Cancelled 03/28/22 05:24 Metamyelocytes % (Man) Cancelled 03/28/22 05:24 Myelocytes % (Man) Cancelled 03/28/22 05:24 Promyelocytes % (Man) Cancelled 03/28/22 05:24 Blast Cells % (Manual) Cancelled 03/28/22 05:24 Plasma Cell % (Manual) Cancelled 03/28/22 05:24 Other Cells % Cancelled 03/28/22 05:24 Nucleated RBC % Cancelled 03/28/22 05:24 Neutrophils # (Manual) Cancelled 03/28/22 05:24 Band Neutrophils # Cancelled 03/28/22 05:24 Total Absolute Neuts Cancelled 03/28/22 05:24 Lymphocytes # (Manual) Cancelled 03/28/22 05:24 Prolymphocyte # Cancelled 03/28/22 05:24 Reactive Lymphs # Cancelled 03/28/22 05:24 Total Abs Lymphocytes Cancelled 03/28/22 05:24 Monocytes # (Manual) Cancelled 03/28/22 05:24 Eosinophils # (Manual) Cancelled 03/28/22 05:24 Basophils # (Manual) Cancelled 03/28/22 05:24 Metamyelocytes # (Man) Cancelled 03/28/22 05:24 Myelocytes # (Manual) Cancelled 03/28/22 05:24 Promyelocytes # (Man) Cancelled 03/28/22 05:24 Blast Cells # (Man) Cancelled 03/28/22 05:24 Plasma Cell # (Manual) Cancelled 03/28/22 05:24 Other Cells # Cancelled 03/28/22 05:24 Nucleated RBCs # (Man) Cancelled 03/28/22 05:24 Hypersegmented Neuts Cancelled 03/28/22 05:24 Hyposegmented Neuts Cancelled 03/28/22 05:24 Hypogranular Neuts Cancelled 03/28/22 05:24 Large Granular Lymphs Cancelled 03/28/22 05:24 # Lrg Granular Lymphs Cancelled 03/28/22 05:24 Hairy Cells Cancelled 03/28/22 05:24 Smudge Cells Cancelled 03/28/22 05:24 Toxic Granulation Cancelled 03/28/22 05:24 Toxic Vacuolation Cancelled 03/28/22 05:24 Dohle Bodies Cancelled 03/28/22 05:24 Guerrero Rods Cancelled 03/28/22 05:24 Platelet Estimate Cancelled 03/28/22 05:24 Hypogranular Platelets Cancelled 03/28/22 05:24 Clumped Platelets Cancelled 03/28/22 05:24 Giant Platelets Cancelled 03/28/22 05:24 Platelet Satelliting Cancelled 03/28/22 05:24 RBC Morphology Cancelled 03/28/22 05:24 Polychromasia Cancelled 03/28/22 05:24 Hypochromasia Cancelled 03/28/22 05:24 Poikilocytosis Cancelled 03/28/22 05:24 Basophilic Stippling Cancelled 03/28/22 05:24 Anisocytosis Cancelled 03/28/22 05:24 Microcytosis Cancelled 03/28/22 05:24 Macrocytosis Cancelled 03/28/22 05:24 Spherocytes Cancelled 03/28/22 05:24 Pappenheimer Bodies Cancelled 03/28/22 05:24 Sickle Cells Cancelled 03/28/22 05:24 Target Cells Cancelled 03/28/22 05:24 Tear Drop Cells Cancelled 03/28/22 05:24 Ovalocytes Cancelled 03/28/22 05:24 Stomatocytes Cancelled 03/28/22 05:24 Gutierrez-Harmony Bodies Cancelled 03/28/22 05:24 Echinocytes Cancelled 03/28/22 05:24 Acanthocytes (Spur) Cancelled 03/28/22 05:24 Rouleaux Cancelled 03/28/22 05:24 RBC Agglutinates Cancelled 03/28/22 05:24 Schistocytes Cancelled 03/28/22 05:24 Sezary Cell Cancelled 03/28/22 05:24 PT 11.2 Seconds (9.0-12.0) 03/27/22 19:05 INR 1.1 (0.9-1.1) 03/27/22 19:05 APTT 27.5 Seconds (21.0-31.0) 03/27/22 19:05 PTT Ratio 1.0 03/27/22 19:05 Sodium 134 mmol/L (136-145) L 04/07/22 05:36 Potassium 3.7 mmol/L (3.5-5.1) 04/07/22 05:36 Chloride 101 mmol/L (98-107) 04/07/22 05:36 Carbon Dioxide 25 mmol/L (21-32) 04/07/22 05:36 Anion Gap 8 (3-11) 04/07/22 05:36 BUN 14 mg/dl (6-23) 04/07/22 05:36 Creatinine 0.83 mg/dl (0.6-1.2) 04/07/22 05:36 Est Cr Clr Drug Dosing 41.1 ml/min 04/07/22 05:36 Est GFR ( Amer) 74.5 ml/min 04/07/22 05:36 Est GFR (Non-Af Amer) 64.3 ml/min 04/07/22 05:36 BUN/Creatinine Ratio 16.9 (10-20) 04/07/22 05:36 Glucose 165 mg/dl (70-99(Fasting)) H 04/07/22 05:36 POC Glucose 173 mg/dl (70-99) H 04/07/22 07:57 Fasting Glucose 228 mg/dl (70-99) H 03/28/22 07:47 Lactate 1.5 mmol/L (0.4-2.0) 03/27/22 19:05 Calcium 9.3 mg/dl (8.5-10.1) 04/07/22 05:36 Phosphorus 3.5 mg/dl (2.5-4.9) 04/07/22 05:36 Magnesium 1.9 mg/dl (1.7-2.4) 04/07/22 05:36 Iron 15 mcg/dl (35-150) L 03/28/22 07:47 Transferrin 176 mg/dl (200-360) L 03/28/22 07:47 Ferritin 110.7 ng/ml (8-388) 03/28/22 07:47 Total Bilirubin 0.4 mg/dl (0.2-1.0) 03/27/22 19:05 AST 60 U/L (13-39) H 03/27/22 19:05 ALT 32 U/L (7-52) 03/27/22 19:05 Alkaline Phosphatase 67 U/L (34-104) 03/27/22 19:05 Ammonia 22.0 umol/L (18-72) 03/27/22 19:05 Total Creatine Kinase 38 U/L (26-192) 03/27/22 19:05 Troponin I High Sens 6.0 pg/ml (0-14) 03/27/22 19:05 C-Reactive Protein 2.04 mg/dl (0-0.5) H 03/29/22 05:18 Total Protein 7.5 gm/dl (6.0-8.3) 03/27/22 19:05 Albumin 3.9 gm/dl (3.4-5.0) 03/27/22 19:05 Globulin 3.6 gm/dl (2.5-4.0) 03/27/22 19:05 Albumin/Globulin Ratio 1.1 (0.9-2) 03/27/22 19:05 Vitamin B12 1033 pg/ml (180-914) H 03/28/22 07:47 Folate > 22.30 ng/ml (>5.38) 03/28/22 07:47 Procalcitonin 0.06 ng/ml (0-0.5) 03/29/22 05:18 TSH 1.019 uIu/ml (0.300-4.500) 03/27/22 19:05 Urine Color Yellow 03/27/22 19:43 Urine Appearance Cloudy (Clear) A 03/27/22 19:43 Urine pH 5.5 (4.5-7.5) 03/27/22 19:43 Ur Specific [place] 1.014 (1.000-1.030) 03/27/22 19:43 Urine Protein Trace (Negative) H 03/27/22 19:43 Urine Glucose (UA) Trace (Negative) H 03/27/22 19:43 Urine Ketones Negative (Negative) 03/27/22 19:43 Urine Blood Trace (Negative) H 03/27/22 19:43 Urine Nitrite Positive (Negative) A 03/27/22 19:43 Urine Bilirubin Negative (Negative) 03/27/22 19:43 Urine Urobilinogen Negative (Negative) 03/27/22 19:43 Ur Leukocyte Esterase 3+ (Negative) H 03/27/22 19:43 Urine WBC (Auto) >30 /hpf (0-5) H 03/27/22 19:43 Urine RBC (Auto) 0-4 /hpf (0-4) 03/27/22 19:43 U Hyaline Cast (Auto) 1-5 /lpf (0-5) 03/27/22 19:43 U Epithel Cells (Auto) 5-10 /lpf (0-5) H 03/27/22 19:43 Urine Bacteria (Auto) 4+ (Negative) H 03/27/22 19:43 SARS-CoV-2 (PCR) POSITIVE (Negative) A* 03/27/22 18:42 Influenza Type A (PCR) Negative (Neg) 03/27/22 18:42 Influenza Type B (PCR) Negative (Neg) 03/27/22 18:42 RSV (RT-PCR) Negative (Neg) 03/27/22 18:42 Blood Parasites ID Cancelled 03/28/22 05:24 Blood Type A Positive 03/28/22 05:24 Antibody Screen NEGATIVE 03/28/22 05:24 Impressions Chest X-Ray 03/27/22 17:33 SINGLE VIEW CHEST CLINICAL HISTORY: Generalized weakness. Change in mental status. FINDINGS: 2 AP, portable, upright chest radiographs are obtained. No prior studies are available for comparison at the time of dictation. The cardiomediastinal silhouette is top normal for projection noting atherosclerotic calcification of the thoracic aorta. Nonspecific interstitial thickening is likely chronic. There is bibasilar scarring/atelectasis. The lungs and pleural spaces are otherwise clear. No pneumothorax is seen. The skeletal structures are osteopenic. The bony thorax is grossly intact. IMPRESSION: No active disease in the chest. ACT 112: Negative or not required by law. Electronically signed by: Kb Harper M.D. 03/27/2022 5:[address] 03/27/22 17:33 CT SCAN OF THE BRAIN WITHOUT IV CONTRAST CLINICAL HISTORY: Generalized weakness. Change in mental status. COMPARISON STUDY: No priors. TECHNIQUE: Unenhanced axial CT scan of the brain is performed from the vertex to the skull base. A dose lowering technique was utilized adhering to the principles of ALARA. 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 There is no hemorrhage, mass effect, or evidence of acute territorial ischemia by CT criteria. Boyd-white matter differentiation is preserved. No extra-axial fluid collection is seen. Calcification is noted in the anterior limb of the right internal capsule. Ventricles, sulci, cisterns: Prominent secondary to involutional change. Intracranial vasculature: There is atherosclerotic calcification of the cavernous carotid and vertebral arteries. Calvarium: Unremarkable. Sinuses and mastoids: The visualized paranasal sinuses are clear. The mastoid air cells are well pneumatized. Orbits: The bony orbits are grossly intact. IMPRESSION: There is no hemorrhage, mass effect, or evidence of acute territorial ischemia by CT criteria. ACT 112: Negative or not required by law. Electronically signed by: Kb Harper M.D. 03/27/2022 7:26 PM Medications Administered Current Inpatient Medications Acetaminophen (Acetaminophen 325 Mg Tab) 650 mg PO Q6H PRN PRN Reason: Fever/pain Stop: 04/27/22 01:13 Amlodipine Besylate (Amlodipine Besylate 5 Mg Tab) 5 mg PO DAILY MIGDALIA Stop: 04/27/22 08:59 Last Admin: 04/07/22 09:07 Dose: 5 mg Aspirin (Aspirin 81 Mg Ectab) 81 mg PO DAILY MIGDALIA Stop: 04/29/22 08:59 Last Admin: 04/07/22 09:01 Dose: 81 mg Atenolol (Atenolol 50 Mg Tablet) 50 mg PO HS MIGDALIA Stop: 04/27/22 20:59 Last Admin: 04/06/22 20:11 Dose: 50 mg Atorvastatin Calcium (Atorvastatin 40 Mg Tab) 40 mg PO HS MIGDALIA Stop: 04/27/22 20:59 Last Admin: 04/06/22 20:10 Dose: 40 mg Cyanocobalamin (Cyanocobalamin (B-12) 500 Mcg Tablet) 1,000 mcg PO QPM MIGDALIA Stop: 04/27/22 20:59 Last Admin: 04/06/22 20:11 Dose: 1,000 mcg Dextrose (Dextrose 50% 50 Ml Syringe) 25 - 50 ml IV UD PRN; Protocol PRN Reason: Hypoglycemia Protocol Stop: 04/27/22 01:13 Docusate Sodium (Docusate Sodium 100 Mg Cap) 100 mg PO AMHS MIGDALIA Stop: 04/27/22 08:59 Last Admin: 04/07/22 09:07 Dose: 100 mg Gabapentin (Gabapentin 100 Mg Cap) 200 mg PO BID MIGDALIA Stop: 04/27/22 08:59 Last Admin: 04/07/22 09:01 Dose: 200 mg Glucagon (Glucagon For Inj 1 Mg Vial) 1 mg SQ UD PRN; Protocol PRN Reason: Hypoglycemia Protocol Stop: 04/27/22 01:13 Glucose (Glucose 40% Gel 15 Gm Tube) 15 - 30 gm PO UD PRN; Protocol PRN Reason: Hypoglycemia Protocol Stop: 04/27/22 01:13 Glucose (Glucose 10 Tab/Tube) 4 - 8 tab PO UD PRN; Protocol PRN Reason: Hypoglycemia Treatment Stop: 04/27/22 01:13 Promethazine HCl 12.5 mg/ (Sodium Chloride) 50.5 mls @ 202 mls/hr IV Q6H PRN PRN Reason: Nausea And Vomiting Stop: 04/26/22 22:21 Insulin Aspart (Insulin Aspart Per Unit) 0 units SC ACHS MIGDALIA Stop: 04/27/22 01:13 Last Admin: 04/07/22 08:54 Dose: 3 units Insulin Glargine (Lantus Per Unit Charge) 7 units SQ BID MIGDALIA Stop: 04/30/22 20:59 Last Admin: 04/07/22 08:54 Dose: 7 units Lorazepam (Lorazepam 0.5 Mg Tab) 0.5 mg PO HS PRN PRN Reason: insomnia Stop: 04/27/22 01:13 Last Admin: 04/02/22 21:47 Dose: 0.5 mg Miscellaneous (Carbohydrates For Hypoglycemia ) 15 - 30 gm PO UD PRN PRN Reason: Hypoglycemia Protocol Stop: 04/27/22 01:13 Multivitamins/Minerals (Cerovite Adv Formula Tab) 1 tab PO DAILY MIGDALIA Stop: 04/27/22 08:59 Last Admin: 04/07/22 09:01 Dose: 1 tab Pantoprazole Sodium (Pantoprazole 40 Mg Tab) 40 mg PO DAILY MIGDALIA Stop: 04/27/22 08:59 Last Admin: 04/07/22 09:01 Dose: 40 mg Polyethylene Glycol (Polyethylene (Miralax) 17 Gm Pack) 17 gm PO DAILY MIGDALIA Stop: 04/27/22 08:59 Last Admin: 04/07/22 09:01 Dose: 17 gm
[2022-04-07 17:07] LABS: Basophils # (auto) 0.02 K/uL (0-0.2); Basophils % (auto) 0.2 %; Eosinophils # (auto) 0.13 K/uL (0-0.50); Eosinophils % (auto) 1.3 %; Hematocrit (blood only) 33.1 % (34.1-44.9); Hemoglobin 11.3 g/dl (12.0-16.0); Immature Granulocytes # (auto) 0.04 K/uL (0.00-0.02); Immature Granulocytes % (auto) 0.4 %; Lymphocytes # (auto) 2.24 K/uL (1.2-3.4); Lymphocytes % (auto) 22.5 %; Mean Corpuscular Hemoglobin 29.7 pg (25.0-34.0); Mean Corpuscular Hgb Conc 34.1 g/dL (32.0-36.0); Mean Corpuscular Volume 86.9 fL (80.0-100.0); Mean Platelet Volume 9.2 fL (9.4-12.3); Monocytes # (auto) 1.08 K/uL (0.24-0.82); Monocytes % (auto) 10.9 %; Neutrophils # (auto) 6.44 K/uL (1.4-6.5); Neutrophils % (auto) 64.7 %; Platelet Count 260 K/uL (130-400); RDW Coefficient of Variation 15.2 % (11.5-14.5); RDW Standard Deviation 48.4 fL (36.4-46.3); Red Blood Count 3.81 M/uL (3.93-5.22); White Blood Count 9.95 K/ul (4.8-10.8)
[2022-04-07] MEDS ORDERED: LACTATED RINGER'S 1,000 ML IV ONE (17:20)
[2022-04-07 17:36] LABS: BUN Creatinine Ratio 18.4 (10-20); Calcium 9.1 mg/dl (8.5-10.1); Creatinine Clr Calc Pharmacy 44.9 ml/min; Est GFR (African American) 82.9 ml/min; Est GFR (Non-African American) 71.5 ml/min; Phosphorus 3.1 mg/dl (2.5-4.9); Potassium 3.9 mmol/L (3.5-5.1)
--- NOTE | 2022-04-07 17:48 | CT Scan Report ---
CT OF THE HEAD WITHOUT CONTRAST CLINICAL HISTORY: Altered mental status. COMPARISON STUDY: Head CT March 27, 2022. MRI of the brain May 24, 2019. CT DOSE: 537.48 mGy.cm TECHNIQUE: Helical axial images of the head were obtained without IV contrast. Automated exposure con trol was utilized for the study. A dose lowering technique was utilized adhering to the principles o f ALARA. FINDINGS: No acute intracranial hemorrhage, midline shift or mass effect is present. The ventricular system is unremarkable. White matter hypodensities are unchanged and suggest small vessel disease. Ca lcifications adjacent to the frontal horn of the right lateral ventricle are unchanged. The basal cis terns are patent. No extra-axial collections are present. There are no findings to suggest acute dura l sinus thrombosis or acute territorial infarct. No significant calvarial abnormalities are present. There is mild sinus mucosal thickening. IMPRESSION: No acute intracranial findings. No change in appearance of the brain. ACT 112: Negative or not required by law. Electronically signed by: Malcolm Rivera M.D. 04/07/2022 5:45 PM
[2022-04-07] MEDS ORDERED: CEFEPIME 2,000 MG in SYRINGE 0 ML IV ONE (18:30)
[2022-04-07 19:10] LABS: Appearance Urine Clear (Clear); Bacteria Urine Automated Negative (Negative); Bilirubin Urine Negative (Negative); Blood Urine Negative (Negative); Color Urine Dark Yellow; Glucose Urine UA 2+ (Negative); Ketones Urine Negative (Negative); Leukocyte Esterase Urine 1+ (Negative); Nitrite Urine Negative (Negative); Protein Urine Trace (Negative); RBC Urine Automated 0-4 /hpf (0-4); Urobilinogen Urine Negative (Negative)
[2022-04-07] MEDS: CYANOCOBALAMIN (B-12) 500 MCG TABLET PO SCH (21:16)
[2022-04-07] MEDS: ATENOLOL 25 MG TABLET PO SCH (21:17)
[2022-04-07] MEDS: ATORVASTATIN 40 MG TAB PO SCH (21:17)
--- NOTE | 2022-04-07 22:27 | Communication Note ---
Date of Service: April 07, 2022 Was notified by nurse around 16:20 about patient being more somnolent. Patient drowsy on exam but easily rousable to verbal stimuli and interacts as usual but quick to fall asleep again. Work up ordered for ECG, labs, CTH which were unremarkable. Blood cultures, UA ordered, IVF and empiric antibiotics with cefepime started. Continue to monitor.
[2022-04-08] MEDS: CEFEPIME 2,000 MG in SYRINGE 0 ML IV SCH ×3 (06:22→22:21)
[2022-04-08] MEDS: ACETAMINOPHEN 325 MG TAB PO PRN ×3 (08:30→23:07)
--- NOTE | 2022-04-08 08:39 | Electrocardiogram Report ---
Test Reason : Blood Pressure : / mmHG Vent. Rate : 066 BPM Atrial Rate : 066 BPM P-R Int : 162 ms QRS Dur : 120 ms QT Int : 396 ms P-R-T Axes : -01 099 005 degrees QTc Int : 415 ms Normal sinus rhythm Right bundle branch block T wave abnormality, consider inferior ischemia Abnormal ECG When compared with ECG of 27-MAR-2022 18:11, Right bundle branch block is now Present Confirmed by Bob Bernstein ([id number]) on 04/08/2022 8:39:23 AM Referred By: REFERRED SELF Confirmed By:Jett Bernstein
[2022-04-08 08:56] LABS: Creatinine Clr Calc Pharmacy 43.1 ml/min; Est GFR (African American) 79.1 ml/min; Est GFR (Non-African American) 68.3 ml/min
[2022-04-08] MEDS: DOCUSATE SODIUM 100 MG CAP PO SCH ×2 (09:25→21:26)
[2022-04-08] MEDS: CEROVITE ADV FORMULA TAB PO SCH (09:25)
[2022-04-08] MEDS: PANTOprazole 40 MG TAB PO SCH (09:26)
[2022-04-08 09:45] LABS: Hematocrit (blood only) 33.3 % (34.1-44.9); Hemoglobin 11.6 g/dl (12.0-16.0); Mean Corpuscular Hemoglobin 29.8 pg (25.0-34.0); Mean Corpuscular Hgb Conc 34.8 g/dL (32.0-36.0); Mean Corpuscular Volume 85.6 fL (80.0-100.0); Mean Platelet Volume 9.1 fL (9.4-12.3); Platelet Count 272 K/uL (130-400); RDW Coefficient of Variation 15.2 % (11.5-14.5); RDW Standard Deviation 47.7 fL (36.4-46.3); Red Blood Count 3.89 M/uL (3.93-5.22); White Blood Count 12.27 K/ul (4.8-10.8)
[2022-04-08] MEDS: LANTUS PER UNIT CHARGE SQ SCH ×2 (10:15→21:40)
[2022-04-08] MEDS: INSULIN ASPART PER UNIT SC SCH ×4 (10:15→21:40)
[2022-04-08] MEDS: ENOXAPARIN INJ 40 MG/0.4 ML SYR SQ SCH (10:19)
[2022-04-08] MEDS: ASPIRIN 81 MG ECTAB PO SCH (10:20)
[2022-04-08] MEDS: amLODIPine BESYLATE 5 MG TAB PO SCH (10:20)
[2022-04-08] MEDS: POLYETHYLENE (MIRALAX) 17 GM PACK PO SCH (10:20)
[2022-04-08] MEDS: GABAPENTIN 100 MG CAP PO SCH ×2 (10:21→21:26)
--- NOTE | 2022-04-08 19:05 | Hospitalist Progress Note ---
Date of Service April 08, 2022 Assessment & Plan (1) Weakness: (2) Dementia: Plan: Acute metabolic encephalopathy with underlying dementia Possible due to UTI urine cx positive for UTI - Completed course of abx with Rocephin Mental status back to baseline PT/OT eval Plan to discharge to [facility] (3) HTN (hypertension): Plan: Continue metoprolol and Atenolol BP stable (4) Hypomagnesemia: Plan: Mg 2 on 04/07 Stable (5) Acute UTI: Plan: urine cx positive for UTI Completed course of abx with Rocephin (6) COVID-19: Plan: CXR:No active disease in the chest. CRP: 2.04 Saturating well on room air did not meet the criteria for dexamethasone and remdesivir Antitussives as needed stable (7) Hyponatremia: Plan: No neurologic deficits Continue monitor BMP (8) Breast cancer, stage 2: Plan: S/P surgery, Tamoxifen Rx Patient refused chemo currently in remission (9) DM2 (diabetes mellitus, type 2): Plan: Hold oral medications HbA1C; 9.04 January 2022 Continue lantus and insulin sliding scale Continue monitor BS (10) Hypercholesterolemia: Plan: - continue statin Plan DVT ppx: lovenox Code Status: Full code Dispo: med/surg Admission and Anticipated Discharge Date Admission Date: March 27, 2022 Subjective Pt was seen and examined for follow up of fever/drowsiness and covid 19 Lying in bed with no acute distress Pt said that she feels ok Nurse said that pt has been sleeping mostly Denies any chest pain, palpitation, dizziness and SOB Review of Systems Review of Systems: All systems reviewed & are unremarkable except as noted in Subjective Physical Exam Physical Exam: General- No acute distress Head- atraumatic Eyes- PERRL, EOMI, ENT- oropharynx clear Neck- supple, no JVD Lungs- clear to auscultation Heart- regular rhythm; no murmur Abdomen- normal bowel sounds, soft, nontender Extremities- no calf tenderness Neuro- alert, oriented x 3; PERRL, EOMI; no facial palsy; no dysarthria, no focal neuro deficit Skin- warm & dry Results & Data Results & Data ([facility]) Vital Signs (Past 12 Hours) Vital Signs Temp Pulse Resp BP Pulse Ox O2 Del Method 04/08/22 17:18 36.7 C 81 18 140/78 94 04/08/22 12:05 36.9 C 04/08/22 09:39 Room Air 04/08/22 08:29 37.8 C H 78 18 130/71 94 Room Air
[2022-04-08] MEDS: CYANOCOBALAMIN (B-12) 500 MCG TABLET PO SCH (21:26)
[2022-04-08] MEDS: ATENOLOL 25 MG TABLET PO SCH (21:26)
[2022-04-08] MEDS: ATORVASTATIN 40 MG TAB PO SCH (21:26)
--- NOTE | 2022-04-08 21:56 | Communication Note ---
Date of Service: April 08, 2022 IV team unable to obtain IV access on patient as per RN. Unable to administer IV cefepime due to issue as per RN. (Antibiotic started a few days ago due to fever.) Oral ciprofloxacin for now while IV cefepime cannot be administered due to IV access issues.
[2022-04-08] MEDS: CIPROFLOXACIN 250 MG TAB PO SCH (23:07)
[2022-04-09] MEDS: CEFEPIME 2,000 MG in SYRINGE 0 ML IV SCH (06:01)
[2022-04-09] MEDS: INSULIN ASPART PER UNIT SC SCH ×4 (09:31→21:03)
[2022-04-09] MEDS: LANTUS PER UNIT CHARGE SQ SCH ×2 (09:32→21:03)
[2022-04-09] MEDS: amLODIPine BESYLATE 5 MG TAB PO SCH (09:44)
[2022-04-09] MEDS: ASPIRIN 81 MG ECTAB PO SCH (09:44)
[2022-04-09] MEDS: DOCUSATE SODIUM 100 MG CAP PO SCH ×2 (09:45→21:14)
[2022-04-09] MEDS: PANTOprazole 40 MG TAB PO SCH (09:46)
[2022-04-09] MEDS: CEROVITE ADV FORMULA TAB PO SCH (09:46)
[2022-04-09] MEDS: ENOXAPARIN INJ 40 MG/0.4 ML SYR SQ SCH (09:46)
[2022-04-09] MEDS: CIPROFLOXACIN 250 MG TAB PO SCH (09:46)
[2022-04-09] MEDS: GABAPENTIN 100 MG CAP PO SCH ×2 (09:47→21:13)
[2022-04-09] MEDS: POLYETHYLENE (MIRALAX) 17 GM PACK PO SCH (09:48)
[2022-04-09 13:07] LABS: Hematocrit (blood only) 33.5 % (34.1-44.9); Hemoglobin 11.5 g/dl (12.0-16.0); Mean Corpuscular Hemoglobin 30.3 pg (25.0-34.0); Mean Corpuscular Hgb Conc 34.3 g/dL (32.0-36.0); Mean Corpuscular Volume 88.2 fL (80.0-100.0); Mean Platelet Volume 9.4 fL (9.4-12.3); Platelet Count 281 K/uL (130-400); RDW Coefficient of Variation 15.3 % (11.5-14.5); RDW Standard Deviation 49.1 fL (36.4-46.3); White Blood Count 9.39 K/ul (4.8-10.8)
[2022-04-09 13:30] LABS: Creatinine Clr Calc Pharmacy 40.6 ml/min; Est GFR (African American) 73.5 ml/min; Est GFR (Non-African American) 63.4 ml/min; Potassium 3.7 mmol/L (3.5-5.1)
[2022-04-09] MEDS ORDERED: SODIUM CHLORIDE 0.9% 500 ML IV SCH (14:45)
--- NOTE | 2022-04-09 16:48 | Hospitalist Progress Note ---
Date of Service April 09, 2022 Assessment & Plan (1) Weakness: Plan This is an 87yo F with PMH of hypertension, hyperlipidemia, left breast cancer status post surgery status post tamoxifen Rx, DM2 on oral medications, GERD, recurrent UTIs, dementia presenting with generalized weakness and worsened confusion in setting of acute UTI and covid 19. Acute metabolic encephalopathy -> resolved Dementia In setting of covid 19, UTI Urine and blood cultures negative Mental status back to baseline, awaiting placement Abnormal UA Abnormal UA and started on abx but urine and blood cx both negative so no indication for continued abx at this time COVID-19 CXR:No active disease in the chest CRP: 2.04 Saturating well on room air Antitussives as needed Infection control continuing isolation given T of 37.9 C last evening Hyponatremia - mild and stable - no neurologic deficits - encourage po intake Hypertension - continue amlodipine and atenolol Breast cancer, stage 2 S/P surgery, Tamoxifen Rx Patient refused chemo currently in remission DM2 (diabetes mellitus, type 2) - Hold oral medications - HbA1C; 9.04 January 2022 - lantus 7 units - ISS while inpatient Hypercholesterolemia - continue statin Plan DVT ppx: lovenox Code Status: Full code Dispo: med/surg Admission and Anticipated Discharge Date Admission Date: March 27, 2022 Supervising Physician Co-Signing Physician Notes Pt was seen and examined. Agreed with Maame GANDHI exam, assessment and plan. 87yo F with PMH of hypertension, hyperlipidemia, left breast cancer status post surgery status post tamoxifen Rx, DM2 on oral medications, GERD, recurrent UTIs, dementia presenting with generalized weakness and worsened confusion in setting of acute UTI and covid 19. Mental status improves. She has been afebrile. she is off isolation today. Plan to transfer to SNF. continue PT/OT. MD Garrick Subjective Pt was seen and examined for follow up of fever/drowsiness and covid 19. Lying in bed with no acute distress. Is oriented to person but not to place, time or situation. States she feels comfortable. Denies any chest pain or abdominal pain. No SOB. Remainder of ROS unobtainable due to baseline dementia. Review of Systems Review of Systems: Unobtainable due to cognitive status Physical Exam Physical Exam: Gen: WD/WN, NAD, sitting in bed, A&Ox person only. Pleasantly confused HEENT: Normocephalic, atraumatic, conjunctivae moist, sclerae anicteric, mucous membranes moist Lung: Diminished breath sounds but clear. No wheezes/rales/rhonchi Heart: Regular rate, regular rhythm, no murmurs, rubs, or gallops Abdomen: Soft, NT, ND +BS x 4 Extremities: no edema Skin: Warm, no rash Results & Data Results & Data ([facility]) Vital Signs (Past 12 Hours) Vital Signs Temp Pulse Resp BP BP Pulse Ox O2 Del Method 04/09/22 15:13 37.0 C 72 16 108/69 95 Room Air 04/09/22 09:05 Room Air 04/09/22 09:43 68 118/63 04/09/22 07:09 36.7 C 75 18 105/63 95 Room Air
[2022-04-09] MEDS: CYANOCOBALAMIN (B-12) 500 MCG TABLET PO SCH (21:13)
[2022-04-09] MEDS: ATORVASTATIN 40 MG TAB PO SCH (21:13)
[2022-04-09] MEDS: ATENOLOL 25 MG TABLET PO SCH (21:13)
[2022-04-10 06:18] LABS: Creatinine Clr Calc Pharmacy 49.4 ml/min; Est GFR (Non-African American) 79.4 ml/min
[2022-04-10] MEDS: POLYETHYLENE (MIRALAX) 17 GM PACK PO SCH (09:19)
[2022-04-10] MEDS: ASPIRIN 81 MG ECTAB PO SCH (09:22)
[2022-04-10] MEDS: DOCUSATE SODIUM 100 MG CAP PO SCH (09:23)
[2022-04-10] MEDS: ENOXAPARIN INJ 40 MG/0.4 ML SYR SQ SCH (09:23)
[2022-04-10] MEDS: amLODIPine BESYLATE 5 MG TAB PO SCH (09:24)
[2022-04-10] MEDS: CEROVITE ADV FORMULA TAB PO SCH (09:24)
[2022-04-10] MEDS: GABAPENTIN 100 MG CAP PO SCH (09:24)
[2022-04-10] MEDS: PANTOprazole 40 MG TAB PO SCH (09:25)
[2022-04-10] MEDS: LANTUS PER UNIT CHARGE SQ SCH (09:33)
[2022-04-10] MEDS: INSULIN ASPART PER UNIT SC SCH ×2 (09:33→12:46)
--- NOTE | 2022-04-10 13:03 | Discharge Summary ---
Date of Service April 10, 2022 Admission HPI Per Admitting Provider Patient has prior MR#:[id number]. History obtained from patient, family, and records. History somewhat limited from patient secondary to dementia. Medical history significant for hypertension, hyperlipidemia, left breast cancer status post surgery status post tamoxifen Rx, DM2 on oral medications, GERD, recurrent UTIs, dementia. Last confinement April 2021 for UTI. Patient seen at the ER last month for falls and UTI symptoms. Patient prescribed cefdinir for E. coli UTI. Few days history of increasing weakness, poor appetite. Generalized weakness. Patient claims she fell down which is disputed by her caregiver. No cough symptoms. Sick COVID-19 contacts at home. Patient completed COVID-19 vaccination No chest pain, no SOB, no headache, no abdominal pain, no dysuria complaints. No black or bloody stools. Patient not any more confused than usual as per caregiver. Patient brought to the ER for evaluation. IV ceftriaxone administered at the ER for UTI. 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 Admission Exam Per Admitting Provider GENERAL: Comfortable, pleasantly demented, no respiratory distress SKIN: Normal color, warm HEENT: Spry palpebral conjunctivae, no ptosis, dry buccal mucosa NECK : Supple, no tenderness CHEST : CTA, no tenderness HEART : RRR, no obvious murmurs ABDOMEN: Some distention, nontender RECTAL : Intact sphincter, brown stool (FOBT positive) EXTREMITIES : Minimal LE swelling, no LE tenderness, no other conspicuous deformities noted NEUROLOGIC : Demented, no facial asymmetry, gait and stance not assessed Principal Diagnosis covid 19 infection, metabolic encephalopathy Discharge Exam Gen: WD/WN, NAD, sitting in bed, A&Ox person only. Pleasantly confused HEENT: Normocephalic, atraumatic, conjunctivae moist, sclerae anicteric, mucous membranes moist Lung: Diminished breath sounds but clear. No wheezes/rales/rhonchi Heart: Regular rate, regular rhythm, no murmurs, rubs, or gallops Abdomen: Soft, NT, ND +BS x 4 Extremities: no edema Skin: Warm, no rash Discharge Data Allergies Allergy/AdvReac Type Severity Reaction Status Date / Time No Known Allergies Allergy Unverified 03/28/22 12:14 Consultations 03/27/22 20:08 ED Decision to Admit Stat Ordered Studies 03/27/22 17:33 CT head/brain wo con Stat 04/07/22 16:56 CT head/brain wo con Stat Hospital Course (1) Acute metabolic encephalopathy: (2) COVID-19: (3) Dementia: (4) DM2 (diabetes mellitus, type 2): (5) Hyponatremia: (6) Generalized weakness: (7) Hypertension: (8) Breast cancer, stage 2: Plan This is an 87yo F with a PMH of hypertension, hyperlipidemia, left breast cancer status post surgery status post tamoxifen Rx, DM2 on oral medications, GERD, recurrent UTIs, dementia who presents with generalized weakness and found to have covid 19 infection. Admission CXR without active disease in chest. Saturated in room air throughout and is now off of isolation. Initially started on empiric antibiotic for abnormal UA but discontinued with urine and blood culture returned without growth. Mild hyponatremia on admission resolved with gentle PO hydration. Initial confusion resolved and patient back to mentating at baseline - A&O to person only. Atenolol dose decreased from 50 to 25mg due to low/normal BP. Discharging to [facility] for continued care. Patient comfortable and hemdynamically stable at time of discharge. Total Time Total Time Spent Total Time Spent (In Minutes): 50 Discharge Plan Discharge Items Patient Disposition: Transfer Halfway Fac Reason For Visit: COMPLICATED UTI,COVID Discharge Diagnosis: covid 19 infection, metabolic encephalopathy Condition on Discharge: Fair Activity: Resume your previous activity Non-emergency contact: Primary Care Provider Call non-emergency contact if: you have any medication questions, your symptoms worsen, your pain is not controlled and you have a fever Follow-up/Referrals: PCP,NO [Physician] - Diet: Carb Consistent or DM2 Addtl Attending Provider Instructions: You were admitted for worsening confusion and generalized weakness in the setting of covid 19. Symptoms have resolved and patient is free of covid symptoms. Off of isolation. Initially started on empiric antibiotics but discontinued with urine and blood culture returned without growth. CXR without active disease in chest, saturating well on room air. Hyponatremia resolved with gentle PO hydration. Atenolol dose decreased from 50 to 25mg due to low/normal BP. Discharging to [facility] for continued care. OTHER INSTRUCTIONS: Seek medical attention if you have: * temperature above 101 * chest pain or trouble breathing * abdominal pain, nausea, vomiting * diarrhea, dark stools or bloody stools * any unanswered questions or concerns Call 911 if symptoms are severe. Please take good care of yourself. Call if you have any questions or problems. You can reach a [facility] hospitalist on duty at [facility] 24 hours a day by calling [phone]. Maame Ibanez PA-C [facility] Hospitalist Pending Studies at Discharge: No Stand-Alone Forms: [facility] Skilled Items Patient informed of condition?: Yes DNR: No Discharge Level of Care: Skilled Communicable Disease: No Discharge Prognosis: Stable Lines: None Urinary Catheter: No Medications and DC Order Prescriptions: New atenolol 25 mg Tablet 25 mg PO HS Qty: 30 0RF Continued atorvastatin 40 mg Tablet 40 mg PO HS Qty: 30 0RF metformin 500 mg Tablet 500 mg PO BID Qty: 60 0RF polyethylene glycol 3350 [Miralax] 17 gram Powder In Packet 17 g PO DAILY Qty: 30 0RF glipizide 10 mg Tablet 20 mg PO BID Qty: 60 0RF cyanocobalamin (vitamin B-12) [Vitamin B-12] 1,000 mcg Tablet 1,000 mcg PO QPM Qty: 30 0RF amlodipine 5 mg Tablet 5 mg PO DAILY Qty: 30 0RF calcium carbonate-vitamin D3 600 mg-5 mcg (200 unit) Tablet 1 tab PO BID Qty: 30 0RF aspirin 81 mg Tablet,Delayed Release (Dr/Ec) 81 mg PO DAILY Qty: 30 0RF lorazepam [Ativan] 0.5 mg Tablet 0.5 mg PO HS Qty: 30 0RF docusate sodium 100 mg Capsule 100 mg PO AMHS Qty: 60 0RF gabapentin 100 mg Capsule 200 mg PO BID Qty: 60 0RF diphenhydramine-acetaminophen [Tylenol PM Extra Strength] 25-500 mg Tablet 1 tab PO HS PRN (Reason: Sleep) Qty: 14 0RF [id number] Tablet 1 tab PO DAILY Qty: 30 0RF cholecalciferol (vitamin D3) [Vitamin D3] 25 mcg (1,000 unit) Tablet 25 mcg PO DAILY Qty: 30 0RF insulin glargine [Lantus Solostar U-100 Insulin] 100 unit/mL (3 mL) Insulin Pen 8 unit SUBCUT .DAILY OR UD Qty: 15 0RF omeprazole 20 mg Tablet,Delayed Release (Dr/Ec) 20 mg PO DAILY Qty: 30 0RF Discontinued cefdinir 300 mg Capsule 300 mg PO AMHS atenolol 50 mg Tablet 50 mg PO HS Discharge Orders: Discharge Order (Routine); Ordered 04/10/22 Ordered By: Maame Gar/Other Patient Handouts: Managing Type 2 Diabetes Admission Data Admit Date/Time: 03/27/22 22:19 Attending Provider: Karolyn Mccauley Admit Provider: Lopez Denton Primary Care Provider: Maged Castano Other Providers: Lopez Denton ; [place],[facility] ; [facility] ; Matt Davis ; Maame Ibanez Other Interventions: Discharge Summary Assessment (RN) Last Done: 04/10/22 13:14
== END 2022-04-10 14:16 | DRG 177 ==
LOC: EDBD → ED 16:52 → INTOOBSV 22:19 → 3E 22:19 → SUATTDRO 22:19 → MERGE 22:19 → 3E 23:21